=== PATIENT | female | born 2000 | race Caucasian/White ===

== ENCOUNTER → 2022-08-19 | Outpatient (CLI) | payer OTHER, SELFPAY ==
[2022-08-19 10:52] LABS: Erythrocyte Sedimentation Rate < 1 mm/hr (0-30)
[2022-08-19 10:58] LABS: International Normalized Ratio 1.2; Prothrombin Time (Protime)PT. 14.4 SECONDS (11.7-14.9)
[2022-08-19 11:08] LABS: CRP < 2.90 mg/L (0.0-3.0); Ferritin 108 ng/mL (8-252); LDH 150 U/L (84-246)
[2022-08-20 13:08] LABS: Anti-Centromere B Ab <0.2 AI (0.0-0.9); Anti-Chromatin <0.2 AI (0.0-0.9); Anti-Jo <0.2 AI (0.0-0.9); Anti-Scleroderma-70 AB <0.2 AI (0.0-0.9); RNP Ab <0.2 AI (0.0-0.9); SJOGREN'S Anti-SS-A test < 0.2 AI (0.0-0.9); SJOGREN'S Anti-SS-B test < 0.2 AI (0.0-0.9); Smith Ab <0.2 AI (0.0-0.9)
[2022-08-20 15:08] LABS: Endomysial Antibody IgA Negative (Negative)
[2022-08-20 15:36] LABS: Anti-dsDNA Ab 2 IU/mL (0-9)
[2022-08-20 15:39] LABS: Immunoglobulin A 137 mg/dL (87-352); t-Transglutaminase IgA <2 U/mL (0-3)
[2022-08-27 00:07] LABS: Cytoplasmic Ab (C-ANCA) <1:20 titer (Neg:<1:20); HEPATITIS B SURFACE AG Negative (Negative); Hep C Antibodies 0.1 s/co ratio (0.0-0.9); Hepatitis A IgM Antibody Negative (Negative); Hepatitis B Core AB IgM Negative (Negative); Immunoglobulin A 133 mg/dL (87-352); Immunoglobulin E 15 IU/mL (6-495); Immunoglobulin G 1275 mg/dL (586-1602)
[2022-08-27 11:22] LABS: Anti-Smooth Muscle ABS 11 Units (0-19); Immunoglobulin M 242 mg/dL (26-217); Perinuclear Ab (P-ANCA) <1:20 titer (Neg:<1:20)
== END | disposition home or self-care (01) ==
LOC: LAB 09:18
PROVIDERS: PCP Nurse Practitioner Family; Visit Provider Internal Medicine Gastroenterology
DX: K75.4 Autoimmune hepatitis (principal); K59.00 Constipation, unspecified
CPT/HCPCS: 36415; 80074; 82728; 82784; 82785; 83516; 83615; 85610; 85652; 86140; 86225; 86235; 86255; 86256

== ENCOUNTER → 2022-09-21 | Outpatient (CLI) | payer OTHER, SELFPAY ==
--- NOTE | 2022-09-21 09:38 | US_ITS ---
STUDY: ABDOMINAL ULTRASOUND - RIGHT UPPER QUADRANT REASON FOR VISIT: Female, 22 years old IYER TECHNIQUE: Ultrasound evaluation of the right upper quadrant was performed with real-time and static mullins-scale imaging. TECHNICAL QUALITY: Adequate. COMPARISON: None. FINDINGS: Liver: The liver measures 15.6 cm. There is normal echogenicity of the liver. The bile ducts are within normal limits. There is hepatic color flow. The direction of portal flow is hepatopetal. There is no demonstrated mass lesion. Gallbladder: Normal distended gallbladder. The gallbladder wall measures 3 mm. There is a negative sonographic Henley''s sign. There is no pericholecystic fluid. There are no gallstones. Common Bile Duct (C.B.D.): The common bile duct measures 1.0 mm. Pancreas: Normal size of the head, body and tail of the pancreas. There is normal echogenicity of the pancreas. There is no demonstrated pancreatic mass or cyst. Right Kidney: Normal size of the right kidney. The right kidney measures 11.5 cm x 4.6 x 3.9 cm. Normal renal cortex. The right cortex measures 1.1 cm. There is no demonstrated renal mass or cyst. There is no right hydronephrosis. US/Abdomen Limited IMPRESSION: Normal right upper quadrant ultrasound examination. Electronically Signed: Gilbert Pugh MD at 12:45 EST ,
--- NOTE | 2022-09-21 09:38 | US_ITS ---
STUDY: ABDOMINAL ULTRASOUND - ELASTOGRAPHY REASON FOR VISIT: Female, 22 years old. IYER TECHNIQUE: Liver stiffness measurements were obtained on a [employer] RS 85 ultrasound machine using a CA 1-7 probe following the SRU guidelines. 3 measurements were obtained using a 2-D-SWE method. TheIQR/M was 12% suggesting a quality data set. TECHNICAL QUALITY: Adequate. COMPARISON: Comparison is made with prior study done earlier today. FINDINGS: Liver: There is no demonstrated mass lesion. Median liver stiffness measured 5.5 kPa. US/Elastography Parenchyma/Organ IMPRESSION: Liver stiffness measures 5.5 kPa compatible with F0-F1 (Normal to mild liver fibrosis) Metavir score. Electronically Signed: Gilbert Pugh MD at 12:47 EST ,
== END | disposition home or self-care (01) ==
LOC: US 09:37
PROVIDERS: PCP Nurse Practitioner Family; Referring Provider Internal Medicine Gastroenterology; Visit Provider Internal Medicine Gastroenterology
DX: K75.81 Nonalcoholic steatohepatitis (NASH) (principal)
CPT/HCPCS: 76705; 76981

== ENCOUNTER → 2023-05-18 | Outpatient (CLI) | payer OTHER, SELFPAY ==
[2023-05-18 09:51] LABS: Absolute Lymphocyte Count 1.55 X10^3/uL (0.83-4.51); Basophil# 0.04 X10^3/uL; Basophil% 0.7 % (0-1); Eosinophil# 0.06 X10^3/uL; Hematocrit 38.8 % (37-47); Hemoglobin 13.1 g/dL (12.0-15.0); Lymphocyte # 1.55 X10^3/ul (0.83-4.51); Lymphocyte % 25.8 % (19-41); Mean Corp Hgb Conc 33.8 g/dL (32-36); Mean Corpuscular Hgb 31.7 pg (27.0-32.0); Mean Corpuscular Volume 93.9 fL (81-99); Mean Platelet Vol. 11.5 fl (6.2-12.0); Monocyte# 0.36 X10^3/uL; NRBC Flagged by Analyzer 0 % (0-5); Neutrophil # 3.98 X10^3/uL (2.7-7.7); Neutrophil % 66.2 % (47-70); Platelet Count 220 K/mm3 (150-450); RBC Distribution Width CV 13.3 % (11.6-14.6); RBC Distribution Width SD 45.6 fl (35.1-43.9); Red Blood Count 4.13 M/mm3 (4.2-5.4)
[2023-05-18 09:54] LABS: Erythrocyte Sedimentation Rate < 1 mm/hr (0-30)
[2023-05-18 10:33] LABS: ALB/GLOB Ratio 1.1 RATIO (0.9-2.4); AST(SGOT) 15 U/L (15-37); Alanine Aminotransfer ALT/SGPT 41 U/L (13-56); Albumin, Serum 4.1 g/dL (3.2-5.0); Alkaline Phosphatase 62 U/L (45-117); Anion Gap 7 (5-15); BUN 12 mg/dL (7-18); BUN/Creat Ratio 12.4 RATIO (10-20); CRP < 2.90 mg/L (0.0-3.0); Calcium,Total 8.9 mg/dL (8.5-10.1); Chloride 107 mmol/L (98-107); Creatinine, Serum 0.96 mg/dL (0.55-1.02); EST Glomerular Filtration Rate 76 mL/min (>60); Est Glom Filt Rate - Afr Amer 92 mL/min (>60); Ferritin 55 ng/mL (8-252); Globulin 3.6 g/dL (2.2-4.2); Glucose 82 mg/dL (74-106); LDH 168 U/L (84-246); Potassium 4.2 mmol/L (3.5-5.1); Protein, Total 7.7 g/dL (6.4-8.2); Sodium Level 140 mmol/L (136-145)
[2023-05-20 20:07] LABS: Anti-Smooth Muscle ABS 15 Units (0-19); Cytoplasmic Ab (C-ANCA) <1:20 titer (Neg:<1:20); Endomysial Antibody IgA Negative (Negative); HEPATITIS B SURFACE AG Negative (Negative); Hep C Antibodies Non Reactive (Non Reactive); Hepatitis A IgM Antibody Negative (Negative); Hepatitis B Core AB IgM Negative (Negative); Immunoglobulin A 117 mg/dL (87-352); Perinuclear Ab (P-ANCA) <1:20 titer (Neg:<1:20); QNTFERON TB Mitogen Value > 10.00 IU/mL (.); QNTFERON TB Nil Value 0.06 IU/mL (.); QNTFERON TB1+ Ag Value 0.06 IU/mL (.); QNTFERON TB2+ Ag Value 0.07 IU/mL (.); QNTIFERON TB Positive Criteria Negative (Negative); t-Transglutaminase IgA <2 U/mL (0-3)
== END | disposition home or self-care (01) ==
LOC: LAB 09:27
PROVIDERS: PCP Nurse Practitioner Family; Referring Provider Internal Medicine Gastroenterology; Visit Provider Internal Medicine Gastroenterology
DX: K75.81 Nonalcoholic steatohepatitis (NASH) (principal); K75.4 Autoimmune hepatitis; K59.00 Constipation, unspecified
CPT/HCPCS: 36415; 80053; 80074; 82728; 82784; 83516; 83615; 85025; 85652; 86140; 86255; 86256; 86480

== ENCOUNTER → 2023-06-01 | Outpatient (CLI) | payer OTHER, SELFPAY ==
--- NOTE | 2023-06-01 08:00 | US_ITS ---
STUDY: ABDOMINAL ULTRASOUND - RIGHT UPPER QUADRANT REASON FOR VISIT: Female, 23 years old Sofia TECHNIQUE: Ultrasound evaluation of the right upper quadrant was performed with real-time and static mullins-scale imaging. TECHNICAL QUALITY: Adequate. COMPARISON: Comparison is made with prior study dated September 21, 2022. FINDINGS: Liver: The liver measures 15.7 cm. There is normal echogenicity of the liver. The bile ducts are within normal limits. There is hepatic color flow. The direction of portal flow is hepatopetal. There is no demonstrated mass lesion. Gallbladder: Normal distended gallbladder. The gallbladder wall measures 1.0 mm. There is a negative sonographic Henley''s sign. There is no pericholecystic fluid. There are no gallstones. Common Bile Duct (C.B.D.): The common bile duct measures 2.0 mm. Pancreas: Normal size of the head, body and tail of the pancreas. There is normal echogenicity of the pancreas. There is no demonstrated pancreatic mass or cyst. Right Kidney: Normal size of the right kidney. The right kidney measures 11.3 cm x 4.2 cm x 4.1 cm. Normal renal cortex. The right cortex measures 1.6 cm. There is no demonstrated renal mass or cyst. There is no right hydronephrosis. IMPRESSION: Normal right upper quadrant ultrasound examination. Electronically Signed: Gilbert Pugh MD at 15:52 EDT , STUDY: ABDOMINAL ULTRASOUND - ELASTOGRAPHY REASON FOR VISIT: Female, 23 years old. SOFIA TECHNIQUE: Liver stiffness measurements were obtained on a [employer] 85 ultrasound machine using a CA 1-7 probe following the SRU guidelines. 3 measurements were obtained using a 2-D-SWE method. TheIQR/M was 7 % suggesting a quality data set. TECHNICAL QUALITY: Adequate. COMPARISON: Comparison is made with prior study dated September 21, 2022. FINDINGS: Liver: There is no demonstrated mass lesion. Median liver stiffness measured 5.8 kPa. Abdomen: There is no demonstrated mass lesion. US/Abdomen Limited IMPRESSION: Liver stiffness measures 5.8 kPa compatible with F0-F1 (Normal to mild liver fibrosis) Metavir score. Electronically Signed: Gilbert Pugh MD at 15:54 EDT ,
== END | disposition home or self-care (01) ==
LOC: US 07:59
PROVIDERS: PCP Nurse Practitioner Family; Referring Provider Internal Medicine Gastroenterology; Visit Provider Internal Medicine Gastroenterology
DX: K75.81 Nonalcoholic steatohepatitis (NASH) (principal); K75.4 Autoimmune hepatitis; K59.00 Constipation, unspecified
CPT/HCPCS: 76705; 76981

== ENCOUNTER → 2023-07-19 | Outpatient (CLI) | payer OTHER, SELFPAY ==
[2023-07-19 09:45] LABS: Absolute Lymphocyte Count 1.92 X10^3/uL (0.83-4.51); Absolute Neutrophil Count 3.6 X10^3/uL (2.0-7.7); Basophil# 0.05 X10^3/uL; Basophil% 0.8 % (0-1); Eosinophil# 0.05 X10^3/uL; Eosinophils% 0.8 % (0-5); Hematocrit 41.2 % (37-47); Hemoglobin 14.3 g/dL (12.0-15.0); Lymphocyte # 1.92 X10^3/ul (0.83-4.51); Lymphocyte % 31.1 % (19-41); Mean Corp Hgb Conc 34.7 g/dL (32-36); Mean Corpuscular Hgb 31.6 pg (27.0-32.0); Mean Corpuscular Volume 90.9 fL (81-99); Mean Platelet Vol. 10.9 fl (6.2-12.0); Monocyte% 8.1 % (0-10); NRBC Flagged by Analyzer 0 % (0-5); Neutrophil # 3.57 X10^3/uL (2.7-7.7); Neutrophil % 57.7 % (47-70); Platelet Count 280 K/mm3 (150-450); RBC Distribution Width CV 12.8 % (11.6-14.6); RBC Distribution Width SD 42.1 fl (35.1-43.9); Red Blood Count 4.53 M/mm3 (4.2-5.4); White Blood Count 6.2 K/mm3 (4.4-11.0)
[2023-07-19 10:20] LABS: ALB/GLOB Ratio 1.1 RATIO (0.9-2.4); AST(SGOT) 15 U/L (15-37); Alanine Aminotransfer ALT/SGPT 72 U/L (13-56); Albumin, Serum 3.9 g/dL (3.2-5.0); Alkaline Phosphatase 62 U/L (45-117); Anion Gap 4 (5-15); BUN 14 mg/dL (7-18); BUN/Creat Ratio 16.6 RATIO (10-20); Calcium,Total 9.1 mg/dL (8.5-10.1); Chloride 111 mmol/L (98-107); Creatinine, Serum 0.84 mg/dL (0.55-1.02); EST Glomerular Filtration Rate 89 mL/min (>60); Est Glom Filt Rate - Afr Amer 108 mL/min (>60); Globulin 3.6 g/dL (2.2-4.2); Glucose 80 mg/dL (74-106); Potassium 4.3 mmol/L (3.5-5.1); Protein, Total 7.5 g/dL (6.4-8.2); Sodium Level 141 mmol/L (136-145)
== END | disposition home or self-care (01) ==
LOC: LAB 09:31
PROVIDERS: PCP Nurse Practitioner Family; Referring Provider Internal Medicine Gastroenterology; Visit Provider Internal Medicine Gastroenterology
DX: K75.4 Autoimmune hepatitis (principal)
CPT/HCPCS: 36415; 80053; 85025

== ENCOUNTER → 2023-09-05 | Outpatient (CLI) | payer OTHER, SELFPAY ==
[2023-09-05 11:12] LABS: Erythrocyte Sedimentation Rate < 1 mm/hr (0-30)
[2023-09-05 11:13] LABS: Absolute Lymphocyte Count 1.27 X10^3/uL (0.83-4.51); Absolute Neutrophil Count 5.3 X10^3/uL (2.0-7.7); Basophil# 0.04 X10^3/uL; Basophil% 0.6 % (0-1); Eosinophil# 0.06 X10^3/uL; Eosinophils% 0.8 % (0-5); Hematocrit 41.8 % (37-47); Hemoglobin 14.2 g/dL (12.0-15.0); Lymphocyte # 1.27 X10^3/ul (0.83-4.51); Mean Corpuscular Hgb 30.9 pg (27.0-32.0); Mean Corpuscular Volume 90.9 fL (81-99); Mean Platelet Vol. 11.1 fl (6.2-12.0); Monocyte# 0.41 X10^3/uL; Monocyte% 5.8 % (0-10); NRBC Flagged by Analyzer 0 % (0-5); Neutrophil # 5.25 X10^3/uL (2.7-7.7); Neutrophil % 74.4 % (47-70); Platelet Count 235 K/mm3 (150-450); RBC Distribution Width CV 13.2 % (11.6-14.6); RBC Distribution Width SD 43.4 fl (35.1-43.9); White Blood Count 7.1 K/mm3 (4.4-11.0)
[2023-09-05 11:16] LABS: International Normalized Ratio 1.1; Prothrombin Time (Protime)PT. 14.4 SECONDS (11.7-14.9)
[2023-09-05 11:30] LABS: ALB/GLOB Ratio 1.1 RATIO (0.9-2.4); AST(SGOT) 13 U/L (15-37); Alanine Aminotransfer ALT/SGPT 20 U/L (13-56); Albumin, Serum 4.1 g/dL (3.2-5.0); Alkaline Phosphatase 62 U/L (45-117); Anion Gap 3 (5-15); BUN 10 mg/dL (7-18); BUN/Creat Ratio 11.4 RATIO (10-20); CRP < 2.90 mg/L (0.0-3.0); Calcium,Total 9.1 mg/dL (8.5-10.1); Chloride 109 mmol/L (98-107); Creatinine, Serum 0.88 mg/dL (0.55-1.02); EST Glomerular Filtration Rate 84 mL/min (>60); Est Glom Filt Rate - Afr Amer 102 mL/min (>60); Globulin 3.7 g/dL (2.2-4.2); Glucose 89 mg/dL (74-106); Potassium 4.1 mmol/L (3.5-5.1); Protein, Total 7.8 g/dL (6.4-8.2); Sodium Level 139 mmol/L (136-145)
== END | disposition home or self-care (01) ==
LOC: LAB 10:09
PROVIDERS: PCP Nurse Practitioner Family; Referring Provider Internal Medicine; Visit Provider Internal Medicine
DX: K75.4 Autoimmune hepatitis (principal)
CPT/HCPCS: 36415; 80053; 85025; 85610; 85652; 86140

== ENCOUNTER → 2023-12-07 | Outpatient (CLI) | payer OTHER, SELFPAY ==
[2023-12-07 14:52] LABS: Erythrocyte Sedimentation Rate < 1 mm/hr (0-30)
[2023-12-07 14:54] LABS: Absolute Lymphocyte Count 1.98 X10^3/uL (0.83-4.51); Absolute Neutrophil Count 4.7 X10^3/uL (2.0-7.7); Basophil# 0.04 X10^3/uL; Basophil% 0.6 % (0-1); Eosinophil# 0.07 X10^3/uL; Hematocrit 40.4 % (37-47); Hemoglobin 14.4 g/dL (12.0-15.0); Lymphocyte # 1.98 X10^3/ul (0.83-4.51); Lymphocyte % 27.6 % (19-41); Mean Corp Hgb Conc 35.6 g/dL (32-36); Mean Corpuscular Hgb 32.1 pg (27.0-32.0); Mean Platelet Vol. 11.4 fl (6.2-12.0); Monocyte# 0.41 X10^3/uL; Monocyte% 5.7 % (0-10); NRBC Flagged by Analyzer 0 % (0-5); Neutrophil # 4.65 X10^3/uL (2.7-7.7); Neutrophil % 64.8 % (47-70); Platelet Count 282 K/mm3 (150-450); RBC Distribution Width SD 42.2 fl (35.1-43.9); Red Blood Count 4.49 M/mm3 (4.2-5.4); White Blood Count 7.2 K/mm3 (4.4-11.0)
[2023-12-07 15:00] LABS: International Normalized Ratio 1.2
[2023-12-07 15:06] LABS: ALB/GLOB Ratio 1.2 RATIO (0.9-2.4); AST(SGOT) 11 U/L (15-37); Alanine Aminotransfer ALT/SGPT 20 U/L (13-56); Albumin, Serum 4.4 g/dL (3.2-5.0); Alkaline Phosphatase 63 U/L (45-117); Anion Gap 7 (5-15); BUN 12 mg/dL (7-18); CRP < 2.90 mg/L (0.0-3.0); Calcium,Total 9.4 mg/dL (8.5-10.1); Chloride 106 mmol/L (98-107); EST Glomerular Filtration Rate 73 mL/min (>60); Est Glom Filt Rate - Afr Amer 88 mL/min (>60); Globulin 3.7 g/dL (2.2-4.2); Glucose 86 mg/dL (74-106); Potassium 3.8 mmol/L (3.5-5.1); Protein, Total 8.1 g/dL (6.4-8.2); Sodium Level 138 mmol/L (136-145)
[2023-12-07 15:11] LABS: Vitamin D,25 Hydroxy 34.2 ng/mL
[2023-12-09 08:11] LABS: AFP, Tumor Marker < 1.8 ng/mL (0.0-4.7)
== END | disposition home or self-care (01) ==
LOC: LAB 13:25
PROVIDERS: PCP Nurse Practitioner Family; Referring Provider Internal Medicine; Visit Provider Internal Medicine
DX: K75.4 Autoimmune hepatitis (principal); K75.81 Nonalcoholic steatohepatitis (NASH)
CPT/HCPCS: 36415; 80053; 82105; 82306; 85025; 85610; 85652; 86140

== ENCOUNTER 2024-01-02 08:27 | Day surgery (SDC) | payer OTHER, SELFPAY ==
[2024-01-02 08:44] VITALS: BP 111/78; PULSE 85; RESP 16; TEMP 36.6; O2SAT 100; BMI 17.4
[2024-01-02 08:44] LABS: Internal QC Validated? YES +Cl - CLEAR BKGD; Pregnancy, Urine Negative Negative
[2024-01-02 08:45] LABS: Record Kit Lot#,Urine Preg HCG0000718086
[2024-01-02] MEDS: Lactated Ringers 1,000 ML 15 ML IV (08:49)
--- NOTE | 2024-01-02 09:30 | PCM.HP.BLA ---
History and Physical Date of Admission: 01/02/24 ASHIA ZUÑIGA, is a 23 F who presents to the office today for follow up. Ashia established with this clinic 08.19.22. She was previously diagnosed with autoimmune hepatitis by Dr. Granados in 2009 following routine lab work revealing transaminase elevation in the 400?s. Abdominal US followed by Liver biopsy 04.30.2010 mild chronic active hepatitis with portal inflammation 3 of 4, piecemeal necrosis /20, lobular degeneration/necrosis ? and fibrosis 0/4. Subsequently started on prednisone and Imuran with marked improvement of transaminases. US RUQ ..17 normal. Liver biopsy 09.09.2017 portal inflammation 1 of 4 with mild lymphocytes in one portal area; periportal/periseptal inflammation 0 of 5; parenchymal changes 0 of 4, confluent necrosis 0 of 6; fibrosis 0 of 6. she developed dark urine and jaundice with AST 89/ALT 125, TB 3.1, DB 0.8, platelet 132 ? started on prednisone 40mg QD. 12.22.20 labs AST 122/ALT 184, TB 2.4 ? prednisone 30mg BID. Liver US normal, doppler reports portal HTN. 12.30.20 labs AST 26/ALT 101, TB 1.1, DB 0.2. 6TG 250, 6MMP 392. ? Imuran increased to 75mg QD. 01.13.21 labs normalized and prednisone Weaned 6.. labs AST 23/ALT39, TB 1.3, DB0.2 6TG 414, 6MMP <322 US liver 07.20.21 without portal HTN noted PMH CDI infection at age 10 requiring hospitalization. FH negative for IBD/liver disease. Biochemical workup ESR, coagulation, Ferritin, LDH, CRP, celiac, GUME comp, hepatitis, ANCA, ASM ab, IgGAE without pertinent abnormality. IgM H242 US RUQ and elastography 09.21.22 with normal hepatic echogenicity. No abnormalities noted. Hepatic stiffness measures 5.5kPa. Plan LV 08.19.22: Constipation ? Autoimmune Hepatitis ? biochemical workup and imaging BM have slightly improved with less days between BM but continues to have very small/hard BM without abd pain/bloating/discomfort/bleeding associated. Reports some nausea in the form of a ?gaggy? feeling that she believes is related to her heartburn. Heartburn is an issue approximately 1-2 times a week, feels this is partially associated with poor diet choices. OV 8.9.23 In regards to her liver she feels she is doing very well. She has been itching lately; though body lotion has been helpful. Constipation has been an issue for the last few months; she will have no BM/very small BM for several weeks, has had one episode of loose stool with preceding abdominal cramping. She is not typically having abdominal pain. With this she has been having nausea and decreased appetite, though she continues to feel hungry. [facility] recommended Colace and fiber which have been ineffective. US abd/elastography ..- Liver measures 15.7 5.8 kPa OV 11.27.23- Pt is stable since last visit. Currently taking Imuran 50mg as we were trying to wean her off at last visit. Has tolerated it well. Still struggles with constipation. PCP has her on Amitiza 8mcg BID. Is somewhat helpful Has a BM 1-2 days but feels she is not emptying. Lower abd cramping due to constipation. Is concerned about hair loss. Patient had thin hair and subsequent hair loss before 2009 that led to the diagnosis of AIH after liver biopsy but it got better and her hair becomes thicker after starting on Imuran. It was good until last 4 months again same thing here with hair loss. Patient has not seen cardiopulmonary physical therapist. Denies abdominal pain. OV 3.1.24- Pt continues to have constipation. Did not go for 3 weeks and was seen at [facility] a month ago. Is taking Amitiza 16mcg BID from her primary. BM are still every 5 days. Also has had dizziness, SOB and fatigue. Has also started seeing [facility] and they are currently working her up for possible Antelope's disease and pots. ROS Const Constitutional: Positive for fatigue and weakness ENT ENT: No difficulty swallowing Gastro GI: Positive for bloating, constipation, diarrhea, heartburn, excessive flatus and nausea/dyspepsia; No abdominal pain, belching, change in bowel habits, change in stool character, coffee ground emesis, cramping, difficulty swallowing, feeling full early, incontinent of stools, Vomiting blood/hematemesis, Blood in stool, loose stools, Black,tarry stools, pain with swallowing, vomiting or other Musc Musculoskeletal: Positive for muscle weakness; No joint pain Skin Skin: No yellowing of the eye or itchy eyes Neuro Neurology: Positive for weakness Psych Psychiatric: No anxiety and No depression Endo Endocrine: Positive for fatigue Aller/Imm Allergy/Immunologic: No itchy eyes Lawrence/Lymp Hematologic/Lymphatic: No easy bleeding or easy bruising Quality Reporting Tobacco Screening ([facility] 138) Smoking Status: Never smoker Assessment and Plan Assessment and Plan (1) Autoimmune hepatitis: Status: Chronic Plan: This is a 22-year-old female patient who was diagnosed with AIH type I almost a decade ago; which usually in pancreatic is group's type II. Her lab work reviewed. CBC all 3 cell lines are in normal range. Liver chemistry shows ALT 72, AST 15 otherwise all liver normals. Autoimmune work-up was essentially negative. QuantiFERON gold test negative. Hepatitis panel negative.Last abdominal ultrasound in May 2023 reported normal liver size 15.7 cm with normal echogenicity. 3 system within normal limit. No gallstones CBD 2 mm. Size and echogenicity. No pancreatic mass or cyst. Liver elastography reported 5.5 kPa compatible with F3 to F4 1 normal to mild liver fibrosis mattery score. In meantime, she saw cardiopulmonary physical therapist for her hair loss and seems it is better. He referred to belt fixer patient is feeling very weak and fatigued, low muscle mass. As per the patient though we do not have any record, there is abnormality of testosterone and other hormones and she is getting workup for Loco's disease. Labs reviewed. Liver chemistry, all 3 cell lines within normal limit. Liver ultrasound with elastography also shows normal echogenicity of liver in size. No demonstrated mass. Median liver stiffness 5.5 kPa. Follow-up in 3 months. (2) Constipation: Status: Chronic Qualifiers: Constipation type: unspecified constipation type Qualified Code(s): K59.00 - Constipation, unspecified Plan: She visited [facility] on 10/27/2023 for severe constipation when she did not had bowel movement as per patient for about [address] abdomen and pelvis with contrast was done and reported as GI tract dilatation or evidence of inflammatory changes. Appendix unremarkable. No focal bladder wall thickening, no hydronephrosis or nephrolithiasis. Mild periportal edema and distention of IVC also reported otherwise liver, spleen, pancreas and both adrenal glands appear normal. She was given enema and Dulcolax oral as per the patient she moved bowel and discharged from the ED. She is on Amitiza 16 mcg twice daily She still has Dulcolax oral and takes it when she could not move bowel in 3 days. Advised to take MiraLAX 17 g twice daily and senna S2 tablet twice daily as needed. Will schedule colonoscopy. I have examined the patient and the H&P has been reviewed. There are no clinical changes since date of exam.
--- NOTE | 2024-01-02 09:59 | OP.COLON_ITS ---
Patient Name: Ashia Bonilla Procedure Date: 01/02/2024 9:37 AM Date of : 2000 Age: 23 Procedure: Colonoscopy Indications: Generalized abdominal pain, Abdominal distress in the left upper quadrant, Chronic idiopathic constipation Providers: Angel Gutierrez DO Referring MD: Kennedy Serrano Medicines: Monitored Anesthesia Care Patient Profile: This is a 23 year old female. Refer to note in patient chart for documentation of history and physical. Last Colonoscopy: none. The patient's first colonoscopy is today. Complications: No immediate complications. Procedure: Pre-Anesthesia Assessment: - Prior to the procedure, a History and Physical was performed, and patient medications and allergies were reviewed. The patient is competent. The risks and benefits of the procedure and the sedation options and risks were discussed with the patient. All questions were answered and informed consent was obtained. Patient identification and proposed procedure were verified by the physician in the pre-procedure area. Mental Status Examination: alert and oriented. Airway Examination: normal oropharyngeal airway and neck mobility. Respiratory Examination: clear to auscultation. CV Examination: normal. Prophylactic Antibiotics: The patient does not require prophylactic antibiotics. Prior Anticoagulants: The patient has taken no anticoagulant or antiplatelet agents. ASA Grade Assessment: II - A patient with mild systemic disease. After reviewing the risks and benefits, the patient was deemed in satisfactory condition to undergo the procedure. The anesthesia plan was to use monitored anesthesia care (MAC). Immediately prior to administration of medications, the patient was re-assessed for adequacy to receive sedatives. The heart rate, respiratory rate, oxygen saturations, blood pressure, adequacy of pulmonary ventilation, and response to care were monitored throughout the procedure. The physical status of the patient was re-assessed after the procedure. After I obtained informed consent, the scope was passed under direct vision. Throughout the procedure, the patient's blood pressure, pulse, and oxygen saturations were monitored continuously. The pediatric colonoscope was introduced through the anus and advanced to the terminal ileum. The colonoscopy was performed without difficulty. The patient tolerated the procedure well. The quality of the bowel preparation was adequate. The terminal ileum, ileocecal valve, appendiceal orifice, and rectum were photographed. Scope In: 9:40:08 AM Scope Withdrawal Time 0 hours 4 minutes 35 seconds Scope Out: 9:52:56 AM Total Procedure Duration Time 0 hours 12 minutes 48 seconds Findings: The perianal and digital rectal examinations were normal. The splenic flexure was significantly tortuous. The exam was otherwise without abnormality on direct and retroflexion views. Impression: - Tortuous colon. - The examination was otherwise normal on direct and retroflexion views. - No specimens collected. Recommendation: - Discharge patient to home. - Resume previous diet. - Continue present medications. - No recommendation at this time regarding repeat colonoscopy due to age. Procedure Code(s): --- Professional --- 70938, Colonoscopy, flexible; diagnostic, including collection of specimen(s) by brushing or washing, when performed (separate procedure) CPT copyright 2021 [employer]. All rights reserved. The codes documented in this report are preliminary and upon med surg nurse review may be revised to meet current compliance requirements. Angel Gutierrez DO 01/02/2024 9:59:10 AM This report has been signed electronically. Number of Addenda: 0 Note Initiated On: 01/02/2024 9:37 AM
--- NOTE | 2024-01-02 09:59 | OP.CCLET_ITS ---
01/02/2024 Kennedy Serrano Re : Colonoscopy procedure for Ashia Molinar Maggie This procedure was performed on Tuesday, January 02, 2024. My impressions and recommendations are as follows: Impressions : - Tortuous colon. - The examination was otherwise normal on direct and retroflexion views. - No specimens collected. Recommendations : - Discharge patient to home. - Resume previous diet. - Continue present medications. - No recommendation at this time regarding repeat colonoscopy due to age. My findings are described in the full procedure note, which is enclosed. If I can be of further assistance, please feel free to contact me at . Sincerely, Angel Gutierrez, 01/02/2024 9:59:10 AM This report has been signed electronically.
[2024-01-02 10:00] VITALS: BP 111/78; BP 86/49; PULSE 82; RESP 18; TEMP 36.8; O2SAT 96
[2024-01-02 10:05] VITALS: BP 111/78; BP 89/44; PULSE 82; RESP 18; O2SAT 96
[2024-01-02 10:10] VITALS: BP 111/78; BP 93/45; PULSE 80; RESP 18; O2SAT 99
[2024-01-02 10:13] VITALS: BP 111/78; BP 90/51; PULSE 60; RESP 18; TEMP 36.3; O2SAT 96
[2024-01-02 10:25] VITALS: BP 111/78
== END 2024-01-02 11:05 | disposition home or self-care (01) ==
LOC: EN 08:28 → AC 08:50
PROVIDERS: Anesthesiology; PCP Nurse Practitioner Family; Referring Provider Nurse Practitioner Family; Visit Provider Internal Medicine Gastroenterology
PROC: 0DJD8ZZ Inspection of Lower Intestinal Tract, Via Natural or Artificial Opening Endoscopic (ICD-10-PCS; CPT 45378; principal; 2024-01-02 09:25)
DX: K75.4 Autoimmune hepatitis (principal); K59.04 Chronic idiopathic constipation; R10.84 Generalized abdominal pain; F17.200 Nicotine dependence, unspecified, uncomplicated; Q43.8 Other specified congenital malformations of intestine
CPT/HCPCS: 45378; 81025; J7120; J2405

== ENCOUNTER → 2024-03-19 | Outpatient (CLI) | payer SELFPAY ==
[2024-03-19 13:17] LABS: Absolute Lymphocyte Count 1.18 X10^3/uL (0.83-4.51); Absolute Neutrophil Count 6.9 X10^3/uL (2.0-7.7); Basophil# 0.05 X10^3/uL; Basophil% 0.6 % (0-1); Eosinophil# 0.05 X10^3/uL; Eosinophils% 0.6 % (0-5); Hematocrit 39.6 % (37-47); Hemoglobin 13.6 g/dL (12.0-15.0); Lymphocyte # 1.18 X10^3/ul (0.83-4.51); Lymphocyte % 13.6 % (19-41); Mean Corp Hgb Conc 34.3 g/dL (32-36); Mean Corpuscular Hgb 32.2 pg (27.0-32.0); Mean Corpuscular Volume 93.8 fL (81-99); Mean Platelet Vol. 10.9 fl (6.2-12.0); Monocyte# 0.46 X10^3/uL; Monocyte% 5.3 % (0-10); NRBC Flagged by Analyzer 0 % (0-5); Neutrophil # 6.92 X10^3/uL (2.7-7.7); Neutrophil % 79.4 % (47-70); Platelet Count 308 K/mm3 (150-450); RBC Distribution Width CV 14.4 % (11.6-14.6); RBC Distribution Width SD 49.1 fl (35.1-43.9); Red Blood Count 4.22 M/mm3 (4.2-5.4); White Blood Count 8.7 K/mm3 (4.4-11.0)
[2024-03-19 13:54] LABS: ALB/GLOB Ratio 0.9 RATIO (0.9-2.4); AST(SGOT) 81 U/L (15-37); Alanine Aminotransfer ALT/SGPT 227 U/L (13-56); Alkaline Phosphatase 79 U/L (45-117); Anion Gap 5 (5-15); BUN 7 mg/dL (7-18); BUN/Creat Ratio 8.5 RATIO (10-20); Calcium,Total 9.5 mg/dL (8.5-10.1); Chloride 105 mmol/L (98-107); Creatinine, Serum 0.82 mg/dL (0.55-1.02); EST Glomerular Filtration Rate 91 mL/min (>60); Est Glom Filt Rate - Afr Amer 110 mL/min (>60); Globulin 4.4 g/dL (2.2-4.2); Glucose 113 mg/dL (74-106); Potassium 3.6 mmol/L (3.5-5.1); Protein, Total 8.4 g/dL (6.4-8.2); Sodium Level 135 mmol/L (136-145)
[2024-03-21 15:09] LABS: ANTINUCLEAR ANTIBODIES DIRECT Negative (Negative); Anti-Mitochondrial AB <20.0 Units (0.0-20.0)
[2024-03-21 16:11] LABS: Anti-Smooth Muscle ABS 18 Units (0-19); Cytoplasmic Ab (C-ANCA) <1:20 titer (Neg:<1:20); Perinuclear Ab (P-ANCA) <1:20 titer (Neg:<1:20)
== END | disposition home or self-care (01) ==
PROVIDERS: PCP Nurse Practitioner Family; Referring Provider Internal Medicine; Visit Provider Internal Medicine
DX: K59.00 Constipation, unspecified (principal); K75.4 Autoimmune hepatitis
CPT/HCPCS: 36415; 80053; 83516; 85025; 86038; 86225; 86235; 86256

== ENCOUNTER → 2024-04-26 | Outpatient (CLI) | payer OTHER, SELFPAY ==
[2024-04-26 16:45] LABS: International Normalized Ratio 1.2; Prothrombin Time (Protime)PT. 14.8 SECONDS (11.7-14.9)
[2024-04-26 17:08] LABS: AST(SGOT) 15 U/L (15-37); Alanine Aminotransfer ALT/SGPT 29 U/L (13-56); Albumin, Serum 4.2 g/dL (3.2-5.0); Alkaline Phosphatase 76 U/L (45-117); CRP < 2.90 mg/L (0.0-3.0); Globulin 3.5 g/dL (2.2-4.2); Protein, Total 7.7 g/dL (6.4-8.2)
== END | disposition home or self-care (01) ==
PROVIDERS: PCP Nurse Practitioner Family; Referring Provider Internal Medicine; Visit Provider Internal Medicine
DX: K75.4 Autoimmune hepatitis (principal)
CPT/HCPCS: 36415; 80076; 85610; 86140

== ENCOUNTER → 2024-07-13 | Outpatient (CLI) | payer OTHER, MEDICAID, SELFPAY ==
[2024-07-13 12:47] LABS: Absolute Lymphocyte Count 1.54 X10^3/uL (0.83-4.51); Absolute Neutrophil Count 6.2 X10^3/uL (2.0-7.7); Basophil# 0.05 X10^3/uL; Basophil% 0.6 % (0-1); Eosinophil# 0.05 X10^3/uL; Eosinophils% 0.6 % (0-5); Hematocrit 36.7 % (37-47); Hemoglobin 12.9 g/dL (12.0-15.0); Lymphocyte # 1.54 X10^3/ul (0.83-4.51); Lymphocyte % 18.2 % (19-41); Mean Corp Hgb Conc 35.1 g/dL (32-36); Mean Corpuscular Hgb 31.5 pg (27.0-32.0); Mean Corpuscular Volume 89.7 fL (81-99); Monocyte# 0.57 X10^3/uL; Monocyte% 6.7 % (0-10); NRBC Flagged by Analyzer 0 % (0-5); Neutrophil # 6.21 X10^3/uL (2.7-7.7); Neutrophil % 73.3 % (47-70); Platelet Count 276 K/mm3 (150-450); RBC Distribution Width CV 13.4 % (11.6-14.6); RBC Distribution Width SD 43.5 fl (35.1-43.9); Red Blood Count 4.09 M/mm3 (4.2-5.4); White Blood Count 8.5 K/mm3 (4.4-11.0)
[2024-07-13 12:51] LABS: Erythrocyte Sedimentation Rate 2 mm/hr (0-30)
[2024-07-13 13:44] LABS: AST(SGOT) 32 U/L (15-37); Alanine Aminotransfer ALT/SGPT 99 U/L (13-56); Albumin, Serum 3.5 g/dL (3.2-5.0); Alkaline Phosphatase 69 U/L (45-117); Amylase 60 U/L (25-115); Bilirubin, Direct 0.33 mg/dL (0.00-0.30); CRP < 2.90 mg/L (0.0-3.0); Globulin 3.9 g/dL (2.2-4.2); Lipase 53 U/L (13-75); Protein, Total 7.4 g/dL (6.4-8.2)
== END | disposition home or self-care (01) ==
LOC: LAB 12:18
PROVIDERS: PCP Nurse Practitioner Family; Referring Provider Internal Medicine Gastroenterology; Visit Provider Internal Medicine Gastroenterology
DX: K75.4 Autoimmune hepatitis (principal)
CPT/HCPCS: 36415; 80076; 82150; 83690; 85025; 85652; 86140

== ENCOUNTER → 2024-08-03 | Outpatient (CLI) | payer OTHER, MEDICAID, SELFPAY ==
--- OUTSIDE RECORDS SUMMARY | 2024-08-03 16:59 | XMS RPT_ITS | CCD ---
Author Organization [facility] Care Team Providers Care Wheat Inspector Name Role Phone REFERRING, TERRY WO ID Unavailable Unavailable KAROL QUINONES Unavailable Unavailable ASHLEY, OSMAN Unavailable Unavailable ASHLEY BLOCK MASON - FHA UNDERWRITER, OSMAN [facility] Primary Care Phys ician Oly PT, Valerie Unavailable Unavailable BONNIE ADAN, TALISHA Attending Unavailable ASHLEY BLOCK MASON - FHA UNDERWRITER, OSMAN [facility] U dalila NICOLE MD, TALISHA Attending Unavailable ASHLEY BLOCK MASON - FHA UNDERWRITER, OSMAN [facility] Primary [facility] U navailable ASHLEY BLOCK MASON - FHA UNDERWRITER, OSMAN Victoria Attending U navailable ASHLEY BLOCK MASON - FHA UNDERWRITER, OSMAN [facility] U navailable LO BLOCK MASON-FHA UNDERWRITER, BETSY Attending Unavail able ASHLEY BLOCK MASON - FHA UNDERWRITER, OSMAN [facility] Primary [facility] U navailable SJ BLOCK MASON-FHA UNDERWRITER, SHANTE Attending Unavailabl e ASHLEY BLOCK MASON - FHA UNDERWRITER, OSMAN [facility] U navailable CHILDS PACASHLYN Attending Unavailable ASHLEY BLOCK MASON - FHA UNDERWRITER, OSMAN [facility] Primary Care U navailable ASHLEY BLOCK MASON - FHA UNDERWRITER, OSMAN Victoria Attending U navailable ASHLEY BLOCK MASON - FHA UNDERWRITER, OSMAN [facility] Primary Care U navailable LO BLOCK MASON-FHA UNDERWRITER, BETSY Attending Unavail able ASHLEY BLOCK MASON - FHA UNDERWRITER, OSMAN [facility] U dalila NICOLE MD, TALISHA Attending Unavailable ASHLEY BLOCK MASON - FHA UNDERWRITER, OSMAN [facility] Primary Care U navailable SJ BLOCK MASON-FHA UNDERWRITER, SHANTE Attending Unavailabl e ASHLEY BLOCK MASON - FHA UNDERWRITER, OSMAN [facility] U navkristie CELIS MD, DR JUSTYNA Mcgee Attending Unavailabl e ASHLEY BLOCK MASON - FHA UNDERWRITER, OSMAN [facility] U navailable ASHLEY BLOCK MASON - FHA UNDERWRITER, OSMAN Victoria Attending U navailable ASHLEY BLOCK MASON - FHA UNDERWRITER, OSMAN [facility] Primary [facility] U navailable Medications Current Medications Medication Drug Class(es) Dates Sig (Normalized) Sig (Original) azaTHIOprine 50 mg oral tablet (13 sources) Purine Antimetabolite Start: 11-30-2019 azaTHIOprine 50 mg oral tablet Dose : 50 mg = 1 tab(s), take 1 tablet by mouth once daily Start Date: 11/30/19 Status: Ordered bisacodyl 5 mg delayed release oral tablet (7 sources) Stimulant Laxative Start: 11-11-2023 End: 05-09-2024 bisacodyl 5 mg oral delayed release tablet Dose : 5 mg = 1 tab(s), 0 Refill(s) Start Date: 01/13/24 Status: Ordered Start: 10-27-2023 Dulcolax Laxat riky 5 mg oral tablet Dose : 15 mg = 3 tab(s), Oral, qDay, with a full glass of water, # 25 tab(s), 0 Refill(s) Start Date: 10/27/23 Status: Ordered cephalexin 500 mg oral capsule (1 source) Cephalosporin Antibacterial Start: 08-07-2021 End: 08-14-2021 cephalexin 500 mg oral capsule Dose : 500 mg = 1 cap(s), Oral, q8h, X 7 day(s), # 21 cap(s), 0 Refill(s), 08/14/21 8:40:00 EDT, Pharmacy: [facility] [address], UTI (urinary tract infection), 172.7, cm, 08/07/21 8:17:00 EDT, Height, 54.5, kg, 08/07/21 8:17:00 EDT, Dosing Weight Start Date: 08/07/21 Stop Date: 08/14/21 Status: Ordered 24 hr diclofenac sodium 100 mg extended release oral tablet (1 source) Nonsteroidal Anti-inflammatory Drug Start: 2024 End: 06-25-2024 diclofenac sodium 100 mg oral tablet, extended release Dose : 100 mg = 1 tab(s), Oral, qDay, # 21 tab(s), 0 Refill(s), Pharmacy: [facility], Knee meniscus pain, left, 172.5, cm, 06/04/24 7:53:00 EDT, Height, kg, 06/04/24 7:53:00 EDT, Dosing Weight Start Date: 06/04/24 Stop Date: 06/25/24 Status: Ordered docusate sodium 100 mg oral capsule (8 sources) Start: 01-06-2024 Colace 100 mg oral capsule Dose : 100 mg = 1 cap(s), Oral, BID, PRN as needed for constipation, # 100 cap(s), 1 Refill(s), [facility]: [facility][id number], Moderate cervical dysplasia Weight loss, 172.5, cm, 01/06/24 8:59:00 EDT, Height, kg, 01/06/24 8:59:00 EDT, Dosing Weight Start Date: 01/06/24 Status: Ordered Start: 08-05-2023 Doculase 100 m g oral capsule Dose : 100 mg = 1 cap(s), Oral, BID, PRN for constipation, # 100 cap(s), 6 Refill(s), [facility]acy: [facility] #[id number], 171, cm, 07/11/23 8:04:00 EDT, Height, kg, 07/11/23 8:04:00 EDT, Dosing Weight Start Date: 08/05/23 Status: Ordered ethinyl estradiol 0.03 mg / ferrous fumarate 75 mg / norethindrone 1.5 mg oral tablet (1 source) Estrogen Start: 01-20-2024 take 1 tablet by mouth once daily oral tablet Dose = 1 tab(s), Oral, qDay, # 84 tab(s), 1 Refill(s), [facility]acy: [facility][id number], Encounter for contraceptive management Moderate cervical dysplasia, 172.5, cm, 01/20/24 9:59:00 EDT, Height, kg, 01/20/24 9:59:00 EDT, Dosing Weight Start Date: 01/20/24 Status: Ordered fludrocortisone acetate 0.1 mg oral tablet (3 sources) Start: 04-24-2024 End: 06-23-2024 fludrocortisone 0.1 mg oral tablet Dose : 0.1 mg = 1 tab(s), Oral, qDay, # 90 tab(s), 3 Refill(s), Pharmacy: [facility], POTS (postural orthostatic tachycardia syndrome), 157.5, cm, 04/24/24 9:59:00 EDT, Height, kg, 04/24/24 9:59:00 EDT, Dosing Weight Start Date: 04/24/24 Stop Date: 06/23/24 Status: Ordered Start: 01-13-2024 End: 03-13-2024 fludrocortisone 0.1 mg oral tablet Dose : 0.1 mg = 1 tab(s), Oral, Daily, # 30 tab(s), 1 Refill(s), Pharmacy: [facility] #[id number], POTS (postural orthostatic tachycardia syndrome), 172.5, cm, 01/13/24 8:02:00 EDT, Height, kg, 01/13/24 8:02:00 EDT, Dosing Weight Start Date: 01/13/24 Stop Date: 03/13/24 Status: Ordered lactulose 18135 mg powder for oral solution (1 source) Osmotic Laxative Start: 10-27-2023 End: 11-03-2023 take 1 dose by mouth twice daily lactulose 10 g oral powder for reconstitution Dose : 10 gram(s) = 1 EA, Oral, BID, X 7 day(s), # 14 EA, 0 Refill(s), 11/03/23 9:15:00 AM EST Start Date: 10/27/23 Stop Date: 11/03/23 Status: Ordered linaclotide 0.145 mg oral capsule (1 source) Guanylate Cyclase-C Agonist Start: 07-05-2022 Linzess 145 mcg oral capsule Dose : 145 mcg = 1 cap(s), Oral, qDayAC, 30 minutes before breakfast. Do NOT crush/chew Has Failed: MiraLax, Duxolax, Senna-S, # 30 cap(s), 1 Refill(s), Pharmacy: [facility] #[id number], Chronic constipation, 172.7, cm, 07/05/22 11:17:00 EDT, Height Start Date: 07/05/22 Status: Ordered medroxyPROGESTERone 150 mg/mL intramuscular suspension (9 sources) Start: 11-18-2023 inject 1 mL by intramuscular injection every three months medroxyPROGESTERone 150 mg/mL intramuscular suspension See Instructions, inject 1 milliliter intramuscularly every 3 MONTHS, # 1 mL, 3 Refill(s), Pharmacy: [facility] #[id number], 172.5, cm, 11/11/23 10:39:00 EST, Height, kg, 11/11/23 10:39:00 EST, Dosing Weight Start Date: 11/18/23 Status: Ordered Start: 12-13-2022 inject 1 mL by intra muscular injection every three months medroxyPROGESTERone 150 mg/mL intramuscular suspension See Instructions, inject 1 milliliter intramuscularly every 3 MONTHS, # 1 mL, 3 Refill(s), Pharmacy: [facility] #[id number], 172.5, cm, 07/16/22 10:01:00 EDT, Height, kg, 07/16/22 10:01:00 EDT, Dosing Weight Start Date: 12/13/22 Status: Ordered Start: 04-09-2022 inject 1 mL by intra muscular injection every three months medroxyPROGESTERone 150 mg/mL intramuscular suspension See Instructions, inject 1 milliliter intramuscularly every 3 MONTHS, # 1 mL, 3 Refill(s) Start Date: 04/09/22 Status: Ordered Start: 05-14-2021 inject 1 mL by intra muscular injection every three months medroxyPROGESTERone 150 mg/mL intramuscular suspension See Instructions, inject 1 milliliter intramuscularly every 3 MONTHS, # 1 mL, 3 Refill(s), Pharmacy: [facility] [facility], 172.7, cm, 02/24/21 13:28:00 EDT, Height, kg, 02/24/21 13:28:00 EDT, Dosing Weight Start Date: 05/14/21 Status: Ordered metoclopramide 5 mg oral tablet (2 sources) Dopamine-2 Receptor Antagonist Start: 11-11-2023 End: 01-10-2024 Reglan 5 mg oral tablet Dose : 5 mg = 1 tab(s), Oral, TIDAC, X 30 day(s), # 90 tab(s), 1 Refill(s), 01/10/24 11:22:00 AM EDT, Pharmacy: [facility] #[id number], GERD (gastroesophageal reflux disease), 172.5, cm, 11/11/23 10:39:00 EST, Height, kg, 11/11/23 10:39:00 EST, Dosing Weight Start Date: 11/11/23 Stop Date: 01/10/24 Status: Ordered omeprazole 40 mg delayed release oral capsule (12 sources) Proton Pump Inhibitor Start: 2024 End: 06-25-2024 omeprazole 40 mg oral delayed release capsule Dose : 40 mg = 1 cap(s), Oral, qDay, X 21 day(s), # 21 cap(s), 0 Refill(s), 06/25/24 8:14:00 AM EDT, Pharmacy: [facility], Knee meniscus pain, left, 172.5, cm, 06/04/24 7:53:00 EDT, Height, kg, 06/04/24 7:53:00 EDT, Dosing Weight Start Date: 06/04/24 Stop Date: 06/25/24 Status: Ordered Start: 07-08-2023 End: 02-03-2024 omeprazole 40 mg oral delaye d release capsule Dose : 40 mg = 1 cap(s), Oral, qDay, # 30 cap(s), 2 Refill(s), Pharmacy: [facility] #[id number], 172.5, cm, 12/23/23 10:56:00 EDT, Height, kg, 12/23/23 10:56:00 EDT, Dosing Weight Start Date: 12/23/23 Status: Ordered Start: 07-05-2022 omeprazole 40 mg oral delayed release capsule Dose : 40 mg = 1 cap(s), Oral, qDay, # 30 cap(s), 6 Refill(s), Pharmacy: [facility] #[id number], GERD (gastroesophageal reflux disease), 172.7, cm, 07/05/22 11:17:00 EDT, Height Start Date: 07/05/22 Status: Ordered Start: 04-01-2022 End: 10-28-2022 omeprazole 20 mg oral delaye d release capsule Dose : 20 mg = 1 cap(s), Oral, qDay, # 30 cap(s), 6 Refill(s), Pharmacy: [facility] 172.7, cm, 04/01/22 8:30:00 EDT, Height, kg, 04/01/22 8:27:00 EDT, Dosing Weight Start Date: 6/23/22 Stop Date: 10/28/22 Status: Ordered Start: 12-05-2020 End: 07-03-2021 omeprazole 20 mg oral delaye d release capsule Dose : 20 mg = 1 cap(s), Oral, qDay, # 30 cap(s), 6 Refill(s), [facility]: [facility] 172.5, cm, 12/05/20 10:07:00 EST, Height, kg, 12/05/20 10:07:00 EST, Dosing Weight Start Date: 12/05/20 Stop Date: 07/03/21 Status: Ordered ondansetron 4 mg oral tablet (9 sources) Serotonin-3 Receptor Antagonist Start: 12-23-2023 ondansetron 4 mg ora l tablet Dose : 4 mg = 1 tab(s), Oral, q6h, PRN Nausea/Vomiting, # 30 tab(s), 2 Refill(s), [facility]: [facility] #[id number], 172.5, cm, 12/23/23 10:56:00 EDT, Height, kg, 12/23/23 10:56:00 EDT, Dosing Weight Start Date: 12/23/23 Status: Ordered Start: 11-11-2023 ondansetron 4 mg oral tablet Dose : 4 mg = 1 tab(s), Oral, q6h, PRN Nausea/Vomiting, # 30 tab(s), 1 Refill(s), [facility]: [facility] #[id number], 172.5, cm, 11/11/23 10:39:00 EST, Height, kg, 11/11/23 10:39:00 EST, Dosing Weight Start Date: 11/11/23 Status: Ordered Start: 09-20-2023 ondansetron 4 mg oral tablet Dose : 4 mg = 1 tab(s), Oral, q6h, PRN Nausea/Vomiting, # 30 tab(s), 1 Refill(s), [facility]: [facility] #[id number], 171, cm, 07/11/23 8:04:00 EDT, Height, kg, 07/11/23 8:04:00 EDT, Dosing Weight Start Date: 09/20/23 Status: Ordered spironolactone 50 mg oral tablet (6 sources) Aldosterone Antagonist Start: 2024 spironolactone 50 mg oral tablet Dose : 50 mg = 1 tab(s), Oral, qDay, # 30 tab(s), 0 Refill(s) Start Date: 06/04/24 Status: Ordered Start: 12-01-2023 take 1 tablet by sonali th once daily in the evening spironolactone 100 mg oral tablet take 1 tablet by mouth every evening take with A FULL GLASS OF WATER Start Date: 12/01/23 Status: Ordered Completed/Discontinued Medications Medication Drug Class(es) Dates Sig (Normalized) Sig (Original) lubiprostone 0.008 mg oral capsule (5 sources) Chloride Channel Activator Start: 07-08-2023 End: 10-06-2023 Amitiza 8 mcg oral capsule Dose : 8 mcg = 1 cap(s), Oral, BID, Failed Linzess, MiraLax, Senna-S, # 60 cap(s), 2 Refill(s), Pharmacy: [facility] #[id number], Chronic idiopathic constipation, 171, cm, 07/08/23 9:50:00 EDT, Height, kg, 07/08/23 9:50:00 EDT, Dosing Weight Start Date: 07/08/23 Stop Date: 10/06/23 Status: Ordered Problems Active Problems Problem Classification Problem Date Documented Da te Episodic/Chronic Abdominal pain (14 sources) Abdominal pain; Translations: [Unspecified abdominal pain] Onset: 4 12-19-2020 Episodic Conditions associated with dizziness or vertigo (2 sources) Dizziness 12-01-2023 Episodic Contraceptive and procreative management (20 sources) Contraception 05-04-2019 Episodic Esophageal disorders (13 sources) Gastroesophageal reflux disease 12-05-2020 Chronic Heart valve disorders (13 sources) Mitral valve prolapse 05-04-2019 Chronic Hepatitis (15 sources) Autoimmune hepatitis; Translations: [Autoimmune hepatitis] Onset: 7 05-04-2019 Chronic Malaise and fatigue (12 sources) Asthenia; Translations: [Fatigue] 12-01-2023 Episodic Other circulatory disease (3 sources) Postural orthostatic tachycardia syndrome 01-13-2024 Episodic Other connective tissue disease (1 source) Foot pain 06-18-2022 Episodic Other connective tissue disease (1 source) Tendinitis of wrist 04-01-2022 Episodic Other disorders of stomach and duodenum (8 sources) Gastroptosis 11-11-2023 Episodic Other gastrointestinal disorders (9 sources) Chronic idiopathic constipation 07-08-2023 Chronic Other gastrointestinal disorders (1 source) Chronic constipation 07-05-2022 Episodic Other gastrointestinal disorders (1 source) Constipation, unspecified; Translations: [Constipation, unspecified] Onset: Episodic Other gastrointestinal disorders (1 source) Constipation 10-27-2023 Episodic Other lower respiratory disease (6 sources) Dyspnea on exertion 12-01-2023 Episodic Other non-traumatic joint disorders (1 source) Pain in wrist 04-01-2022 Episodic Other nutritional; endocrine; and metabolic disorders (6 sources) Underweight 12-02-2023 Episodic Other skin disorders (1 source) Skin lesion 07-16-2022 Episodic Other upper respiratory disease (9 sources) Seasonal allergy 07-16-2022 Chronic Other upper respiratory infections (1 source) Chronic sinusitis 03-29-2023 Chronic Other upper respiratory infections (1 source) Laryngitis 03-29-2023 Episodic Spondylosis; intervertebral disc disorders; other back problems (16 sources) Chronic low back pain; Translations: [Lumbago with sciatica] 12-05-2020 Episodic Sprains and strains (3 sources) Low back strain 12-05-2020 Episodic Unclassified (1 source) Pain of joint of knee 2024 Past or Other Problems Problem Classification Problem Date Documented Date Episodic/Chronic Cancer of cervix (2 sources) 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); Translations: [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)] Onset: 12-02-2023 Episodic Other screening for suspected conditions (not mental disorders or infectious disease) (10 sources) Decreased testosterone level ; Translations: [Encounter for screening for malignant neoplasm of cervix] Onset: 11-17-2023 11-11-2023 Episodic Results Test Name Value Interpretation Reference Range Facility XR KNEE THREE VIEWS LEFTon 0 2024 XR KNEE THREE VIEWS LEFT ORIGINAL EXAMINATION: THREE XRAY VIEWS OF THE LEFT [id number] 8:57 am KNEE 3 VIEWS LEFT COMPARISON: None HISTORY: ORDERING SYSTEM PROVIDED HISTORY: Reason for Exam: XR of knee to evaluate for arthritis &/or chronic tears, flattening of the femoral condyle, narrowing of the joint space, osteophyte formation, or subchondral sclerosis. FINDINGS: No acute fracture or dislocation is identified. No joint effusion is seen. There is no joint space narrowing or significant joint effusion. No significant subchondral sclerosis or osteophyte formation. No significant flattening of the femoral condyle. There is no radiopaque foreign body. IMPRESSION: Negative knee radiographs.. I have personally reviewed the images of this examination and agree with the resident's findings and interpretation. Interpreted by: Sylvester Hardwick MD Preliminary Report By: Brandon Eaton MD Electronically signed By Sylvester Hardwick MD Dictated Date: 2024 8:59:38 AM Prelim Date: 2024 2:43:07 PM Sign Date: 2024 2:43:07 PM Ordering Provider: OSMAN RAMIREZ [facility]ly [facility] ([place]) ANDRO 01-23-2024 Androstenedione LCMS 47 ng/dL Normal 41-262 [facility]) Comment on above: Result Comment: This test was developed and its performance characteristics determined by [employer]. It has not been cleared or approved by the Food and Drug Administration. Performed At: [address] [id number] Cristian Li MD Ph:[phone] Performed By: #### 0 [id number] #### [place] [address] TFTESTon 01-18-2024 Free Testost Direct 0.7 pg/mL Normal 0.0-4.2 [facility] ([place]) Comment on above: Result Comment: Perf ormed At: [address] [id number] Cristian Li MD Ph:[phone] Performed At: [address] [id number] Chandrika West PhD Ph:[phone] Performed By: #### 0 [id number], FERR, CBC, ANEU, TSH, 170998, GFR, CMP, [id number], FT4, ADIFF #### [place] [address] #### FOL, DHEAS, B12 #### [address] [address] Testosterone Lvl <3 Low 13-71 [facility] ([place]) Comment on above: Performed By: #### 0 09702, FERR, CBC, ANEU, TSH, 938645, GFR, CMP, 425373, FT4, ADIFF #### [address] [address] #### FOL, DHEAS, B12 #### [place] [id number] ANDROon 01-16-2024 Androstenedione LCMS Not performed Normal A [facility] ([place]) Comment on above: Result Comment: Test not performed. Gel barrier tube unsuitable for test ordered. Contacted Brianna Gómez at your facility 01/16/2024 This test was developed and its performance characteristics determined by [facility]. It has not been cleared or approved by the Food and Drug Administration. Performed At: [facility] [id number] Cristian Li MD Ph:[phone] Performed By: #### 0 81053, FERR, CBC, ANEU, TSH, 174238, GFR, CMP, 513335, FT4, ADIFF #### [place] [address] #### FOL, DHEAS, B12 #### [address] [address] CORTon 12-17-2023 Cortisol Level 32.4 mcg/dL Normal [facility] ([place]) Comment on above: Order Comment: 60 mi n post cortrosyn IV injection Result Comment: Fili isol AM Reference Range 6.5-26.0 mcg/dL Cortisol PM Reference Range 3.5-15.0 mcg/dL Performed By: #### 0 17295, FERR, CBC, ANEU, TSH, [id number], GFR, CMP, 729655, FT4, ADIFF #### [address] [address] #### FOL, DHEAS, B12 #### [place] [address] Cortisol Level 15.3 mcg/dL Normal [facility] ([place]) Comment on above: Order Comment: draw baseline cortisol, then inject with 250 MCG of cortrosyn IM/IV and then draw level at 30 mins and 60 mins. Result Comment: Fili isol AM Reference Range 6.5-26.0 mcg/dL Cortisol PM Reference Range 3.5-15.0 mcg/dL Performed By: #### 0 [id number], FERR, CBC, ANEU, TSH, 401783, GFR, CMP, 766213, FT4, ADIFF #### [address] [address] #### FOL, DHEAS, B12 #### [address] [address] Cortisol Level 24.4 mcg/dL Normal [facility] ([place]) Comment on above: Order Comment: 30 mi n post cortrosyn IV inj Result Comment: Fili isol AM Reference Range 6.5-26.0 mcg/dL Cortisol PM Reference Range 3.5-15.0 mcg/dL Performed By: #### 0 03996, FERR, CBC, ANEU, TSH, 130134, GFR, CMP, 021826, FT4, ADIFF #### [address] [address] #### FOL, DHEAS, B12 #### [place] [address] LABORATORYOrdered By: SYSTEM SYSTEM on 12-16-2023 Cortisol [Mass/Vol] 32.4 ug/dL Invalid Interpretation Code [facility] Comment on above: Interpretive Data: C ortisol AM Reference Range 6.5-26.0 mcg/dL Cortisol PM Reference Range 3.5-15.0 mcg/dL Cortisol [Mass/Vol] 24.4 ug/dL Invalid Interpretation Code [facility] Comment on above: Interpretive Data: C ortisol AM Reference Range 6.5-26.0 mcg/dL Cortisol PM Reference Range 3.5-15.0 mcg/dL Cortisol [Mass/Vol] 15.3 ug/dL Invalid Interpretation Code [facility] Comment on above: Interpretive Data: C ortisol AM Reference Range 6.5-26.0 mcg/dL Cortisol PM Reference Range 3.5-15.0 mcg/dL Final Surgical Pathology Rep [facility] 12-06-2023 Final Surgical Pathology Report . Pathology Reports Accession: Collected Date/Time: Received Date/Time: Pathologist: [id number] 12/02/2023 14:10 EST 12/05/2023 08:55 JENNIFFER CHAU MD Final Surgical Pathology Report DIAGNOSIS: A. ENDOCERVICAL CURETTINGS: - FRAGMENTS OF UNREMARKABLE ENDOCERVICAL MUCOSA B. CERVICAL BIOPSY, 1:00: - LOW-GRADE SQUAMOUS INTRAEPITHELIAL LESION (CITLALI-1) C. CERVICAL BIOPSY, 3:00: - LOW-GRADE SQUAMOUS INTRAEPITHELIAL LESION (CITLALI-1) D. CERVICAL BIOPSY, 6:00: - SMALL FOCUS OF HIGH-GRADE SQUAMOUS INTRAEPITHELIAL LESION (CITLALI-2) Comment: Immunostain for p16 is strongly positive in the small focus, consistent with HGSIL. CLINICAL INFORMATION: ABNORMAL PAP HGSIL Procedure: COLPOSCOPY WITH BXS Preoperative diagnosis: ABNORMAL PAP Postoperative diagnosis: ABNORMAL PAP SPECIMEN: A ENDOCERVICAL CURETTAGE B CERVICAL BX @ 1:00 ISLAND C CERVICAL BX @ 3:00 D CERVICAL BX @ 6:00 GROSS DESCRIPTION: All parts labelled with patient name and [id number] A. Received in formalin labeled ECC is 1 brush containing multiple wispy white hemorrhagic and mucinous tissue fragments aggregating 0.1 cm. Given to cytology for processing. TS-1 B. Received in formalin labeled island 1:00 is 1 christensen-pink tissue fragment measuring 0.5 x 0.3 cm. TS-1 C. Received in formalin labeled 3:00 are multiple wispy white and hemorrhagic tissue fragments aggregating 0.5 x 0.4 cm. TS-1 D. Received in formalin labeled 6:00 is 1 christensen-pink tissue fragment measuring 0.6 x 0.2 cm. TS-1 Praveena Marshall, Grossing Head Cashier/ Dr. Monroe Sexton, Pathologist Dictated by Praveena Marshall MICROSCOPIC DESCRIPTION: The microscopic examination is performed, except in the case of Gross Only. Electronically Signed by Pathology Report verified by [facility] JENNIFFER MCKEON Sign out Date: 12/06/2023 14:32 Performing Lab: [facility], [address] [place] [address] Pathology Dept Pathology Reports Accession: Collected Date/Time: Received Date/Time: Pathologist: [id number] 12/02/2023 14:10 EST 12/05/2023 08:55 EST JENNIFFER MCKEON MD Disclaimer If ancillary studies were utilized, the following Laboratory Developed Test (LDT) disclaimer will apply: Under CLIA requirements, [facility] is qualified to perform high complexity testing. For all ancillary stains, positive and negative controls stain appropriately. Performance characteristics of immunohistochemical and chromogenic in-situ hybridization tests have been determined by [facility]. These tests are used for clinical purposes, They should not be regarded as investigational or for research. Normal [facility] ([place]) 17OHPon 11-29-2023 17-OH Progesterone LCMS 18 ng/dL Normal [facility] ([place]) Comment on above: Result Comment: Adul t Female Follicular 15 - 70 Luteal 35 - 290 This test was developed and its performance characteristics determined by [facility]. It has not been cleared or approved by the Food and Drug Administration. Performed At: [facility] [id number] Cristian Li MD Ph:[phone] Performed By: #### 0 [id number], FERR, CBC, ANEU, TSH, 105123, GFR, CMP, 189964, FT4, ADIFF #### [address] [address] #### FOL, DHEAS, B12 #### [address] [address] HPVon 11-25-2023 HPV Interp Abnormal See Interp HPVN [facility]) Comment on above: Order Comment: Order placed by [id number] rule from [id number] Result Comment: High Risk HPV Typing is Positive: High Risk HPV Types detected, other than HPV 16 or HPV 18. Specimen is positive for the DNA of any one of, or combination of, the following high risk HPV types: 31, 33, 35, 39, 45, 51, 52, 56, 58, 59, 66, 68. HPV types 16 and 18 DNA were undetectable or below the pre-set threshold. The margarita High-Risk HPV DNA Test is not intended for use as a screening device for Pap normal women under age 30 and is not intended to substitute for regular Pap screening. The margarita High-Risk HPV DNA Test is designed to augment existing methods for the detection of cervical disease and should be used in conjunction with clinical information derived from other diagnostic and screening tests, physical examinations and full medical history in accordance with appropriate patient management procedures. NOTE: A negative result does not preclude the presence of HPV infection because results depend on adequate specimen collection, absence of inhibitors and sufficient DNA to be detected. 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 Pathology Reports Accession: Collected Date/Time: Received Date/Time: Pathologist: [id number] 11/17/2023 09:16 EST 11/17/2023 18:00 MD OSMAN IBANEZ [employer] Cytology Report SPECIMEN: Specimen Description: Liquid Prep Reflex ASCUS+ Specimen: Cervical/Endocervical Screening or Diagnostic: Screening RELEVANT HISTORY: LMP: None given Control: Yes SPECIMEN ADEQUACY: SATISFACTORY FOR EVALUATION Endocervical/Transform ational zone component present INTERPRETATION/RESULTS : EPITHELIAL CELL ABNORMALITIES, SQUAMOUS High-grade squamous intraepithelial lesion (HSIL) (encompassing: moderate and severe dysplasia, CIS; CITLALI 2 and CITLALI 3) OTHER NON-NEOPLASTIC FINDINGS: Atrophy COMMENT: This Pap Test was successfully processed and evaluated with the assistance of the [employer] ThinPrep Test Imaging System. Electronically Signed by Pathology report verified by [facility] Screened by: SANDY Electronically signed by OSMAN CARRERA MD Sign-Out Date: 11/24/2023 13:53 Performing Lab: [facility], [address] [place] [address] Pathology Dept Disclaimer The Pap test is a screening test for cervical cancer. As evidenced by published data, it is subject to both inherent false negative and false positive results. Your patient's results should be interpreted in context with pertinent clinical history including gynecological examination. Normal [facility] ([place]) E2on 11-23-2023 Estradiol Level 18.57 pg/mL Normal [facility] ([place]) Comment on above: Result Comment: No te - New Reference Range in effect 20 Adult Female E2 Reference Ranges: Follicular phase 19.5 - 144.2 pg/mL Midcycle 63.9 - 356.7 pg/mL Luteal phase 55.8 - 214.2 pg/mL Post menopausal 0 - 33.2 pg/mL Performed By: #### 0 45826, FERR, CBC, ANEU, TSH, 844746, GFR, CMP, 945232, FT4, ADIFF #### [address] [address] #### FOL, DHEAS, B12 #### [place] [address] FSHon 11-23-2023 FSH 10.0 mIU/mL Normal [facility] ([place]) Comment on above: Result Comment: Adul t Female FSH Reference Ranges (09/02/99): Follicular phase 2.5 - 10.2 mIU/mL Midcycle phase 3.4 - 33.4 mIU/mL Luteal phase 1.5 - 9.1 mIU/mL Post menopausal 23.0 -116.3 mIU/mL Adult Male: 1.4 - 18.1 mIU/mL Performed By: #### 0 60647, FERR, CBC, ANEU, TSH, 726368, GFR, CMP, 101180, FT4, ADIFF #### [address] [address] #### FOL, DHEAS, B12 #### [place] [address] LHon 11-23-2023 LH 6.3 mIU/mL Normal [facility] ([place]) Comment on above: Result Comment: No te - New Reference Range in effect 20 Adult Female LH Reference Ranges: Follicular phase 1.9 - 12.5 mIU/mL Midcycle phase 8.7 - 76.3 mIU/mL Luteal phase 0.5 - 16.9 mIU/mL Post menopausal 5.0 - 55.2 mIU/mL Performed By: #### 0 99920, FERR, CBC, ANEU, TSH, 648664, GFR, CMP, 875575, FT4, ADIFF #### [address] [address] #### FOL, DHEAS, B12 #### [address] [address] PROLon 11-23-2023 Prolactin 8.4 ng/mL Normal 2.0-30.0 [facility] ([place]) Comment on above: Performed By: #### 0 08915, FERR, CBC, ANEU, TSH, 175415, GFR, CMP, 476459, FT4, ADIFF #### [address] [address] #### FOL, DHEAS, B12 #### [place] [address] ALDOSon 11-20-2023 Aldosterone. 32.2 ng/dL High 0.0-30.0 [facility] ([place]) Comment on above: Result Comment: This test was developed and its performance characteristics determined by [facility]. It has not been cleared or approved by the Food and Drug Administration. Performed At: [address] [id number] Cristian Li MD Ph:[phone] Performed By: #### 0 29964, FERR, CBC, ANEU, TSH, 791714, GFR, CMP, 133365, FT4, ADIFF #### [address] [address] #### FOL, DHEAS, B12 #### [place] [address] RENINon 02-11-2024 Renin Activity 5.369 ng/mL/hr Normal 0.167-5.380 [facility] ([place]) Comment on above: Result Comment: This test was developed and its performance characteristics determined by [facility]. It has not been cleared or approved by the Food and Drug Administration. Performed At: [address] [id number] Cristian Li MD Ph:[phone] Performed By: #### 0 52160, FERR, CBC, ANEU, TSH, 746302, GFR, CMP, 520537, FT4, ADIFF #### [address] [address] #### FOL, DHEAS, B12 #### [address] [address] PTHRPon 11-19-2023 PTHrP <2.0 Normal [facility] ([place]) Comment on above: Result Comment: This test was developed and its performance characteristics determined by [facility]. It has not been cleared or approved by the Food and Drug Administration. Reference Range: All Ages: <2.0 The PTHrP assay should not be used to exclude cancer or screen tumor patients for humoral hypercalcemia of malignancy (HHM). The results should always be assessed in conjunction with the patient's medical history, clinical examination, and other findings. If test results are clinically discordant, please contact the laboratory. Performed At: [facility] [address] [place] [id number] Leora Boone MD Ph:[phone] Performed By: #### 0 40254, FERR, CBC, ANEU, TSH, 003038, GFR, CMP, 757417, FT4, ADIFF #### [address] [address] #### FOL, DHEAS, B12 #### [address] [address] [id number] 11-15-2023 ACTH 11.7 pg/mL Normal 7.2-63.3 [facility] ([place]) Comment on above: Result Comment: ACTH reference interval for samples collected between 7 and 10 AM. Performed At: [facility] [id number] Chandrika West PhD Ph:[phone] Performed By: #### 0 80177, FERR, CBC, ANEU, TSH, 109928, GFR, CMP, 977137, FT4, ADIFF #### [place] [address] #### FOL, DHEAS, B12 #### [place] [address] CORTon 11-14-2023 Cortisol Level 9.6 mcg/dL Normal [facility] ([place]) Comment on above: Result Comment: Fili isol AM Reference Range 6.5-26.0 mcg/dL Cortisol PM Reference Range 3.5-15.0 mcg/dL Performed By: #### 0 65056, FERR, CBC, ANEU, TSH, 455352, GFR, CMP, 022637, FT4, ADIFF #### [place] [address] #### FOL, DHEAS, B12 #### [place] [address] DHEASon 11-14-2023 DHEA-SO4 79.12 mcg/dL Normal 25.90-460.20 [facility] ([place]) Comment on above: Result Comment: No te - New Reference Range in effect 20 Performed By: #### 0 15123, FERR, CBC, ANEU, TSH, 991490, GFR, CMP, 506820, FT4, ADIFF #### [place] [address] #### FOL, DHEAS, B12 #### [place] [address] LABORATORYOrdered By: SYSTEM SYSTEM on 11-14-2023 Cortisol [Mass/Vol] 9.6 ug/dL Invalid Interpretation Code ADM SS Comment on above: Interpretive Data: C ortisol AM Reference Range 6.5-26.0 mcg/dL Cortisol PM Reference Range 3.5-15.0 mcg/dL DHEA-S [Mass/Vol] 79.12 ug/dL Normal 25.90 - 460.20 mcg/dL ADM SS Comment on above: Interpretive Data: * *Note - New Reference Range in effect 20 .Auto Diffon 10-27-2023 Basophil, Absolute 0.0 10 3/mcL Normal 0.0-0.2 Replaced by [facility] ([place]) Comment on above: Performed By: #### 0 69477, FERR, CBC, ANEU, TSH, 075041, GFR, CMP, 680515, FT4, ADIFF #### [place] [address] #### FOL, DHEAS, B12 #### [address] [address] Basophils/100 WBC (Bld) 0.6 % Normal 0.0-2.5 [facility] ([place]) Comment on above: Performed By: #### 0 54376, FERR, CBC, ANEU, TSH, 919097, GFR, CMP, 675137, FT4, ADIFF #### [place] [address] #### FOL, DHEAS, B12 #### [address] [address] Eosinophil, Absolute 0.1 10 3/mcL Normal 0.0-0.4 [facility] ([place]) Comment on above: Performed By: #### 0 92460, FERR, CBC, ANEU, TSH, 595921, GFR, CMP, 165926, FT4, ADIFF #### [place] [address] #### FOL, DHEAS, B12 #### [address] [address] Eosinophils/100 WBC (Bld) 1.1 % Normal 0.0-7.0 [facility] ([place]) Comment on above: Performed By: #### 0 23579, FERR, CBC, ANEU, TSH, 324082, GFR, CMP, 141442, FT4, ADIFF #### [place] [address] #### FOL, DHEAS, B12 #### [address] [address] Lymphocyte, Absolute 1.0 10 3/mcL Normal 0.8-3.9 [facility] ([place]) Comment on above: Performed By: #### 0 42226, FERR, CBC, ANEU, TSH, 548728, GFR, CMP, 707722, FT4, ADIFF #### [address] [address] #### FOL, DHEAS, B12 #### [address] [address] Lymphocytes/100 WBC (Bld) 18.1 % Normal 10.0-50.0 [facility] ([place]) Comment on above: Performed By: #### 0 96594, FERR, CBC, ANEU, TSH, 617197, GFR, CMP, 624335, FT4, ADIFF #### [address] [address] #### FOL, DHEAS, B12 #### [address] [address] Monocyte, Absolute 0.3 10 3/mcL Normal 0.2-1.0 Replaced by [facility] ([place]) Comment on above: Performed By: #### 0 81565, FERR, CBC, ANEU, TSH, 247665, GFR, CMP, 471238, FT4, ADIFF #### [address] [address] #### FOL, DHEAS, B12 #### [address] [address] Monocytes/100 WBC (Bld) 5.9 % Normal 1.7-13.0 [facility] ([place]) Comment on above: Performed By: #### 0 68147, FERR, CBC, ANEU, TSH, 515570, GFR, CMP, 047414, FT4, ADIFF #### [address] [address] #### FOL, DHEAS, B12 #### [address] [address] Neutrophils/100 WBC (Bld) 74.3 % Normal 37.0-80.0 [facility] ([place]) Comment on above: Performed By: #### 0 44848, FERR, CBC, ANEU, TSH, 757287, GFR, CMP, 276067, FT4, ADIFF #### [address] [address] #### FOL, DHEAS, B12 #### [address] [address] .GFRon 10-27-2023 GFR 85 ml/min/1.73sqm Normal [facility] ([place]) Comment on above: Result Comment: GFR Population mean for , Non- Americans Ages 20-29 = 116 mL/min/1.73 sq.m. Ages 30-39 = 107 mL/min/1.73 sq.m. Ages 40-49 = 99 mL/min/1.73 sq.m. Ages 50-59 = 93 mL/min/1.73 sq.m. Ages 60-69 = 85 mL/min/1.73 sq.m. Ages 70+ = 75 mL/min/1.73 sq.m. Chronic Kidney Disease: Less than 60 mL/min/1.73 square meters End Stage Renal Disease: Less than 15 mL/min/1.73 square meters Performed By: #### 0 93453, FERR, CBC, ANEU, TSH, 549033, GFR, CMP, 335936, FT4, ADIFF #### [address] [address] #### FOL, DHEAS, B12 #### [address] [address] GFR Non- 70 ml/min/1.73sqm Normal [facility] ([place]) Comment on above: Result Comment: GFR Population mean for , Non- Americans Ages 20-29 = 116 mL/min/1.73 sq.m. Ages 30-39 = 107 mL/min/1.73 sq.m. Ages 40-49 = 99 mL/min/1.73 sq.m. Ages 50-59 = 93 mL/min/1.73 sq.m. Ages 60-69 = 85 mL/min/1.73 sq.m. Ages 70+ = 75 mL/min/1.73 sq.m. Chronic Kidney Disease: Less than 60 mL/min/1.73 square meters End Stage Renal Disease: Less than 15 mL/min/1.73 square meters Performed By: #### 0 85045, FERR, CBC, ANEU, TSH, 694755, GFR, CMP, 393892, FT4, ADIFF #### [place] [address] #### FOL, DHEAS, B12 #### [place] [address] .MDWon 10-27-2023 Monocyte Distribution Width 18.21 Normal 0.00-20.00 [facility] ([place]) Comment on above: Result Comment: For ED adult patients suspected of sepsis, MDW<=20.0 does not rule out sepsis or risk of sepsis Performed By: #### 0 50432, FERR, CBC, ANEU, TSH, 729250, GFR, CMP, 589618, FT4, ADIFF #### [place] [address] #### FOL, DHEAS, B12 #### [place] [address] .NEUABSon 10-27-2023 Neutrophil, Absolute 4.2 10 3/mcL Normal 2.9-6.2 [facility] ([place]) Comment on above: Performed By: #### 0 61765, FERR, CBC, ANEU, TSH, 593488, GFR, CMP, 014938, FT4, ADIFF #### [place] [address] #### FOL, DHEAS, B12 #### [place] [address] CBCon 10-27-2023 Erythrocyte distribution width (RBC) [Ratio] 13.9 % Normal 11.5-14.5 [facility] ([place]) Comment on above: Performed By: #### 0 05491, FERR, CBC, ANEU, TSH, 736584, GFR, CMP, 059462, FT4, ADIFF #### [place] [address] #### FOL, DHEAS, B12 #### [place] [address] Hematocrit (Bld) [Volume fraction] 40.4 % Normal 37.0-47.0 [facility] ([place]) Comment on above: Performed By: #### 0 51733, FERR, CBC, ANEU, TSH, 883986, GFR, CMP, 713156, FT4, ADIFF #### [place] [address] #### FOL, DHEAS, B12 #### [place] [address] Hgb 14.8 G/dL Normal 12.0-16.0 [facility] ([place]) Comment on above: Performed By: #### 0 49769, FERR, CBC, ANEU, TSH, 226900, GFR, CMP, 097499, FT4, ADIFF #### [place] [address] #### FOL, DHEAS, B12 #### [place] [address] MCH (RBC) [Entitic mass] 32.4 pg High 27.0-31.2 [facility] ([place]) Comment on above: Performed By: #### 0 22919, FERR, CBC, ANEU, TSH, 584332, GFR, CMP, 269780, FT4, ADIFF #### [place] [address] #### FOL, DHEAS, B12 #### [place] [address] MCHC 36.5 G/dL Normal 33.0-37.0 [facility] ([place]) Comment on above: Performed By: #### 0 95841, FERR, CBC, ANEU, TSH, 347214, GFR, CMP, 900045, FT4, ADIFF #### [place] [address] #### FOL, DHEAS, B12 #### [place] [address] MCV (RBC) [Entitic vol] 88.6 fL Normal 80.0-94.0 [facility] ([place]) Comment on above: Performed By: #### 0 51387, FERR, CBC, ANEU, TSH, 244176, GFR, CMP, 221959, FT4, ADIFF #### [place] [address] #### FOL, DHEAS, B12 #### [place] [address] Platelet 229 10 3/mcL Normal 130-400 [facility] ([place]) Comment on above: Performed By: #### 0 84193, FERR, CBC, ANEU, TSH, 351105, GFR, CMP, 634305, FT4, ADIFF #### [place] [address] #### FOL, DHEAS, B12 #### [place] [address] Platelet mean volume (Bld) [Entitic vol] 8.9 fL Normal 7.4-10.4 [facility] ([place]) Comment on above: Performed By: #### 0 20234, FERR, CBC, ANEU, TSH, 117779, GFR, CMP, 558652, FT4, ADIFF #### [place] [address] #### FOL, DHEAS, B12 #### [place] [address] RBC 4.56 10 6/mcL Normal 4.20-5.40 [facility] ([place]) Comment on above: Performed By: #### 0 09679, FERR, CBC, ANEU, TSH, 147612, GFR, CMP, 297574, FT4, ADIFF #### [place] [address] #### FOL, DHEAS, B12 #### [place] [address] WBC 5.7 10 3/mcL Normal 4.6-10.8 [facility] ([place]) Comment on above: Performed By: #### 0 17805, FERR, CBC, ANEU, TSH, 427141, GFR, CMP, 858316, FT4, ADIFF #### [place] [address] #### FOL, DHEAS, B12 #### [place] [address] CMPon 10-27-2023 Albumin Level 4.0 G/dL Normal 3.5-5.0 [facility] ([place]) Comment on above: Performed By: #### 0 50418, FERR, CBC, ANEU, TSH, 404900, GFR, CMP, 256853, FT4, ADIFF #### [address] [address] #### FOL, DHEAS, B12 #### [place] [address] Albumin/Globulin [Mass ratio] 1.1 {ratio} Normal 1.1-2.5 [facility] ([place]) Comment on above: Performed By: #### 0 78950, FERR, CBC, ANEU, TSH, 196969, GFR, CMP, 101172, FT4, ADIFF #### [address] [address] #### FOL, DHEAS, B12 #### [place] [address] ALP [Catalytic activity/Vol] 70 U/L Normal 40-135 [facility] ([place]) Comment on above: Performed By: #### 0 61859, FERR, CBC, ANEU, TSH, 246630, GFR, CMP, 064398, FT4, ADIFF #### [address] [address] #### FOL, DHEAS, B12 #### [place] [address] ALT [Catalytic activity/Vol] 24 U/L Normal 14-59 [facility] ([place]) Comment on above: Performed By: #### 0 68574, FERR, CBC, ANEU, TSH, 674948, GFR, CMP, 883858, FT4, ADIFF #### [place] [address] #### FOL, DHEAS, B12 #### [place] [address] AST [Catalytic activity/Vol] 12 U/L Normal 10-40 [facility] ([place]) Comment on above: Performed By: #### 0 75136, FERR, CBC, ANEU, TSH, 809012, GFR, CMP, 331925, FT4, ADIFF #### [place] [address] #### FOL, DHEAS, B12 #### [address] [address] Bili Total 1.2 mg/dL High 0.2-1.0 [facility] ([place]) Comment on above: Result Comment: Use of this assay is not recommended for patients undergoing treatment with eltrombopag due to the potential for falsely elevated results. Performed By: #### 0 84191, FERR, CBC, ANEU, TSH, 299309, GFR, CMP, 823044, FT4, ADIFF #### [place] [address] #### FOL, DHEAS, B12 #### [place] [address] BUN/Creatinine Ratio 9 ratio Normal 7-27 Replaced by [facility] ([place]) Comment on above: Performed By: #### 0 50839, FERR, CBC, ANEU, TSH, 743597, GFR, CMP, 457714, FT4, ADIFF #### [place] [address] #### FOL, DHEAS, B12 #### [place] [id number] Calcium [Mass/Vol] 8.7 mg/dL Normal 8.4-10.2 [facility] ([place]) Comment on above: Performed By: #### 0 96193, FERR, CBC, ANEU, TSH, 132254, GFR, CMP, 708715, FT4, ADIFF #### [place] [address] #### FOL, DHEAS, B12 #### [place] [id number] Chloride [Moles/Vol] 107 mmol/L Normal 98-107 Replaced by [facility] ([place] Comment on above: Performed By: #### 0 57292, FERR, CBC, ANEU, TSH, 188134, GFR, CMP, 767787, FT4, ADIFF #### [address] [address] #### FOL, DHEAS, B12 #### [address] [address] CO2 [Moles/Vol] 26 mmol/L Normal 22-29 [facility] ([place]) Comment on above: Performed By: #### 0 32577, FERR, CBC, ANEU, TSH, 474547, GFR, CMP, 662519, FT4, ADIFF #### [place] [address] #### FOL, DHEAS, B12 #### [address] [address] Creatinine [Mass/Vol] 0.98 mg/dL Normal 0.55-1.02 [facility] ([place]) Comment on above: Performed By: #### 0 70188, FERR, CBC, ANEU, TSH, 076155, GFR, CMP, 433695, FT4, ADIFF #### [place] [address] #### FOL, DHEAS, B12 #### [address] [address] Electrolyte Balance 9.0 mEq/L Normal 4.0-15.0 [facility] ([place]) Comment on above: Performed By: #### 0 35594, FERR, CBC, ANEU, TSH, 698634, GFR, CMP, 029191, FT4, ADIFF #### [address] [address] #### FOL, DHEAS, B12 #### [address] [address] Globulin 3.5 G/dL Normal [facility] ([place]) Comment on above: Performed By: #### 0 43387, FERR, CBC, ANEU, TSH, 841359, GFR, CMP, 792709, FT4, ADIFF #### [address] [address] #### FOL, DHEAS, B12 #### [place] [address] Glucose [Mass/Vol] 97 mg/dL Normal 70-105 [facility] ([place]) Comment on above: Performed By: #### 0 37606, FERR, CBC, ANEU, TSH, 926596, GFR, CMP, 569485, FT4, ADIFF #### [address] [address] #### FOL, DHEAS, B12 #### [address] [address] Potassium [Moles/Vol] 4.2 mmol/L Normal 3.5-5.1 [facility] ([place]) Comment on above: Performed By: #### 0 50646, FERR, CBC, ANEU, TSH, 596099, GFR, CMP, 694904, FT4, ADIFF #### [address] [address] #### FOL, DHEAS, B12 #### [address] [address] Sodium [Moles/Vol] 142 mmol/L Normal 136-145 [facility] ([place]) Comment on above: Performed By: #### 0 93180, FERR, CBC, ANEU, TSH, 058239, GFR, CMP, 463710, FT4, ADIFF #### [address] [address] #### FOL, DHEAS, B12 #### [address] [address] Total Protein 7.5 G/dL Normal 6.4-8.2 [facility] ([place]) Comment on above: Performed By: #### 0 93986, FERR, CBC, ANEU, TSH, 632931, GFR, CMP, 532907, FT4, ADIFF #### [address] [address] #### FOL, DHEAS, B12 #### [address] [address] Urea nitrogen [Mass/Vol] 9 mg/dL Normal 7-18 [facility] ([place]) Comment on above: Performed By: #### 0 98883, FERR, CBC, ANEU, TSH, 061561, GFR, CMP, 192540, FT4, ADIFF #### [facility] [address] [place], [place] [address] #### FOL, DHEAS, B12 #### [address] [address] [address] ABD/PELVIS W/ IV CONTRAST ONLYon 10-27-2023 CT ABD/PELVIS W/ IV CONTRAST ONLY ORIGINAL EXAMINATION: CT OF THE ABDOMEN AND PELVIS WITH CONTRAST 10/27/2023 8:48 am TECHNIQUE: CT of the abdomen and pelvis was performed with the administration of intravenous contrast. Multiplanar reformatted images are provided for review. Automated exposure control, iterative reconstruction, and/or weight based adjustment of the mA/kV was utilized to reduce the radiation dose to as low as reasonably achievable. COMPARISON: Abdominal ultrasound 12/25/2020 HISTORY: ORDERING SYSTEM PROVIDED HISTORY: Reason for Exam: pain FINDINGS: No acute osseous abnormality. No acute osseous abnormality. The included lung bases are clear. Mild periportal edema and distension of the IVC. The liver is otherwise unremarkable. The spleen, pancreas and both adrenal glands appear normal. Symmetric nephrograms. No hydronephrosis or nephrolithiasis. No focal bladder wall thickening. The uterus is unremarkable. GI tract dilatation or evidence of inflammatory change. The appendix is unremarkable. No free air or free fluid. The aorta is normal caliber. No pathologically enlarged lymph nodes. IMPRESSION: No acute abnormality in the abdomen or pelvis. I have personally reviewed the images of this examination and agree with the resident's finding and interpretation. Interpreted by: Armani Nicole MD Preliminary Report By: Rosaura Melendez Electronically signed By Armani Nicole MD Dictated Date: 10/27/2023 8:50:31 AM Prelim Date: 10/27/2023 8:56:42 AM Sign Date: 10/27/2023 9:04:05 AM Ordering Provider: JUSTYNA Fernandez [facility] ([place]) LABORATORYOrdered By: SYSTEM SYSTEM on 10-27-2023 Albumin BCP dye [Mass/Vol] 4.0 G/dL Normal 3.5 - 5.0 G/dL AO ADM SS Albumin/Globulin [Mass ratio] 1.1 {ratio} Normal 1.1 - 2.5 ratio AO ADM SS ALP [Catalytic activity/Vol] 70 U/L Normal 40 - 135 U/L AO ADM SS ALT With P-5'-P [Catalytic activity/Vol] 24 U/L Normal 14 - 59 U/L AO ADM SS AST With P-5'-P [Catalytic activity/Vol] 12 U/L Normal 10 - 40 U/L AO ADM SS Basophil, Absolute 0.0 103/mcL Normal 0.0 - 0.2 10^3/mcL AO Workflow SS Basophils/100 WBC (Bld) 0.6 % Normal 0.0 - 2.5 % AO Workflow SS Bilirubin [Mass/Vol] 1.2 mg/dL High 0.2 - 1 .0 mg/dL AO ADM SS Comment on above: Interpretive Data: U se of this assay is not recommended for patients undergoing treatment with eltrombopag due to the potential for falsely elevated results. Calcium [Mass/Vol] 8.7 mg/dL Normal 8.4 - 10. 2 mg/dL AO ADM SS Chloride [Moles/Vol] 107 mmol/L Normal 98 - 10 7 mmol/L AO ADM SS CO2 [Moles/Vol] 26 mmol/L Normal 22 - 29 mmol/L AO ADM SS Creatinine [Mass/Vol] 0.98 mg/dL Normal 0.55 - 1.02 mg/dL AO ADM SS Electrolyte Balance 9.0 mEq/L Normal 4.0 - 15 .0 mEq/L AO ADM SS Eosinophil, Absolute 0.1 103/mcL Normal 0.0 - 0 .4 10^3/mcL AO Workflow SS Eosinophils/100 WBC (Bld) 1.1 % Normal 0.0 - 7.0 % AO Workflow SS Erythrocyte distribution width (RBC) [Ratio] 13.9 % Normal 11.5 - 14.5 % AO Workflow SS GFR/1.73 sq M.predicted among blacks MDRD (S/P/Bld) [Vol rate/Area] 85 ml/min/1.73sqm Invalid Interpretation Code AO Chemistry S Comment on above: Interpretive Data: GFR Population mean for , Non- Americans Ages 20-29 = 116 mL/min/1.73 sq.m. Ages 30-39 = 107 mL/min/1.73 sq.m. Ages 40-49 = 99 mL/min/1.73 sq.m. Ages 50-59 = 93 mL/min/1.73 sq.m. Ages 60-69 = 85 mL/min/1.73 sq.m. Ages 70+ = 75 mL/min/1.73 sq.m. Chronic Kidney Disease: Less than 60 mL/min/1.73 square meters End Stage Renal Disease: Less than 15 mL/min/1.73 square meters GFR/1.73 sq M.predicted among non-blacks MDRD (S/P/Bld) [Vol rate/Area] 70 ml/min/1.73sqm Invalid Interpretation Code AO Chemistry S Comment on above: Interpretive Data: GFR Population mean for , Non- Americans Ages 20-29 = 116 mL/min/1.73 sq.m. Ages 30-39 = 107 mL/min/1.73 sq.m. Ages 40-49 = 99 mL/min/1.73 sq.m. Ages 50-59 = 93 mL/min/1.73 sq.m. Ages 60-69 = 85 mL/min/1.73 sq.m. Ages 70+ = 75 mL/min/1.73 sq.m. Chronic Kidney Disease: Less than 60 mL/min/1.73 square meters End Stage Renal Disease: Less than 15 mL/min/1.73 square meters Globulin 3.5 G/dL Invalid Interpretation Code AO ADM SS Glucose [Mass/Vol] 97 mg/dL Normal 70 - 105 mg/dL AO ADM SS Hematocrit (Bld) [Volume fraction] 40.4 % Normal 37.0 - 47.0 % AO Workflow SS Hemoglobin (Bld) [Mass/Vol] 14.8 G/dL Normal 12.0 - 16.0 G/dL AO Workflow SS Lipase [Catalytic activity/Vol] 44 U/L Normal 16 - 77 U/L AO ADM SS Lymphocyte, Absolute 1.0 103/mcL Normal 0.8 - 3 .9 10^3/mcL AO Workflow SS Lymphocytes/100 WBC (Bld) 18.1 % Normal 10.0 - 50.0 % AO Workflow SS MCH (RBC) [Entitic mass] 32.4 pg High 27.0 - 31.2 pg AO Workflow SS MCHC 36.5 G/dL Normal 33.0 - 37.0 G/dL AO Workflow SS MCV (RBC) [Entitic vol] 88.6 fL Normal 80.0 - 94.0 fL AO Workflow SS Monocyte distribution width Auto (Bld) [Entitic vol] 18.21 1 Normal 0.00 - 20.00 AO Workflow SS Comment on above: Result Comment: For ED adult patients suspected of sepsis, MDW<=20.0 does not rule out sepsis or risk of sepsis Monocyte, Absolute 0.3 103/mcL Normal 0.2 - 1.0 10^3/mcL AO Workflow SS Monocytes/100 WBC (Bld) 5.9 % Normal 1.7 - 13.0 % AO Workflow SS Neutrophil, Absolute 4.2 103/mcL Normal 2.9 - 6 .2 10^3/mcL AO Workflow SS Neutrophils/100 WBC (Bld) 74.3 % Normal 37.0 - 80.0 % AO Workflow SS Platelet mean volume (Bld) [Entitic vol] 8.9 fL Normal 7.4 - 10.4 fL AO Workflow SS Platelets (Bld) [#/Vol] 229 103/mcL Normal 130 - 400 10^3/mcL AO Workflow SS Potassium [Moles/Vol] 4.2 mmol/L Normal 3.5 - 5.1 mmol/L AO ADM SS Protein [Mass/Vol] 7.5 G/dL Normal 6.4 - 8.2 G/dL AO ADM SS RBC (Bld) [#/Vol] 4.56 106/mcL Normal 4.20 - 5.4 0 10^6/mcL AO Workflow SS Sodium [Moles/Vol] 142 mmol/L Normal 136 - 145 mmol/L AO ADM SS Urea nitrogen [Mass/Vol] 9 mg/dL Normal 7 - 18 mg/dL AO ADM SS Urea nitrogen/Creatinine [Mass ratio] 9 ratio Normal 7 - 27 ratio AO ADM SS WBC (Bld) [#/Vol] 5.7 103/mcL Normal 4.6 - 10.8 10^3/mcL AO Workflow SS LABORATORYOrdered By: Henna Venegas on 10-27-2023 Appearance (U) Clear (10/27/23 7:39 AM) Normal Clear AO Auto Urine SS Bilirubin Ql (U) Negative (10/27/23 7:39 AM) Normal Negative AO Auto Urine SS Color (U) Yellow (10/27/23 7:39 AM) Normal AO Auto Urine SS Glucose Test strip (U) [Mass/Vol] Negative Normal Negative AO Auto Urine SS HCG ( test) Ql Negative (10/27/23 7:39 AM) Normal AO Manual Urine SS Hemoglobin Auto test strip (U) [Mass/Vol] Negative (10/27/23 7:39 AM) Normal Negative AO Auto Urine SS Ketones Ql (U) Negative Normal Negative AO Auto Ur ine SS test (u) int Not detected Invalid Interpretation Code AO Manual Urine SS UA Leuk Est Negative (10/27/23 7:39 AM) Normal Negative AO Auto Urine SS UA Nitrite Negative (10/27/23 7:39 AM) Normal Negative AO Auto Urine SS UA pH 6.5 (10/27/23 7:39 AM) Normal 5.0 - 8.0 AO Auto Urine SS UA Protein Negative Normal Negative AO Auto Urine SS UA Spec Grav 1.025 (10/27/23 7:39 AM) Normal 1.015-1.025 AO Auto Urine SS UA Specimen Type Clean Catch (10/27/23 7:39 AM) Normal AO Auto Urine SS UA Urobilinogen 1.0 E.U./dL Normal 0.2-1.0 AO Auto Urine SS LIPon 10-27-2023 Lipase Level 44 U/L Normal 16-77 [facility] ([place] Comment on above: Performed By: #### 0 49776, FERR, CBC, ANEU, TSH, 836870, GFR, CMP, 505524, FT4, ADIFF #### [place] [address] #### FOL, DHEAS, B12 #### [place] [address] PREGUon 10-27-2023 HCG ( test) Ql (U) Negative Normal [facility] ([place] Comment on above: Performed By: #### 0 45088, FERR, CBC, ANEU, TSH, 718470, GFR, CMP, 213458, FT4, ADIFF #### [address] [address] #### FOL, DHEAS, B12 #### [address] [address] test (u) int Not detected Invalid Interpretation Code [facility] ([place] Comment on above: Performed By: #### 0 98661, FERR, CBC, ANEU, TSH, 882385, GFR, CMP, 358530, FT4, ADIFF #### [place] [address] #### FOL, DHEAS, B12 #### [place] [address] TFTESTon 10-27-2023 Free Testost Direct <0.2 Normal 0.0-4.2 [facility] ([place]) Comment on above: Result Comment: Perf ormed At: [facility] [place] [id number] [place], [place] [id number] Cristian Li MD Ph:[phone] Performed At: [facility] [place] [address] [place], [place] [id number] Chandrika West PhD Ph:[phone] Performed By: #### 0 74735, FERR, CBC, ANEU, TSH, 158506, GFR, CMP, 268392, FT4, ADIFF #### [place] [address] #### FOL, DHEAS, B12 #### [place] [address] Testosterone Lvl <3 Low 13-71 [facility] ([place] Comment on above: Performed By: #### 0 38183, FERR, CBC, ANEU, TSH, 770965, GFR, CMP, 174973, FT4, ADIFF #### [place] [address] #### FOL, DHEAS, B12 #### [place] [address] UAon 10-27-2023 Color (U) Yellow Normal [facility] ([place] Comment on above: Performed By: #### 0 03315, FERR, CBC, ANEU, TSH, 132473, GFR, CMP, 460071, FT4, ADIFF #### [place] [address] #### FOL, DHEAS, B12 #### [place] [address] Glucose (U) [Mass/Vol] Negative Normal Negative [facility] ([place] Comment on above: Performed By: #### 0 59461, FERR, CBC, ANEU, TSH, 923742, GFR, CMP, 306836, FT4, ADIFF #### [place] [address] #### FOL, DHEAS, B12 #### [place] [address] Ketones Ql (U) Negative Normal Negative [facility] ([place] Comment on above: Performed By: #### 0 78618, FERR, CBC, ANEU, TSH, 979897, GFR, CMP, 257658, FT4, ADIFF #### [place] [address] #### FOL, DHEAS, B12 #### [place] [address] UA Appear Clear Normal Clear [facility] ([place] Comment on above: Performed By: #### 0 09488, FERR, CBC, ANEU, TSH, 224020, GFR, CMP, 050084, FT4, ADIFF #### [place] [address] #### FOL, DHEAS, B12 #### [place] [address] UA Blood Negative Normal Negative [facility] ([place] Comment on above: Performed By: #### 0 46672, FERR, CBC, ANEU, TSH, 597431, GFR, CMP, 344446, FT4, ADIFF #### [place] [address] #### FOL, DHEAS, B12 #### [place] [address] UA Leuk Est Negative Normal Negative [facility] ([place] Comment on above: Performed By: #### 0 81309, FERR, CBC, ANEU, TSH, 478991, GFR, CMP, 724579, FT4, ADIFF #### [place] [address] #### FOL, DHEAS, B12 #### [place] [address] UA Nitrite Negative Normal Negative [facility] ([place] Comment on above: Performed By: #### 0 08003, FERR, CBC, ANEU, TSH, 565145, GFR, CMP, 001805, FT4, ADIFF #### [place] [address] #### FOL, DHEAS, B12 #### [address] [address] UA pH 6.5 Normal 5.0 - 8.0 [facility] ([place] Comment on above: Performed By: #### 0 48006, FERR, CBC, ANEU, TSH, 836108, GFR, CMP, 120650, FT4, ADIFF #### [place] [address] #### FOL, DHEAS, B12 #### [place] [address] UA Protein Negative Normal Negative [facility] ([place] Comment on above: Performed By: #### 0 92880, FERR, CBC, ANEU, TSH, 070426, GFR, CMP, 795928, FT4, ADIFF #### [place] [address] #### FOL, DHEAS, B12 #### [place] [address] UA Spec Grav 1.025 Normal 1.015-1.025 [facility] ([place] Comment on above: Performed By: #### 0 33953, FERR, CBC, ANEU, TSH, 356957, GFR, CMP, 170955, FT4, ADIFF #### [place] [address] #### FOL, DHEAS, B12 #### [place] [address] UA Specimen Type Clean Catch Normal [facility] ([place] Comment on above: Performed By: #### 0 18384, FERR, CBC, ANEU, TSH, 597019, GFR, CMP, 201120, FT4, ADIFF #### [place] [address] #### FOL, DHEAS, B12 #### [place] [address] UA Urobilinogen 1.0 E.U./dL Normal 0.2-1.0 [facility] ([place] Comment on above: Performed By: #### 0 62863, FERR, CBC, ANEU, TSH, 003382, GFR, CMP, 258246, FT4, ADIFF #### [address] [address] #### FOL, DHEAS, B12 #### [place] [address] Urobilinogen (U) [Mass/Vol] Negative Normal Negative [facility] ([place] Comment on above: Performed By: #### 0 75237, FERR, CBC, ANEU, TSH, 734469, GFR, CMP, 796812, FT4, ADIFF #### [address] [address] #### FOL, DHEAS, B12 #### [place] [address] ANDROon 10-23-2023 Androstenedione LCMS 40 ng/dL Low 41-262 Replaced by [facility] ([place] Comment on above: Result Comment: This test was developed and its performance characteristics determined by [employer]. It has not been cleared or approved by the Food and Drug Administration. Performed At: [address] [id number] Cristian Li MD Ph:[phone] Performed By: #### 0 32806, FERR, CBC, ANEU, TSH, 716210, GFR, CMP, 275162, FT4, ADIFF #### [address] [address] #### FOL, DHEAS, B12 #### [place] [address] ZINCon 10-20-2023 Zinc Lvl 114 UG/DL Normal 44-115 [facility] ([place] Comment on above: Result Comment: This test was developed and its performance characteristics determined by [employer]. It has not been cleared or approved by the Food and Drug Administration. Detection Limit = 5 Performed At: [address] [id number] Cristian Li MD Ph:[phone] Performed By: #### 0 48886, FERR, CBC, ANEU, TSH, 769659, GFR, CMP, 167115, FT4, ADIFF #### [place] [address] #### FOL, DHEAS, B12 #### [address] [address] AMYon 10-19-2023 Amylase [Catalytic activity/Vol] 57 U/L Normal 25-115 [facility] ([place] Comment on above: Performed By: #### 0 64643, FERR, CBC, ANEU, TSH, 678413, GFR, CMP, 946187, FT4, ADIFF #### [place] [address] #### FOL, DHEAS, B12 #### [place] [address] LIPon 10-19-2023 Lipase Level 58 U/L Normal 16-77 [facility] ([place] Comment on above: Performed By: #### 0 89895, FERR, CBC, ANEU, TSH, 336763, GFR, CMP, 338681, FT4, ADIFF #### [place] [address] #### FOL, DHEAS, B12 #### [address] [address] .Auto Diffon 10-17-2023 Basophil, Absolute 0.0 10 3/mcL Normal 0.0-0.2 Replaced by [facility] ([place] Comment on above: Performed By: #### 0 80856, FERR, CBC, ANEU, TSH, 371591, GFR, CMP, 050697, FT4, ADIFF #### [place] [address] #### FOL, DHEAS, B12 #### [place] [address] Basophils/100 WBC (Bld) 0.6 % Normal 0.0-2.5 [facility] ([place] Comment on above: Performed By: #### 0 95339, FERR, CBC, ANEU, TSH, 253115, GFR, CMP, 573583, FT4, ADIFF #### [address] [address] #### FOL, DHEAS, B12 #### [address] [address] Eosinophil, Absolute 0.1 10 3/mcL Normal 0.0-0.4 [facility] ([place]) Comment on above: Performed By: #### 0 63284, FERR, CBC, ANEU, TSH, 121063, GFR, CMP, 205799, FT4, ADIFF #### [address] [address] #### FOL, DHEAS, B12 #### [address] [address] Eosinophils/100 WBC (Bld) 1.0 % Normal 0.0-7.0 [facility] ([place] Comment on above: Performed By: #### 0 50949, FERR, CBC, ANEU, TSH, 019111, GFR, CMP, 130574, FT4, ADIFF #### [address] [address] #### FOL, DHEAS, B12 #### [address] [address] Lymphocyte, Absolute 1.8 10 3/mcL Normal 0.8-3.9 [facility] ([place]) Comment on above: Performed By: #### 0 44751, FERR, CBC, ANEU, TSH, 948027, GFR, CMP, 482420, FT4, ADIFF #### [address] [address] #### FOL, DHEAS, B12 #### [address] [address] Lymphocytes/100 WBC (Bld) 23.5 % Normal 10.0-50.0 [facility] ([place] Comment on above: Performed By: #### 0 08431, FERR, CBC, ANEU, TSH, 101039, GFR, CMP, 743930, FT4, ADIFF #### [place] [address] #### FOL, DHEAS, B12 #### [address] [address] Monocyte, Absolute 0.5 10 3/mcL Normal 0.2-1.0 Replaced by [facility] ([place] Comment on above: Performed By: #### 0 85578, FERR, CBC, ANEU, TSH, 730646, GFR, CMP, 145693, FT4, ADIFF #### [address] [address] #### FOL, DHEAS, B12 #### [address] [address] Monocytes/100 WBC (Bld) 6.2 % Normal 1.7-13.0 [facility] ([place] Comment on above: Performed By: #### 0 60152, FERR, CBC, ANEU, TSH, 978818, GFR, CMP, 358773, FT4, ADIFF #### [address] [address] #### FOL, DHEAS, B12 #### [address] [address] Neutrophils/100 WBC (Bld) 68.7 % Normal 37.0-80.0 [facility] ([place] Comment on above: Performed By: #### 0 59800, FERR, CBC, ANEU, TSH, 908675, GFR, CMP, 943693, FT4, ADIFF #### [address] [address] #### FOL, DHEAS, B12 #### [address] [address] .GFRon 10-17-2023 GFR Non- 72 ml/min/1.73sqm Normal [facility] ([place] Comment on above: Result Comment: GFR Population mean for , Non- Americans Ages 20-29 = 116 mL/min/1.73 sq.m. Ages 30-39 = 107 mL/min/1.73 sq.m. Ages 40-49 = 99 mL/min/1.73 sq.m. Ages 50-59 = 93 mL/min/1.73 sq.m. Ages 60-69 = 85 mL/min/1.73 sq.m. Ages 70+ = 75 mL/min/1.73 sq.m. Chronic Kidney Disease: Less than 60 mL/min/1.73 square meters End Stage Renal Disease: Less than 15 mL/min/1.73 square meters Performed By: #### 0 03083, FERR, CBC, ANEU, TSH, 562567, GFR, CMP, 108457, FT4, ADIFF #### [address] [address] #### FOL, DHEAS, B12 #### [address] [address] GFR 87 ml/min/1.73sqm Normal [facility] ([place] Comment on above: Result Comment: GFR Population mean for , Non- Americans Ages 20-29 = 116 mL/min/1.73 sq.m. Ages 30-39 = 107 mL/min/1.73 sq.m. Ages 40-49 = 99 mL/min/1.73 sq.m. Ages 50-59 = 93 mL/min/1.73 sq.m. Ages 60-69 = 85 mL/min/1.73 sq.m. Ages 70+ = 75 mL/min/1.73 sq.m. Chronic Kidney Disease: Less than 60 mL/min/1.73 square meters End Stage Renal Disease: Less than 15 mL/min/1.73 square meters Performed By: #### 0 04386, FERR, CBC, ANEU, TSH, 456195, GFR, CMP, 040184, FT4, ADIFF #### [address] [address] #### FOL, DHEAS, B12 #### [address] [address] .NEUABSon 10-17-2023 Neutrophil, Absolute 5.2 10 3/mcL Normal 2.9-6.2 [facility] ([place]) Comment on above: Performed By: #### 0 32706, FERR, CBC, ANEU, TSH, 667818, GFR, CMP, 419745, FT4, ADIFF #### [address] [address] #### FOL, DHEAS, B12 #### [address] [address] B12on 10-17-2023 Cobalamin (Vitamin B12) [Mass/Vol] 515 pg/mL Normal 211-911 [facility] ([place] Comment on above: Performed By: #### 0 07045, FERR, CBC, ANEU, TSH, 343473, GFR, CMP, 213624, FT4, ADIFF #### [address] [address] #### FOL, DHEAS, B12 #### [address] [address] CBCon 10-17-2023 Erythrocyte distribution width (RBC) [Ratio] 13.8 % Normal 11.5-14.5 [facility] ([place] Comment on above: Performed By: #### 0 52565, FERR, CBC, ANEU, TSH, 153218, GFR, CMP, 654333, FT4, ADIFF #### [place] [address] #### FOL, DHEAS, B12 #### [place] [address] Hematocrit (Bld) [Volume fraction] 39.4 % Normal 37.0-47.0 [facility] ([place] Comment on above: Performed By: #### 0 30036, FERR, CBC, ANEU, TSH, 047139, GFR, CMP, 353290, FT4, ADIFF #### [address] [address] #### FOL, DHEAS, B12 #### [place] [address] Hgb 14.2 G/dL Normal 12.0-16.0 [facility] ([place] Comment on above: Performed By: #### 0 23816, FERR, CBC, ANEU, TSH, 051871, GFR, CMP, 626248, FT4, ADIFF #### [address] [address] #### FOL, DHEAS, B12 #### [address] [address] MCH (RBC) [Entitic mass] 31.8 pg High 27.0-31.2 [facility] ([place] Comment on above: Performed By: #### 0 75322, FERR, CBC, ANEU, TSH, 093216, GFR, CMP, 533088, FT4, ADIFF #### [place] [address] #### FOL, DHEAS, B12 #### [place] [address] MCHC 35.9 G/dL Normal 33.0-37.0 [facility] ([place] Comment on above: Performed By: #### 0 27509, FERR, CBC, ANEU, TSH, 131729, GFR, CMP, 996174, FT4, ADIFF #### [place] [address] #### FOL, DHEAS, B12 #### [place] [address] MCV (RBC) [Entitic vol] 88.5 fL Normal 80.0-94.0 [facility] ([place] Comment on above: Performed By: #### 0 95344, FERR, CBC, ANEU, TSH, 678564, GFR, CMP, 440094, FT4, ADIFF #### [place] [address] #### FOL, DHEAS, B12 #### [place] [address] Platelet 271 10 3/mcL Normal 130-400 [facility] ([place] Comment on above: Performed By: #### 0 20526, FERR, CBC, ANEU, TSH, 200312, GFR, CMP, 445104, FT4, ADIFF #### [place] [address] #### FOL, DHEAS, B12 #### [place] [address] Platelet mean volume (Bld) [Entitic vol] 9.1 fL Normal 7.4-10.4 [facility] ([place] Comment on above: Performed By: #### 0 93101, FERR, CBC, ANEU, TSH, 398078, GFR, CMP, 927059, FT4, ADIFF #### [address] [address] #### FOL, DHEAS, B12 #### [address] [address] RBC 4.46 10 6/mcL Normal 4.20-5.40 [facility] ([place] Comment on above: Performed By: #### 0 34517, FERR, CBC, ANEU, TSH, 701835, GFR, CMP, 289171, FT4, ADIFF #### [place] [address] #### FOL, DHEAS, B12 #### [place] [address] WBC 7.6 10 3/mcL Normal 4.6-10.8 [facility] ([place] Comment on above: Performed By: #### 0 87003, FERR, CBC, ANEU, TSH, 440936, GFR, CMP, 163290, FT4, ADIFF #### [place] [address] #### FOL, DHEAS, B12 #### [place] [address] CMPon 10-17-2023 Albumin Level 4.7 G/dL Normal 3.5-5.0 [facility] ([place]) Comment on above: Performed By: #### 0 21491, FERR, CBC, ANEU, TSH, 932515, GFR, CMP, 663503, FT4, ADIFF #### [place] [address] #### FOL, DHEAS, B12 #### [place] [address] Albumin/Globulin [Mass ratio] 1.3 {ratio} Normal 1.1-2.5 [facility] ([place] Comment on above: Performed By: #### 0 70566, FERR, CBC, ANEU, TSH, 023726, GFR, CMP, 919086, FT4, ADIFF #### [place] [address] #### FOL, DHEAS, B12 #### [address] [address] ALP [Catalytic activity/Vol] 69 U/L Normal 40-135 [facility] ([place]) Comment on above: Performed By: #### 0 08838, FERR, CBC, ANEU, TSH, 292351, GFR, CMP, 333172, FT4, ADIFF #### [place] [address] #### FOL, DHEAS, B12 #### [address] [address] ALT [Catalytic activity/Vol] 26 U/L Normal 14-59 [facility] ([place]) Comment on above: Performed By: #### 0 53206, FERR, CBC, ANEU, TSH, 065869, GFR, CMP, 715989, FT4, ADIFF #### [place] [address] #### FOL, DHEAS, B12 #### [place] [address] AST [Catalytic activity/Vol] 12 U/L Normal 10-40 [facility] ([place]) Comment on above: Performed By: #### 0 59481, FERR, CBC, ANEU, TSH, 766343, GFR, CMP, 343143, FT4, ADIFF #### [place] [address] #### FOL, DHEAS, B12 #### [place] [address] Bili Total 0.9 mg/dL Normal 0.2-1.0 [facility] ([place]) Comment on above: Result Comment: Use of this assay is not recommended for patients undergoing treatment with eltrombopag due to the potential for falsely elevated results. Performed By: #### 0 85313, FERR, CBC, ANEU, TSH, 194761, GFR, CMP, 386410, FT4, ADIFF #### [place] [address] #### FOL, DHEAS, B12 #### [address] [address] BUN/Creatinine Ratio 11 ratio Normal 7-27 Replaced by [facility] ([place] Comment on above: Performed By: #### 0 72132, FERR, CBC, ANEU, TSH, 256400, GFR, CMP, 558082, FT4, ADIFF #### [address] [address] #### FOL, DHEAS, B12 #### [address] [address] Calcium [Mass/Vol] 9.8 mg/dL Normal 8.4-10.2 [facility] ([place]) Comment on above: Performed By: #### 0 47403, FERR, CBC, ANEU, TSH, 557136, GFR, CMP, 387249, FT4, ADIFF #### [address] [address] #### FOL, DHEAS, B12 #### [address] [address] Chloride [Moles/Vol] 105 mmol/L Normal 98-107 Replaced by [facility] ([place] Comment on above: Performed By: #### 0 63108, FERR, CBC, ANEU, TSH, 000811, GFR, CMP, 290345, FT4, ADIFF #### [address] [address] #### FOL, DHEAS, B12 #### [address] [address] CO2 [Moles/Vol] 26 mmol/L Normal 22-29 [facility] ([place] Comment on above: Performed By: #### 0 39750, FERR, CBC, ANEU, TSH, 450685, GFR, CMP, 931733, FT4, ADIFF #### [address] [address] #### FOL, DHEAS, B12 #### [address] [address] Creatinine [Mass/Vol] 0.96 mg/dL Normal 0.55-1.02 [facility] ([place]) Comment on above: Performed By: #### 0 85602, FERR, CBC, ANEU, TSH, 085009, GFR, CMP, 318116, FT4, ADIFF #### [address] [address] #### FOL, DHEAS, B12 #### [address] [address] Electrolyte Balance 11.0 mEq/L Normal 4.0-15.0 [facility] ([place]) Comment on above: Performed By: #### 0 88493, FERR, CBC, ANEU, TSH, 473657, GFR, CMP, 795574, FT4, ADIFF #### [place] [address] #### FOL, DHEAS, B12 #### [place] [address] Globulin 3.6 G/dL Normal [facility] ([place]) Comment on above: Performed By: #### 0 20212, FERR, CBC, ANEU, TSH, 150043, GFR, CMP, 376965, FT4, ADIFF #### [place] [address] #### FOL, DHEAS, B12 #### [place] [address] Glucose [Mass/Vol] 96 mg/dL Normal 70-105 [facility] ([place]) Comment on above: Performed By: #### 0 47815, FERR, CBC, ANEU, TSH, 778521, GFR, CMP, 793975, FT4, ADIFF #### [place] [address] #### FOL, DHEAS, B12 #### [address] [address] Potassium [Moles/Vol] 4.3 mmol/L Normal 3.5-5.1 [facility] ([place]) Comment on above: Performed By: #### 0 99596, FERR, CBC, ANEU, TSH, 917892, GFR, CMP, 525834, FT4, ADIFF #### [place] [address] #### FOL, DHEAS, B12 #### [address] [address] Sodium [Moles/Vol] 142 mmol/L Normal 136-145 [facility] ([place] Comment on above: Performed By: #### 0 08393, FERR, CBC, ANEU, TSH, 272109, GFR, CMP, 272955, FT4, ADIFF #### [address] [address] #### FOL, DHEAS, B12 #### [place] [address] Total Protein 8.3 G/dL High 6.4-8.2 [facility] ([place] Comment on above: Performed By: #### 0 89349, FERR, CBC, ANEU, TSH, 958653, GFR, CMP, 205814, FT4, ADIFF #### [place] [address] #### FOL, DHEAS, B12 #### [place] [address] Urea nitrogen [Mass/Vol] 11 mg/dL Normal 7-18 [facility] ([place] Comment on above: Performed By: #### 0 71865, FERR, CBC, ANEU, TSH, 820891, GFR, CMP, 116738, FT4, ADIFF #### [address] [address] #### FOL, DHEAS, B12 #### [place] [address] DHEASon 10-17-2023 DHEA-SO4 57.81 mcg/dL Normal 25.90-460.20 [facility] ([place] Comment on above: Result Comment: No te - New Reference Range in effect 20 Performed By: #### 0 45667, FERR, CBC, ANEU, TSH, 515277, GFR, CMP, 821532, FT4, ADIFF #### [place] [address] #### FOL, DHEAS, B12 #### [place] [id number] Syd 10-17-2023 Ferritin [Mass/Vol] 100.0 ng/mL Normal 8.0-252.0 Replaced by [facility] ([place] Comment on above: Performed By: #### 0 81453, FERR, CBC, ANEU, TSH, 814988, GFR, CMP, 246546, FT4, ADIFF #### [address] [address] #### FOL, DHEAS, B12 #### [place] [address] FOLon 10-17-2023 Folate 11.08 ng/mL Normal 5.38-24.00 [facility] ([place] Comment on above: Performed By: #### 0 93796, FERR, CBC, ANEU, TSH, 263485, GFR, CMP, 417489, FT4, ADIFF #### [place] [address] #### FOL, DHEAS, B12 #### [place] [address] FT4on 10-17-2023 Free T4 [Mass/Vol] 1.04 ng/dL Normal 0.76-1.46 [facility] ([place]) Comment on above: Performed By: #### 0 04468, FERR, CBC, ANEU, TSH, 061445, GFR, CMP, 614172, FT4, ADIFF #### [place] [address] #### FOL, DHEAS, B12 #### [place] [address] TSHon 10-17-2023 TSH Qn 1.36 m[IU]/L Normal 0.36-3.74 [facility] ([place] Comment on above: Performed By: #### 0 33206, FERR, CBC, ANEU, TSH, 659408, GFR, CMP, 409818, FT4, ADIFF #### [place] [id number] #### FOL, DHEAS, B12 #### [place] [address] LABORATORYOrdered By: Marylou Montgomery on 06-30-2022 Albumin BCP dye [Mass/Vol] 4.4 G/dL Invalid Interpretation Code 3.5 - 5.0 G/dL AO ADM SS Albumin/Globulin [Mass ratio] 1.3 {ratio} Invalid Interpretation Code 1.1 - 2.5 ratio AO ADM SS ALP [Catalytic activity/Vol] 69 U/L Invalid Interpretation Code 40 - 135 U/L AO ADM SS ALT With P-5'-P [Catalytic activity/Vol] 24 U/L Invalid Interpretation Code 14 - 59 U/L AO ADM SS aPTT Coag (Bld) [Time] 29.5 s Invalid Interpretation Code 24.1 - 34.9 seconds AO Coag SS AST With P-5'-P [Catalytic activity/Vol] 14 U/L Invalid Interpretation Code 10 - 40 U/L AO ADM SS Bili Indirect 0.6 mg/dL Invalid Interpretation Code AO Chemistry S Bilirubin [Mass/Vol] 0.8 mg/dL Invalid Interpretation Code 0.2 - 1.0 mg/dL AO ADM SS Bilirubin.direct [Mass/Vol] 0.2 mg/dL Invalid Interpretation Code 0.0 - 0.2 mg/dL AO ADM SS Globulin 3.4 G/dL Invalid Interpretation Code AO ADM SS Heparin dose (APTT) Unknown (06/30/22 9:22 AM) Invalid Interpretation Code AO Coag SS INR Coag (PPP) [Relative time] 1.2 {INR} Invalid Interpretation Code 0.9 - 1.2 ratio AO Coag SS Protein [Mass/Vol] 7.8 G/dL Invalid Interpretation Code 6.4 - 8.2 G/dL AO ADM SS PT Coag (PPP) [Time] 13.2 s Invalid Interpretation Code 9.7 - 13.9 seconds AO Coag SS LABORATORYOrdered By: Bruna Hernandez on 06-30-2022 Basophil, Absolute 0.1 103/mcL Invalid Interpretation Code 0.0 - 0.2 10^3/mcL AO Workflow SS Basophils/100 WBC (Bld) 0.8 % Invalid Interpretation Code 0.0 - 2.5 % AO Workflow SS Eosinophil, Absolute 0.1 103/mcL Invalid Interpretation Code 0.0 - 0.4 10^3/mcL AO Workflow SS Eosinophils/100 WBC (Bld) 1.0 % Invalid Interpretation Code 0.0 - 7.0 % AO Workflow SS Erythrocyte distribution width (RBC) [Ratio] 13.9 % Invalid Interpretation Code 11.5 - 14.5 % AO Workflow SS Hematocrit (Bld) [Volume fraction] 40.3 % Invalid Interpretation Code 37.0 - 47.0 % AO Workflow SS Hemoglobin (Bld) [Mass/Vol] 14.1 G/dL Invalid Interpretation Code 12.0 - 16.0 G/dL AO Workflow SS Lymphocyte, Absolute 1.1 103/mcL Invalid Interpretation Code 0.8 - 3.9 10^3/mcL AO Workflow SS Lymphocytes/100 WBC (Bld) 16.3 % Invalid Interpretation Code 10.0 - 50.0 % AO Workflow SS MCH (RBC) [Entitic mass] 31.7 pg Invalid Interpretation Code 27.0 - 31.2 pg AO Workflow SS MCHC 34.9 G/dL Invalid Interpretation Code 33.0 - 37.0 G/dL AO Workflow SS MCV (RBC) [Entitic vol] 91.0 fL Invalid Interpretation Code 80.0 - 94.0 fL AO Workflow SS Monocyte, Absolute 0.6 103/mcL Invalid Interpretation Code 0.2 - 1.0 10^3/mcL AO Workflow SS Monocytes/100 WBC (Bld) 8.9 % Invalid Interpretation Code 1.7 - 13.0 % AO Workflow SS Neutrophil, Absolute 5.1 103/mcL Invalid Interpretation Code 2.9 - 6.2 10^3/mcL AO Workflow SS Neutrophils/100 WBC (Bld) 73.0 % Invalid Interpretation Code 37.0 - 80.0 % AO Workflow SS Platelet mean volume (Bld) [Entitic vol] 9.4 fL Invalid Interpretation Code 7.4 - 10.4 fL AO Workflow SS Platelets (Bld) [#/Vol] 255 103/mcL Invalid Interpretation Code 130 - 400 10^3/mcL AO Workflow SS RBC (Bld) [#/Vol] 4.43 106/mcL Invalid Interpretation Code 4.20 - 5.40 10^6/mcL AO Workflow SS WBC (Bld) [#/Vol] 7.0 103/mcL Invalid Interpretation Code 4.6 - 10.8 10^3/mcL AO Workflow SS LABORATORYOrdered By: SYSTEM SYSTEM on 06-30-2022 Gamma glutamyl transferase [Catalytic activity/Vol] 25 U/L Invalid Interpretation Code 5 - 55 U/L AH ADM SS Progress Noteon 09-01-2022 Size Worker Authentication Interface Message Text Ashia Zuñiga is here for follow-up for: Hepatic Disease History of Present Illness HPI History provided by patient She was last seen 07/29/21 Ashia is a 22 year old female with autoimmune hepatitis diagnosed in 2009. She had been maintained on imuran 50mg daily. Repeat liver biopsy performed in 09/2017 in hopes of trial off of Imuran showed continued portal inflammation. In light of this will continue Imuran. 04/02/2020: 6TG level 322, 6MMP < 500 Liver biopsy (09/09/2017): FINAL DIAGNOSIS: Liver needle biopsy, GALINA score - Grade of inflammation: Portal inflammation1 of 4 (mild lymphocytes in only one portal area), Periportal/Periseptal Inflammation 0 of 5, Parenchymal changes 0 of 4, Confluent necrosis 0 of 6; Stage of Fibrosis: Grade 0 of 6, no fibrosis Liver biopsy (04/30/2010): FINAL DIAGNOSIS: Liver biopsy with mild chronic active hepatitis (GALINA scores - Portal inflammation 3 of 4, Piecemeal necrosis 1/10, Lobular degeneration/necrosis 1/4 and Fibrosis 0/4) She developed symptoms of jaundice and dark urine 12/2020. Labs notable for AST 89, ALT 125, TB 3.1, DB 0.8, Plt 132 -She was started on prednisone 40mg daily Labs 12/22: AST 122, ALT 184, TB 2.4 -prednisone increased to 30mg BID Liver US normal. Doppler reports findings of portal hypertension. Platelets 235 Labs 12/30: AST 26, ALT 101, TB 1.1, DB 0.2 6TG level 250, 6MMP 392 Imuran dose increased to 75mg daily Labs 01/13/21 had normalized and she was weaned off prednisone. Labs 03/18/21: AST 23, ALT 39, TB 1.3, DB 0.2 6TG level 03/20/21: 414, 6MMP < 322 Abdominal US + doppler 07/20/21 - normal. No evidence of portal hypertension Last labs 07/29/21: AST 17, ALT 20, TB 1.0, DB 0.2. albumin 4.7. platelets and GGT normal She has been compliant with taking imuran 75mg daily. Denies RUQ abdominal pain, jaundice, scleral icterus. No easy bruising or bleeding. No change in mental status or behavior. She is scheduled to see Adult GI in [place] (Dr. Sanchez) on August 19. She reports overall having issues with constipation. She had been using colace 300mg daily however no improvement. Currently with bowel movements 2-3 times per week and always small amounts. She overall has abdominal discomfort and bloating with nausea with worsening constipation. No diarrhea or hematochezia She is in [employer] Past Medical History Past Medical History: Diagnosis Date Autoimmune hepatitis C. difficile diarrhea Past Surgical History Past Surgical History: Procedure Laterality Date LIVER BIOPSY Allergies No Known Allergies Medications Outpatient Encounter Medications as of 06/10/2022 Medication Sig Dispense Refill azaTHIOprine (IMURAN) 50 MG tablet Take 1.5 Tablets (75 mg) by mouth daily 45 Tablet 2 predniSONE (DELTASONE) 10 MG tablet Take 4 Tablets (40 mg) by mouth daily (Patient not taking: Reported on 04/23/2021) 120 Tablet 2 docusate sodium (COLACE) 100 MG CAPS capsule Take 2 Capsules (200 mg) by mouth daily (Patient not taking: Reported on 04/23/2021) 60 Capsule 2 bisacodyl (DULCOLAX) 5 MG EC tablet Take 2 Tablets (10 mg) by mouth daily as needed for Other (constipation) (Patient not taking: Reported on 07/29/2021) 10 Tablet 0 polyethylene glycol (MIRALAX;GLYCOLAX) 17 GM/SCOOP powder Take 17 g by mouth 2 times daily (Patient not taking: Reported on 04/23/2021) 850 g 2 ondansetron (ZOFRAN) 4 MG tablet Take 1 Tablet (4 mg) by mouth every 8 hours as needed for Nausea (Patient not taking: Reported on 01/07/2021) 10 Tablet 0 omeprazole (PRILOSEC) 20 MG capsule Take 1 Capsule (20 mg) by mouth daily 30 Capsule 2 MedroxyPROGESTERone Acetate (DEPO-PROVERA IM) Inject into the muscle No facility-administered encounter medications on file as of 06/10/2022. Family Medical History Family History Problem Relation Age of Onset Autoimmune Thyroid Maternal Grandmother High Blood Pressure Maternal Grandmother Rhematoid Arthritis Maternal Grandfather Autoimmune Thyroid Paternal Grandmother Psoriasis Paternal Grandfather No known problems Mother No known problems Father Liver Disease Neg Hx Crohn's Disease Neg Hx Ulcerative Colitis Neg Hx Social History Social History Socioeconomic History Marital status: Single Tobacco Use Smoking status: Passive Smoke Exposure - Never Smoker Smokeless tobacco: Never Diet Current Diet? regular diet Patient drinks milk, eats cheese, ice cream? Yes Do dairy products cause problems? No Does patient have dietary restrictions? No Patient on nutritional supplements? No Patient on tube feeds? No Social History Who lives in the household? mom, dad Are there pets in the home? Yes Has patient traveled out of the country? No Water source for child? [facility] Has the patient ever been hospitalized? Yes Alternative meds, herbals, OTC meds and vitamins documented in medication section? No Review of Systems Review of Systems Constitution (more content not included)... Normal [facility] No Panel Informationon 08-07 Culture Urine 10,000 - 50,000 cfu/ ml Mixed growth consistent with normal urogenital alison. [facility] Ferritinon 07-30-2021 Ferritin [Mass/Vol] 41 ng/mL Normal 10-291 [facility] Comment on above: Order Comment: Relea se to patient->Automatic 03861&Blood Performed By: #### F ERTN #### [address] [address] TSH with reflex T4FRon 07-30 TSH with reflex T4FR 1.216 uIU/mL Normal 0.350-5.500 [facility] Comment on above: Order Comment: Relea se to patient->Automatic 01165&Blood Performed By: #### T SHR #### [address] [address] Complete Blood Counton 07-29 Differential Complete Automated Normal [facility] Comment on above: Order Comment: Relea se to patient->Automatic 39020&Blood Performed By: #### C BC #### [address] [address] Basophils/100 WBC (Bld) 0.90 % Normal 0.00-1.00 [facility] Comment on above: Order Comment: Relea se to patient->Automatic 54647&Blood Performed By: #### C BC #### [address] [address] Eosinophils/100 WBC (Bld) 0.90 % Normal 0.00-3.00 [facility] Comment on above: Order Comment: Relea se to patient->Automatic 40023&Blood Performed By: #### C BC #### [address] [address] Erythrocyte distribution width (RBC) [Ratio] 13.2 % Normal 0.0-14.4 [facility] Comment on above: Order Comment: Relea se to patient->Automatic 24550&Blood Performed By: #### C BC #### [address] [address] Hematocrit (Bld) [Volume fraction] 40.9 % Normal 36.0-44.0 [facility] Comment on above: Order Comment: Relea se to patient->Automatic 73271&Blood Performed By: #### C BC #### [address] [address] Hemoglobin (Bld) [Mass/Vol] 14.2 g/dL Normal 12.0-15.0 [facility] Comment on above: Order Comment: Relea se to patient->Automatic 00354&Blood Performed By: #### C BC #### [address] [address] Immature granulocytes/100 WBC (Bld) 0.20 % Normal [facility] Comment on above: Order Comment: Relea se to patient->Automatic 31459&Blood Result Comment: Manju ture Granulocyte Percent includes promyelocytes, myelocytes, and metamyelocytes. IG% > 1.0 indicates a left shift is present. With automated differentials, bands are included in the neutrophil count and not in the Immature Granulocyte Percent. Performed By: #### C BC #### [address] [address] Lymphocytes/100 WBC (Bld) 29.8 % Normal 24.0-44.0 [facility] Comment on above: Order Comment: Relea se to patient->Automatic 39330&Blood Performed By: #### C BC #### [address] [address] MCH (RBC) [Entitic mass] 31.6 pg Normal 26.0-34.0 [facility] Comment on above: Order Comment: Relea se to patient->Automatic 18336&Blood Performed By: #### C BC #### [address] [address] MCHC 34.7 % Normal 31.0-37.0 [facility] Comment on above: Order Comment: Relea se to patient->Automatic 03041&Blood Performed By: #### C BC #### [address] [address] MCV (RBC) [Entitic vol] 90.9 fL Normal 80.0-100.0 [facility] Comment on above: Order Comment: Relea se to patient->Automatic 31542&Blood Performed By: #### C BC #### [address] [address] Monocytes/100 WBC (Bld) 8.70 % High 3.00-6.00 [facility] Comment on above: Order Comment: Relea se to patient->Automatic 28911&Blood Performed By: #### C BC #### [address] [address] Neutrophils (Bld) [#/Vol] 2.6 10*3/uL Normal 2.0-7.2 [facility] Comment on above: Order Comment: Relea se to patient->Automatic 08539&Blood Performed By: #### C BC #### [address] [address] Neutrophils/100 WBC (Bld) 59.5 % Normal 35.0-66.0 [facility] Comment on above: Order Comment: Relea se to patient->Automatic 43488&Blood Performed By: #### C BC #### [address] [address] Nucleated RBC/100 WBC (Bld) [Ratio] 0.0 % Normal -1.0-0.0 [facility] Comment on above: Order Comment: Relea se to patient->Automatic 53663&Blood Performed By: #### C BC #### [address] [address] Platelet mean volume (Bld) [Entitic vol] 11.6 fL Normal [facility] Comment on above: Order Comment: Relea se to patient->Automatic 40330&Blood Result Comment: MPV is platelet range and age dependent Performed By: #### C BC #### [address] [address] Platelets (Bld) [#/Vol] 246 10*3/uL Normal 150-450 [facility] Comment on above: Order Comment: Relea se to patient->Automatic 66891&Blood Performed By: #### C BC #### [address] [address] RBC 4.50 10E12/L Normal 4.00-4.90 [facility] Comment on above: Order Comment: Relea se to patient->Automatic 88321&Blood Performed By: #### C BC #### [address] [address] WBC (Bld) [#/Vol] 4.4 10*3/uL Low 4.5-11.0 [facility] Comment on above: Order Comment: Relea se to patient->Automatic 07274&Blood Performed By: #### C BC #### [address] [address] GGTon 07-29-2021 Gamma glutamyl transferase [Catalytic activity/Vol] 12 U/L Normal 7-51 [facility] Comment on above: Order Comment: Relea se to patient->Automatic 07336&Blood Performed By: #### G GT #### [address] [address] Hepatic Panelon 07-29-2021 Albumin [Mass/Vol] 4.7 g/dL Normal 3.5-5.0 [facility] Comment on above: Order Comment: Relea se to patient->Automatic 74146&Blood Performed By: #### L IVER #### [address] [address] ALP [Catalytic activity/Vol] 48 U/L Normal 35-104 [facility] Comment on above: Order Comment: Relea se to patient->Automatic 84960&Blood Performed By: #### L IVER #### [address] [address] ALT [Catalytic activity/Vol] 20 U/L Normal 0-31 [facility] Comment on above: Order Comment: Relea se to patient->Automatic 82432&Blood Performed By: #### L IVER #### [address] [address] AST [Catalytic activity/Vol] 17 U/L Normal 0-31 [facility] Comment on above: Order Comment: Relea se to patient->Automatic 40056&Blood Performed By: #### L IVER #### [address] [address] Bili,Conjugated 0.2 mg/dL Normal 0.0-0.7 [facility] Comment on above: Order Comment: Relea se to patient->Automatic 67717&Blood Performed By: #### L IVER #### [address] [address] Bili,Total 1.0 mg/dl Normal 0.0-1.0 [facility] Comment on above: Order Comment: Relea se to patient->Automatic 91714&Blood Performed By: #### L IVER #### [address] [address] Protein [Mass/Vol] 7.7 g/dL Normal 5.9-8.4 [facility] Comment on above: Order Comment: Relea se to patient->Automatic 84912&Blood Performed By: #### L IVER #### [address] [address] Ironon 07-29-2021 %Saturation 21 % Normal 13-59 [facility] Comment on above: Order Comment: Relea se to patient->Automatic 51866&Blood Performed By: #### I CHUY #### [address] [address] Iron [Mass/Vol] 57 ug/dL Normal 30-160 [facility] Comment on above: Order Comment: Relea se to patient->Automatic 52727&Blood Performed By: #### I CHUY #### [address] [address] TIBC 274 ug/dl Normal 228-428 [facility] Comment on above: Order Comment: Relea se to patient->Automatic 96921&Blood Performed By: #### I CHUY #### [address] [address] Progress Noteon 07-29-2021 Size Worker Authentication Interface Message Text Ashia Zuñiga is here for follow-up for: Hepatitis (Patient is present with mom, is in office for follow up. No problems or concerns.) History of Present Illness HPI History provided by patient and mother She was last seen 04/23/21 Asiha is a 21 year old female female with autoimmune hepatitis diagnosed in 2009. She had been maintained on imuran 50mg daily. Repeat liver biopsy performed in 09/2017 in hopes of trial off of Imuran showed continued portal inflammation. In light of this will continue Imuran. 04/02/2020: 6TG level 322, 6MMP < 500 Liver biopsy (09/09/2017): FINAL DIAGNOSIS: Liver needle biopsy, GALINA score - Grade of inflammation: Portal inflammation1 of 4 (mild lymphocytes in only one portal area), Periportal/Periseptal Inflammation 0 of 5, Parenchymal changes 0 of 4, Confluent necrosis 0 of 6; Stage of Fibrosis: Grade 0 of 6, no fibrosis Liver biopsy (04/30/2010): FINAL DIAGNOSIS: Liver biopsy with mild chronic active hepatitis (GALINA scores - Portal inflammation 3 of 4, Piecemeal necrosis 1/10, Lobular degeneration/necrosis 1/4 and Fibrosis 0/4) She develops symptoms of jaundice and dark urine 12/2020. Labs notable for AST 89, ALT 125, TB 3.1, DB 0.8, Plt 132 -She was started on prednisone 40mg daily Labs 12/22: AST 122, ALT 184, TB 2.4 -prednisone increased to 30mg BID Liver US normal. Doppler reports findings of portal hypertension. Platelets 235 Labs 12/30: AST 26, ALT 101, TB 1.1, DB 0.2 6TG level 250, 6MMP 392 Imuran dose increased to 75mg daily Labs 01/13/21 had normalized and she was weaned off prednisone. 6TG level 03/20/21: 414, 6MMP < 322 Repeat liver US 07/20/21 - normal. No evidence of portal hypertension She reports that she is overall doing well. She denies abdominal pain, nausea, emesis. No easy bruising or bleeding. No fatigue. No jaundice or scleral icterus. She reports that she forgets to take imuran typically once per week Appetite at baseline. No weight loss. Bowel movements every other day. No longer needing miralax or colace. Denies diarrhea. She does report recent concerns of hair loss and poor hair growth Past Medical History Past Medical History: Diagnosis Date Autoimmune hepatitis C. difficile diarrhea Past Surgical History Past Surgical History: Procedure Laterality Date LIVER BIOPSY Allergies No Known Allergies Medications Outpatient Encounter Medications as of 07/29/2021 Medication Sig Dispense Refill azaTHIOprine (IMURAN) 50 MG tablet Take 1.5 Tablets (75 mg) by mouth daily 45 Tablet 5 omeprazole (PRILOSEC) 20 MG capsule Take 1 Capsule (20 mg) by mouth daily 30 Capsule 2 MedroxyPROGESTERone Acetate (DEPO-PROVERA IM) Inject into the muscle predniSONE (DELTASONE) 10 MG tablet Take 4 Tablets (40 mg) by mouth daily (Patient not taking: Reported on 04/23/2021) 120 Tablet 2 docusate sodium (COLACE) 100 MG CAPS capsule Take 2 Capsules (200 mg) by mouth daily (Patient not taking: Reported on 04/23/2021) 60 Capsule 2 bisacodyl (DULCOLAX) 5 MG EC tablet Take 2 Tablets (10 mg) by mouth daily as needed for Other (constipation) (Patient not taking: Reported on 07/29/2021) 10 Tablet 0 polyethylene glycol (MIRALAX;GLYCOLAX) 17 GM/SCOOP powder Take 17 g by mouth 2 times daily (Patient not taking: Reported on 04/23/2021) 850 g 2 ondansetron (ZOFRAN) 4 MG tablet Take 1 Tablet (4 mg) by mouth every 8 hours as needed for Nausea (Patient not taking: Reported on 01/07/2021) 10 Tablet 0 No facility-administered encounter medications on file as of 07/29/2021. Patient's medications, allergies, past medical, surgical, , social, and family histories were reviewed and updated as appropriate. Review of Systems Review of Systems Constitutional: Negative for recurrent fevers, weight loss and malaise/fatigue. HENT: Negative for mouth sores, trouble swallowing and sour taste. Eyes: Negative. Respiratory: Negative for coughing and wheezing. Cardiovascular: Negative for heart murmur and chest pain. Endocrine: Negative for poor growth. Gastrointestinal: Negative for constipation, diarrhea, vomiting, blood in stool, trouble swallowing, abdominal pain and nausea. Genitourinary: Negative. Neurological: Negative for headaches, seizures, dizziness and fainting. Musculoskeletal: Negative for joint pain. Skin: Negative for rash and easy bruising. Allergy/Immune: Negative for frequent infections. Hematology: Negative for no easy bleeding and no easy bruising. Physical Examination Vitals: 07/29/21 0930 Temp: 36.4 C (97.5 F) BP Readings from Last 2 Encounters: 05/21/20 119/67 10/24/19 107/61 Weight - Scale: 55.8 kg Height: 171.5 cm Body mass index is 18.97 kg/m . Physical Exam Vitals reviewed. Constitutional: Appearance: She is well-nourished. HENT: Mouth/Throat: Mouth: No mouth sores. Eyes: Conjunctiva/sclera: Conjunctivae normal. Pulmonary: Effort: Pulmonary effort is normal. Ab (more content not included)... Normal [facility] US ABDOMEN COMPLETEon 2020 US ABDOMEN COMPLETE Addendum: Correction: Comparison exam is 12/30/2020. No evidence for portal hypertension on this examination. This report has been created using voice recognition software Signed by: Dr. Ran Akins at 07/20/2021 10:19 Normal [facility] US DUPLEX ABDOMEN PELVIS COM PLETEon 07-20-2021 US DUPLEX ABDOMEN PELVIS COMPLETE Addendum: Correction: No evidence for portal hypertension in this examination. This report has been created using voice recognition software Signed by: Dr. Ran Akins at 07/20/2021 10:19 Normal [facility] Gamma GTon 04-19-2017 Gamma GT 28 U/L Normal 5-55 [facility] Comment on above: Performed By: #### G GT ####[facility], [address] [place] [address] CBC (AO)on 04-18-2017 Basophils Auto #/vol (Bld) 0.10 10 3/mcL Normal 0.00-0.19 [facility] Comment on above: Performed By: #### C BCO ####[address] [address] Basophils/100 WBC Auto (Bld) 1.0 % Normal 0.0-2.5 [facility] Comment on above: Performed By: #### C BCO ####[address] [address] Eosinophils 0.10 10 3/mcL Normal 0.00-0.40 [facility] Comment on above: Performed By: #### C BCO ####[address] [address] Eosinophils/100 leukocytes 1.4 % Normal 0.0-7.0 [facility] Comment on above: Performed By: #### C BCO ####[address] [address] Erythrocyte distribution width Auto Ratio (RBC) 12.9 % Normal 11.5-14.5 [facility] Comment on above: Performed By: #### C BCO ####[address] [address] Erythrocytes (RBC) 4.52 10 6/mcL Normal 4.20-5.40 [facility] Comment on above: Performed By: #### C BCO ####[address] [address] Hematocrit (HCT) 41.1 % Normal 37.0-47.0 [facility] Comment on above: Performed By: #### C BCO ####[address] [address] Hemoglobin mass conc (Bld) 14.0 G/dL Normal 12.0-16.0 [facility] Comment on above: Performed By: #### C BCO ####[address] [address] Lymphocytes 1.50 10 3/mcL Normal 0.77-3.85 [facility] Comment on above: Performed By: #### C BCO ####[address] [address] Lymphocytes/100 leukocytes 25.9 % Normal 10.0-50.0 [facility] Comment on above: Performed By: #### C BCO ####[address] [address] MCH 31.0 pg Normal 27.0-31.2 [facility] Comment on above: Performed By: #### C BCO ####[address] [address] MCHC mass conc (RBC) 34.1 G/dL Normal 33.0-37.0 Replaced by [facility] Comment on above: Performed By: #### C BCO ####[address] [address] MCV 90.9 fL Normal 80.0-94.0 [facility] Comment on above: Performed By: #### C BCO ####[address] [address] Monocytes 0.50 10 3/mcL Normal 0.15-1.00 [facility] Comment on above: Performed By: #### C BCO ####[address] [address] Monocytes/100 leukocytes 8.2 % Normal 1.7-13.0 [facility] Comment on above: Performed By: #### C BCO ####[address] [address] Neutrophils 3.70 10 3/mcL Normal 2.85-6.16 [facility] Comment on above: Performed By: #### C BCO ####[address] [address] Neutrophils/100 WBC Auto (Bld) 63.5 % Normal 37.0-80.0 [facility] Comment on above: Performed By: #### C BCO ####[address] [address] Platelet mean volume (PMV) 10.2 fL Normal 7.4-10.4 [facility] Comment on above: Performed By: #### C BCO ####[address] [address] Platelets 235 10 3/mcL Normal 130-400 [facility] Comment on above: Performed By: #### C BCO ####[address] [address] WBC (Leukocytes) 5.80 10 3/mcL Normal 4.60-10.80 [facility] Comment on above: Performed By: #### C BCO ####[address] [address] Hepatic Function Panel (AO)o n 04-18-2017 Alanine aminotransferase (ALT) 28 U/L Normal 10-35 [facility] Comment on above: Performed By: #### H FPO ####[address] [address] Alk. Phosphatase 84 IU/L Low 135-450 [facility] Comment on above: Performed By: #### H FPO ####[address] [address] Aspartate aminotransferase (AST) 22 U/L Normal 10-40 [facility] Comment on above: Performed By: #### H FPO ####[address] [address] T. Protein 7.3 G/dL Normal 6.0-8.3 [facility] Comment on above: Performed By: #### H FPO ####[address] [address] Bilirubin (direct) 0.7 mg/dL Normal 0.2-1.0 [facility] Comment on above: Performed By: #### H FPO ####[address] [address] Bilirubin (direct) 0.2 mg/dL Normal 0.1-0.5 [facility] Comment on above: Performed By: #### H FPO ####[address] [address] Bilirubin (indirect) 0.5 mg/dL Normal Replaced by [facility] Comment on above: Performed By: #### H FPO ####[address] [address] Albumin 4.6 G/dL Normal 3.5-5.0 [facility] Comment on above: Performed By: #### H FPO ####[address] [address] Vital Signs Date Time Vital Sign Value Performing Clinician Natalie villela 12-16-2023 12:39-0500 Body temperature 98.06 [degF] SHANTE GUSTAFSON APRN-FHA UNDERWRITER [facility] 12-16-2023 12:39-0500 Diastolic Blood Pressure Non-Invasive 63 mm[Hg] SHANTE GUSTAFSON BLOCK MASON-FHA UNDERWRITER [facility] 12-16-2023 12:39-0500 Heart rate 67 /min SHANTE GSUTAFSON BLOCK MASON-FHA UNDERWRITER [facility] 12-16-2023 12:39-0500 Systolic Blood Pressure Non-Invasive 109 mm[Hg] SHANTE GUSTAFSON BLOCK MASON-FHA UNDERWRITER [facility] 12-16-2023 11:23-0500 Body temperature 98.06 [degF] SHANTE GUSTAFSON BLOCK MASON-FHA UNDERWRITER [facility] 12-16-2023 11:23-0500 Diastolic Blood Pressure Non-Invasive 69 mm[Hg] SHANTE GUSTAFSON BLOCK MASON-FHA UNDERWRITER [facility] 12-16-2023 11:23-0500 Heart rate 76 /min SHANTE GUSTAFSON BLOCK MASON-FHA UNDERWRITER [facility] 12-16-2023 11:23-0500 Systolic Blood Pressure Non-Invasive 103 mm[Hg] SHANTE GUSTAFSON BLOCK MASON-FHA UNDERWRITER [facility] 10-27-2023 07:23-0500 Body height 172.[address] JUSTYNA CELIS MD [facility] 10-27-2023 07:23-0500 Body temperature 99.14 [degF] DR JUSTYNA CELIS MD [facility] 10-27-2023 07:23-0500 Body weight 54.[address] JUSTYNA CELIS MD [facility] 10-27-2023 07:23-0500 Diastolic Blood Pressure Non-Invasive 71 mm[Hg] DR JUSTYNA CELIS MD [facility] 10-27-2023 07:23-0500 Heart rate 124 /min DR JUSTYNA CELIS MD [facility] 10-27-2023 07:23-0500 Respiratory rate 20 /min DR JUSTYNA CELIS MD [facility] 10-27-2023 07:23-0500 Systolic Blood Pressure Non-Invasive 96 mm[Hg] DR JUSTYNA CELIS MD [facility] Encounters Encounter Date Encounter Type Care Provider Facility Start: 2024 End: 2024 ambulatory OSMAN RAMIREZ BLOCK MASON - FHA UNDERWRITER Facility:B Start: 2024 End: 2024 Patient encounter procedure OSMAN RAMIREZ BLOCK MASON - FHA UNDERWRITER [facility] Start: 02-23-2024 End: 02-23-2024 ambulatory OSMAN RAMIREZ BLOCK MASON - FHA UNDERWRITER Facility:B Start: 02-23-2024 End: 02-23-2024 Patient encounter procedure OSMAN AGUIRREKINS BLOCK MASON - FHA UNDERWRITER [facility] Start: 01-19-2024 End: 01-19-2024 ambulatory TALISHA NICOLE MD Facility:B Start: 01-19-2024 End: 01-19-2024 Patient encounter procedure TALISHA NICOLE MD [facility] Start: 01-13-2024 End: 01-13-2024 ambulatory TALISHA NICOLE MD Facility:B Start: 01-09-2024 End: 01-09-2024 ambulatory SHANTE GUSTAFSON BLOCK MASON-FHA UNDERWRITER Facility:A Start: 01-09-2024 End: 01-09-2024 Patient encounter procedure SHANTE GUSTAFSON BLOCK MASON-FHA UNDERWRITER [facility] Start: 12-16-2023 End: 12-16-2023 ambulatory SHANTE SJ BLOCK MASON-FHA UNDERWRITER Facility:B Start: 12-16-2023 End: 12-16-2023 SAME DAY STAY SHANTE GUSTAFSON BLOCK MASON-FHA UNDERWRITER [facility] Start: 12-02-2023 End: 12-06-2023 ambulatory TALISHA NICOLE MD Facility:B Start: 12-02-2023 End: 12-06-2023 Outreach Lab TALISHA NICOLE MD [facility] Start: 11-23-2023 End: 11-23-2023 ambulatory BETSY LO BLOCK MASON-FHA UNDERWRITER Facility:B Start: 11-17-2023 End: 11-21-2023 ambulatory BETSY LO BLOCK MASON-FHA UNDERWRITER Facility:B Start: 11-17-2023 End: 11-21-2023 Encounter for gynecological examination (general) (routine) without abnormal findings BETSY LO BLOCK MASON-FHA UNDERWRITER Facility:B Start: 11-17-2023 End: 11-21-2023 Outreach Lab BETSY LO BLOCK MASON-FHA UNDERWRITER [facility] Start: 11-14-2023 End: 11-14-2023 ambulatory OSMAN RAMIREZ BLOCK MASON - FHA UNDERWRITER Facility:B Start: 11-14-2023 End: 11-14-2023 Patient encounter procedure OSMAN RAMIREZ BLOCK MASON - FHA UNDERWRITER [facility] Start: 10-27-2023 End: 10-27-2023 Emergency department patient visit DR JUSTYNA CELIS MD [facility] Start: 10-17-2023 End: 10-17-2023 ambulatory ASHLYN CHEEMA Facility:B Start: 07-07-2022 End: 07-07-[address] RADHA SANTIAGO MD [facility] Start: 06-30-2022 End: 06-30-[address] RADHA SANTIAGO MD [facility] Start: 10-06-2021 End: 10-10-2021 Outreach Lab OSMAN RAMIREZ BLOCK MASON [employer] [facility] Start: 08-07-2021 End: 08-11-2021 Outreach Lab [facility] BLOCK MASONDailyDigitalFHA UNDERWRITER [facility] Start: 04-18-2017 End: 04-19-2017 Ambulatory PHY WO ID REFERRING Facility:[facility] Immunizations Immunization Date Immunization Notes Care Provider Danny joiner 07-25-2019 influenza, injectabl e, quadrivalent, preservative free; Translations: [Fluarix PF Quadrivalent ] [facility] [place] BLOCK MASONDailyDigitalFHA UNDERWRITER [facility] 07-13-2018 meningococcal polysaccharide (groups A, C, Y and W-135) diphtheria toxoid conjugate vaccine (MCV4P) [facility] BLOCK MASONDailyDigitalFHA UNDERWRITER [facility] 05-12-2016 hepatitis A vaccine, adult dosage [facility] [place] BLOCK MASONDailyDigitalFHA UNDERWRITER [facility] 05-11-2013 meningococcal polysaccharide (groups A, C, Y and W-135) diphtheria toxoid conjugate vaccine (MCV4P) [facility] AssetNDailyDigitalFHA UNDERWRITER [facility] 05-11-2013 tetanus toxoid, redu opal diphtheria toxoid, and acellular pertussis vaccine, adsorbed [facility] BLOCK [facility] 12-07-2012 Human Papillomavirus Quadval [facility] BLOCK [facility] 07-21-2012 Human Papillomavirus Quadval [facility] BLOCK MASON-FHA UNDERWRITER [facility] 05-08-2012 Human Papillomavirus Quadval [facility] BLOCK MASON-FHA UNDERWRITER [facility] 02-22-2006 diphtheria, tetanus toxoids and acellular pertussis vaccine, unspecified formulation [facility] BLOCK [facility] 05-17-2005 measles/mumps/rubell a virus vaccine [facility] BLOCK [facility] 09-05-2001 diphtheria, tetanus toxoids and acellular pertussis vaccine, unspecified formulation [facility] BLOCK [facility] 09-05-2001 poliovirus vaccine, inactivated [facility] BLOCK [facility] 06-06-2001 measles/mumps/rubell a virus vaccine [facility] BLOCK MASON-FHA UNDERWRITER [facility] 06-06-2001 varicella virus vaccine [facility] BLOCK MASON-FHA UNDERWRITER [facility] 2000 diphtheria, tetanus toxoids and acellular pertussis vaccine, unspecified formulation [place] BLOCK MASON-FHA UNDERWRITER [facility] 2000 hepatitis B pediatri c vaccine [place] BLOCK MASON-FHA UNDERWRITER [facility] 2000 poliovirus vaccine, inactivated [place] BLOCK MASON-FHA UNDERWRITER [facility] 2000 diphtheria, tetanus toxoids and acellular pertussis vaccine, unspecified formulation [place] BLOCK MASON-FHA UNDERWRITER [facility] 2000 hepatitis B pediatri c vaccine [place] BLOCK MASON-FHA UNDERWRITER [facility] 2000 poliovirus vaccine, inactivated [place] BLOCK MASON-FHA UNDERWRITER [facility] 2000 diphtheria, tetanus toxoids and acellular pertussis vaccine, unspecified formulation [place] BLOCK MASON-FHA UNDERWRITER [facility] 2000 hepatitis B pediatri c vaccine [place] BLOCK MASON-FHA UNDERWRITER [facility] 2000 poliovirus vaccine, inactivated [place] BLOCK MASON-FHA UNDERWRITER [facility] Payers Date Payer Category Payer Unknown [id number] 2024 Unknown [id number] 2023 Unknown [id number] 2023 Unknown [id number] 2023 Unknown [id number] 2014 Unknown [id number] 2000 Unknown [id number] 2.16.8 [id number] 2000 Unknown [id number] 2.16.8 [id number] 2000 Unknown [id number] 2.16.8 [id number] 2000 Unknown [id number] 2.16.8 [id number] 2000 Unknown [id number] 2.16.8 [id number] 2000 Unknown [id number] 2.16.8 [id number] 2000 Unknown [id number] 2.16.8 [id number] 2000 Unknown [id number] 2.16.8 [id number] 2000 Unknown [id number] 2.16.8 [id number] 2000 Unknown [id number] 2.16.8 [id number] 2000 Unknown [id number] 2.16.8 [id number] 2000 Unknown [id number] 2.16.8 [id number] Social History Date Type Detail Facility Start: 08-07-2021 End: 2024 Never smoked tobacco (finding) [facility] Comment on above: Minimal smoke exposu re no current vaping Pt Vapes daily Sex Assigned At Female [facility] Functional Status Date Assessment Result Facility 10-27-2023 Functional Status Independent Yamila benoit [facility] 10-27-2023 Functional Status Resting Yamila Chavez [facility] Mental Status Date Assessment Result Facility 10-27-2023 Mental Status Orientation Oriented x 4 [facility] Clinical Notes 12-19-2020 to 2024 Note Date & Type Note Facility 2024 Note ORIGINAL EXAMINATION: THREE XRAY VIEWS OF THE LEFT [id number] 8:57 am KNEE 3 VIEWS LEFT COMPARISON: None HISTORY: ORDERING SYSTEM PROVIDED HISTORY: Reason for Exam: XR of knee to evaluate for arthritis &/or chronic tears, flattening of the femoral condyle, narrowing of the joint space, osteophyte formation, or subchondral sclerosis. FINDINGS: No acute fracture or dislocation is identified. No joint effusion is seen. There is no joint space narrowing or significant joint effusion. No significant subchondral sclerosis or osteophyte formation. No significant flattening of the femoral condyle. There is no radiopaque foreign body. IMPRESSION: Negative knee radiographs.. I have personally reviewed the images of this examination and agree with the resident's findings and interpretation. Interpreted by: Sylvester Hardwick MD Preliminary Report By: Brandon Eaton MD Electronically signed By Sylvester Hardwick MD Dictated Date: 2024 8:59:38 AM Prelim Date: 2024 2:43:07 PM Sign Date: 2024 2:43:07 PM Ordering Provider: OSMAN RAMIREZ [facility] 02-23-2024 Note Exam Date Time Procedure Performing Provider Status 02/23/24 2:16 PM Echocardiogram, Adult - CV Auth (Verified) [facility] 04-01-2024 Note Date of Service January 09, 2024 Procedure Name Upright tilt table test Referring Provider RADHA Guo Consent Patient has been educated about the risks, benefits, and alternatives of this procedure prior to obtaining consent. Indication Episodic dizziness, evaluate for POTS Location Noninvasive heart lab Technique This is a 23-year-old female who presents today for head up tilt table testing secondary to episodic dizziness. Patient presented for an upright tilt table test in a fasting state. Presenting vital signs showed a heart rate of 83 bpm in normal sinus rhythm and a blood pressure of 102/68. Patient was then brought upright to a 70 degree position where the patient was monitored for the next 20 minutes with continuous EKG reading and intermittent blood pressure checks. --- Upon rising, the patient's heart rate was 144 bpm in sinus tachycardia with a blood pressure of 96/66. At the 4-minute cara, the patient's heart rate was 90 bpm in normal sinus rhythm with a blood pressure of 94/62. At the 8-minute cara, the patient's heart rate was 118 bpm in sinus tachycardia with a blood pressure of 88/56. At the 12-minute cara, the patient's heart rate was 118 bpm in sinus tachycardia with a blood pressure of 94/62. At the 16-minute cara, the patient's heart rate was 113 bpm in sinus tachycardia with a blood pressure of 90/62. At the 20-minute cara, the patient's heart was 111 bpm in sinus tachycardia with a blood pressure of 88/60. Upon return to supine position, the patient's heart rate was 68 bpm in normal sinus rhythm with a blood pressure of 90/68. --- Bilateral carotid sinus massage was negative for change in EKG findings/symptoms. --- Assessment and Plan: 1. Abnormal study-the findings of the study are consistent with a diagnosis of POTS. ----- Initial recommendations include the followin. Optimizing hydration with at least 1 gallon of water intake per day along with electrolyte supplementation (goal sodium intake 5-10 grams/day) 2. Compression garment use during waking hours (thigh-high stockings, abdominal shape wear) 3. Small frequent meals with high-protein consumption, especially in the morning 4. Maximize activity as tolerated ( Salazar protocol - at home regimen designed for patients with dysautonomia) 5. Change positions frequently + avoid high risk maneuvers such as sudden movements/prolonged standing 6. Avoid trigger foods (i.e. lactose, gluten), excessively hot climates/prolonged direct sun exposure Additional resources including educational handouts, support group information, and current evidence-based treatment guidelines can be found on the [employer] website. Digitally Signed by LEO DA SILVA on 01/09/2024 04:13 PM [id number] Note If ancillary studies were utilized, the following Laboratory Developed Test (LDT) disclaimer will apply: Under CLIA requirements, [facility] is qualified to perform high complexity testing. For all ancillary stains, positive and negative controls stain appropriately. Performance characteristics of immunohistochemical and chromogenic in-situ hybridization tests have been determined by [facility]. These tests are used for clinical purposes, They should not be regarded as investigational or for research. [facility] 02-26-2024 Note If ancillary studies were utilized, the following Laboratory Developed Test (LDT) disclaimer will apply: Under CLIA requirements, [facility] is qualified to perform high complexity testing. For all ancillary stains, positive and negative controls stain appropriately. Performance characteristics of immunohistochemical and chromogenic in-situ hybridization tests have been determined by [facility]. These tests are used for clinical purposes, They should not be regarded as investigational or for research. [facility] 02-26-2024 Note If ancillary studies were utilized, the following Laboratory Developed Test (LDT) disclaimer will apply: Under CLIA requirements, [facility] is qualified to perform high complexity testing. For all ancillary stains, positive and negative controls stain appropriately. Performance characteristics of immunohistochemical and chromogenic in-situ hybridization tests have been determined by [facility]. These tests are used for clinical purposes, They should not be regarded as investigational or for research. [facility] 02-26-2024 Note If ancillary studies were utilized, the following Laboratory Developed Test (LDT) disclaimer will apply: Under CLIA requirements, [facility] is qualified to perform high complexity testing. For all ancillary stains, positive and negative controls stain appropriately. Performance characteristics of immunohistochemical and chromogenic in-situ hybridization tests have been determined by [facility]. These tests are used for clinical purposes, They should not be regarded as investigational or for research. [facility] 02-26-2024 Note If ancillary studies were utilized, the following Laboratory Developed Test (LDT) disclaimer will apply: Under CLIA requirements, [facility] is qualified to perform high complexity testing. For all ancillary stains, positive and negative controls stain appropriately. Performance characteristics of immunohistochemical and chromogenic in-situ hybridization tests have been determined by [facility]. These tests are used for clinical purposes, They should not be regarded as investigational or for research. [facility] 02-26-2024 Note If ancillary studies were utilized, the following Laboratory Developed Test (LDT) disclaimer will apply: Under CLIA requirements, [facility] is qualified to perform high complexity testing. For all ancillary stains, positive and negative controls stain appropriately. Performance characteristics of immunohistochemical and chromogenic in-situ hybridization tests have been determined by [facility]. These tests are used for clinical purposes, They should not be regarded as investigational or for research. [facility] 02-26-2024 Note If ancillary studies were utilized, the following Laboratory Developed Test (LDT) disclaimer will apply: Under CLIA requirements, [facility] is qualified to perform high complexity testing. For all ancillary stains, positive and negative controls stain appropriately. Performance characteristics of immunohistochemical and chromogenic in-situ hybridization tests have been determined by [facility]. These tests are used for clinical purposes, They should not be regarded as investigational or for research. [facility] 01-18-2024 Hospital Discharge instructions Patient Education 10/27/2023 09:14:02 Constipation (Adult) Constipation (Adult) Constipation means that you have bowel movements that are less frequent than usual. Stools often become very hard and difficult to pass. Constipation is very common. At some point in life, it affects almost everyone. Since everyone's bowel habits are different, what is constipation to one person may not be to another. Your healthcare provider may do tests to diagnose constipation. It depends on what he or she finds when evaluating you. Symptoms of constipation include: Abdominal pain Bloating Vomiting Painful bowel movements Itching, swelling, bleeding, or pain around the anus Causes Constipation can have many causes. These include: Diet low in fiber Too much dairy Not drinking enough liquids Lack of exercise or physical activity (especially true for older adults) Changes in lifestyle or daily routine, including , aging, work, and travel Frequent use or misuse of laxatives Ignoring the urge to have a bowel movement or delaying it until later Medicines, such as certain prescription pain medicines, iron supplements, antacids, certain antidepressants, and calcium supplements Diseases like irritable bowel syndrome, bowel obstructions, stroke, diabetes, thyroid disease, Parkinson disease, hemorrhoids, and colon cancer Complications Potential complications of constipation can include: Hemorrhoids Rectal bleeding from hemorrhoids or anal fissures (skin tears) Hernias Dependency on laxatives Chronic constipation Fecal impaction, a severe form of constipation in which a large amount of hard stool is in your rectum that you can't pass Bowel obstruction or perforation Home care All treatment should be done after talking with your healthcare provider. This is especially true if you have another medical problems, are taking prescription medicines, or are an older adult. Treatment most often involves lifestyle changes. You may also need medicines. Your healthcare provider will tell you which will work best for you. Follow the advice below to help avoid this problem in the future. Lifestyle changes These lifestyle changes can help prevent constipation: Diet. Eat a high-fiber diet, with fresh fruit and vegetables, and reduce dairy intake, meats, and processed foods Fluids. It's important to get enough fluids each day. Drink plenty of water when you eat more fiber. If you are on diet that limits the amount of fluid you can have, talk about this with your healthcare provider. Regular exercise. Check with your healthcare provider first. Medicines Take any medicines as directed. Some laxatives are safe to use only every now and then. Others can be taken on a regular basis. While laxatives don't cause bowel dependence, they are treating the symptoms. So your constipation may return if you don't make other changes. Talk with your healthcare provider or pharmacist if you have questions. Prescription pain medicines can cause constipation. If you are taking this kind of medicine, ask your healthcare provider if you should also take a stool softener. Medicines you may take to treat constipation include: Fiber supplements Stool softeners Laxatives Enemas Rectal suppositories Follow-up care Follow up with your healthcare provider if symptoms don't get better in the next few days. You may need to have more tests or see a specialist. Call 911 Call 911 if any of these occur: Trouble breathing Stiff, rigid abdomen that is severely painful to touch Confusion Fainting or loss of consciousness Rapid heart rate Chest pain When to seek medical advice Call your healthcare provider right away if any of these occur: Fever of 100.4 F (38 C) or higher, or as directed by your healthcare provider Failure to resume normal bowel movements Pain in your abdomen or back gets worse Nausea or vomiting Swelling in your abdomen Blood in the stool Black, tarry stool Involuntary weight loss Weakness [id number] [employer] [address] [place] [address]. All rights reserved. This information is not intended as a substitute for professional medical care. Always follow yourhealthcare professional's instructions. 10/27/2023 09:13:55 Abdominal Pain Abdominal Pain Abdominal pain is pain in the stomach or belly area. Everyone has this pain from time to time. In many cases it goes away on its own. But abdominal pain can sometimes be due to a serious problem, such as appendicitis. So it s important to know when to get help. Causes of abdominal pain There are many possible causes of abdominal pain. Common causes in adults include: Constipation, diarrhea, or gas Stomach acid flowing back up into the esophagus (acid reflux or heartburn) Severe acid reflux, called GERD (gastroesophageal reflux disease) A sore in the lining of the stomach or small intestine (peptic ulcer) Inflammation of the gallbladder, liver, or pancreas Gallstones or kidney stones Appendicitis Intestinal blockage An internal organ pushing through a muscle or other tissue (hernia) Urinary tract infections In women, menstrual cramps, fibroids, ovarian cysts, pelvic inflammatory disease, or endometriosis Inflammation or infection of the intestines, including Crohn's disease and ulcerative colitis Irritable bowel syndrome Diagnosing the cause of abdominal pain Your healthcare provider will give you a physical exam help find the cause of your pain. If needed,you will have tests. Belly pain has many possible causes. So it can be hard to find the reason for your pain. Giving details about your pain can help. Tell your provider where and when you feel the pain, and what makes it better or worse. Also let your provider know if you have other symptoms such as: Fever Tiredness Upset stomach (nausea) Vomiting Changes in bathroom habits Blood in the stool or black, tarry stool Weight loss that you can't explain (involuntary weight loss?) Also report any family history of stomach or intestinal problems, or cancers. Tell your provider about all your alcohol use and drug use. Tell your provider about all medicines you use, including herbs, vitamins, and supplements. Treating abdominal pain Some causes of pain need emergency medical treatment right away. These include appendicitis or a bowel blockage. Other problems can be treated with rest, fluids, or medicines. Your healthcare provider can give you specific instructions for treatment or self-care based on what is causing your pain. If you have vomiting or diarrhea, sip water or other clear fluids. When you are ready to eat solid foods again, start with small amounts of lgkf-lb-pcyazo, low- fat foods. These include apple sauce, toast, or crackers. When to get medical care Call 911 or go to the hospital right away if you: Can t pass stool and are vomiting Are vomiting blood or have bloody diarrhea or black, tarry diarrhea Have chest, neck, or shoulder pain Feel like you might pass out Have pain in your shoulder blades with nausea Have sudden, severe belly pain Have new, severe pain unlike any you have felt before Have a belly that is rigid, hard, and hurts to touch Call your healthcare provider if you have: Pain for more than 5 days Bloating for more than 2 days Diarrhea for more than 5 days A fever of 100.4 F (38 C) or higher, or as directed by your healthcare provider Pain that gets worse Weight loss for no reason Continued lack of appetite Blood in your stool How to prevent abdominal pain Here are some tips to help prevent abdominal pain: Eat smaller amounts of food at each meal. Don't eat greasy, fried, or other high-fat foods. Don't eat foods that give you gas. Exercise regularly. Drink plenty of fluids. To help prevent GERD symptoms: Quit smoking. Reduce alcohol and foods that increase stomach acid. Don't use aspirin or jpxs-czt-cnohtxn pain and fever medicines, if possible. This includes nonsteroidal anti-inflammatory drugs (NSAIDs). Lose excess weight. Finish eating at least 2 hours before you go to bed or lie down. Raise the head of your bed. 7488-2309 [employer]. [address] [place] [address], [place] [address]. All rights reserved. This information is not intended as a substitute for professional medical care. Always follow yourhealthcare professional's instructions. Follow Up Care 10/27/2023 07:15:25 With:OSMAN RAMIREZ APRN, CNP Address: [address] [place] [address]- When:2-4 days [facility] 01-18-2024 Note Discharge Instructions Thank you for allowing [facility] to assist you with your healthcare needs. The following is importantdischarge information regarding your hospital visit. Diagnosis from Today's Visit Abdominal pain Abdominal pain Constipation What to Do Next Instructions from Your Care Team No qualifying data available. Post Acute Orders No qualifying data available. You Need to Schedule the Following Appointments Follow Up with OSMAN RAMIREZ APRN, CNP When Within 2-4 days Where: [address] [place] [address]- Allergies NKA Medications Please ask your primary doctor or pharmacist before taking any other medication not listed, including over the counter drugs, herbal medications, vitamins and or supplements as they may interact withyour home medications. What How Much When Why Instructions Last Dose New bisacodyl (Dulcolax Laxative 5 mg oral tablet) 3 tab(s) by mouth Once a day with a full glass of water Printed Prescription New lactulose (lactulose 10 g oral powder for reconstitution) 1 Each by mouth Two (2) times a day Duration: 7 Days Printed Prescription Unchanged azaTHIOprine (azaTHIOprine 50 mg oral tablet) 1 tab(s) take 1 tablet by mouth once daily Unchanged docusate (Doculase 100 mg oral capsule) 1 cap by mouth Two (2) times a day as needed for for constipation Unchanged lubiprostone (Amitiza 8 mcg oral capsule) 1 cap by mouth Two (2) times a day Chronic idiopathic constipation Duration: 30 Days Failed Linzess, MiraLax, Senna-S Unchanged medroxyPROGESTERone (medroxyPROGESTERone 150 mg/ mL intramuscular suspension) See instructions inject 1 milliliter intramuscularly every 3 MONTHS Unchanged omeprazole (omeprazole 40 mg oral delayed release capsule) 1 cap by mouth Once a day GERD (gastroesophageal reflux disease) Duration: 30 Days Unchanged ondansetron (ondansetron 4 mg oral tablet) 1 tab(s) by mouth Every 6 hours as needed for Nausea/Vomiting Please take this list to your next doctor s visit. Bring all medications you take, including over the counter medications, herbals and other supplements with you to your doctor s visit. Patients and families are reminded to discard old lists and to update any records with all medication providers or retail pharmacies. Medication Leaflets docusate (oral/rectal) (EDGAR bach) Colace, Colace Clear, Docu Soft, Doculase, Docusate Mini, DocuSol Kids, DOK, DSS, Dulcolax Stool Softener, Enemeez Mini, Pedia-Lax Stool Softener, Currie Stool Softener, Silace, Jona-Q-Lax What is the most important information I should know about docusate? You should not use docusate if you also use mineral oil, unless your doctor tells you to. What is docusate? Docusate is a stool softener that makes bowel movements softer and easier to pass. Docusate is used to relieve occasional constipation (irregularity). There are many brands and forms of docusate available. Not all brands are listed on this leaflet. Docusate may also be used for purposes not listed in this medication guide. What should I discuss with my healthcare provider before using docusate? You should not use docusate if you are allergic to it. Ask a doctor or pharmacist if this medicine is safe to use if you have: stomach pain; nausea; vomiting; or a sudden change in bowel habits that lasts over 2 weeks. Ask a doctor before using this medicine if you are or . Do not give this medicine to a child without medical advice. How should I use docusate? Use exactly as directed on the label, or as prescribed by your doctor. Drink plenty of liquids while you are using docusate. Measure liquid medicine carefully. Use the dosing syringe provided, or use a medicine dose-measuring device (not a kitchen spoon). Do not take the rectal enema by mouth. Rectal medicine is for use only in the rectum. Wash your hands before and after using the enema. To use the enema, lie on your left side with your left leg extended and your right leg slightly bent. Remove the cap from the applicator tip and gently insert the tip into your rectum. Slowly squeezethe bottle to empty the contents into the rectum. After using the enema, lie down on your left side for at least 30 minutes to allow the liquid to distribute throughout your intestines. Avoid using the bathroom, and hold in the enema at least 1 hour, or all night if possible. Read and carefully follow any Instructions for Use provided with your medicine. Ask your doctor or pharmacist if you do not understand these instructions. Docusate generally produces bowel movement in 12 to 72 hours. Call your doctor if your symptoms do not improve after 72 hours. You should not use docusate for longer than 1 week, unless your doctor tells you to. Store at room temperature away from moisture, light, and heat. Do not freeze liquid medicine. What happens if I miss a dose? Since docusate is used when needed, you may not be on a dosing schedule. Skip any missed dose if it's almost time for your next dose. Do not use two doses at one time. What happens if I overdose? Seek emergency medical attention or call the Poison Help line at . What should I avoid while using docusate? Avoid using mineral oil, unless told to do so by a doctor. What are the possible side effects of docusate? Get emergency medical help if you have signs of an allergic reaction: hives; difficult breathing; swelling of your face, lips, tongue, or throat. Stop using docusate and call your doctor at once if: you have rectal bleeding; no bowel movement occurs after using a laxative; you need to use a stool softener for more than 1 week; or rash occurs. Less serious side effects may be more likely, and you may have none at all. This is not a complete list of side effects and others may occur. Call your doctor for medical advice about side effects. You may report side effects to FDA at 3-091-FDZ-0245. What other drugs will affect docusate? Other drugs may affect docusate, including prescription and ohzu-xqv-lhwpfkr medicines, vitamins, and herbal products. Tell your doctor about all other medicines you use. Where can I get more information? Your pharmacist can provide more information about docusate. Remember, keep this and all other medicines out of the reach of children, never share your medicines with others, and use this medication only for the indication prescribed. Every effort has been made to ensure that the information provided by [employer]. [employer]') is accurate, up-to-date, and complete, but no guarantee is made to that effect. Drug information contained herein may be time sensitive. [employer] information has been compiled for use by healthcare practitioners and consumers in the [place] and therefore [employer] does not warrant that uses outside of the [place] are appropriate, unless specifically indicated otherwise. [facility] drug information does not endorse drugs, diagnose patients or recommend therapy. [employer] drug information isan informational resource designed to assist licensed healthcare practitioners in caring for their p atients and/or to serve consumers viewing this service as a supplement to, and not a substitute for, the expertise, skill, knowledge and judgment of healthcare practitioners. The absence of a warningfor a given drug or drug combination in no way should be construed to indicate that the drug or drug combination is safe, effective or appropriate for any given patient. [employer] does not assume any responsibility for any aspect of healthcare administered with the aid of information [employer] provides. The information contained herein is not intended to cover all possible uses, directions, precautions, warnings, drug interactions, allergic reactions, or adverse effects. If you have questions about the drugs you are taking, check with your doctor, nurse or pharmacist. Copyright 8662-3309 [employer]. Version: 7.01. Revision Date: 05/06/2023. lactulose (oral) (LAK too lose) Constulose, Generlac, Kristalose What is the most important information I should know about lactulose? Use only as directed. Tell your doctor if you use other medicines or have other medical conditions or allergies. What is lactulose? Lactulose is used to treat chronic constipation. Lactulose is sometimes used to treat or prevent certain conditions of the brain that are caused by liver failure. These conditions can lead to confusion, problems with memory or thinking, behavior changes, tremors, feeling irritable, sleep problems, loss of coordination, and loss of consciousness. Lactulose may also be used for purposes not listed in this medication guide. What should I discuss with my healthcare provider before taking lactulose? You should not use lactulose if you are on a special diet low in galactose (milk sugar). Tell your doctor if you have ever had: diabetes; or if you need to have any type of intestinal test using a scope (such as a colonoscopy). Tell your doctor if you are or . How should I take lactulose? Follow all directions on your prescription label and read all medication guides or instruction sheets. Use the medicine exactly as directed. Mix lactulose powder with at least 4 ounces of water, milk, or fruit juice. Measure liquid medicine with the supplied measuring device (not a kitchen spoon). Lactulose should produce a bowel movement within 24 to 48 hours. If you use this medicine long-term, you may need frequent medical tests. Tell your doctor if you have a planned colonoscopy or proctoscopy procedure. Store tightly closed at room temperature, away from moisture and heat. Avoid freezing. The liquid may turn darker in color, but this will not affect the medicine. Do not use the medicineif it becomes very dark or gets thicker or thinner in texture. What happens if I miss a dose? Take the medicine as soon as you can, but skip the missed dose if it is almost time for your next dose. Do not take two doses at one time. What happens if I overdose? Seek emergency medical attention or call the Poison Help line at . Overdose may cause nausea, vomiting, diarrhea, and stomach cramps, or symptoms of low blood potassium or low blood sodium (confusion, weakness, constipation, irregular heartbeats, fluttering in your chest, increased thirst or urination, numbness or tingling, muscle weakness or limp feeling). What should I avoid while taking lactulose? Ask your doctor before taking any other laxative or an antacid, and take only the type your doctor recommends. What are the possible side effects of lactulose? Get emergency medical help if you have signs of an allergic reaction: hives; difficult breathing; swelling of your face, lips, tongue, or throat. Stop using lactulose and call your doctor at once if you have severe or ongoing diarrhea. Common side effects may include: bloating, gas; stomach pain; diarrhea; or nausea, vomiting. This is not a complete list of side effects and others may occur. Call your doctor for medical advice about side effects. You may report side effects to FDA at 9-187-LFJ-8214. What other drugs will affect lactulose? Other drugs may affect lactulose, including prescription and vsxd-bjs-eihovhv medicines, vitamins, and herbal products. Tell your doctor about all other medicines you use. Where can I get more information? Your pharmacist can provide more information about lactulose. Remember, keep this and all other medicines out of the reach of children, never share your medicines with others, and use this medication only for the indication prescribed. Every effort has been made to ensure that the information provided by [employer]') is accurate, up-to-date, and complete, but no guarantee is made to that effect. Drug information contained herein may be time sensitive. [employer] information has been compiled for use by healthcare practitioners and consumers in the [place] and therefore [employer] does not warrant that uses outside of the [place] are appropriate, unless specifically indicated otherwise. [facility] drug information does not endorse drugs, diagnose patients or recommend therapy. [facility] drug information isan informational resource designed to assist licensed healthcare practitioners in caring for their p atients and/or to serve consumers viewing this service as a supplement to, and not a substitute for, the expertise, skill, knowledge and judgment of healthcare practitioners. The absence of a warningfor a given drug or drug combination in no way should be construed to indicate that the drug or drug combination is safe, effective or appropriate for any given patient. [employer] does not assume any responsibility for any aspect of healthcare administered with the aid of information [employer] provides. The information contained herein is not intended to cover all possible uses, directions, precautions, warnings, drug interactions, allergic reactions, or adverse effects. If you have questions about the drugs you are taking, check with your doctor, nurse or pharmacist. Copyright 0048-2415 [employer]. Version: 3.01. Revision Date: 07/14/2021. Education Materials Constipation (Adult) Constipation means that you have bowel movements that are less frequent than usual. Stools often become very hard and difficult to pass. Constipation is very common. At some point in life, it affects almost everyone. Since everyone's bowel habits are different, what is constipation to one person may not be to another. Your healthcare provider may do tests to diagnose constipation. It depends on what he or she finds when evaluating you. Symptoms of constipation include: Abdominal pain Bloating Vomiting Painful bowel movements Itching, swelling, bleeding, or pain around the anus Causes Constipation can have many causes. These include: Diet low in fiber Too much dairy Not drinking enough liquids Lack of exercise or physical activity (especially true for older adults) Changes in lifestyle or daily routine, including , aging, work, and travel Frequent use or misuse of laxatives Ignoring the urge to have a bowel movement or delaying it until later Medicines, such as certain prescription pain medicines, iron supplements, antacids, certain antidepressants, and calcium supplements Diseases like irritable bowel syndrome, bowel obstructions, stroke, diabetes, thyroid disease, Parkinson disease, hemorrhoids, and colon cancer Complications Potential complications of constipation can include: Hemorrhoids Rectal bleeding from hemorrhoids or anal fissures (skin tears) Hernias Dependency on laxatives Chronic constipation Fecal impaction, a severe form of constipation in which a large amount of hard stool is in your rectum that you can't pass Bowel obstruction or perforation Home care All treatment should be done after talking with your healthcare provider. This is especially true if you have another medical problems, are taking prescription medicines, or are an older adult. Treatment most often involves lifestyle changes. You may also need medicines. Your healthcare provider will tell you which will work best for you. Follow the advice below to help avoid this problem in the future. Lifestyle changes These lifestyle changes can help prevent constipation: Diet. Eat a high-fiber diet, with fresh fruit and vegetables, and reduce dairy intake, meats, and processed foods Fluids. It's important to get enough fluids each day. Drink plenty of water when you eat more fiber. If you are on diet that limits the amount of fluid you can have, talk about this with your healthcare provider. Regular exercise. Check with your healthcare provider first. Medicines Take any medicines as directed. Some laxatives are safe to use only every now and then. Others can be taken on a regular basis. While laxatives don't cause bowel dependence, they are treating the symptoms. So your constipation may return if you don't make other changes. Talk with your healthcare provider or pharmacist if you have questions. Prescription pain medicines can cause constipation. If you are taking this kind of medicine, ask your healthcare provider if you should also take a stool softener. Medicines you may take to treat constipation include: Fiber supplements Stool softeners Laxatives Enemas Rectal suppositories Follow-up care Follow up with your healthcare provider if symptoms don't get better in the next few days. You may need to have more tests or see a specialist. Call 911 Call 911 if any of these occur: Trouble breathing Stiff, rigid abdomen that is severely painful to touch Confusion Fainting or loss of consciousness Rapid heart rate Chest pain When to seek medical advice Call your healthcare provider right away if any of these occur: Fever of 100.4 F (38 C) or higher, or as directed by your healthcare provider Failure to resume normal bowel movements Pain in your abdomen or back gets worse Nausea or vomiting Swelling in your abdomen Blood in the stool Black, tarry stool Involuntary weight loss Weakness 2505-6599 [facility]. [address] [place] [address]. All rights reserved. This information is not intended as a substitute for professional medical care. Always follow yourhealthcare professional's instructions. Abdominal Pain Abdominal pain is pain in the stomach or belly area. Everyone has this pain from time to time. In many cases it goes away on its own. But abdominal pain can sometimes be due to a serious problem, such as appendicitis. So it s important to know when to get help. Causes of abdominal pain There are many possible causes of abdominal pain. Common causes in adults include: Constipation, diarrhea, or gas Stomach acid flowing back up into the esophagus (acid reflux or heartburn) Severe acid reflux, called GERD (gastroesophageal reflux disease) A sore in the lining of the stomach or small intestine (peptic ulcer) Inflammation of the gallbladder, liver, or pancreas Gallstones or kidney stones Appendicitis Intestinal blockage An internal organ pushing through a muscle or other tissue (hernia) Urinary tract infections In women, menstrual cramps, fibroids, ovarian cysts, pelvic inflammatory disease, or endometriosis Inflammation or infection of the intestines, including Crohn's disease and ulcerative colitis Irritable bowel syndrome Diagnosing the cause of abdominal pain Your healthcare provider will give you a physical exam help find the cause of your pain. If needed,you will have tests. Belly pain has many possible causes. So it can be hard to find the reason for your pain. Giving details about your pain can help. Tell your provider where and when you feel the pain, and what makes it better or worse. Also let your provider know if you have other symptoms such as: Fever Tiredness Upset stomach (nausea) Vomiting Changes in bathroom habits Blood in the stool or black, tarry stool Weight loss that you can't explain (involuntary weight loss?) Also report any family history of stomach or intestinal problems, or cancers. Tell your provider about all your alcohol use and drug use. Tell your provider about all medicines you use, including herbs, vitamins, and supplements. Treating abdominal pain Some causes of pain need emergency medical treatment right away. These include appendicitis or a bowel blockage. Other problems can be treated with rest, fluids, or medicines. Your healthcare provider can give you specific instructions for treatment or self-care based on what is causing your pain. If you have vomiting or diarrhea, sip water or other clear fluids. When you are ready to eat solid foods again, start with small amounts of dagf-ve-nwnjmm, low- fat foods. These include apple sauce, toast, or crackers. When to get medical care Call 911 or go to the hospital right away if you: Can t pass stool and are vomiting Are vomiting blood or have bloody diarrhea or black, tarry diarrhea Have chest, neck, or shoulder pain Feel like you might pass out Have pain in your shoulder blades with nausea Have sudden, severe belly pain Have new, severe pain unlike any you have felt before Have a belly that is rigid, hard, and hurts to touch Call your healthcare provider if you have: Pain for more than 5 days Bloating for more than 2 days Diarrhea for more than 5 days A fever of 100.4 F (38 C) or higher, or as directed by your healthcare provider Pain that gets worse Weight loss for no reason Continued lack of appetite Blood in your stool How to prevent abdominal pain Here are some tips to help prevent abdominal pain: Eat smaller amounts of food at each meal. Don't eat greasy, fried, or other high-fat foods. Don't eat foods that give you gas. Exercise regularly. Drink plenty of fluids. To help prevent GERD symptoms: Quit smoking. Reduce alcohol and foods that increase stomach acid. Don't use aspirin or xyik-bqy-onszjul pain and fever medicines, if possible. This includes nonsteroidal anti-inflammatory drugs (NSAIDs). Lose excess weight. Finish eating at least 2 hours before you go to bed or lie down. Raise the head of your bed. 3070-16[address] [employer]. [address] [place] [address], [place] [address]. All rights reserved. This information is not intended as a substitute for professional medical care. Always follow yourhealthcare professional's instructions. Additional Information VACCINATE! IT SAVES LIVES! Members of the community who have not yet received the COVID-19 vaccine and would like to receive it can visit one of [facility] vaccine clinics. There are many vaccine clinic locations within the [facility]. For locations and available times, please visit [email or web address] It is important to note that some COVID mobile vaccine clinics are held outdoors and may be canceled in rainy or stormy conditions. To learn more about pediatric vaccinations (ages 5-11), we invite you to visit the [facility] webpage. [email or web address] learn more about the COVID-19 vaccine, we invite you to visit the CDC website for a list of frequently asked questions. https://www.cdc.gov/coronavirus/2019-ncov/vaccines/faq.html [facility] Access Instructions: Stay connected with your healthcare team and access your personal medical information anytime with the [facility]. If you would like a full copy of your medical records please contact the [facility] Medical Records Department Tuesday through Tuesday between 8a.m. and 4:30p.m. Please follow the directions below to access the portal: 1.Access the email account you provided upon registration to the hospital.2.Look for an invitation email from [facility].3.Open the email and access the invitation link: Accept Invitation to [facility]4.Fill in the required krause to create your account. Sign into [email or web address] with your username and password that you created in the above steps to stay up to date. You can then view a summary of results, a summary of your visits, and the ability to download your summaries to your computer or send the information securely to a physician. Remember that your healthcare information is confidential, so carefully consider who you will allow to register on the [facility] Patient Portal for access to your information. You can also access the [facility] Patient Portal on the [employer] shiva. Simply click on Health Records under [employer]wiz and then click on the [facility] logo. HOW TO SAFELY DISPOSE OF PRESCRIPTION MEDICATIONS Please use one of the following methods to safely dispose of your unused medications. 1.Use a drug disposal kit: the drug disposal pouch allows you to safely discard your old and unuseddrugs. Ask your nurse to give you one when you are discharged.2.Visit a local take-back location: Many local pharmacies and police departments have programs that collect old and unwanted prescriptiondrugs. Call your local pharmacy or go to http://[employer]/9E1Gk9e to find one close to you.3.Make use of household items: Use cat litter or old coffee grounds to dispose medications if other options arenot available. Mix your drugs with these household products, seal them in an airtight container andthrow it into the garbage. Call [facility]: 875.946.2930 to be sure your drugs can be disposed of in this way. Some medicines may require a different approach.4.Never flush your medications down the toilet. IF YOU HAVE BEEN PRESCRIBED AN OPIOIDS FOR PAIN If you have been prescribed an opioid (such as hydrocodone, oxycodone or morphine), it is critical to understand the possible side effects and risks of opioid pain medications. Even when taken as directed, opioids can have several side effects including: Tolerance, meaning you might need to take more of a medication for the same pain relief. Nausea, vomiting and/or constipation. Sleepiness, dizziness, dry mouth, confusion, depression or itching. Physical dependence, meaning you have withdrawal symptoms when a medication is stopped ? this can develop within a few days. KNOW YOUR RESPONSIBILITIES It is important to know exactly how much and how often to take the opioid pain medications you are prescribed. Never take opioids in higher amounts or more often than prescribed. Do not combine opioids with alcohol or other drugs that cause drowsiness, such as benzodiazepines, also known as benzos,including diazepam and alprazolam, muscle relaxants or sleep aids. Never sell or share prescriptionopioids. This is illegal. Store opioids in a secure place and out of reach of others (including children, family, friends and visitors). The last page(s) of this document has been signed and retained as a CHART COPY Signatures Patient Education Materials Constipation (Adult) Abdominal Pain Medication Leaflets docusate (oral/rectal), lactulose (oral) My discharge plan and instructions have been reviewed and explained to me and I,ASHIA ZUÑIGA understand my current condition and have read and understand these discharge instructions. I have received a written copy of the plan/instructions. If I have questions, I am aware that I should contact my d octor. Patient/Logistics Tech Signature: Date/Time: Relationship to Patient: Witness Name/Signature: Date/Time: [facility]01-18-2024 Note ORIGINAL EXAMINATION: CT OF THE ABDOMEN AND PELVIS WITH CONTRAST 10/27/2023 8:48 am TECHNIQUE: CT of the abdomen and pelvis was performed with the administration of intravenous contrast. Multiplanar reformatted images are provided for review. Automated exposure control, iterative reconstruction, and/or weight based adjustment of the mA/kV was utilized to reduce the radiation dose to as low as reasonably achievable. COMPARISON: Abdominal ultrasound 12/25/2020 HISTORY: ORDERING SYSTEM PROVIDED HISTORY: Reason for Exam: pain FINDINGS: No acute osseous abnormality. No acute osseous abnormality. The included lung bases are clear. Mild periportal edema and distension of the IVC. The liver is otherwise unremarkable. The spleen, pancreas and both adrenal glands appear normal. Symmetric nephrograms. No hydronephrosis or nephrolithiasis. No focal bladder wall thickening. The uterus is unremarkable. GI tract dilatation or evidence of inflammatory change. The appendix is unremarkable. No free air or free fluid. The aorta is normal caliber. No pathologically enlarged lymph nodes. IMPRESSION: No acute abnormality in the abdomen or pelvis. I have personally reviewed the images of this examination and agree with the resident's finding and interpretation. Interpreted by: Armani Nicole MD Preliminary Report By: Rosaura Melendez Electronically signed By Armani Nicole MD Dictated Date: 10/27/2023 8:50:31 AM Prelim Date: 10/27/2023 8:56:42 AM Sign Date: 10/27/2023 9:04:05 AM [facility]ing [facility] + Plan note Future Scheduled Tests Radiology* US Abdomen Limited 10/19/23 [facility] 09-21-2022 Evaluation + Plan note Diagnostic Tests Pending * [facility] Lab Send out (Blood Specimens) 06/30/22 Future Scheduled Tests Laboratory* Pathology Tissue Request 10/06/21 * Pathology Tissue Request 10/06/21 * Pathology Tissue Request 10/06/21 * Pathology Tissue Request 10/06/21 * Pathology Tissue Request 10/06/21 * Pathology Tissue Request 10/06/21 * Pathology Tissue Request 10/06/21 * Pathology Tissue Request 10/06/21 Radiology* XR Foot Minimum 3 Views Right 06/18/22 [facility] 03-12-2021 Evaluation + Plan note Future Scheduled Tests Laboratory* Amylase Level 12/19/20 * Antinuclear Antibody Screen, Serum 12/19/20 * Complete Blood Count 12/19/20 * Gamma Glutamyl Transferase 12/19/20 * Complete Metabolic Panel 12/19/20 Radiology* XR Foot Minimum 3 Views Right 02/24/21 * CT Abdomen w/ Contrast 12/21/20 [facility] Evaluation + Plan note Future Appointments Appointment Date:10/22/2021 10:00:00 AM Scheduled Provider: Location:[facility] Appointment Type:PC Nurse Injection Future Scheduled Tests Laboratory* Pathology Tissue Request 10/06/21 * Pathology Tissue Request 10/06/21 * Pathology Tissue Request 10/06/21 * Pathology Tissue Request 10/06/21 * Pathology Tissue Request 10/06/21 * Pathology Tissue Request 10/06/21 * Pathology Tissue Request 10/06/21 * Pathology Tissue Request 10/06/21 * Amylase Level 12/19/20 * Antinuclear Antibody Screen, Serum 12/19/20 * Complete Blood Count 12/19/20 * Gamma Glutamyl Transferase 12/19/20 * Complete Metabolic Panel 12/19/20 Radiology* XR Foot Minimum 3 Views Right 02/24/21 * CT Abdomen w/ Contrast 12/21/20 [facility] Evaluation + Plan note Future Appointments Appointment Date:01/03/2023 09:20:00 AM Scheduled Provider:OSMAN RAMIREZ APRN, CNP Location:[facility] Appointment Type:PC OV Follow Up Diagnostic Tests Pending * [facility] Lab Send out (Blood Specimens) 07/07/22 Future Scheduled Tests Laboratory* Pathology Tissue Request 10/06/21 * Pathology Tissue Request 10/06/21 * Pathology Tissue Request 10/06/21 * Pathology Tissue Request 10/06/21 * Pathology Tissue Request 10/06/21 * Pathology Tissue Request 10/06/21 * Pathology Tissue Request 10/06/21 * Pathology Tissue Request 10/06/21 * Thyroid Stimulating Hormone 07/06/22 * Free T4 07/06/22 Radiology* XR Foot Minimum 3 Views Right 06/18/22 [facility] Evaluation + Plan note Future Appointments Appointment Date:11/18/2023 10:30:00 AM Scheduled Provider: Location:[facility] Appointment Type:PC Nurse Appointment Date:01/06/2024 10:00:00 AM Scheduled Provider:OSMAN RAMIREZ APRN, CNP Location:[facility] Appointment Type:PC OV Future Scheduled Tests Radiology* US Abdomen Limited 10/19/23 [facility] Evaluation + Plan note Future Appointments Appointment Date:11/18/2023 10:30:00 AM Scheduled Provider: Location:[facility] Appointment Type:PC Nurse Appointment Date:12/23/2023 10:40:00 AM Scheduled Provider:OSMAN RAMIREZ APRN, CNP Location:[facility] Appointment Type:PC OV Appointment Date:01/06/2024 10:00:00 AM Scheduled Provider:OSMAN RAMIREZ APRN, CNP Location:[facility] Appointment Type:PC OV Diagnostic Tests Pending * Aldosterone LCMS, Serum 11/14/23 * Renin Activity, Plasma 11/14/23 * ACTH, Plasma 11/14/23 * PTHrP (PTH-Related Peptide) 11/14/23 Future Scheduled Tests Radiology* US Abdomen Limited 10/19/23 [facility] Evaluation + Plan note Future Appointments Appointment Date:12/01/2023 01:00:00 PM Scheduled Provider:SHANTE GUSTAFSON Location:[facility] Appointment Type:ENDO SENIOR FRONT END ENGINEER Appointment Date:12/23/2023 10:40:00 AM Scheduled Provider:OSMAN RAMIREZ APRN, CNP Location:[facility] Appointment Type:PC OV Appointment Date:01/06/2024 10:00:00 AM Scheduled Provider:OSMAN RAMIREZ APRN, CNP Location:[facility] Appointment Type:PC OV Appointment Date:02/10/2024 09:45:00 AM Scheduled Provider: Location:[facility] Appointment Type:PC Nurse Injection Future Scheduled Tests Laboratory* 17-OH Progesterone LCMS 11/17/23 * Estradiol Level 11/17/23 * Luteinizing Hormone 11/17/23 * Prolactin Level 11/17/23 * Follicle Stimulating Hormone Level 11/17/23 Radiology* US Abdomen Limited 10/19/23 [facility] Evaluation + Plan note Future Appointments Appointment Date:12/12/2023 09:30:00 AM Scheduled Provider:TALISHA NICOLE MD Location:[facility] Appointment Type:WH OV Appointment Date:12/16/2023 11:30:00 AM Scheduled Provider: Location:[facility] Appointment Type:INF Injection - Cosyntropin Appointment Date:12/23/2023 10:40:00 AM Scheduled Provider:OSMAN RAMIREZ APRN, CNP Location:[facility] Appointment Type:PC OV Appointment Date:01/06/2024 10:00:00 AM Scheduled Provider:OSMAN RAMIREZ APRN, CNP Location:[facility] Appointment Type:PC OV Appointment Date:02/10/2024 09:45:00 AM Scheduled Provider: Location:[facility] Appointment Type:PC Nurse Injection Future Scheduled Tests Laboratory* Cortisol Level 12/01/23 Radiology* US Abdomen Limited 10/19/23 [facility] Evaluation + Plan note Future Appointments Appointment Date:12/23/2023 10:40:00 AM Scheduled Provider:ASHLEY, OSMAN D BLOCK MASON - FHA UNDERWRITER Location:[facility] Appointment Type:PC OV Appointment Date:01/06/2024 09:00:00 AM Scheduled Provider:TALISHA NICOLE MD Location: [facility] Appointment Type: Office Procedure Appointment Date:01/06/2024 10:00:00 AM Scheduled Provider:OSMAN RAMIREZ APRN, CNP Location:[facility] Appointment Type:PC OV Appointment Date:02/10/2024 09:45:00 AM Scheduled Provider: Location:[facility] Appointment Type:PC Nurse Injection Future Scheduled Tests Radiology* US Abdomen Limited 10/19/23 [facility] Evaluation + Plan note Future Appointments Appointment Date:01/20/2024 09:45:00 AM Scheduled Provider:TALISHA NICOLE MD Location: [facility] Appointment Type: OV Appointment Date:02/10/2024 09:45:00 AM Scheduled Provider: Location:[facility] Appointment Type:PC Nurse Injection Future Scheduled Tests Laboratory* Testosterone,Free and Total 01/06/24 * Androstenedione LCMS 01/06/24 Radiology* US Abdomen Limited 10/19/23 [facility] Evaluation + Plan note Future Appointments Appointment Date:01/20/2024 09:45:00 AM Scheduled Provider:TALISHA NICOLE MD Location: [facility] Appointment Type: OV Appointment Date:02/07/2024 03:00:00 PM Scheduled Provider: Location:[facility] Appointment Type:Echo - Echocardiogram Adult Diagnostic Tests Pending * Androstenedione LCMS 01/19/24 Future Scheduled Tests Radiology* US Abdomen Limited 10/19/23 [facility] Evaluation + Plan note Future Appointments Appointment Date:04/24/2024 02:30:00 PM Scheduled Provider:GRACE COVARRUBIAS Location:[facility] Appointment Type:CV SENIOR FRONT END ENGINEER Future Scheduled Tests Radiology* US Abdomen Limited 10/19/23 [facility] Hospital course Narrative No data available for this section [facility] Hospital Discharge instructions No data available for this section [facility] Progress note No data available for this section [facility] Summary Purpose Family History No Family History Records FoundNo Family History Records Found No data available for this section No data available for this section No data available for this section No data available for this section No data available for this section No data available for this section No data available for this section No data available for this section No data available for this section No Family History Records Found Advance Directives No Advanced Directives Records FoundNo Advanced Directives Records FoundNo Advanced Directives Records Found Additional Source Comments INFORMATION SOURCE (unrecogn ized section and content) DATE CREATED AUTHOR 04/05/2018 [facility] DATE CREATED AUTHOR AUTHOR'S ORGANIZ ATION 06/11/2022 [facility] DATE CREATED AUTHOR AUTHOR'S ORGANIZ ATION 06/07/2024 [facility] ([place]) Care Team (unrecognized sect ion and content) Care Team Personnel Name: Charles Aldridge PT Position: P3 Scheduling - Vendor Management Specialist Advanced Member Role: Other Name: OSMAN RAMIREZ BLOCK MASON - FHA UNDERWRITER Position: P4 Advanced Practice Nurse Med Service: Employed Provider Member Role: Primary Care Physician Address: Address: [address] [place] [address]- Care Team Related Persons Name: XIOMY ZUÑIGA Address: Home [address] [place] [id number] [place] Address: [address] [phone] Name: XIOMY ZUÑIGA Address: Home [address] [place], [place] [phone] [place] Name: SCAR ZUÑIGA Address: Home [address] [place] [phone] [place] Care Team Personnel Name: Charles Aldridge PT Position: P3 Scheduling - Vendor Management Specialist Advanced Member Role: Other Name: OSMAN RAMIREZ BLOCK [employer]ON - FHA UNDERWRITER Position: P4 Advanced Practice Nurse Med Service: Employed Provider Member Role: Primary Care Physician Address: Address: [address] [place] [address] Care Team Related Persons Name: XIOMY ZUÑIGA Address: Home [address] [place], [place] [id number] [place] Name: XIOMY ZUÑIGA Address: Home [address] [place], [place] [id number] [place] Address: Temporary [address] [place], [place] [id number] Name: SCAR ZUÑIGA Address: Home [address] [place], [place] [phone] [place] Patient Care team informatio n (unrecognized section and content) Care Team Personnel Name: Charles Aldridge PT Position: P3 Scheduling - Vendor Management Specialist Advanced Member Role: Other Name: OSMAN RAMIREZ BLOCK [employer]ON - FHA UNDERWRITER Position: P4 Advanced Trial Examiner Member Role: Primary Care Physician Address: Address: [address] [place] [id number] Care Team Related Persons Name: XIOMY ZUÑIGA Address: Home [address] [place], [place] [id number] [place] Name: XIOMY ZUÑIGA Address: Home [address] [place], [place] [phone] [place] Address: Temporary [address] [place], [place] [id number] Name: SCAR ZUÑIGA Address: Home [address] [place], [place] [id number] [place] Care Team Personnel Name: Charles Aldridge PT Position: P3 Scheduling - Vendor Management Specialist Advanced Member Role: Other Name: OSMAN RAMIREZ BLOCK [employer]ON - FHA UNDERWRITER Position: P4 Advanced Trial Examiner Member Role: Primary Care Physician Address: Address: [address] [place] [id number] Care Team Related Persons Name: XIOMY ZUÑIGA Address: Home [address] [place], [place] [id number] [place] Name: XIOMY ZUÑIGA Address: Home [address] [place], [place] [id number] [place] Address: Temporary [address] [place], [place] [id number] Name: SCAR ZUÑIGA Address: Home [address] [place], [place] [phone] [place] Care Team Personnel Name: Charles Aldridge PT Position: P3 Scheduling - Vendor Management Specialist Advanced Member Role: Other Name: OSMAN RAMIREZ BLOCK [employer]ON - FHA UNDERWRITER Position: P4 Advanced Trial Examiner Member Role: Primary Care Physician Address: Address: [address] [place] [phone]- Care Team Related Persons Name: XIOMY ZUÑIGA Address: Home [address] [place], [place] [id number] [place] Address: Temporary [address] [place], [place] [phone] Name: XIOMY ZUÑIGA Address: Home [address] [place], [place] [phone] [place] Name: SCAR ZUÑIGA Address: Home [address] [place], [place] [id number] [place] Care Team Personnel Name: Charles Aldrigde Clerk Valerie PT Position: P3 Scheduling - Vendor Management Specialist Advanced Member Role: Other Name: OSMAN RAMIREZ BLOCK [employer]ON - FHA UNDERWRITER Position: P4 Advanced Trial Examiner Member Role: Primary Care Physician Address: Address: [address] [place] [address]- Care Team Related Persons Name: XIOMY ZUÑIGA Address: Home [address] [place], [place] [phone] [place] Address: Temporary [address] [place], [place] [id number] Name: XIOMY ZUÑIGA Address: Home [address] [place], [place] [id number] [place] Name: SCAR ZUÑIGA Address: Home [address] [place], [place] [id number] [place] Care Team Personnel Name: Charles Aldridge Clerk Valerie PT Position: P3 Scheduling - Vendor Management Specialist Advanced Member Role: Other Name: OSMAN RAMIREZ BLOCK [employer]ON - FHA UNDERWRITER Position: P4 Advanced Trial Examiner Member Role: Primary Care Physician Address: Address: [address] [place] [address]- Care Team Related Persons Name: XIOMY ZUÑIGA Address: Home [address] [place], [place] [phone] [place] Address: Temporary [address] [place], [place] [phone] Name: XIOMY ZUÑIGA Address: Home [address] [place], [place] [phone] [place] Name: SCAR ZUÑIGA Address: Home [address] [place], [place] [phone] [place] Care Team Personnel Name: Charles Aldridge Clerk Valerie PT Position: P3 Scheduling - Vendor Management Specialist Advanced Member Role: Other Name: OSMAN RAMIREZ BLOCK [employer]ON - FHA UNDERWRITER Position: P4 Advanced Trial Examiner Member Role: Primary Care Physician Address: Address: [address] [place] [phone]- Care Team Related Persons Name: XIOMY ZUÑIGA Address: Home [address] [place], [place] [phone] [place] Address: Temporary [address] [place], [place] [phone] Name: XIOMY ZUÑIGA Address: Home [address] [place], [place] [phone] [place] Name: SCAR ZUÑIGA Address: Home [address] [place], [place] [phone] [place] Care Team Personnel Name: Charles Aldridgerbrett Padilla PT Position: P3 Scheduling - Vendor Management Specialist Advanced Member Role: Other Name: OSMAN RAMIREZ BLOCK [employer]ON - FHA UNDERWRITER Position: P4 Advanced Trial Examiner Member Role: Primary Care Physician Address: Address: [address] [place] [phone]- Care Team Related Persons Name: XIOMY ZUÑIGA Address: Home [address] [place], [place] [phone] [place] Name: XIOMY ZUÑIGA Address: Home [address] [place], [place] [phone] [place] Address: Temporary [address] [place], [place] [id number] Name: SCAR ZUÑIGA Address: Home [address] [place], [place] [id number] [place] Care Team Personnel Name: Charles Aldridge Valerie PT Position: P3 Scheduling - Vendor Management Specialist Advanced Member Role: Other Name: OSMAN RAMIREZ BLOCK MASON - FHA UNDERWRITER Position: P4 Advanced Trial Examiner Member Role: Primary Care Physician Address: Address: [address] [place] [address]- Care Team Related Persons Name: XIOMY ZUÑIGA Address: Home [address] [place], [place] [id number] [place] Name: XIOMY ZUÑIGA Address: Home [address] [place], [place] [phone] [place] Address: Temporary [address] [place], [place] [id number] Name: SCAR ZUÑIGA Address: [address] [phone] Care Team Personnel Name: Charles Aldridge Clerbrett Padilla PT Position: P3 Scheduling - Vendor Management Specialist Advanced Member Role: Other Name: OSMAN RAMIREZ BLOCK [employer]ON - FHA UNDERWRITER Position: P4 Advanced Trial Examiner Member Role: Primary Care Physician Address: Address: [address] [place] [id number] [place] [address] Care Team Related Persons Name: ZARA XIOMY M Address: Home [address] [place] [phone] Name: ZARA XIOMY M Address: [address] [phone] Address: [address] [phone] Name: SCAR ZUÑIGA Address: [address] [phone] FOR RECORDS PERTAINING TO PATIENTS WHO ARE OR HAVE BEEN ENROLLED IN A CHEMICAL DEPENDENCY/SUBSTANCEABUSE PROGRAM, SOME INFORMATION MAY BE OMITTED. This clinical summary was aggregated from multiple sources. Caution should be exercised in using it in the provision of clinical care. This summary normalizes information from multiple sources, and as a consequence, information in this document may materially change the coding, format and clinical context of patient data. In addition, data may be omitted in some cases. CLINICAL DECISIONS SHOULD BE BASED ON THE PRIMARY CLINICAL RECORDS. [employer] provides no warranty or guarantee of the accuracy or completeness of information in this document.
[2024-08-03 17:48] LABS: T3 Total - Triiodothyronine 1.39 ng/mL (0.6-1.81); Vitamin B12 383 pg/mL (211-911); Vitamin D,25 Hydroxy 42.2 ng/mL
[2024-08-03 17:54] LABS: Magnesium 2.4 mg/dL (1.6-2.6); T4 Free Direct 1.03 ng/dL (0.76-1.46)
== END | disposition home or self-care (01) ==
LOC: MTLAB 15:16
PROVIDERS: PCP Nurse Practitioner Family
DX: G90.A Postural orthostatic tachycardia syndrome [POTS] (principal); K59.04 Chronic idiopathic constipation
CPT/HCPCS: 36415; 82306; 82607; 83735; 84439; 84443; 84480

== ENCOUNTER 2024-08-28 12:18 | Day surgery (SDC) | payer OTHER, SELFPAY ==
[2024-08-28] VITALS (8 sets, daily range): BP systolic 84–97; BP diastolic 47–67; PULSE 63–89; RESP 16; TEMP 36.3–36.6; O2SAT 98–100; BMI 18.6
[2024-08-28 12:40] LABS: Internal QC Validated? YES +Cl - CLEAR BKGD; Pregnancy, Urine Negative Negative
--- NOTE | 2024-08-28 12:53 | HP.PCM_ITS ---
History and Physical Date of Admission: 08/28/24 SLOAN ZUÑIGA, is a 23 F who presents to the office today for follow up. US and elastography 06.01.23 hepatic measurement 15.7cm with fatty infiltration, stiffness measures 5.8kPa. Colonoscopy 01.02.24 Tortuous colon. The examination was otherwise normal on direct and retroflexion views. No specimens collected. OV 8 pt reports daily nausea after she eats that gets worse the longer she has gone without a bm. Pt reports constipation has improved since colonoscopy in December when she started a fiber supplement and is now having 1-2 formed bm per week; denies blood in the stool. Pt reports increased HB that is worse when she has not been able to have a BM. Pt reports that she began having difficulty swallowing in mid April where she feels like she will either throw up or choke; states that she just takes a break from eating and the problem resolves. Pt reports she only has difficulty with food. ROS Const Constitutional: Positive for fatigue and weight change (weight loss); No fever(s) ENT ENT: Positive for difficulty swallowing Gastro GI: Positive for bloating, constipation, heartburn, difficulty swallowing, excessive flatus and nausea/dyspepsia; No abdominal pain, belching, change in bowel habits, change in stool character, coffee ground emesis, cramping, diarrhea, feeling full early, incontinent of stools, Vomiting blood/hematemesis, Blood in stool, loose stools, Black,tarry stools, pain with swallowing, vomiting or other Musc Musculoskeletal: Positive for muscle weakness, numbness and tingling; No joint pain Skin Skin: Positive for dry skin and itchy eyes; No yellowing of the eye Neuro Neurology: Positive for numbness and tingling Psych Psychiatric: No anxiety and No depression Endo Endocrine: Positive for fatigue and weight change (weight loss) Aller/Imm Allergy/Immunologic: Positive for itchy eyes Lawrence/Lymp Hematologic/Lymphatic: No easy bleeding or easy bruising Exam Const General: cooperative, no acute distress and well developed Nutritional Appearance: average body habitus Orientation: alert, awake and oriented x3 Other: BMI 18.1 %. thin body build. HENIA Head: normocephalic and atraumatic Nose: external nose normal Face and sinus: normal facial exam Mouth: moist mucous membranes Eyes Pupils: PERRL EOM: EOM intact bilaterally Neck Neck: normal visual inspection, no meningeal signs and trachea midline Carotids: no bruits Chest Chest palpation & inspection: normal inspection of the chest Resp Effort & Inspection: normal respiratory effort and symmetric chest movement Auscultation: Bilateral: Clear to Auscultation Cardio Palpation: normal PMI Rate: regular rate Rhythm: regular rhythm Heart Sounds: S1 normal and S2 normal GI Auscultation: normal bowel sounds Percussion: normal to percussion Palpation: soft, no hepatosplenomegaly and no guarding Other: No tenderness, no abdominal distention. Liver not enlarged. Spleen not palpable. No clinically palpable ascites. General: bimanual renal exam normal bilaterally, bladder normal to inspection and bladder normal to palpation Bimanual Exam- Vagina & Uterus: bladder normal to palpation Musc Musculoskeletal: No joint tenderness, joint redness, joint warmth or decreased range of motion Thoracic/Lumbar Spine: thor and lumb spine abnorm to inspection Skin General: rashes and/or lesions noted, turgor normal and no erythema Wounds: wound noted Other: Alopecia. chronic Hair loss. Neuro General: patient alert, patient awake, patient oriented x3 and no focal motor deficits Speech: speech normal Motor: muscle tone normal throughout Extrem General: normal exam except as noted Psych Appearance: grossly normal Mood: congruent mood Affect: normal affect Attitude: cooperative Assessment and Plan Assessment and Plan (1) Autoimmune hepatitis: Status: Chronic Plan: This is a 22-year-old female patient who was diagnosed with AIH type I almost a decade ago; which usually in pancreatic is group's type II. Her lab work reviewed. CBC all 3 cell lines are in normal range. Liver chemistry shows ALT 72, AST 15 otherwise all liver normals. Autoimmune work-up was essentially negative. Gilbert ntiFERON gold test negative. Hepatitis panel negative.Last abdominal ultrasound in May 2023 reported normal liver size 15.7 cm with normal echogenicity. Biliary system within normal limit. No gallstones CBD 2 mm. Size and echogenicity. No pancreatic mass or cyst. Liver elastography reported 5.5 kPa compatible with F3 to F4 1 normal to mild liver fibrosis mattery score. She is also under the care of pressurised container filler for her hair loss and seems it is better. She follows underwriting technician for low body weight, fatigued, low muscle mass. As per the patient though we do not have any record, there is abnormality of testosterone and other hormones and she is getting workup for Princeton's disease. She is on spironolactone 100 mg daily. Labs reviewed. Liver ultrasound with elastography also shows normal echogenicity of liver in size. No demonstrated mass. Median liver stiffness 5.5 kPa. ALT AST are elevated. Total bilirubin 1.7. Alkaline phosphatase 79. Patient is taking vitamin biotin and recently changed contraceptive Depo medroxyprogesterone to combination oral contraceptive pill . She is also on fludrocortisone for POTS. I advised to discontinue vitamin Biotene and oral contraceptive pill for now. Advised follow-up with CABLE MACHINE OPERATOR to change oral combination contraceptive pill to progesterone only pill/Depo. Repeat liver chemistry and INR in 3 weeks. Liver ultrasound with elastography ordered Follow-up in 3 months. (2) Constipation: Status: Chronic Qualifiers: Constipation type: unspecified constipation type Qualified Code(s): K59.00 - Constipation, unspecified Plan: She visited [place] ED on 10/27/2023 for severe constipation when she did not had bowel movement as per patient for about [address] abdomen and pelvis with contrast was done and reported as GI tract dilatation or evidence of inflammatory changes. Appendix unremarkable. No focal bladder wall thickening, no hydronephrosis or nephrolithiasis. Mild periportal edema and distention of IVC also reported otherwise liver, spleen, pancreas and both adrenal glands appear normal. She was on Amitiza 16 mcg twice daily She had colonoscopy which was reported normal. Currently she is taking Metamucil and having good bowel movement. She stopped taking nikethamide which was for IBS-C. Since she was able to go to the bathroom with taking the [employer] prep. I will have her take it teaspoon of MiraLAX and salt per day with 10 ounces of liquid d ue to her recent diagnosis of POTS syndrome. (3) dysphagia-she is having dysphagia with solids. Differential diagnosis does include eosinophilic esophagitis, Schatzki's ring, esophageal dysmotility disorder. She should undergo an upper endoscopy to evaluate upper GI tract. She was explained alternatives, risk and benefits include normal send bleeding, infection, sepsis, perforation, need for emergent urgent . She we will have an ASA of 3. I have examined the patient and the H&P has been reviewed. There are no clinical changes since date of exam.
--- NOTE | 2024-08-28 13:15 | EGD_PTH ---
PATIENT: SLOAN ZUÑIGA LOC: EN U#:[id number] AGE/SX: 24/F ROOM: RE08/28/[address]: Dr. Angel Gutierrez DO : 2000 BED: DIS: 08/28/2024 SPEC #: [id number] RECD: 08/28/24 17:34 STATUS: JAVIER TORI #: [id number] JOSE EDUARDO: 08/28/24 13:[address]: Angel Gutierrez DEPT: SURGICAL PATHOLOGY RECD BY: Sneha Neal ENTERED: 08/29/24 09:30 SP TYPE: EGD BIOPSY NADEGE DR: Kennedy Serrano, POLYMERIZATION OVEN TENDER-C Tissues: Esophagus, NOS Procedures: Special Stain Group I Surgery Specimen Level IV Alcian Blue/PAS (control) HEADER OPERATION: EGD with biopsy and dilation PRE-OP DIAGNOSIS: Autoimmune hepatitis, constipation, dysphagia TISSUE SUBMITTED: Distal esophagus biopsy MICROSCOPIC DIAGNOSIS Distal esophagus, biopsy: Fragments of gastroesophageal mucosa with chronic inflammation. Intestinal metaplasia (goblet cell metaplasia) not identified. See comment. 08/30/2024 COMMENT Alcian blue/PAS stain with matched control is used in the evaluation of the specimen. The specimen predominantly consists of gastric mucosa. MICROSCOPIC DESCRIPTION Slides are reviewed. GROSS DESCRIPTION Received in fixative is one container labeled with the patient's name and designated Distal esophagus biopsy. The specimen consists of two irregular fragments of light christensen soft tissue that in aggregate measure 0.6 x 0.6 x 0.1 cm. The specimen is totally submitted in one cassette. 08/29/2024 TC:3 CPT:57741,39019
--- NOTE | 2024-08-28 13:29 | PCM.PRE.AN2 ---
ASA Classification* ASA Classification ASA Classification: 2 Assessment & Plan Anesthesia* Anesthesia Assessment Anesthesia Assessment: Discussed sedation and/or anesthesia options, risks, benefits, and alternatives with patient/parents/legal guardian/POA. Questions invited. The patient/parents/legal guardian/POA seems to understand and agrees to proceed with anesthesia plan. Reviewed the physical assessment, medical history, allergy history and patient home medications list prior to surgery/procedure/anesthetic and documented any changes. Performed airway and anesthesia risk assessments. Anesthesia Type Anesthesia Type: MAC History Source History Obtained from:: Patient and Chart Anesthesia Focused Assessment* Temperature: 97.9 F Pulse Rate: 63 Blood Pressure: 97/67 Respiratory Rate: 16 Pulse Ox: 99 Oxygen Delivery Method: Room Air Airway Assessment Mouth opens: >3 cm Mallampati Score: I Teeth Condition: Intact Neck Range of motion (ROM): Full ROM Focused Labs Anesthesia Preop lab: CBC WBC 8.5 K/mm3 (4.4-11.0) 07/13/24 12:28 RBC 4.09 M/mm3 (4.2-5.4) L 07/13/24 12:28 Hgb 12.9 g/dL (12.0-15.0) 07/13/24 12:28 Hct 36.7 % (37-47) L 07/13/24 12:28 Plt Count 276 K/mm3 (150-450) 07/13/24 12:28 CHEMISTRY Potassium 3.6 mmol/L (3.5-5.1) 03/19/24 13:04 Sodium 135 mmol/L (136-145) L 03/19/24 13:04 Magnesium 2.4 mg/dL (1.6-2.6) 08/03/24 15:21 BUN 7 mg/dL (7-18) 03/19/24 13:04 Creatinine 0.82 mg/dL (0.55-1.02) 03/19/24 13:04 Glucose 113 mg/dL (74-106) H 03/19/24 13:04 TSH 1.760 uIU/mL (0.358-3.740) 08/03/24 15:21 COAG PT 14.8 SECONDS (11.7-14.9) 04/26/24 15:32 Urine Test Negative Negative 08/28/24 12:25 Pre-Assessment Diagnosis/Proposed Procedure Planned Operative Procedure(s): EGD Anesthesia History Anesthesia History - management instructor: Anesthesia History - management instructor Hx Hospitalization No 08/24/24 15:21 Any Problems With Anesthesia No 08/24/24 15:21 Cholinesterase deficiency No 08/24/24 15:21 You/Your Family Experience No 08/24/24 15:21 fever (hyperthermia) with Relationship Recent Exposure to Contagious No 08/28/24 12:46 Disease Does patient have nerve No 08/24/24 15:21 stimulator Patient instructed to have device shut off --Does patient have Pacemaker No 08/28/24 12:46 or ICD? When Was Last Pacemaker Check QUESTION #4 FULL TEXT: You/Your Family Experience fever (hyperthermia) with Anesthesia Last Oral Intake Last Oral intake: Last Oral Intake NPO since 18:00 08/28/24 12:46 Meds taken in AM with sips of No 08/28/24 12:46 water? Meds patient instructed to take am of surgery PONV PONV - management instructor: PONV - management instructor Female Yes 08/24/24 15:21 HX of Motion Sickness No 08/24/24 15:21 HX of N/V After Surgery No 08/24/24 15:21 Non-Smoker No 08/24/24 15:21 Duration of Surgery greater No 08/24/24 15:21 than 60 minutes Number of Risk Factors 1 08/24/24 15:21 PONV Score Low Risk 08/24/24 15:21 Height & Weight Height & Weight: Anesthesia: Height & Weight Height 5 ft 7 in 08/28/24 12:46 Weight: 54 kg 08/28/24 12:46 Body Mass Index (BMI) 18.6 08/28/24 12:46 Respiratory Assessment Respiratory Assessment - management instructor: Respiratory Tract Infection Hx - management instructor Hx Respiratory Tract Infection No 08/24/24 15:21 STOP Sleep Apnea STOP Sleep Apnea - management instructor: STOP Sleep Apnea - management instructor Hx Hypertension No 08/24/24 15:21 Hx Sleep Apnea No 08/24/24 15:21 CPAP BIPAP Do you snore loudly (louder No 08/24/24 15:21 than talking or can be heard Do you often feel tired/ No 08/24/24 15:21 fatigued/ sleepy during daytime? Has anyone observed you stop No 08/24/24 15:21 breathing during sleep? STOP Results Negative 08/24/24 15:21 QUESTION #5 FULL TEXT : Do you snore loudly (louder than talking or can be heard through closed doors)? Tobacco Use History Tobacco Use History - management instructor: Tobacco Use History - management instructor Tobacco Use Smoking Status Light Smoker (<10/day) 08/24/24 15:21 Hx Tobacco Use Yes 08/24/24 15:21 Years Smoking Packs Smoked per Day Smoking Cessation Date was within the last 15 years Hx Smoking Cessation Date Hx Smoking Cessation Counseling Any additional information?: Yes Tobacco Use: Vapor Hematologic Medial History Hematologic Hx - management instructor: Hematologic Medical Hx - documentation spec Hx of Blood Transfusion No 08/24/24 15:21 Hx of Transfusion in last 3 No 08/24/24 15:21 Months Date of Last Transfusion (if within last 3 months) Ever experience any problems No 08/24/24 15:21 with transfusion(s)? Specify any problems Hx of Preganancy in last 3 No 08/24/24 15:21 Months Nurse Filling Out Transfusion VCHRISTIN 08/24/24 15:21 & Questions: Date: 08/24/24 08/24/24 15:21 Time: 08/24/24 15:21 Patient unable to answer at this time (ie. confused, unrespo /Reproduction History /Reproductive History - management instructor: /Reproductive Hx- management instructor Hx Now No 08/24/24 15:21 Gestational Age (in weeks): EDC: Hx Hx Para Hx Section SAB No 08/24/24 15:21 PFSH Medical History Cancer Wears glasses History of Clostridium difficile infection Bruising Hepatitis History of IBS Gastric reflux Smoker IYER (nonalcoholic steatohepatitis) Bloating Home Medications ?Medication ?Instructions ?Recorded ?Last Taken ?Type omeprazole 20 mg capsule,delayed 20 mg PO DAILY PRN heartburn 06/10/22 08/25/24 History release azathioprine 50 mg tablet (Imuran) 50 mg PO DAILY #45 tabs 12/09/23 08/27/24 Rx ondansetron HCl 4 mg tablet 4 mg PO Q6H PRN PRN nausea/vomiting 12/28/23 Unknown History fludrocortisone 0.1 mg tablet 0.1 mg PO DAILY 05/21/24 08/27/24 History spironolactone 100 mg tablet 50 mg PO QPM 05/21/24 08/27/24 History doxycycline hyclate 100 mg capsule 100 mg PO BID 08/24/24 08/27/24 History minoxidil 2.5 mg tablet 1.25 mg PO DAILY 08/24/24 08/27/24 History norethindrone 1.5 mg-ethinyl 1 tab PO DAILY 08/24/24 08/27/24 History estradiol 30 mcg(21)/iron 75 mg(7) tablet (June FE .03/08 (28)) Allergy/AdvReac Type Severity Reaction Status Date / Time No Known Allergies Allergy Verified 08/28/24 12:44 Family History Grandmother Thyroid disorder Hypertension Surgical History Hx of colonoscopy History of liver biopsy Social History Smoking Status: Light Smoker (<10/day) alcohol intake: never Review of Systems (Anesthesia) ROS Narrative System reviewed and no additional complaints, except as documented.
--- NOTE | 2024-08-28 14:01 | OP.EGD_ITS ---
Patient Name: Ashia Bonilla Procedure Date: 08/28/2024 1:36 PM Date of : 2000 Age: 24 Procedure: Upper GI endoscopy Indications: Dysphagia Providers: Angel Gutierrez DO Medicines: Monitored Anesthesia Care Patient Profile: This is a 24 year old female. Refer to note in patient chart for documentation of history and physical. Patient has symptoms of dysphagia with solids. Complications: No immediate complications. Procedure: Pre-Anesthesia Assessment: - Prior to the procedure, a History and Physical was performed, and patient medications and allergies were reviewed. The patient is competent. The risks and benefits of the procedure and the sedation options and risks were discussed with the patient. All questions were answered and informed consent was obtained. Patient identification and proposed procedure were verified by the physician in the pre-procedure area. Mental Status Examination: alert and oriented. Airway Examination: normal oropharyngeal airway and neck mobility. Respiratory Examination: clear to auscultation. CV Examination: normal. Prophylactic Antibiotics: The patient does not require prophylactic antibiotics. Prior Anticoagulants: The patient has taken no anticoagulant or antiplatelet agents except for NSAID medication. ASA Grade Assessment: II - A patient with mild systemic disease. After reviewing the risks and benefits, the patient was deemed in satisfactory condition to undergo the procedure. The anesthesia plan was to use monitored anesthesia care (MAC). Immediately prior to administration of medications, the patient was re-assessed for adequacy to receive sedatives. The heart rate, respiratory rate, oxygen saturations, blood pressure, adequacy of pulmonary ventilation, and response to care were monitored throughout the procedure. The physical status of the patient was re-assessed after the procedure. After obtaining informed consent, the endoscope was passed under direct vision. Throughout the procedure, the patient's blood pressure, pulse, and oxygen saturations were monitored continuously. The Endoscope was introduced through the mouth, and advanced to the second part of duodenum. The upper GI endoscopy was accomplished without difficulty. The patient tolerated the procedure well. Scope In: 1:47:12 PM Scope Out: 1:53:27 PM Total Procedure Duration Time 0 hours 6 minutes 15 seconds Findings: One benign-appearing, intrinsic moderate stenosis was found 38 to 40 cm from the incisors. This stenosis measured 3 cm (in length). The stenosis was traversed. A guidewire was placed and the scope was withdrawn. Dilation was performed with a Savary dilator with no resistance at 60 Fr. The dilation site was examined and showed moderate mucosal disruption. Estimated blood loss: none. The Z-line was irregular and was found 40 cm from the incisors. Biopsies were taken with a cold forceps for histology. Biopsies were taken with a cold forceps for histology. Verification of patient identification for the specimen was done. Estimated blood loss was minimal. Excessive fluid was found in the entire examined stomach. Fluid aspiration was performed. The first portion of the duodenum was normal. Impression: - Benign-appearing esophageal stenosis. Dilated. - Z-line irregular, 40 cm from the incisors. Biopsied. - Excessive gastric fluid. Fluid aspiration performed. - Normal first portion of the duodenum. Recommendation: - Discharge patient to home. - Full liquid diet today. - Continue present medications. - Await pathology results. Procedure Code(s): --- Professional --- 53639, Esophagogastroduodenoscopy, flexible, transoral; with insertion of guide wire followed by passage of dilator(s) through esophagus over guide wire 92961, 59,51, Esophagogastroduodenoscopy, flexible, transoral; with biopsy, single or multiple CPT copyright 2021 [employer]. All rights reserved. The codes documented in this report are preliminary and upon service inspector review may be revised to meet current compliance requirements. Angel Gutierrez DO 08/28/2024 2:00:38 PM This report has been signed electronically. Number of Addenda: 0 Note Initiated On: 08/28/2024 1:36 PM
--- NOTE | 2024-08-28 14:01 | OP.CCLET_ITS ---
08/28/2024 Kennedy Serrano Re : Upper GI endoscopy procedure for Ashia Bonilla Dear Maggie This procedure was performed on Wednesday, August 28, 2024. My impressions and recommendations are as follows: Impressions : - Benign-appearing esophageal stenosis. Dilated. - Z-line irregular, 40 cm from the incisors. Biopsied. - Excessive gastric fluid. Fluid aspiration performed. - Normal first portion of the duodenum. Recommendations : - Discharge patient to home. - Full liquid diet today. - Continue present medications. - Await pathology results. My findings are described in the full procedure note, which is enclosed. If I can be of further assistance, please feel free to contact me at . Sincerely, Angel Gutierrez, 08/28/2024 2:00:38 PM This report has been signed electronically.
--- NOTE | 2024-08-28 14:03 | PCM.POST.ANE ---
Anesthesia: Postop Eval I Current Vital Signs Temperature: 97.9 F Pulse Rate: 85 Blood Pressure: 87/53 Respiratory Rate: 16 Pulse Ox: 98 Oxygen Delivery Method: Room Air Assessment Airway patent: Yes Spontaneous unlabored respirations: Yes Mental status: Asleep nausea: No Vomiting: No Anesthesia Complication: No Fluid Hydration Crystalloid volume administer (ml): 40 Total IV fluid infused: 40 Progress Note Anesthesia document: Postop Eval 1 completed: Yes
[2024-08-28] MEDS: Pantoprazole Sodium 40 MG in 0.9% Normal Saline (100mL MB+) 100 ML 330 MG IV (14:16)
--- NOTE | 2024-08-28 16:11 | PCM.POSTANE2 ---
Anesthesia Postop Eval I Sum Postop Eval Completion status Anesthesia document: Postop Eval 1 completed: Yes Anesthesia Postop Eval I Summary Anesthesia Postop Eval I Summary: Anesthesia Postop Eval I: Assessment Summary Airway patent Yes 08/28/24 14:03 [email or web address] Spontaneous unlabored Yes 08/28/24 14:03 [email or web address] respirations Mental status Asleep 08/28/24 14:03 [email or web address] nausea No 08/28/24 14:03 [email or web address] Vomiting No 08/28/24 14:03 [email or web address] Anesthesia Postop Eval I: Fluid Summary Crystalloid volume administer 40 08/28/24 14:03 [email or web address] (ml) Colloids volume administered ( ml) Blood Product volume administered (ml) Total IV fluid infused 40 08/28/24 14:03 [email or web address] Anesthesia Postop Eval I: Summary Notes Anesthesia Complication No 08/28/24 14:03 [email or web address] Anesthesia Complication Comment: Post-operative progress note Anesthesia: Postop Eval II Evaluation Mental status: Awake and Calm Pain Level: 0 nausea: No Vomiting: No Complications Anesthesia Complication: No
== END 2024-08-28 15:05 | disposition home or self-care (01) ==
LOC: EN 12:19 → AC 12:21
PROVIDERS: Anesthesiology; PCP Nurse Practitioner Family; Referring Provider Nurse Practitioner Family; Visit Provider Internal Medicine Gastroenterology
PROC: 0DJ08ZZ Inspection of Upper Intestinal Tract, Via Natural or Artificial Opening Endoscopic (ICD-10-PCS; CPT 43235; principal; 2024-08-28 13:10)
DX: K22.2 Esophageal obstruction (principal); R13.10 Dysphagia, unspecified; B15.9 Hepatitis A without hepatic coma; K59.00 Constipation, unspecified; F17.200 Nicotine dependence, unspecified, uncomplicated; Z79.899 Other long term (current) drug therapy
CPT/HCPCS: 43239; 43248; 81025; 88305; 88312; A4216; C1769; J2405

== ENCOUNTER → 2024-09-03 | Outpatient (CLI) | payer OTHER, SELFPAY ==
[2024-09-03 12:37] LABS: Absolute Neutrophil Count 7.8 X10^3/uL (2.0-7.7); Basophil# 0.05 X10^3/uL; Basophil% 0.5 % (0-1); Eosinophil# 0.03 X10^3/uL; Eosinophils% 0.3 % (0-5); Hematocrit 38.2 % (37-47); Hemoglobin 13.4 g/dL (12.0-15.0); Lymphocyte % 13.5 % (19-41); Mean Corp Hgb Conc 35.1 g/dL (32-36); Mean Corpuscular Hgb 32.3 pg (27.0-32.0); Mean Platelet Vol. 10.9 fl (6.2-12.0); Monocyte# 0.46 X10^3/uL; Monocyte% 4.8 % (0-10); NRBC Flagged by Analyzer 0 % (0-5); Neutrophil # 7.78 X10^3/uL (2.7-7.7); Neutrophil % 80.6 % (47-70); Platelet Count 297 K/mm3 (150-450); RBC Distribution Width CV 13.3 % (11.6-14.6); RBC Distribution Width SD 43.8 fl (35.1-43.9); Red Blood Count 4.15 M/mm3 (4.2-5.4); White Blood Count 9.7 K/mm3 (4.4-11.0)
[2024-09-03 12:59] LABS: Vitamin D,25 Hydroxy 46.9 ng/mL
[2024-09-03 13:41] LABS: Ferritin 32 ng/mL (8-252)
[2024-09-07 12:08] LABS: Thyroid Peroxidase AB 11 IU/mL (0-34); Zinc, Plasma or Serum 69 ug/dL (44-115)
== END | disposition home or self-care (01) ==
LOC: LAB 12:07
PROVIDERS: PCP Nurse Practitioner Family; Referring Provider Dermatology; Visit Provider Dermatology
DX: L64.8 Other androgenic alopecia (principal); L21.8 Other seborrheic dermatitis; B07.8 Other viral warts; R20.8 Other disturbances of skin sensation; L08.89 Other specified local infections of the skin and subcutaneous tissue
CPT/HCPCS: 36415; 82306; 82728; 84630; 85025; 86376

== ENCOUNTER → 2024-10-08 | Outpatient (CLI) | payer OTHER, SELFPAY ==
--- NOTE | 2024-10-08 09:56 | NM_ITS ---
CLINICAL: 44-year-old female with history of chronic nausea. SEMI-SOLID PHASE 99m Tc SULFUR COLLOID GASTRIC EMPTYING STUDY COMPARISON: None available FINDINGS: The patient was administered 1.1 mCi of 99m Tc sulfur colloid mixed with oatmeal and consumed per os. Image acquisitions in the anterior-posterior projections were obtained for 60 minutes. There is prompt visualization of the stomach. There is no gastroesophageal reflux identified. First order kinetics are maintained throughout the duration of the acquisitions. The T ? linear fit was calculated to be 58.99 minutes, (Normal: 12-56 minutes). NM/Gastric Emptying Study IMPRESSION: 1. ABNORMAL 99m Tc sulfur colloid semi-solid phase (oatmeal) gastric emptying imaging examination. A. There is delayed semi-solid phase gastric emptying compared to normal controls with demonstrated first order kinetics throughout all components of the examination. (Jovana et al, J Nucl Med Tech 38: 186, 2010). Electronically Signed: Kennedy Kaufman DO at 8:35 EST ,
== END | disposition home or self-care (01) ==
LOC: NM 09:52
PROVIDERS: PCP Nurse Practitioner Family; Referring Provider Internal Medicine Gastroenterology; Visit Provider Internal Medicine Gastroenterology
DX: R11.0 Nausea (principal)
CPT/HCPCS: 78264; A9541

== ENCOUNTER → 2024-10-24 | Outpatient (CLI) | payer OTHER, SELFPAY ==
--- NOTE | 2024-10-24 09:51 | NM_ITS ---
CLINICAL: 24-year-old female with history of chronic nausea. SOLID PHASE 99m Tc SULFUR COLLOID GASTRIC EMPTYING STUDY COMPARISON: Semisolid phase gastric emptying study report dated 10/08/2024 FINDINGS: The patient was administered 1.0 mCi of 99m Tc sulfur colloid mixed with egg and consumed per os. Image acquisitions in the anterior-posterior projections were obtained for 223 minutes following meal consumption. There is prompt visualization of the stomach. There is no gastroesophageal reflux identified. First order kinetics are maintained throughout the duration of the acquisitions. The T ? raw data emptying was calculated to be 173.43 minutes, (Normal 65-110 minutes). 68 % emptying and 32 % retention are defined at 4 hours post meal ingestion. NM/Gastric Emptying Study - 4 HR IMPRESSION: 1. ABNORMAL 99m Tc sulfur colloid solid phase gastric emptying imaging examination. A. There is abnormal solid phase gastric emptying compared to normal controls with maintained first order kinetics throughout all components of the examination. (Lexa et al, Gastroenterology 77: 75, 1979 Segun et al,
== END | disposition home or self-care (01) ==
PROVIDERS: PCP Nurse Practitioner Family; Referring Provider Internal Medicine Gastroenterology; Visit Provider Internal Medicine Gastroenterology
DX: K59.00 Constipation, unspecified (principal); R11.0 Nausea
CPT/HCPCS: 78264; A9541

== ENCOUNTER 2025-05-26 18:45 | Emergency (ER) | payer OTHER, SELFPAY ==
[2025-05-26] VITALS (7 sets, daily range): BP systolic 113–129; BP diastolic 68–94; PULSE 60–120; RESP 14–18; TEMP 36.8–36.9; O2SAT 97–100; BMI 18.0
--- NOTE | 2025-05-26 19:28 | RAD_ITS ---
PROCEDURE: RIGHT HAND MIN 3 VIEWS 05/26/2025 REASON FOR EXAM: TRAUMA TECHNIQUE: RIGHT HAND MIN 3 VIEWS COMPARISON: None. FINDINGS: Acute obliquely oriented fracture of the 5th metacarpal shaft, mildly displaced with volar angulation. No additional acute fracture or dislocation is seen. Preserved joint spaces. Carpal alignment is maintained. Mild soft tissue swelling at the ulnar aspect of the hand. No radiopaque foreign body. RAD/Hand Min 3 Views IMPRESSION: Acute mildly displaced oblique fracture of the 5th metacarpal shaft with volar angulation. Reading Location: [id number]
--- OUTSIDE RECORDS SUMMARY | 2025-05-26 19:48 | XMS RPT_ITS | CCD ---
Author Organization [facility] Care Team Providers Care Simulation Developer Name Role Phone REFERRING, PHY WO ID Unavailable Unavailable KAROL QUINONES Unavailable Unavailable OSMAN SERRANO Unavailable Unavailable MAGGIE FASHION DIRECTOR - TILE ROOFER, OSMAN Victoria Primary Care Phys ician Oly PT, Valerie Unavailable Unavailable Friend, Dr. Ortiz Attending Provider [phone] Maggie ARABIC TEACHER, ARABIC TEACHER-C Osman Garcia Primary Care Pr ovider Maggie ARABIC TEACHER, ARABIC TEACHER-C Osman Garcia Referring Provi raul Friend, Dr. Ortiz Attending Provider [phone] Maggie ARABIC TEACHER, ARABIC TEACHER-C Osman Garcia Primary Care Pr ovider Maggie ARABIC TEACHER, ARABIC TEACHER-C Osman Garcia Referring Provi raul FriendDr. Ortiz Attending Provider Dr. Artie Martinez Attending Provider [phone] Maggie ARABIC TEACHER, ARABIC TEACHER-C Osman Garcia Primary Care Pr ovider Bullock ARABIC TEACHER, ARABIC TEACHER-C Osman Garcia Referring Provi raul Maggie ARABIC TEACHER, ARABIC TEACHER-C Osman Garcia Primary Care Pr ovider Maggie ARABIC TEACHER, ARABIC TEACHER-C Osman Garcia Referring Provi raul Dr. Artie Martinez Attending Provider FriendDr. Ortiz Attending Provider FriendDr. Ortiz Other Provider TALISHA NICOLE MD Attending Unavailable MAGGIE FASHION DIRECTOR - TILE ROOFER, OSMAN Victoria Primary Care U navailable BONNIE ADAN, TALISHA Attending Unavailable MAGGIE FASHION DIRECTOR - TILE ROOFER, OSMAN Victoria Primary Care U navailable MAGGIE FASHION DIRECTOR - TILE ROOFER, OSMAN Victoria Attending U navailable MAGGIE FASHION DIRECTOR - TILE ROOFER, OSMAN Victoria Primary Care U navailable LO FASHION DIRECTOR-TILE ROOFER, BETSY Attending Unavail able MAGIGE FASHION DIRECTOR - TILE ROOFER, OSMAN Victoria Primary Care U navailable GUSTAFSON FASHION DIRECTOR-TILE ROOFER, SHANTE Attending Unavailabl e MAGGIE FASHION DIRECTOR - TILE ROOFER, OSMAN Victoria Primary Care U navailable CHILDS PAC, ASHLYN Attending Unavailable MAGGIE FASHION DIRECTOR - TILE ROOFER, OSMAN Victoria Primary Care U navailable MAGGIE FASHION DIRECTOR - TILE ROOFER, OSMAN Victoria Attending U navailable MAGGIE FASHION DIRECTOR - TILE ROOFER, OSMAN Victoria Primary Care U navailable LO FASHION DIRECTOR-TILE ROOFER, BETSY Attending Unavail able MAGGIE FASHION DIRECTOR - TILE ROOFER, OSMAN Victoria Primary Care U navailable BONNIE ADAN, TALISHA Attending Unavailable MAGGIE FASHION DIRECTOR - TILE ROOFER, OSMAN Victoria Primary Care U navailable GUSTAFSON FASHION DIRECTOR-TILE ROOFER, SHANTE Attending Unavailabl e MAGGIE FASHION DIRECTOR - TILE ROOFER, OSMAN Victoria Primary Care U navailable LALITA ADAN, DR JUSTYNA Mcgee Attending Unavailabl e MAGGIE FASHION DIRECTOR - TILE ROOFER, OSMAN Victoria Primary Care U navailable MAGGIE FASHION DIRECTOR - TILE ROOFER, OSMAN Victoria Attending U navailable MAGGIE FASHION DIRECTOR - TILE ROOFER, OSMAN Victoria Primary Care U navailable Friend Angel BOUDREAUX Unavailable Maggie ARABIC TEACHER-C, Osman Garcia Primary Care Provi raul Maggie ARABIC TEACHER-C, Osman Garcia Referring Provider Friend Dr. Angel BOUDREAUX Attending Provider Maggie ARABIC TEACHER, Osman Garcia Referring Unav ailable Friend, Angel Attending Unavailable Maggie ARABIC TEACHER, Osman Garcia Primary Care Unav ailable Friend, Angel Referring Unavailable Friend, Angel Attending Unavailable Maggie ARABIC TEACHER, Osman Garcia Primary Care Unav ailable Artie Martinez Attending Unavailable Maggie ARABIC TEACHER, Osman Garcia Primary Care Unav ailable Artie Martinez Referring Unavailable YUVALHE Referring Unavailable YUVAL, HE Attending Unavailable Maggie ARABIC TEACHER, Osman Garcia Primary Care Unav ailable Maggie ARABIC TEACHER, Osman Garcia Primary Care Unav ailable Bullock ARABIC TEACHER, Osman Garcia Referring Unav ailable Friend, Angel Attending Unavailable Maggie ARABIC TEACHER, Osman Garcia Primary Care Unav ailable Bullock ARABIC TEACHER, Osman Garcia Referring Unav ailable Friend, Angel Attending Unavailable Maggie ARABIC TEACHER, Osman Garcia Referring Unav ailable Friend, Angel Attending Unavailable Maggie ARABIC TEACHER, Osman Garcia Primary Care Unav ailable Maggie ARABIC TEACHER, Osman Garcia Referring Unav ailable Friend, Angel Consulting Unavailable Friend, Angel Attending Unavailable Bullock ARABIC TEACHER, Osman Jose Primary Care Unav ailable Maggie ARABIC TEACHER, Osman Garcia Referring Unav ailable Maggie ARABIC TEACHER, Osman Garcia Primary Care Unav ailable JuanArtie Attending Unavailable Maggie ARABIC TEACHER, Osman Garcia Primary Care Unav ailable JuanArtie Referring Unavailable Juan, Artie Attending Unavailable Friend, Angel Attending Unavailable Friend, Angel Referring Unavailable Bullock ARABIC TEACHER, Osman Garcia Primary Care Unav ailable RenettaKrishna oh Referring Unavailable [place], Krishna Attending Unavailable Bullock ARABIC TEACHER, Osman Garcia Primary Care Unav ailable Maggie ARABIC TEACHER, Osman Garcia Primary Care Unav ailable Friend, Angel Attending Unavailable Friend, Angel Referring Unavailable Juan, Artie Attending Unavailable Bullock ARABIC TEACHER, Osman Jose Primary Care Unav ailable Artie Martinez Referring Unavailable CULP, GARCIA Thompson Attending Unavailable SELF Referring Unavailable CULP, GARCIA S Referring Unavailable CULP, GARCIA Thompson Attending Unavailable CULP, GARCIA S Referring Unavailable CULP, GARCIA S Referring Unavailable CULP, GARCIA Thompson Referring Unavailable DEBBIE HARRIS Attending Unavailable CULP, GARCIA Thomposn Referring Unavailable MAGGIEOSMAN CASTRO APRN, CNP Primary Care U dalila NICOLE MD, TALISHA Attending Unavailable BONNIE ADAN, TALISHA Attending Unavailable OSMAN LEE APRN, CNP Primary Care U dalila Medications Current Medications Medication Drug Class(es) Dates Sig (Normalized) Sig (Original) azaTHIOprine 50 mg oral tablet (20 sources) Purine Antimetabolite Start: 11-30-2019 End: 09-25-2024 azaTHIOprine 50 mg oral tablet Dose : 50 mg = 1 tab(s), take 1 tablet by mouth once daily Start Date: 11/30/19 Status: Ordered Medication Dispense Status: Completed Total Allowed Fills: 1 Fills Dispensed: 0 bisacodyl 5 mg delayed release oral tablet [...] 0 Refill(s), 08/14/21 8:40:00 EDT, [facility], UTI (urinary tract infection), 172.7, cm, [...] qDay, # 21 tab(s), 0 Refill(s), Pharmacy: [facility], Knee meniscus pain, left, 172.5, cm, 06/04/24 7:53:00 EDT, Height, kg, 06/04/24 7:53:00 EDT, Dosing Weight Start Date: 06/04/24 Stop Date: 06/25/24 Status: Ordered docusate sodium 100 mg oral capsule (8 sources) Start: 01-06-2024 Colace 100 mg oral capsule Dose : 100 mg = 1 cap(s), Oral, BID, PRN as needed for constipation, # 100 cap(s), 1 Refill(s), [facility] #[id number], Moderate cervical dysplasia Weight loss, 172.5, cm, 01/06/24 8:59:00 EDT, Height, kg, 01/06/24 8:59:00 EDT, Dosing Weight Start Date: 01/06/24 Status: Ordered Start: 08-05-2023 Doculase 100 m g oral capsule Dose : 100 mg = 1 cap(s), Oral, BID, PRN for constipation, # 100 cap(s), 6 Refill(s), [facility]: [facility] #[id number], 171, cm, 07/11/23 8:04:00 EDT, Height, kg, 07/11/23 8:04:00 EDT, Dosing Weight Start Date: 08/05/23 Status: Ordered ethinyl estradiol 0.03 mg / ferrous fumarate 75 mg / norethindrone 1.5 mg oral tablet (11 sources) Estrogen Start: 05-02-2025 take 1 tablet by mouth once daily (28 Day) oral tablet See Instructions, TAKE ONE TABLET BY MOUTH EVERY DAY, # 84 tab(s), 0 Refill(s), Pharmacy: [facility], 172, cm, 04/17/25 9:12:00 EDT, Height, kg, 04/17/25 9:12:00 EDT, Dosing Weight Start Date: 05/02/25 Status: Ordered Medication Dispense Status: Completed Quantity: 84.0 Unit: tab(s) Total Allowed Fills: 1 Fills Dispensed: 0 Start: 08-24-2024 take 1.5 tablets by mouth once daily Norethindrone-E.Estradiol-Iron [Norethin drone 1.5 Mg-Ethinyl Estradiol 30 Mcg(21)/Iron 75 Mg(7) Tablet] (Norethindrone 1.5 Mg-Ethinyl Estradiol 30 ) 1.5 mg-30 mcg (21)/75 mg (7) tablet Active 1 {tbl} PO DAILY August 24, 2024 1:00am Start: 07-02-2024 0 oral tablet Dose = 1 tab(s), 0 Refill(s) Start Date: 07/02/24 Status: Ordered Repeat number: 1 Start: 01-20-2024 take 1 tablet by sonali th once daily oral tablet Dose = 1 tab (s), Oral, qDay, # 84 tab(s), 1 Refill(s), Pharmacy: [facility] #[id number], Encounter for contraceptive management Moderate cervical dysplasia, 172.5, cm, 01/20/24 9:59:00 EDT, Height, kg, 01/20/24 9:59:00 EDT, Dosing Weight Start Date: 01/20/24 Status: Ordered take 1 tablet by sonali th once daily , 28, 1.5 mg-30 mcg (21)/ 75 mg (7) tablet Take 1 tablet by mouth once daily. Active lactulose 12278 mg powder for oral solution (1 source) [...] Senna-S, # 30 cap(s), 1 Refill(s), Pharmacy: [facility] #[id number], Chronic constipation, 172.7, cm, 07/05/22 11:17:00 EDT, Height Start Date: 07/05/22 Status: Ordered lubiprostone 0.024 mg oral capsule (16 sources) Chloride Channel Activator Start: 01-10-2025 lubiprostone 24 mcg oral capsule Dose : 24 mcg = 1 cap(s), 0 Refill(s) Start Date: 01/10/25 Status: Ordered Medication Dispense Status: Completed Total Allowed Fills: 1 Fills Dispensed: 0 Start: 12-26-2024 take 1 capsule by [facility] twice daily at mealtime lubiprostone (AMITIZA) 24 mcg capsule Indications: Chronic idiopathic constipation Take 1 capsule by mouth two times a day with meals. 60 capsule 6 12/26/2024 Active Start: 12-09-2023 End: 01-09-2024 take 1 capsule by mouth twice daily Lubiprostone (Amitiza) 8 mcg capsule Discontinued 16 ug PO TWICE A DAY December 09, 2023 1:00am January 09, 2024 9:05am Start: 07-08-2023 End: 10-06-2023 Amitiza 8 mcg oral capsule D ose : 8 mcg = 1 cap(s), Oral, BID, Failed Linzess, MiraLax, Senna-S, # 60 cap(s), 2 Refill(s), Pharmacy: [facility] #[id number], Chronic idiopathic constipation, 171, cm, 07/08/23 9:50:00 EDT, Height, kg, 07/08/23 9:50:00 EDT, Dosing Weight Start Date: 07/08/23 Stop Date: 10/06/23 Status: Ordered medroxyPROGESTERone 150 mg/mL intramuscular suspension (9 sources) Start: 11-18-2023 inject 1 mL by intramuscular injection every three months medroxyPROGESTERone 150 mg/mL intramuscular suspension See Instructions, inject 1 milliliter intramuscularly every 3 MONTHS, # 1 mL, 3 Refill(s), Pharmacy: [facility] #[id number], 172.5, cm, 11/11/23 10:39:00 EST, Height, kg, 11/11/23 10:39:00 EST, Dosing Weight Start Date: 11/18/23 Status: Ordered Start: 12-13-2022 inject 1 mL by intra muscular injection every three months medroxyPROGESTERone 150 mg/mL intramuscular suspension See Instructions, inject 1 milliliter intramuscularly every 3 MONTHS, # 1 mL, 3 Refill(s), Pharmacy: [facility] #[id number], 172.5, cm, 07/16/22 10:01:00 EDT, Height, kg, [...] MONTHS, # 1 mL, 3 Refill(s), [facility] [facility], 172.7, cm, 02/24/21 13:28:00 EDT, Height, kg, 02/24/21 13:28:00 EDT, Dosing Weight Start Date: 05/14/21 Status: Ordered metoclopramide 5 mg oral tablet (2 sources) Dopamine-2 Receptor Antagonist Start: 11-11-2023 End: 01-10-2024 Reglan 5 mg oral tablet Dose : 5 mg = 1 tab(s), Oral, TIDAC, X 30 day(s), # 90 tab(s), 1 Refill(s), 01/10/24 11:22:00 AM EDT, [facility]: [facility] #[id number], GERD (gastroesophageal reflux disease), 172.5, cm, 11/11/23 10:39:00 EST, Height, kg, 11/11/23 10:39:00 EST, Dosing Weight Start Date: 11/11/23 Stop Date: 01/10/24 Status: Ordered minoxidil 2.5 mg oral tablet (10 sources) Arteriolar Vasodilator Start: 08-24-2024 take 1 tablet by mouth once daily Minoxidil 2.5 mg tablet Active 1.25 mg PO DAILY August 24, 2024 1:00am Start: 08-21-2024 take 0.5 tablet by m outh once daily minoxidil 2.5 mg oral tablet TAKE ONE-HALF TABLET BY MOUTH DAILY WITH full GLASS OF WATER Start Date: 08/21/24 Status: Ordered Medication Dispense Status: Completed Total Allowed Fills: 1 Fills Dispensed: 0 omeprazole 40 mg delayed release oral capsule (20 sources) Proton Pump Inhibitor Start: 01-22-2025 omeprazo le 40 mg oral delayed release capsule Dose : 40 mg = 1 cap(s), Oral, qDay, # 30 cap(s), 2 Refill(s), Pharmacy: [facility], 172, cm, 01/10/25 14:25:00 EDT, Height, kg, 01/10/25 14:25:00 EDT, Dosing Weight Start Date: 01/22/25 Status: Ordered Medication Dispense Status: Completed Quantity: 30.0 Unit: cap(s) Total Allowed Fills: 3 Fills Dispensed: 0 Start: 07-08-2023 End: 06-25-2024 take 1 capsule by mouth once daily as needed omeprazole (PRILOSEC) 40 mg capsule Take 40 mg by mouth once daily. prn 12/23/2023 Active Start: 07-05-2022 omeprazole 40 mg oral delayed release capsule Dose : 40 mg = 1 cap(s), Oral, qDay, # 30 cap(s), 6 Refill(s), Pharmacy: [facility] #[id number], GERD (gastroesophageal reflux disease), 172.7, cm, 07/05/22 11:17:00 EDT, Height Start Date: 07/05/22 Status: Ordered Start: 04-01-2022 End: 10-28-2022 take 1 capsule by mouth once daily as needed for gastroesophageal reflux disease Omeprazole 20 mg capsule,delayed release(DR/EC) Active 20 mg PO DAILY as needed for heartburn June 10, 2022 12:00am Start: 12-05-2020 End: 07-03-2021 omeprazole 20 mg oral delaye d release capsule Dose : 20 mg = 1 cap(s), Oral, qDay, # 30 cap(s), 6 Refill(s), Pharmacy: [facility] 172.5, cm, 12/05/20 10:07:00 EST, Height, kg, 12/05/20 10:07:00 EST, Dosing Weight Start Date: 12/05/20 Stop Date: 07/03/21 Status: Ordered ondansetron 4 mg oral tablet (20 sources) Serotonin-3 Receptor Antagonist Start: 12-23-2023 ondansetron 4 mg ora l tablet Dose : 4 mg = 1 tab(s), Oral, q6h, PRN Nausea/Vomiting, # 30 tab(s), 2 Refill(s), Pharmacy: [facility], 172, cm, 01/10/25 14:25:00 EDT, Height, kg, 01/10/25 14:25:00 EDT, Dosing Weight Start Date: 01/28/25 Status: Ordered Medication Dispense Status: Completed Quantity: 30.0 Unit: tab(s) Total Allowed Fills: 3 Fills Dispensed: 0 Start: 11-11-2023 ondansetron 4 mg oral tablet Dose : 4 mg = 1 tab(s), Oral, q6h, PRN Nausea/Vomiting, # 30 tab(s), 1 Refill(s), [facility]: [facility] #[id number], 172.5, cm, 11/11/23 10:39:00 EST, Height, kg, 11/11/23 10:39:00 EST, Dosing Weight Start Date: 11/11/23 Status: Ordered Start: 09-20-2023 ondansetron 4 mg oral tablet Dose : 4 mg = 1 tab(s), Oral, q6h, PRN Nausea/Vomiting, # 30 tab(s), 1 Refill(s), [facility]: [facility] #[id number], 171, cm, 07/11/23 8:04:00 EDT, Height, kg, 07/11/23 8:04:00 EDT, Dosing Weight Start Date: 09/20/23 Status: Ordered pyridostigmine bromide 60 mg oral tablet (9 sources) Start: 04-17-2025 take 1 tablet by mouth three times daily pyRIDostigmine 60 mg oral tablet Take 1 tablet by mouth three times a day. Start Date: 04/17/25 Status: Ordered Medication Dispense Status: Completed Total Allowed Fills: 1 Fills Dispensed: 0 Start: 03-12-2025 take 1 tablet by sonali twice daily Pyridostigmine [place] 60 mg tablet Active 60 mg PO TWICE A DAY March 12, 2025 12:00am Start: 12-26-2024 [facility] pyridostigmine (MESTINON) 60 mg tablet Indications: Gastroparesis Take 1 tablet by mouth three times a day. 90 tablet 5 12/26/2024 Active spironolactone 50 mg oral tablet (18 sources) Aldosterone Antagonist Start: 2024 spironolactone 50 mg oral tablet Dose : 50 mg = 1 tab(s), Oral, qDay, # 30 tab(s), 0 Refill(s) Start Date: 06/04/24 Status: Ordered Medication Dispense Status: Completed Quantity: 30.0 Unit: tab(s) Total Allowed Fills: 1 Fills Dispensed: 0 Start: 05-21-2024 Spironolactone 100 mg tablet Active 50 mg PO EVERY EVENING May 21, 2024 1:32pm Start: 12-01-2023 End: 05-21-2024 take 1 tablet by mouth once daily in the evening Spironolactone 100 mg tablet Discontinued 100 mg PO EVERY EVENING December 28, 2023 12:00am May 21, 2024 1:33pm ursodiol 250 mg oral tablet (2 sources) Bile Acid Start: 09-05-2023 take 250 mg by mouth twice daily Ursodiol Active 250 MG PO TWICE A DAY 60 September 05, 2023 12:00am Completed/Discontinued Medications Medication Drug Class(es) Dates Sig (Normalized) Sig (Original) doxycycline hyclate 100 mg oral capsule (1 source) Tetracycline-cl ass Drug Start: 08-24-2024 End: 11-21-2024 take 1 capsule by mouth twice daily Doxycycline Hyclate 100 mg capsule Discontinued 100 mg PO TWICE A DAY August 24, 2024 1:00am November 21, 2024 9:13am fludrocortisone acetate 0.1 mg oral tablet (13 sources) Start: 04-24-2024 End: 03-12-2025 fludrocortisone 0.1 mg oral tablet Dose : 0.1 mg = 1 tab(s), Oral, qDay, # 90 tab(s), 3 Refill(s), Pharmacy: [facility], POTS (postural orthostatic tachycardia syndrome), 157.5, cm, 04/24/24 9:59:00 EDT, Height, kg, 04/24/24 9:59:00 EDT, Dosing Weight Start Date: 04/24/24 Stop Date: 06/23/24 Status: Ordered Medication Dispense Status: Completed Quantity: 90.0 Unit: tab(s) Total Allowed Fills: 4 Fills Dispensed: 0 Indications: Postural orthostatic tachycardia syndrome [POTS]; Start: 01-13-2024 End: 03-13-2024 fludrocortisone 0.1 mg oral tablet Dose : 0.1 mg = 1 tab(s), Oral, Daily, # 30 tab(s), 1 Refill(s), Pharmacy: [facility] #[id number], POTS (postural orthostatic tachycardia syndrome), 172.5, cm, 01/13/24 8:02:00 EDT, Height, kg, 01/13/24 8:02:00 EDT, Dosing Weight Start Date: 01/13/24 Stop Date: 03/13/24 Status: Ordered plecanatide 3 mg oral tablet (2 sources) Start: 01-03-2024 End: 03-20-2024 take 1 tablet by mouth once daily Plecanatide (Trulance) 3 mg tablet Discontinued 3 mg PO DAILY January 09, 2024 9:04am March 20, 2024 11:43am polyethylene glycol 3350 [id number] mg / potassium chloride 2970 mg / sodium bicarbonate 6740 mg / sodium chloride 5860 mg / sodium sulfate 90247 mg powder for oral solution (2 sources) Osmotic Laxative Start: 12-12-2023 End: 05-21-2024 Peg 3350-Electrolytes (Golytely) 236-22.74-6.74 -5.86 gram recon soln Discontinued 240 mL PO Q10M 3999December 12, 2023 1:00am May 21, 2024 1:32pm until fecal effluent is clear Start: 12-12-2023 Peg 3350-Elect rolytes (Golytely) 236-22.74-6.74 -5.86 gram recon soln Active 240 ML PO Q10M 3999December 12, 2023 1:00am until fecal effluent is clear Problems Active Problems Problem Classification Problem Date Documented Da te Episodic/Chronic Abdominal pain (15 sources) Abdominal pain; Translations: [Unspecified abdominal pain] Onset: 4 12-19-2020 Episodic Cardiac dysrhythmias (4 sources) Postural orthostatic tachycardia syndrome ; Translations: [POTS (postural orthostatic tachycardia syndrome)] Onset: 5 03-20-2025 Chronic Conditions associated with dizziness or vertigo (2 sources) Dizziness 12-01-2023 Episodic Contraceptive and procreative management (20 sources) Contraception 05-04-2019 Episodic Esophageal disorders (20 sources) Gastroesophageal reflux disease; Translations: [Gastro-esophageal reflux disease without esophagitis] Onset: 5 12-05-2020 Chronic Heart valve disorders (20 sources) Mitral valve prolapse; Translations: [Nonrheumatic mitral (valve) prolapse] Onset: 5 05-04-2019 Chronic Hepatitis (20 sources) Autoimmune hepatitis; Translations: [Autoimmune hepatitis] Onset: 5 05-04-2019 Chronic Inflammatory diseases of female pelvic organs (2 sources) Acute vaginitis; Translations: [Acute vaginitis] Onset: 5 Episodic Malaise and fatigue (16 sources) Asthenia; Translations: [Fatigue] 12-01-2023 Episodic Other circulatory disease (6 sources) Postural orthostatic tachycardia syndrome ; Translations: [Postural orthostatic tachycardia syndrome [POTS]] Onset: 4 01-13-2024 Episodic Other connective tissue disease (1 source) Foot pain 06-18-2022 Episodic Other connective tissue disease (1 source) Tendinitis of wrist 04-01-2022 Episodic Other disorders of stomach and duodenum (10 sources) Gastroptosis 11-11-2023 Episodic Other disorders of stomach and duodenum (9 sources) Gastroparesis syndrome; Translations: [Gastroparesis] 12-26-2024 Episodic Other female genital disorders (3 sources) Cervical intraepithelial neoplasia grade 2; Translations: [Moderate cervical dysplasia] Onset: 5 11-05-2024 Episodic Other female genital disorders (1 source) Moderate cervical dysplasia; Translations: [Moderate cervical dysplasia] Onset: 5 Episodic Other gastrointestinal disorders (16 sources) Chronic idiopathic constipation; Translations: [Chronic idiopathic constipation] Onset: 5 07-08-2023 Chronic Other gastrointestinal disorders (1 source) Chronic constipation 07-05-2022 Episodic Other gastrointestinal disorders (11 sources) Constipation; Translations: [Constipation, unspecified] 08-19-2022 Episodic Other lower respiratory disease (8 sources) Dyspnea on exertion 12-01-2023 Episodic Other nervous system disorders (2 sources) Disorder of autonomic nervous system; 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]] 12-26-2024 Chronic Other non-traumatic joint disorders (1 source) Pain in wrist 04-01-2022 Episodic Other nutritional; endocrine; and metabolic disorders (12 sources) Underweight; Translations: [Underweight] Onset: 5 12-02-2023 Episodic Other screening for suspected conditions (not mental disorders or infectious disease) (12 sources) Decreased testosterone level ; Translations: [Encounter for screening for malignant neoplasm of cervix] Onset: 4 11-11-2023 Episodic Other skin disorders (3 sources) Skin lesion 07-16-2022 Episodic Other skin disorders (4 sources) Loss of hair; Translations: [Nonscarring hair loss, unspecified] Onset: 5 03-20-2025 Episodic Other skin disorders (1 source) Nonscarring hair loss, unspecified; Translations: [Hair loss] Onset: 5 Episodic Other skin disorders (1 source) Epidermoid cyst of skin 01-10-2025 Episodic Other skin disorders (1 source) Eruption 01-10-2025 Episodic Other upper respiratory disease (11 sources) Seasonal allergy 07-16-2022 Chronic Other upper respiratory infections (1 source) Chronic sinusitis 03-29-2023 Chronic Other upper respiratory infections (1 source) Laryngitis 03-29-2023 Episodic Residual codes; unclassified (4 sources) Other problems related to lifestyle; Translations: [Other problems related to lifestyle] Onset: 5 03-20-2025 Episodic Spondylosis; intervertebral disc disorders; other back problems (18 sources) Chronic low back pain; Translations: [Lumbago with sciatica] 12-05-2020 Episodic Sprains and strains (3 sources) Low back strain 12-05-2020 Episodic Unclassified (3 sources) Pain of joint of knee 2024 Unclassified (1 source) POTS (postural orthostatic tachycardia syndrome); Translations: [POTS (postural orthostatic tachycardia syndrome)] Onset: 5 Past or Other Problems Problem Classification Problem Date Documented Da te Episodic/Chronic Cancer of cervix (2 sources) 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); Translations: [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)] Onset: 12-02-2023 Episodic Hepatitis (1 source) Hepatitis A without hepatic coma; Translations: [Hepatitis A without hepatic coma] Onset: 09-25-2024 Episodic Nausea and vomiting (2 sources) Nausea; Translations: [Nausea] Onset: 10-30-2024 08-28-2024 Episodic Other disorders of stomach and duodenum (2 sources) Gastroparesis; Translations: [Gastroparesis] Onset: 12-26-2024 Episodic Other gastrointestinal disorders (13 sources) Constipation, unspecified; Translations: [Constipation, unspecified] Onset: 10-27-2023 Episodic Other skin disorders (1 source) Other androgenic alopecia; Translations: [Other androgenic alopecia] Onset: 10-01-2024 Episodic Results Test Name Value Interpretation Reference Range Facility [facility] Reporton 2024 [facility] Cytology Report . Pathology Reports Accession: Collected Date/Time: Received Date/Time: Pathologist: [id number] 05/15/2025 09:39 EDT 05/15/2025 18:00 EDT [facility] Cytology Report SPECIMEN: Specimen Description: Liquid Prep w/ HPV Specimen: Cervical/Endocervical Screening or Diagnostic: Screening RELEVANT HISTORY: LMP: amenorrhea on OCP SPECIMEN ADEQUACY: SATISFACTORY FOR EVALUATION Endocervical/Transformat ional zone component absent/insufficient INTERPRETATION/RESULTS: NEGATIVE FOR INTRAEPITHELIAL LESION OR MALIGNANCY HIGH RISK HPV TESTING: HPV Screen Only, [place]OR[place] Probe Negative HPV Screen Only, [place] Probe Interp Data: Molecular methodology performed on the Bioniz System. The APTIMA HPV Screening Assay is a nucleic acid amplification test which detects fourteen high-risk HPV types (16,18,31,33,35,39,45,51 ,52,56,58,59,66 and 68). Detection of high-risk HPV (types 16,18 and 45) mRNA is dependent on the number of copies present in the specimen which may be affected by collection methods, patient factors, stage of infection and the presence of interfering substances. This assay is designed to enhance existing methods for the detection of cervical disease and should be used in conjunction with clinical information from other diagnostic and screening tests. This assay is not intended for use as a screening device for women under age 30 with normal cervical history or as a substitute for regular cervical cytology screening. If the APTIMA screening assay is positive, the HPV 16 18/45 genotype assay is performed as a follow-up test and should be interpreted in conjunction with cervical cytology test results, according to current practice guidelines. As of: 05/20/25 15:52 EDT COMMENT: This Pap Test was successfully processed and evaluated with the assistance of the Access Point ThinPrep Test Imaging System. Verified by Pathology report verified by [facility] Screened by: [place] Electronically signed by Roxie KEANE (ASCP) Sign-Out Date: 05/20/2025 15:53 Performing Lab: [facility], [address] [place] [address] Pathology Dept Pathology Reports Accession: Collected Date/Time: Received Date/Time: Pathologist: [id number] 05/15/2025 09:39 EDT 05/15/2025 18:00 EDT Disclaimer The Pap test is a screening test for cervical cancer. As evidenced by published data, it is subject to both inherent false negative and false positive results. Your patient's results should be interpreted in context with pertinent clinical history including gynecological examination. Normal [facility] BVPCRon 05-17-2025 Bacterial Vaginosis Negative Normal Negative [facility] Comment on above: Result Comment: Mole cular methodology performed on the Ultimate Softwareher System. Performed By: #### C VTV, BVPCR #### [place] [address] CVTVon 05-17-2025 Leni glabrata Negative Normal Negative [facility] Comment on above: Performed By: #### C VTV, BVPCR #### [place] [address] Leni Species Negative Normal Negative [facility] Comment on above: Result Comment: Mole cular methodology performed on the Bioniz System. Performed By: #### C VTV, BVPCR #### [place] [address] Trichomonas vaginalis Negative Normal Negative [facility] Comment on above: Performed By: #### C VTV, BVPCR #### [address] [address] HPVSCon 05-16-2025 HPV Source Cervix Normal [facility] Comment on above: Order Comment: Order placed by AP_HPV_ORDER rule from [id number] Performed By: #### H PVSC #### [place] [address] HPV Screen Only, FLORENTIN Probe Negative Normal Negative [facility] Comment on above: Order Comment: Order placed by AP_HPV_ORDER rule from [id number] Result Comment: Michael vega methodology performed on the Bioniz System. The APTIMA HPV Screening Assay is a nucleic acid amplification test which detects fourteen high-risk HPV types (16,18,31,33,35,39,45,51,52,56,58,59,66 and 68). Detection of high-risk HPV (types 16,18 and 45) mRNA is dependent on the number of copies present in the specimen which may be affected by collection methods, patient factors, stage of infection and the presence of interfering substances. This assay is designed to enhance existing methods for the detection of cervical disease and should be used in conjunction with clinical information from other diagnostic and screening tests. This assay is not intended for use as a screening device for women under age 30 with normal cervical history or as a substitute for regular cervical cytology screening. If the APTIMA screening assay is positive, the HPV 16 18/45 genotype assay is performed as a follow-up test and should be interpreted in conjunction with cervical cytology test results, according to current practice guidelines. Performed By: #### H PVSC #### [place] [id number] LABORATORYOrdered By: Carson Thompson on 05-15-2025 Bacterial Vaginosis Negative 2 (05/15/25 1:54 PM) Normal Negative [facility] Comment on above: Interpretive Data: Umu salas methodology performed on the Bioniz System. Leni glabrata PCR Negative (05/15/25 1:54 PM) Normal Negative [facility] Viro/Sero [facility] Leni Species Negative 1 (05/15/25 1:54 PM) Normal Negative [facility] Comment on above: Interpretive Data: M olecular methodology performed on the [employer] System. Trichomonas vaginalis Negative (05/15/25 1:54 PM) Normal Negative [facility] LABORATORYOrdered By: Jasiel Herrera on 05-15-2025 HPV E6+E7 mRNA FLORENTIN+probe Ql (Cvx) Negative 3 (05/15/25 9:39 AM) Normal Negative [facility]Sero [facility] Comment on above: Interpretive Data: M mayracular methodology performed on the Access Point [employer]arm System. The APTIMA HPV Screening Assay is a nucleic acid amplification test which detects fourteen high-risk HPV types (16,18,31,33,35,39,45,51,52,56,58,59,66 and 68). Detection of high-risk HPV (types 16,18 and 45) mRNA is dependent on the number of copies present in the specimen which may be affected by collection methods, patient factors, stage of infection and the presence of interfering substances. This assay is designed to enhance existing methods for the detection of cervical disease and should be used in conjunction with clinical information from other diagnostic and screening tests. This assay is not intended for use as a screening device for women under age 30 with normal cervical history or as a substitute for regular cervical cytology screening. If the APTIMA screening assay is positive, the HPV 16 18/45 genotype assay is performed as a follow-up test and should be interpreted in conjunction with cervical cytology test results, according to current practice guidelines. LABORATORYOrdered By: Therio on 05-15-2025 HPV Source Cervix *NA* (05/15/25 9:39 AM) Invalid Interpretation Code AH Auto Viro/Sero SS ANES POSTPROC EVALon 025 ANES POSTPROC EVAL HNO ID: [id number] Author: DEBBIE HARRIS MD Service: Anesthesiology Author Type: Anesthesiologist Type: Anesthesia Postprocedure Evaluation Filed: 04/05/2025 14:53 Note Text: POST ANESTHESIA EVALUATION NOTE : 2000 Procedure Summary Date: 04/05/25 Room / Location: [facility] Anesthesia Start: 1229 Anesthesia Stop: 1246 Procedure: EGD - THERAPEUTIC, EUS, OR TUBE INTERVENTIONS Diagnosis: Gastroparesis (Established gastroparesis) Scheduled Providers: Garcia Culp DO; Debbie Harris MD Responsible Provider: Debbie Harris MD Anesthesia Type: MAC ASA Status: 2 Anesthesia Type: MAC Last Vitals Vitals Value Taken Time BP 101/65 04/05/25 1257 Temp 36.5 ?C (97.7 ?F) 04/05/25 1246 Pulse 82 04/05/25 1257 Resp 16 04/05/25 1257 SpO2 100 % 04/05/25 1257 Post Anesthesia Patient Status Patient Evaluation: PACU. PACU/ICU Patient Condition: stable. Anticipated Disposition: phase 2 then home. Neurological Status: aware and responsive. Pulmonary Status: breathing comfortably on room air Airway Control: returned to baseline unsupported. Cardiovascular Status: stable. Pain Management: clinically adequate Postoperative Hydration: acceptable. Intraoperative Events: no significant anesthesia events Post Operative Nausea/Vomiting Status: no significant post operative nausea or vomiting Recommendation: continue current plan of care. Anesthesia Observations No Documentation SIGNATURE: Debbie Harris MD PATIENT NAME: Sloan Bonilla DATE: April 05, 2025 TIME: 2:53 PM CSN: [id number] [facility] ANES PRE-OPon 04-05-2025 ANES PRE-OP HNO ID: [id number] Author: DEBBIE HARRIS MD Service: Anesthesiology Author Type: Resident Type: Anesthesia Preprocedure Evaluation Filed: 04/05/2025 12:28 Note Text: -------- Attestation signed by Debbie Harris MD at 04/05/2025 12:28 PM I evaluated the patient and personally participated in the sim components. I agree with the resident's findings and plan as documented and have discussed the case and management of the patient's care with the resident. Signature: Debbie Harris MD Service Date: 04/05/2025 Service Time: 12:28 PM -------- ANESTHESIOLOGY DAY OF SURGERY NOTE : 2000 Procedure Information Date/Time: 04/05/25 1230 Scheduled providers: Garcia Culp DO; Debbie Harris MD Procedure: EGD - THERAPEUTIC, EUS, OR TUBE INTERVENTIONS Location: [facility] Estimated body mass index is 18.25 kg/m? as calculated from the following: Height as of 03/20/25: 172.7 cm (5' 8). Weight as of 03/20/25: 54.4 kg (120 lb). Most recent hematocrit and potassium results: No results found for this basename: HCT,HEMATOCRIT,K,POTASSI UM Relevant Problems CARDIO (+) MVP (mitral valve prolapse) GI (+) GERD (gastroesophageal reflux disease) -RENAL (+) Autoimmune hepatitis (HCC) Cardiovascular (+) POTS (postural orthostatic tachycardia syndrome) Psychiatry (+) Engages in vaping I - PHYSICAL EVALUATION AIRWAY Patient intubated: No. Tracheostomy tube not present Mallampati: I. TM distance: <3 FB. Neck ROM: full ROM without neurological symptoms. Mouth opening: adequate. Short neck: no. Thick neck: no Lip Bite Test: II DENTAL Dental findings: teeth intact. II - ANESTHESIA PLAN ASA Score: 2 Anesthetic Plan: MAC The patient is a current smoker. NPO Status: adequate Beta Henny Monitoring Plan Monitoring plan: standard ASA. Post Procedure Analgesic Plan Postoperative analgesic plan: multimodal analgesia and parenteral or oral opioids. Informed Consent Anesthetic risks, benefits, alternatives, personnel and consent discussed: yes. Patient / Responsible Alliance Party agrees to proceed: yes Patient / Surrogate agrees to blood products: blood products not planned Vitals Value Taken Time BP 118/62 04/05/25 1209 Pulse 68 04/05/25 1209 Resp 11 04/05/25 1209 Temp 36.5 ?C (97.7 ?F) 04/05/25 1209 SpO2 100 % 04/05/25 1209 Outpatient Medications as of 04/05/2025 Medication Sig omeprazole (PRILOSEC) 40 mg capsule Take 40 mg by mouth once daily. prn lubiprostone (AMITIZA) 24 mcg capsule Take 1 capsule by mouth two times a day with meals. pyridostigmine (MESTINON) 60 mg tablet Take 1 tablet by mouth three times a day. azaTHIOprine (IMURAN) 50 mg tablet Take 50 mg by mouth once daily. fludrocortisone (FLORINEF) 0.1 mg tablet Take 1 tablet by mouth once daily. minoxidil (LONITEN) 2.5 mg tablet Take 2.5 mg by mouth once daily. , 1.5 mg-30 mcg (21)/75 mg (7) tablet Take 1 tablet by mouth once daily. ondansetron (ZOFRAN) 4 mg tablet Take 4 mg by mouth every 6 hours as needed for nausea/vomiting (PRN). spironolactone (ALDACTONE) 50 mg tablet Take 50 mg by mouth once daily. No current facility-administered medications on file as of 04/05/2025. I have interviewed and examined the patient. I have reviewed the medical record and/or the pre-anesthesia evaluation, pertinent labs, and test results. This contains updated information obtained within 48 hours of Surgery/Procedure. SIGNATURE: Wellington Bautista DO PATIENT NAME: Sloan Bonilla DATE: April 05, 2025 TIME: 12:17 PM CSN: [id number] [facility] EGD Study observation Iveth mercado 04-05-2025 [facility] l Gastrointestinal Endoscopy Patient Name: Sloan Bonilla Procedure Date: 04/05/2025 12:18 PM Date of : 2000 Admit Type: Outpatient Age: 24 Room: [place] [address] Gender: Female Note Status: Finalized Attending MD: Garcia Culp DO, [id number] Procedure: Upper GI endoscopy Indications: Gastroparesis Providers: Garcia Culp DO Patient Profile: This is a 24 year old female. Refer to note in patient chart for documentation of history and physical. Referring Physician: Garcia Culp DO (Referring MD) Medicines: Monitored Anesthesia Care Complications: No immediate complications. Requesting Provider: Procedure: Pre-Anesthesia Assessment: - Prior to the procedure, a History and Physical was performed, and patient medications and allergies were reviewed. The patient is competent. The risks and benefits of the procedure and the sedation options and risks were discussed with the patient. All questions were answered and informed consent was obtained. Patient identification and proposed procedure were verified by the physician in the pre-procedure area. Mental Status Examination: alert and oriented. Airway Examination: normal oropharyngeal airway and neck mobility. Respiratory Examination: clear to auscultation. CV Examination: normal. Prophylactic Antibiotics: The patient does not require prophylactic antibiotics. Prior Anticoagulants: The patient has taken no anticoagulant or antiplatelet agents. ASA Grade Assessment: II - A patient with mild systemic disease. After reviewing the risks and benefits, the patient was deemed in satisfactory condition to undergo the procedure. The anesthesia plan was to use monitored anesthesia care (MAC). Immediately prior to administration of medications, the patient was re-assessed for adequacy to receive sedatives. The heart rate, respiratory rate, oxygen saturations, blood pressure, adequacy of pulmonary ventilation, and response to care were monitored throughout the procedure. The physical status of the patient was re-assessed after the procedure. After obtaining informed consent, the endoscope was passed under direct vision. Throughout the procedure, the patient's blood pressure, pulse, and oxygen saturations were monitored continuously. The Endoscope was introduced through the mouth, and advanced to the second part of duodenum. The upper GI endoscopy was accomplished without difficulty. The patient tolerated the procedure well. Moderate Sedation: MAC anesthesia was administered by the anesthesia team. Total Procedure Duration: 0 hours 6 minutes 5 seconds Findings: The examined esophagus was normal. The entire examined stomach was normal. A TTS dilator was passed through the scope. Dilation with a 61-64-96-20-21 mm x 5.5 cm Merit Elation balloon (to a maximum balloon size of 20 mm) dilator was performed at the pylorus. The dilation site was examined and showed mild mucosal disruption and moderate improvement in luminal narrowing. Estimated blood loss: none. The examined duodenum was normal. Impression: - Normal esophagus. - Normal stomach. - Normal examined duodenum. - Dilation performed at the pylorus with a 19-33-25-20-21 mm x 5.5 cm Merit Elation balloon (to a maximum balloon size of 20 mm) dilator. - No specimens collected. Recommendation: - Patient has a contact number available for emergencies. The signs and symptoms of potential delayed complications were discussed with the patient. Return to normal activities tomorrow. Written discharge instructions were provided to the patient. - Resume previous diet inde (more content not included)... [employer]ATION [facility] Radiology Study observation (narrative) Ryan victoria [facility] HISTORY PHYSICALon HISTORY PHYSICAL HNO ID: [id number] Author: GARCIA CULP DO Service: Gastroenterology Author Type: Physician Type: H&P Filed: 04/05/2025 12:32 Note Text: PROCEDURAL SEDATION HISTORY AND PHYSICAL EXAM SERVICE DATE: 04/05/2025 SERVICE TIME: 1232 Subjective HPI: This is a 24 year old female who presents with GP PAST ANESTHESIA HISTORY:No history of adverse event PAST MEDICAL HISTORY Diagnosis Date Hepatitis chronic autoimmune POTS (postural orthostatic tachycardia syndrome) 2023 PAST SURGICAL HISTORY Procedure Laterality Date COLONOSCOPY SCREENING x 2 EGD W/O [facility] SPEC VARICIES INJ PAST SURGICAL HISTORY OF liver biopsy PAST SURGICAL HISTORY OF wisdom teeth removal Prior to Admission medications as of 04/05/25 1201 Medication Sig Last Dose Taking omeprazole (PRILOSEC) 40 mg capsule Take 40 mg by mouth once daily. prn 04/04/2025 Morning Yes lubiprostone (AMITIZA) 24 mcg capsule Take 1 capsule by mouth two times a day with meals. Unknown Yes pyridostigmine (MESTINON) 60 mg tablet Take 1 tablet by mouth three times a day. 04/04/2025 Morning Yes azaTHIOprine (IMURAN) 50 mg tablet Take 50 mg by mouth once daily. 04/03/2025 Evening fludrocortisone (FLORINEF) 0.1 mg tablet Take 1 tablet by mouth once daily. 04/03/2025 Evening minoxidil (LONITEN) 2.5 mg tablet Take 2.5 mg by mouth once daily. 04/03/2025 Evening 1.5/30, 28, 1.5 mg-30 mcg (21)/75 mg (7) tablet Take 1 tablet by mouth once daily. 04/03/2025 Evening ondansetron (ZOFRAN) 4 mg tablet Take 4 mg by mouth every 6 hours as needed for nausea/vomiting (PRN). 04/03/2025 Evening spironolactone (ALDACTONE) 50 mg tablet Take 50 mg by mouth once daily. 04/03/2025 Evening ALLERGIES No Known Allergies CARDIOVASCULAR:No chest pain, leg swelling and palpitations PULMONARY:No cough,wheezing and shortness of breath Objective PHYSICAL EXAM:The remainder of the physical exam is noncontributory AIRWAY: Mouth opening greater than 3 fingerbreadths: Yes Neck Full Range of Motion: Yes LUNGS: Lungs clear to auscultation CARDIAC: Regular rhythm,Regular rate Assessment/Plan ASA Class: 2 Patient OK for Sedation: Yes Sedation Goal: Deep Provisional Diagnosis/Treatment Plan: GP/ egd Sedation Goal: Deep SIGNATURE: Garcia Culp DO PATIENT NAME: Sloan Bonilla DATE: April 05, 2025 TIME: 12:[address] [facility] Upper GI endoscopyon 04-05- 025 Upper GI endoscopy [facility] Gastrointestinal Endoscopy Patient Name: Sloan Bonilla Procedure Date: 04/05/2025 12:18 PM Date of : 2000 Admit Type: Outpatient Age: 24 Room: [place] [address] Gender: Female Note Status: Finalized Attending MD: Garcia Culp DO, [id number] Procedure: Upper GI endoscopy Indications: Gastroparesis Providers: Garcia Culp DO Patient Profile: This is a 24 year old female. Refer to note in patient chart for documentation of history and physical. Referring Physician: Garcia Culp DO (Referring MD) Medicines: Monitored Anesthesia Care Complications: No immediate complications. Requesting Provider: Procedure: Pre-Anesthesia Assessment: - Prior to the procedure, a History and Physical was performed, and patient medications and allergies were reviewed. The patient is competent. The risks and benefits of the procedure and the sedation options and risks were discussed with the patient. All questions were answered and informed consent was obtained. Patient identification and proposed procedure were verified by the physician in the pre-procedure area. Mental Status Examination: alert and oriented. Airway Examination: normal oropharyngeal airway and neck mobility. Respiratory Examination: clear to auscultation. CV Examination: normal. Prophylactic Antibiotics: The patient does not require prophylactic antibiotics. Prior Anticoagulants: The patient has taken no anticoagulant or antiplatelet agents. ASA Grade Assessment: II - A patient with mild systemic disease. After reviewing the risks and benefits, the patient was deemed in satisfactory condition to undergo the procedure. The anesthesia plan was to use monitored anesthesia care (MAC). Immediately prior to administration of medications, the patient was re-assessed for adequacy to receive sedatives. The heart rate, respiratory rate, oxygen saturations, blood pressure, adequacy of pulmonary ventilation, and response to care were monitored throughout the procedure. The physical status of the patient was re-assessed after the procedure. After obtaining informed consent, the endoscope was passed under direct vision. Throughout the procedure, the patient's blood pressure, pulse, and oxygen saturations were monitored continuously. The Endoscope was introduced through the mouth, and advanced to the second part of duodenum. The upper GI endoscopy was accomplished without difficulty. The patient tolerated the procedure well. Moderate Sedation: MAC anesthesia was administered by the anesthesia team. Total Procedure Duration: 0 hours 6 minutes 5 seconds Findings: The examined esophagus was normal. The entire examined stomach was normal. A TTS dilator was passed through the scope. Dilation with a 21-63-07-20-21 mm x 5.5 cm Merit Elation balloon (to a maximum balloon size of 20 mm) dilator was performed at the pylorus. The dilation site was examined and showed mild mucosal disruption and moderate improvement in luminal narrowing. Estimated blood loss: none. The examined duodenum was normal. Impression: - Normal esophagus. - Normal stomach. - Normal examined duodenum. - Dilation performed at the pylorus with a 18-01-53-20-21 mm x 5.5 cm Merit Elation balloon (to a maximum balloon size of 20 mm) dilator. - No specimens collected. Recommendation: - Patient has a contact number available for emergencies. The signs and symptoms of potential delayed complications were discussed with the patient. Return to normal activities tomorrow. Written discharge instructions were provided to the patient. - Resume previous diet indefinitely. - Continue present medications. Procedure Code(s): --- Professional --- 89506, Esophagogastroduodenosco py, flexible, transoral; with dilation of gastric/duodenal stricture(s) (eg, balloon, bougie) Diagnosis Code(s): --- Professional --- K31.84, Gastroparesis CPT copyright 2020 [employer]. All rights reserved. The codes documented in this report are preliminary and upon calcine furnace loader review may be revised to meet current compliance requirements. Attending Participation: I personally performed the entire procedure. Scope In: 12:34:52 PM Scope Out: 12:40:57 PM DO Garcia Nesbitt DO 04/05/2025 12:43:26 PM This report has been signed electronically by Garcia Culp DO Number of Addenda: 0 Note Initiated On: 04/05/2025 12:18 PM Estimated Blood Loss: Estimated blood loss: none. Normal [facility] HISTORY PHYSICALon HISTORY PHYSICAL HNO ID: [id number] Author: VINICIUS BRANNON PA-C Service: ? Author Type: Physician Head Silverman Type: H&P Filed: 03/21/2025 16:13 Note Text: HISTORY AND PHYSICAL EXAMINATION SERVICE DATE: 03/20/2025 SERVICE TIME: 10:40 AM PRIMARY CARE PHYSICIAN: No primary care provider on file. Assessment Patient has the following medical conditions which may affect alexander-operative course: POTS (postural orthostatic tachycardia syndrome) Assessment: Following with Dr. Covarrubias at [facility] in [place], [place] with cardiology Patient states surgeon recommended she follow up with neurology, as well. Pending an appointment. Was on Florinef in the past but Dr. Culp asked her to hold and take pyridostigmine and states she is tolerating well Denies any syncopal episodes Well controlled with staying well hydrated MVP (mitral valve prolapse) Assessment: Following with cardiology Noted on outside chart; patient denies any known history of Hair loss Assessment: Managing with Spironolactone and minoxidil Following with dermatology GERD (gastroesophageal reflux disease) Assessment: States is well controlled with omeprazole and denies any recent exacerbations Follows with PCP Autoimmune hepatitis (HCC) Assessment: Since fifth grade Following with hepatology, Dr. Gutierrez in [place] Managing with Imuran History of esophageal varices: none that patient is aware of Denies any recent ascites or jaundice. Most recent LFTs:07/29/2021 Bilirubin, Conjugated 0.0 - 0.7 mg/dL 0.2 Total Bilirubin 0.0 - 1.0 mg/dl 1 ALT 0 - 31 U/L 20 AST 0 - 31 U/L 17 Alkaline Phosphatase 35 - 104 IU/L 48 Protein, Total 5.9 - 8.4 g/dL 7.7 Albumin 3.5 - 5.0 g/dL 4.7 Engages in vaping Assessment: Daily, disposable device; contains nicotine and blueberry flavoring Underweight Assessment: Body mass index is 18.25 kg/m?. ANESTHESIA FINDINGS: Intubation History: No history of difficult intubation. No abnormal airway history Significant Anesthesia Considerations: none Airway History: No prior anesthesia report available for review at this time. No history of difficult airway No abnormal airway history [place] Activity Status Index: METS: Walk indoors, such as around the house (1.75 METs) Do light work around the house, such as dusting or washing dishes (2.70 METs) Take care of self; that is eating, dressing, bathing, using the toilet (2.75 METs) Walk a block or two on level ground (2.75 METs) Do moderate work around the house, such as vacuuming, sweeping floors, or carrying in groceries (3.50 METs) Do yardwork, such as raking leaves, weeding, or pushing a power mower (4.50 METs) Have sexual relations (5.25 METs) Climb a flight of stairs or walk up a hill (5.50 METs) Participate in moderate recreational activites, such as golf, bowling, dancing, doubles tennis, or throwing a baseball or football (6.00 METs) Participate in strenuous sport, such as swimming, singles tennis, football, basketball, or skiing (7.50 METs) Do heavy work around the house, such as scrubbing floors, lifting or moving heavy furniture (8.00 METs) DASI Score: 50.2 Patient denies any chest pain or undue shortness of breath with the above physical activity. Clinical Frailty Scale: 2. Well STOP-Bang Score: Denies snoring loudly Denies feeling tired, fatigued, or sleepy during the daytime Has not been observed to stop breathing or choking/gasping during sleep Denies having high blood pressure BMI less than or equal to 35 kg/m2 Patient 50 years old or younger Does not have a large neck Non-male patient STOP-Bang Score: 0 [id number] Score: Age: <65 Sex: female CHF history: No Hypertension history: No Stroke/TIA/thromboemboli sm history: No Vascular disease history: No Diabetes history: No [id number] Score: 1 I - PHYSICAL EVALUATION AIRWAY Patient intubated: No. Tracheostomy tube not present Mallampati: I. TM distance: >3 FB. Neck ROM: full ROM without neurological symptoms. Mouth opening: adequate. Short neck: no. Thick neck: no Cervantes present: no Lip Bite Test: I Microretrognathia/Micron agthia/Recessed Chin: No DENTAL Dental findings: teeth intact. Additional comments: Denies any chipped or broken teeth. Denies any dental pain or infections. . II - ANESTHESIA PLAN Anesthetic Plan: other Anesthetic plan additional comments: *PACC/TCI - anesthesia choice. Beta Henny Monitoring Plan Post Procedure Analgesic Plan Prepared for Surgery: optimally prepared for surgery. Patient will send in most recent blood work from outside hospital via [employer] message. ADDENDUM: March 21, 2025 : 4:13 PM Patient sent in screenshots of recent labs from 08/2024- CBC reviewed. CONSULTS: Patient does not require consults for optimization at this time Planned Anesthetic: other anesthesia choice The Following Tests/Procedures Have Been Initiated: No orders of the defined ty (more content not included)... Normal [facility] Gastroenterology Visit Repor ton 03-12-2025 Gastroenterology Visit Report [facility] Gastroenterology [address] [place] [address] OFFICE VISIT Date of Service: 03/12/25 MR#: [id number] Acct: [id number] Name: SLOAN BONILLA Rep #: [id number] 4 : 2000 Provider: Angel Gutierrez DO Age/Sex: 24/F Location: [facility] Status: Signed Intake Vital Signs 08/28/24 12:46 Height 5 ft 7 in Intake Visit Reasons: 4 M FU Allergies No Known Allergies Allergy (Verified 08/28/24 12:44) Medications ???Medication ???Instructions ???Recorded ???Confirmed ???Type omeprazole 20 mg capsule,delayed 20 mg PO DAILY PRN heartburn 06/1003/12/25 History release ondansetron HCl 4 mg tablet 4 mg PO Q6H PRN PRN nausea/vomitin g 12/28/23 03/12/25 History spironolactone 100 mg tablet 50 mg PO QPM 05/21/24 03/12/25 His tory minoxidil 2.5 mg tablet 1.25 mg PO DAILY 08/24/24 03/12/25 History norethindrone 1.5 mg-ethinyl 1 tab PO DAILY 08/24/24 03/12/25 H istory estradiol 30 mcg(21)/iron 75 mg(7) tablet (June FE (28)) azathioprine 50 mg tablet (Imuran) 50 mg PO DAILY #45 tabs 09/25/24 03/12/25 Rx pyridostigmine bromide 60 mg tablet 60 mg PO BID 03/12/25 03/12/25 History PFSH Medical History (Updated 10/26/24 @ 10:56 by Leatha Scott) Gastroparesis Cancer Wears glasses History of Clostridium difficile infection Bruising Hepatitis History of IBS Gastric reflux Smoker IYER (nonalcoholic steatohepatitis) Bloating Surgical History Hx of colonoscopy History of liver biopsy Family History Grandmother Thyroid disorder Hypertension Social History Smoking Status: Light Smoker (<10/day) alcohol intake: never HPI HPI Details: SLOAN BONILLA, is a 24 F who presents to the office today for follow up. US and elastography 06.01.23 hepatic measurement 15.7cm with fatty infiltration, stiffness measures 5.8kPa. Colonoscopy 01.01.24 Tortuous colon. The examination was otherwise normal on direct and retroflexion views. No specimens collected. OV 8 pt reports daily nausea after she eats that gets worse the longer she has gone without a bm. Pt reports constipation has improved since colonoscopy in December when she started a fiber supplement and is now having 1-2 formed bm per week; denies blood in the stool. Pt reports increased HB that is worse when she has not been able to have a BM. Pt reports that she began having difficulty swallowing in mid April where she feels like she will either throw up or choke; states that she just takes a break from eating and the problem resolves. Pt reports she only has difficulty with food. EGD 08.28.24 Benign-appearing esophageal stenosis. Dilated. Z-line irregular, 40 cm from the incisors. Biopsied. Excessive gastric fluid. Fluid aspiration performed. Normal first portion of the duodenum. GET 12.30.24 abnormal 58.99 minutes GET 4hr 1.15.25 abnormal 68% emptying and 32% retention OV 2..25 pt reports that her symptoms have improved since last visit. Pt is now having 2-3 formed bm per week. Reports that she has an appointment with the gastroparesis clinic on 12.26.24. OV 6..25 pt reports she saw Dr Culp with [facility], was prescribed pyridostigmine bromide and has been feeling better. Pt reports she still has some symptoms, but states they have improved. ROS Const Constitutional: No fatigue, fever(s) or weight change ENT ENT: No difficulty swallowing Gastro GI: Positive for abdominal pain, bloating, constipation, heartburn, excessive flatus and nausea/dyspepsia; No belching, change in bowel habits, change in stool character, coffee ground emesis, cramping, diarrhea, difficulty swallowing, feeling full early, incontinent of stools, Vomiting blood/hematemesis, Blood in stool, loose stools, Black,tarry stools, pain with swallowing, vomiting or other Musc Musculoskeletal: Positive for numbness, stiffness and tingling; No joint pain Skin Skin: Positive for dry skin and itchy eyes; No yellowing of the eye Neuro Neurology: Positive for numbness and tingling Psych Psychiatric: No anxiety and No depression Endo Endocrine: No fatigue or weight change Aller/Imm Allergy/Immunologic: Positive for itchy eyes Lawrence/Lymp Hematologic/Lymphatic: No easy bleeding or easy bruising Exam Const General: cooperative, no acute distress and well developed Nutritional Appearance: average body habitus Orientation: alert, awake and oriented x3 Other: BMI 18.1 %. thin body build. [facility] Head: normocephalic and atraumatic Nose: external nose normal Face and sinus: normal facial exam Mouth: moist mucous membranes Eyes Pupils: PERRL EOM: EOM (more content not included)... Normal [facility] CNCOon 01-01-2025 CNCO Letter Text Normal [facility] ACETYLCHOLINE REC BINDING AB on 12-26-2024 ACETYLCHOLINE BINDING, QUAL Negative Normal Negative [facility] Comment on above: Order Comment: Speci men Type: BLOOD SPECIMEN Ordering Facility: [facility] Address: [address] [place] [address] Result Comment: Anti -acetylcholine receptor binding antibody test is used as an aid in diagnosis of myasthenia gravis. A negative result cannot exclude myasthenia gravis. Clinical correlation is required. Performed By: #### A CHRAB #### [facility] CLIA [id number] [address] [place] [address] [place] Acetylcholine receptor binding Ab (S) [Moles/Vol] 0.02 nmol/L Normal <0.21 [facility] Comment on above: Order Comment: Speci men Type: BLOOD SPECIMEN Ordering Facility: [facility] Address: [address] [place] [address] Performed By: #### A CHRAB #### [facility] CLIA [id number] [address] [place] [address] [place] AMINO ACIDS, PLASMA W/ CONSU LTATIONon 12-26-2024 Alanine [Moles/Vol] 200 umol/L Normal 177-583 [facility] Comment on above: Order Comment: Speci men Type: BLOOD SPECIMEN Ordering Facility: [facility] Address: [address] [place] [address] Performed By: #### 2 532-0, 7 #### [facility] CLIA [id number] [address] [place] [address] [place] Alloisoleucine [Moles/Vol] <2 Normal 0-2 [facility] Comment on above: Order Comment: Speci men Type: BLOOD SPECIMEN Ordering Facility: [facility] Address: [address] [place] [address] Performed By: #### 2 532-0, 3023-7 #### [facility] CLIA [id number] [address] [place] [address] [place] Alpha aminoadipate [Moles/Vol] <2 Normal 0-6 [facility] Comment on above: Order Comment: Speci men Type: BLOOD SPECIMEN Ordering Facility: [facility] Address: [address] [place] [address] Performed By: #### 2 532-0, 7 #### [facility] CLIA [id number] [address] [place] [address] [place] AMINO ACID CONSULTATION, PLASMA Normal [facility] Comment on above: Order Comment: Speci men Type: BLOOD SPECIMEN Ordering Facility: [facility] Address: [address] [place] [address] Result Comment: This plasma amino acid analysis shows no significant abnormalities. Reference intervals from Tenisha Stone, Heber MG, Sanchez CARLEEN, and Claudio DK: Biochemical Genetics: A Laboratory Manual, Copyright 1989 by [employer] Reference intervals not established for some amino acids. This test was developed and its performance characteristics determined by the [facility] Department of Pathology and Laboratory Medicine. It has not been cleared or approved by the FDA. The [facility] Department of Pathology and Laboratory Medicine is regulated under CLIA as qualified to perform high-complexity testing. This test is used for clinical purposes. It should not be regarded as investigational or for research. Performed By: #### 2 532-0, 7 #### [facility] CLIA [id number] [address] [place] [address] [place] AMINO ACIDS REVIEW, PLASMA Reviewed by Adam Carmona MD, Ph.D ([id number]) [facility] Comment on above: Order Comment: Speci men Type: BLOOD SPECIMEN Ordering Facility: [facility] Address: [address] [place] [address] Performed By: #### 2 532-0, 7 #### [facility] CLIA [id number] [address] [place] [address] [place] Arginine [Moles/Vol] 34 umol/L Normal 15-128 [facility] Comment on above: Order Comment: Speci men Type: BLOOD SPECIMEN Ordering Facility: [facility] Address: [address] [place] [address] Performed By: #### 2 532-0, 7 #### [facility] CLIA [id number] [address] [place], [place] [address] [place] Asparagine [Moles/Vol] 48 umol/L Normal 35-74 [facility] Comment on above: Order Comment: Speci men Type: BLOOD SPECIMEN Ordering Facility: [facility] Address: [address] [place] [address] Performed By: #### 2 532-0, 3023-7 #### [facility] CLIA [id number] [address] [place], [place] [address] [place] Aspartate [Moles/Vol] 2 umol/L Normal 1-25 [facility] Comment on above: Order Comment: Speci men Type: BLOOD SPECIMEN Ordering Facility: [facility] Address: [address] [place] [address] Performed By: #### 2 532-0, 7 #### [facility] CLIA [id number] [address] [place] [address] [place] Citrulline [Moles/Vol] 20 umol/L Normal 12-55 [facility] Comment on above: Order Comment: Speci men Type: BLOOD SPECIMEN Ordering Facility: [facility] Address: [address] [place] [address] Performed By: #### 2 532-0, 7 #### [facility] CLIA [id number] [address] [place], [place] [address] [place] Cystine [Moles/Vol] 27 umol/L Normal 5-82 [facility] Comment on above: Order Comment: Speci men Type: BLOOD SPECIMEN Ordering Facility: [facility] Address: [address] [place] [address] Performed By: #### 2 532-0, 3023-7 #### [facility] CLIA [id number] [address] [place], [place] [address] [place] Glutamate [Moles/Vol] 16 umol/L Normal 10-131 [facility] Comment on above: Order Comment: Speci men Type: BLOOD SPECIMEN Ordering Facility: [facility] Address: [address] [place] [address] Performed By: #### 2 532-0, 3024-04 #### [facility] CLIA [id number] [address] [place] [address] [place] Glutamine [Moles/Vol] 591 umol/L Normal 205-756 [facility] Comment on above: Order Comment: Speci men Type: BLOOD SPECIMEN Ordering Facility: [facility] Address: [address] [place] [address] Performed By: #### 2 532-0, 3024-04 #### [facility] CLIA [id number] [address] [place] [address] [place] Glycine [Moles/Vol] 277 umol/L Normal 151-490 [facility] Comment on above: Order Comment: Speci men Type: BLOOD SPECIMEN Ordering Facility: [facility] Address: [address] [place] [address] Performed By: #### 2 532-0, 3024-04 #### [facility] CLIA [id number] [address] [place] [address] [place] Histidine [Moles/Vol] 71 umol/L Low 72-124 [facility] Comment on above: Order Comment: Speci men Type: BLOOD SPECIMEN Ordering Facility: [facility] Address: [address] [place] [address] Performed By: #### 2 532-0, 3024-04 #### [facility] CLIA [id number] [address] [place] [address] [place] Hydroxylysine [Moles/Vol] <2 High <=0 [facility] Comment on above: Order Comment: Speci men Type: BLOOD SPECIMEN Ordering Facility: [facility] Address: [address] [place] [address] Performed By: #### 2 532-0, 3024-04 #### [facility] CLIA [id number] [address] [place], [place] [address] [place] Hydroxyproline [Moles/Vol] 11 umol/L Normal 0-53 [facility] Comment on above: Order Comment: Speci men Type: BLOOD SPECIMEN Ordering Facility: [facility] Address: [address] [place] [address] Performed By: #### 2 532-0, 3024-04 #### [facility] CLIA [id number] [address] [place], [place] [address] [place] Isoleucine [Moles/Vol] 62 umol/L Normal 30-108 [facility] Comment on above: Order Comment: Speci men Type: BLOOD SPECIMEN Ordering Facility: [facility] Address: [address] [place] [address] Performed By: #### 2 532-0, 3024-04 #### [facility] CLIA [id number] [address] [place] [address] [place] Leucine [Moles/Vol] 113 umol/L Normal 72-201 [facility] Comment on above: Order Comment: Speci men Type: BLOOD SPECIMEN Ordering Facility: [facility] Address: [address] [place] [address] Performed By: #### 2 532-0, 3024-04 #### [facility] CLIA [id number] [address] [place], [place] [address] [place] Lysine [Moles/Vol] 106 umol/L Low 116-296 [facility] Comment on above: Order Comment: Speci men Type: BLOOD SPECIMEN Ordering Facility: [facility] Address: [address] [place] [address] Performed By: #### 2 532-0, 3024-04 #### [facility] CLIA [id number] [address] [place], [place] [address] [place] Methionine [Moles/Vol] 22 umol/L Normal 10-42 [facility] Comment on above: Order Comment: Speci men Type: BLOOD SPECIMEN Ordering Facility: [facility] Address: [address] [address] Performed By: #### 2 532-0, 3024-04 #### [facility] CLIA [id number] [address] [place], [place] [address] [place] Ornithine [Moles/Vol] 53 umol/L Normal 48-195 [facility] Comment on above: Order Comment: Speci men Type: BLOOD SPECIMEN Ordering Facility: [facility] Address: [address] [place] [address] Performed By: #### 2 532-0, 3024-04 #### [facility] CLIA [id number] [address] [place] [address] [place] Phenylalanine [Moles/Vol] 44 umol/L Normal 35-85 [facility] Comment on above: Order Comment: Speci men Type: BLOOD SPECIMEN Ordering Facility: [facility] Address: [address] [place] [address] Performed By: #### 2 532-0, 3024-04 #### [facility] CLIA [id number] [address] [place] [address] [place] Proline [Moles/Vol] 115 umol/L Normal 97-329 [facility] Comment on above: Order Comment: Speci men Type: BLOOD SPECIMEN Ordering Facility: [facility] Address: [address] [address] Performed By: #### 2 532-0, 7 #### [facility] CLIA [id number] [address] [place] [address] [place] Sarcosine [Moles/Vol] <2 High <=0 [facility] Comment on above: Order Comment: Speci men Type: BLOOD SPECIMEN Ordering Facility: [facility] Address: [address] [place], [place] [address] Performed By: #### 2 532-0, 3024-04 #### [facility] CLIA [id number] [address] [place] [address] [place] Serine [Moles/Vol] 97 umol/L Normal 58-181 [facility] Comment on above: Order Comment: Speci men Type: BLOOD SPECIMEN Ordering Facility: [facility] Address: [address] [place] [address] Performed By: #### 2 532-0, 3024-04 #### [facility] CLIA [id number] [address] [place] [address] [place] Taurine [Moles/Vol] 69 umol/L Normal 54-210 [facility] Comment on above: Order Comment: Speci men Type: BLOOD SPECIMEN Ordering Facility: [facility] Address: [address] [place] [address] Performed By: #### 2 532-0, 3024-04 #### [facility] CLIA [id number] [address] [place] [address] [place] Threonine [Moles/Vol] 137 umol/L Normal 60-225 [facility] Comment on above: Order Comment: Speci men Type: BLOOD SPECIMEN Ordering Facility: [facility] Address: [address] [place] [address] Performed By: #### 2 532-0, 3024-04 #### [facility] CLIA [id number] [address] [place] [address] [place] Tyrosine [Moles/Vol] 36 umol/L Normal 34-112 [facility] Comment on above: Order Comment: Speci men Type: BLOOD SPECIMEN Ordering Facility: [facility] Address: [address] [place] [address] Performed By: #### 2 532-0, 3024-04 #### [facility] CLIA [id number] [address] [place] [address] [place] Valine [Moles/Vol] 165 umol/L Normal 119-336 [facility] Comment on above: Order Comment: Speci men Type: BLOOD SPECIMEN Ordering Facility: [facility] Address: [address] [place] [address] Performed By: #### 2 532-0, 7 #### [facility] CLIA [id number] [address] [place] [address] [place] C-REACTIVE PROTEINon 025 CRP [Mass/Vol] mg/dL NINF - 0.9 mg/dL [facility] CARNITINE FREE AND TOTAL, PL ASMAon 12-26-2024 C0 [Moles/Vol] 12.4 umol/L Low 20.0-53.0 [facility] Comment on above: Order Comment: Speci men Type: BLOOD SPECIMEN Ordering Facility: [facility] Address: [address] [place] [address] Performed By: #### 2 532-0, 7 #### [facility] CLIA [id number] [address] [place] [address] [place] Carnitine [Moles/Vol] 24.9 umol/L Low 26.4-66.0 [facility] Comment on above: Order Comment: Speci men Type: BLOOD SPECIMEN Ordering Facility: [facility] Address: [address] [place] [address] Performed By: #### 2 532-0, 7 #### [facility] CLIA [id number] [address] [place] [address] [place] Carnitine esters [Moles/Vol] 12.5 umol/L Normal 3.0-15.6 [facility] Comment on above: Order Comment: Speci men Type: BLOOD SPECIMEN Ordering Facility: [facility] Address: [address] [place] [address] Performed By: #### 2 532-0, 3023-7 #### [facility] CLIA [id number] [address] [place] [address] [place] Carnitine esters/Carnitine.free (C0) [Molar ratio] 1.0 High 0.1-0.7 [facility] Comment on above: Order Comment: Susana flores Type: BLOOD SPECIMEN Ordering Facility: [facility] Address: [address] [place] [address] Result Comment: NOTE : The determination of the plasma free carnitine level and of the total free and acylcarnitine levels is dependent on multiple factors, including the nutritional status of the subject, his/her underlying disorder, concurrent illnesses and, sometimes, medications that he/she is receiving. Consequently, a normal or minimally abnormal result with this test does not always rule-out the possibility of a disorder of carnitine or fatty acid metabolism. This test does not by itself provide information on the levels of various plasma acylcarnitine species and measurement of the latter is often needed for the diagnostic evaluation and follow-up of disorders of mitochondrial fatty acid beta-oxidation and some other disorders associated with pathologic levels of selected acylcarnitine species. This test was developed and its performance characteristics determined by the Pathology and Laboratory Medicine [place] at the [facility]. The U.S. Food and Drug Administration has not approved or cleared this test, however, FDA clearance or approval is not currently required for clinical use. Performed By: #### 2 532-0, 3024-7 #### [facility] CLIA [id number] [address] [place] [address] [place] CK SerPl-cCncon 12-26-2024 CK [Catalytic activity/Vol] 55 U/L Normal 42-196 [facility] Comment on above: Order Comment: Susana mark Type: BLOOD SPECIMEN Ordering Facility: [facility] Address: [address] [place] [address] [place] [address] Performed By: #### 2 532-0, 3024-7 #### [facility] CLIA [id number] [address] [place] [address] [place] CNOVon 12-26-2024 CNOV Office Visit ([facility] ) -------- LAX,SLOAN MO ([id number]) 1 F Date Time Provider Department 12/26/24 3:30 PM GARCIA CULP [facility] During your visit today, we recorded the following information about you: Pulse Blood pressure Weight Height 74/minute 108/50 54.7 kg 1.727 m Garcia Culp, DO 12/26/2024 4:02 PM Signed GASTROPARESIS CONSULT Patient is referred by Dr. Angel Ziegler Friend for an opinion regarding GP and my final recommendations will be communicated back to the requesting physician by way of shared Medical Record. PRESENTING COMPLAINT AND HISTORY Sloan is a 24 yr old female w/hx of C diff, AIH type 1, POTS with positive tilt, and liver biopsies that had an abnormal gastric emptying study 10/2024 showing 32% retention at 4 hours. Gastroparesis symptoms started 2 years ago with sudden onset. Constipation with average bm 1-2 x per week takes prn Amitiza and stool softeners. Linzess and Trulance caused severe diarrhea and incontinence. Weight is pretty stable with a 4-5 lb loss recently. Has not been on prokinetics. Failed Buspar for GI. C/o severe stomach fullness, early satiety, lack of appetite with moderate bloating and abd distention. Diet: snacks as tolerated. Is not able to eat meals. Symptoms started [id number]. The bowels and stomach symptoms started together. The patient is hypermobile. She has incomplete evacuation and dyssynergic defecation. Patient is interested in learning more about EMPTIES Trial: No Patient is a candidate for EMPTIES Trial: No Gastrointestinal Symptoms Reflux/heartburn: Yes takes omeprazole Abdominal pain/discomfort: Yes intermittent abdominal pain that is related to eating at times. Weight loss: Yes 4-5 lb recent weight loss Do you have less than 3 bowel movements per week? Yes Diarrhea: no Constipation: Yes average bm is 1-2 x per week. Takes Amitiza and stool softeners but not on a regular basis Malnutrition: no Gastroparesis Cardinal Symptom Index (CGSI) 1. Nausea: 4 2. Retchin 3. Vomitin 4. Stomach fullness: 5 5. Not able to finish a normal-sized meal: 5 6. Feeling excessively full after meals: 5 7. Loss of appetite: 4 8. Bloating (feeling like you need to loosen your clothes): 3 9. Stomach or belly visibly larger: 3 CGSI Score: 3.14 Scale (0-none; 1-very mild; 2-mild; 3-moderate; 4-severe; 5-very severe) MEDICATION HISTORY Promotility Drugs - Reglan (Metoclopramide): No - Gimoti (Metoclopramide nasal): No - Motilium (Domperidone): No - Erythromycin (E-mycin): No - Propulsid (Cisapride)_: No Other - Tricyclic Antidepressants (nortriptyline - Pamelor; amitriptyline - Elavil): No - Buspirone (Buspar): Yes tried in the past for GI; failed - Mirtazapin (Remeron): No Anti-Nausea Medications - Compazine (Prochlorperazine): No - Phenergan (Promethazine): No - Benadryl (Diphenhydramine): No - Zofran (Ondansetron): Yes prn - Scopace (Scopolamine Patch): No - Granisetron (Kytril or Sancuso): No - Tigan (Trimethobenzamide)_: No GLP-1 Receptor Agonists (for Diabetes or Weight loss): No Constipation Medications - Bulking Agents (Metamucil,Citrucel, Fibercon): No - Osmotic Laxatives (MOM, Polyethylene glycol (PEG), lactulose, sorbitol,MiraLax, Chronulal, Cephulac,Xylitol): Yes Miralax - failed - Stimulant Laxatives (Ex-Lax, Senokot,Correctol, Dulcolax): in the past - Stool Softeners (Colace): prn - Chloride Channel Activator (Amitiza): Yes prn - Linzess: severe diarrhea and incontinence - Trulance: caused severe diarrhea and incontinence. - Motegrity: No - Ibsrella: No Pain Medications - Does the patient see a painting department supervisor for chronic pain?No - Is the patient taking narcotic pain medication for chronic abdominal pain? No - Narcotic Medications: (Tramadol, Fentanyl, codeine, hydrocodone, Hydromorphone, methadone, morphine, Oxycodone) No Drug use - History or current drug use (Marijuana, Cocaine, Heroine, etc...) No Eating Disorders - Does the patient have a history of eating disorders No Psychiatric Disorders - Does the patient have a history of psychiatric disorders including PTSD: No Nutrition - Has the patient met with a cashier manager for diet recommendations with Gastroparesis? No - Jejunostomy (J-tube): _No - Gastrostomy (G-tube): No - Gastro-Jejunostomy (GJ-tube): _No - Nasojejunal (NJ-tube): _No - Nasogastric (NG-tube): _No - TPN (IV): _No - IV home hydration (IV): _No Medical Records - Has the patient had a smart capsule study completed? No - Does the patient have a history of any foregut surgery (vagotomy, hiatal hernia repair/SHU Fundoplication, Heller Myotomy, gastrectomy, gastric bypass)?No If surgery, recent UGI? No - EGD: Yes - Botox Injections: No Patient Name Sloan Bonilla Age [age] year old Gastroparesis Consult Test Date (more content not included)... Normal [facility] CNOV Office Visit (GAST[facility] ) -------- SLOAN BONILLA ([id number]) 1 F Date Time Provider Department 12/26/24 2:00 PM ELECTROGASTROGRAM [facility] During your visit today, we recorded the following information about you: Zee Avila RN 12/26/2024 3:06 PM Signed ELECTROGASTROGRAPY W/ TEST Operation / Procedure performed 325 ml of water ingested. Referring Provider: GARCIA CULP [[id number]] Allergies As of Date: 12/26/2024 (No Known Allergies) Date Reviewed: 12/26/2024 Reviewed by: Zee Avila RN - Fully Assessed Reason for Visit: Gastroparesis [421] Primary Visit Diagnosis:Gastroparesis [K31.84] Prescriptions as of 12/26/2024 - azaTHIOprine (IMURAN) 50 mg tablet Take 50 mg by mouth once daily. - fludrocortisone (FLORINEF) 0.1 mg tablet Take 1 tablet by mouth once daily. - minoxidil (LONITEN) 2.5 mg tablet Take 2.5 mg by mouth once daily. - , 28, 1.5 mg-30 mcg (21)/75 mg (7) tablet Take 1 tablet by mouth once daily. - omeprazole (PRILOSEC) 40 mg capsule Take 40 mg by mouth once daily. prn - ondansetron (ZOFRAN) 4 mg tablet Take 4 mg by mouth every 6 hours as needed for nausea/vomiting (PRN). - spironolactone (ALDACTONE) 50 mg tablet Take 50 mg by mouth once daily. Problem List As Of Date: 12/26/2024 (None) Encounter Status:[facility] SLOAN BONILLA ([id number]) 1 F Date Time Provider Department 12/26/24 GARCIA CULP [facility] During your visit today, we recorded the following information about you: Clarita Hi RN 12/26/2024 5:23 PM Signed Please call and schedule patient for follow up virtual or in person appointment with Garcia Culp D.O. in 4-6 weeks or close to that date in the Gastroparesis [facility] for ongoing discussion of plan of care and results review if available. Markos Martínez 01/01/2025 3:29 PM Signed Ref placed and waiting for authorization Markos Martínez 01/02/2025 9:18 AM Signed Pt scheduled 02/[address] Culp Allergies As of Date: 12/26/2024 (No Known Allergies) Date Reviewed: 12/26/2024 Reviewed by: Garcia Culp DO - Fully Assessed Reason for Visit: Appointment [186] Cmt: Gastroparesis clinic: f/u Prescriptions as of 01/02/2025 - azaTHIOprine (IMURAN) 50 mg tablet Take 50 mg by mouth once daily. - fludrocortisone (FLORINEF) 0.1 mg tablet Take 1 tablet by mouth once daily. - minoxidil (LONITEN) 2.5 mg tablet Take 2.5 mg by mouth once daily. - , 28, 1.5 mg-30 mcg (21)/75 mg (7) tablet Take 1 tablet by mouth once daily. - omeprazole (PRILOSEC) 40 mg capsule Take 40 mg by mouth once daily. prn - ondansetron (ZOFRAN) 4 mg tablet Take 4 mg by mouth every 6 hours as needed for nausea/vomiting (PRN). - spironolactone (ALDACTONE) 50 mg tablet Take 50 mg by mouth once daily. - lubiprostone (AMITIZA) 24 mcg capsule Take 1 capsule by mouth two times a day with meals. - pyridostigmine (MESTINON) 60 mg tablet Take 1 tablet by mouth three times a day. Problem List As Of Date: 12/26/2024 (None) Encounter Status:Closed by NIKKYMARKOS AUSTIN on 01/01/25 Normal [facility] CREATINE KINASE/CKon 025 CK [Catalytic activity/Vol] 55 U/L 42 - 196 U/L [facility] CRP SerPl-mCncon 12-26-2024 CRP [Mass/Vol] mg/L Normal <0.9 [facility] Comment on above: Order Comment: Speci men Type: BLOOD SPECIMEN Ordering Facility: [facility] Address: [address] [place] [address] [place] [address] Performed By: #### 2 532-0, 3024-04 #### [facility] CLIA [id number] [address] [place] CYTOKINE PANEL 13, SERUMon 0 12-26-2024 INTERFERON GAMMA <4.2 Normal <=4.2 [facility] Comment on above: Order Comment: Speci men Type: BLOOD SPECIMEN Ordering Facility: [facility] Address: [address] [place] [address] Performed By: #### 2 532-0, 3024-04 #### [facility] CLIA [id number] [address] [place] [address] [place] INTERLEUKIN 1 BETA <6.5 Normal <=6.7 [facility] Comment on above: Order Comment: Speci men Type: BLOOD SPECIMEN Ordering Facility: [facility] Address: [address] [place] [address] Performed By: #### 2 532-0, 3024-04 #### [facility] CLIA [id number] [address] [place] [address] [place] INTERLEUKIN 10 <2.8 Normal <=2.8 [facility] Comment on above: Order Comment: Speci men Type: BLOOD SPECIMEN Ordering Facility: [facility] Address: [address] [place] [address] Performed By: #### 2 532-0, 3024-04 #### [facility] CLIA [id number] [address] [place], [place] [address] [place] INTERLEUKIN 12 <1.9 Normal <=1.9 [facility] Comment on above: Order Comment: Speci men Type: BLOOD SPECIMEN Ordering Facility: [facility] Address: [address] [place] [address] Performed By: #### 2 532-0, 3024-04 #### [facility] CLIA [id number] [address] [place], [place] [address] [place] INTERLEUKIN 13 2.7 pg/mL High <=2.3 [facility] Comment on above: Order Comment: Speci men Type: BLOOD SPECIMEN Ordering Facility: [facility] Address: [address] [place] [address] Performed By: #### 2 532-0, 3024-04 #### [facility] CLIA [id number] [address] [place] [address] [place] INTERLEUKIN 17 <1.4 Normal <=1.4 [facility] Comment on above: Order Comment: Speci men Type: BLOOD SPECIMEN Ordering Facility: [facility] Address: [address] [place] [address] Performed By: #### 2 532-0, 3024-04 #### [facility] CLIA [id number] [address] [place] [address] [place] INTERLEUKIN 2 <2.1 Normal <=2.1 [facility] Comment on above: Order Comment: Speci men Type: BLOOD SPECIMEN Ordering Facility: [facility] Address: [address] [place] [address] Performed By: #### 2 532-0, 3024-04 #### [facility] CLIA [id number] [address] [place] [address] [place] INTERLEUKIN 4 (INT4) <2.2 Normal <=2.2 [facility] Comment on above: Order Comment: Speci men Type: BLOOD SPECIMEN Ordering Facility: [facility] Address: [address] [place] [address] Performed By: #### 2 532-0, 3024-04 #### [facility] CLIA [id number] [address] [place] [address] [place] INTERLEUKIN 5 <2.1 Normal <=2.1 [facility] Comment on above: Order Comment: Speci men Type: BLOOD SPECIMEN Ordering Facility: [facility] Address: [address] [place] [address] Performed By: #### 2 532-0, 3024-04 #### [facility] CLIA [id number] [address] [place] [address] [place] INTERLEUKIN 6 2.9 pg/mL High <=2.0 [facility] Comment on above: Order Comment: Speci men Type: BLOOD SPECIMEN Ordering Facility: [facility] Address: [address] [place] [address] Performed By: #### 2 532-0, 3024-7 #### [facility] CLIA [id number] [address] [place] [address] [place] INTERLEUKIN 8 <3.0 Normal <=3.0 [facility] Comment on above: Order Comment: Speci men Type: BLOOD SPECIMEN Ordering Facility: [facility] Address: [address] [place] [address] Performed By: #### 2 532-0, 3024-7 #### [facility] CLIA [id number] [address] [place] [address] [place] INTERLEUKIN-2 RECEPTOR 529.9 pg/mL Normal 175.3 -858. 2 [facility] Comment on above: Order Comment: Speci men Type: BLOOD SPECIMEN Ordering Facility: [facility] Address: [address] [place] [address] Performed By: #### 2 532-0, 3024-7 #### [facility] CLIA [id number] [address] [place] [address] [place] TUMOR NECROSIS FACTOR - ALPHA 7.8 pg/mL High <=7.2 [facility] Comment on above: Order Comment: Speci men Type: BLOOD SPECIMEN Ordering Facility: [facility] Address: [address] [place] [address] Result Comment: INTE RPRETIVE INFORMATION: Cytokines Results are used to understand the pathophysiology of immune, infectious, or inflammatory disorders, or may be used for research purposes. This test was developed and its performance characteristics determined by [facility]. It has not been cleared or approved by the [place] Food and Drug Administration. This test was performed in a CLIA certified laboratory and is intended for clinical purposes. Performed By: [facility] [address] [place] [address] Grain Merchandiser: Michael Marx MD, PhD CLIA Number: [id number] Performed By: #### 2 532-0, 3024-7 #### [facility] CLIA [id number] [address] [place] [address] [place] ESR Westergren method (Bld) [Velocity]on 12-26-2024 ESR (Bld) [Velocity] 5 mm/h [facility] Interpretation and review of laboratory results Normal [facility] ESR (Bld) [Velocity] 5 mm/h Normal 0-20 [facility] Comment on above: Order Comment: Speci men Type: BLOOD SPECIMEN Ordering Facility: [facility] Address: [address] [place] [address] Performed By: #### 4 537-7 #### [facility] CLIA [id number] [address] [place] [address] [place] ESTROGEN FRACTION BLon 12-26 ESTRADIOL 3.6 pg/mL Normal [facility] Comment on above: Order Comment: Speci men Type: BLOOD SPECIMEN Ordering Facility: [facility] Address: [address] [place] [address] Result Comment: REFE RENCE INTERVAL: Estradiol by Concrete Wall Grinder Operator For a complete set of all established reference intervals, refer to [employer]/Tests/Pub/[id number]. This test was developed and its performance characteristics determined by [facility]. It has not been cleared or approved by the [place] Food and Drug Administration. This test was performed in a CLIA certified laboratory and is intended for clinical purposes. Performed By: #### V DANNA HADDAD #### [email or web address] CLIA [id number] [address] [place] [address] ESTROGENS TOTAL 14.4 pg/mL Normal [facility] Comment on above: Order Comment: Speci men Type: BLOOD SPECIMEN Ordering Facility: [facility] Address: [address] [place] [address] Result Comment: Refe rence interval of estrogens (pg/mL) Estrone Estradiol Total Estrogens Early follicular <150.0 30.0-100.0 30.0-250.0 Late follicular 100.0-250.0 100.0-400.0 200.0-650.0 Luteal <200.0 50.0-150.0 50.0-350.0 Post-menopausal 3.0-32.0 2.0-21.0 5.0-52.0 REFERENCE INTERVAL: Estrogens Total Calculation For a complete set of all established reference intervals, refer to [employer]/Tests/Pub/[id number]. Performed By: [facility] [address] [place] [address] Grain Merchandiser: Michael Marx MD, PhD CLIA Number: [id number] Performed By: #### DANNA ELIZABETH #### [email or web address] CLIA [id number] [address] [place] [address] ESTRONE 10.8 pg/mL Normal [facility] Comment on above: Order Comment: Speci men Type: BLOOD SPECIMEN Ordering Facility: [facility] Address: [address] [place] [address] Result Comment: INTE RPRETIVE INFORMATION: Estrone by Concrete Wall Grinder Operator For a complete set of all established reference intervals, refer to [employer]/Tests/Pub/[id number]. This test was developed and its performance characteristics determined by [facility]. It has not been cleared or approved by the [place] Food and Drug Administration. This test was performed in a CLIA certified laboratory and is intended for clinical purposes. Performed By: #### DANNA ELIZABETH #### [email or web address] CLIA [id number] [address] [place] [id number] GAD65 Ab Ser-aCncon 12-27-19 25 Glutamate decarboxylase 65 Ab Qn (S) <5.0 Normal <=5.0 [facility] Comment on above: Order Comment: Speci men Type: BLOOD SPECIMEN Ordering Facility: [facility] Address: [address] [place] [address] Result Comment: Anti -glutamic acid decarboxylase antibody (GAD65) test usually in conjunction with another test such as IA-2 antibody is used as an aid in establishing the autoimmune nature of previously-diagnosed type I diabetes mellitus or in predicting of progression to type I diabetes mellitus in patients with certain autoimmune diseases including autoimmune gastritis among others. It is also used as an aid in diagnosis of stiff person syndrome and certain autoimmune nervous system diseases. Clinical correlation is required. Performed By: #### 2 532-0, 3024-04 #### [facility] CLIA [id number] [address] [place] [address] [place] Glutamate decarboxylase 65 A b Qn (S)on 12-26-2024 GLUTAMIC ACID DECARBOXYLAS AB QUALITATIVE Negative Normal Negative [facility] Comment on above: Order Comment: Susana flores Type: BLOOD SPECIMEN Ordering Facility: [facility] Address: [address] [place] [address] Performed By: #### 2 532-0, 3024-04 #### [facility] CLIA [id number] [address] [place] [address] [place] HbA1c (Bld)on 12-26-2024 Average glucose Estimated from glycated hemoglobin (Bld) [Mass/Vol] 77 mg/dL Normal [facility] Comment on above: Order Comment: Susana flores Type: BLOOD SPECIMEN Ordering Facility: [facility] Address: [address] [place] [address] Result Comment: eAG: (Estimated average glucose) is a calculated value from HgbA1c and is traveling representative of the average blood glucose level in the last 2-3 month period. Performed By: #### 2 532-0, 3024-04 #### [facility] CLIA [id number] [address] [address] [place] HbA1c (Bld) [Mass fraction] 4.3 % Normal 4.3-5.6 [facility] Comment on above: Order Comment: Susana flores Type: BLOOD SPECIMEN Ordering Facility: [facility] Address: [address] [place] [address] Result Comment: Migueler ican Diabetes Association guidelines indicate that patients with HgbA1c in the range 5.7-6.4% are at increased risk for development of diabetes, and intervention by lifestyle modification may be beneficial. HgbA1c greater or equal to 6.5% is considered diagnostic of diabetes. Performed By: #### 2 532-0, 3024-7 #### [facility] CLIA [id number] [address] [place] [address] [place] IgA SerPl-mCncon 12-26-2024 IgA [Mass/Vol] 123 mg/dL Normal 70-400 [facility] Comment on above: Order Comment: Speci men Type: BLOOD SPECIMEN Ordering Facility: [facility] Address: [address] [place] [address] Performed By: #### 2 458-8, 2465-3, 247-9 #### [facility] CLIA [id number] [address] [place] [address] [place] IgG SerPl-mCncon 12-26-2024 IgG [Mass/Vol] 1384 mg/dL Normal 700-1600 [facility] Comment on above: Order Comment: Speci men Type: BLOOD SPECIMEN Ordering Facility: [facility] Address: [address] [place] [address] Performed By: #### 2 458-8, 2465-3, 247-9 #### [facility] CLIA [id number] [address] [place] [address] [place] IgM SerPl-mCncon 12-26-2024 IgM [Mass/Vol] 266 mg/dL High 40-230 [facility] Comment on above: Order Comment: Speci men Type: BLOOD SPECIMEN Ordering Facility: [facility] Address: [address] [place] [address] Performed By: #### 2 458-8, 2465-3, 247-9 #### [facility] CLIA [id number] [address] [place] [address] [place] LDH SerPl-cCncon 12-26-2024 LDH [Catalytic activity/Vol] 162 U/L Normal 135-214 [facility] Comment on above: Order Comment: Speci men Type: BLOOD SPECIMEN Ordering Facility: [facility] Address: [address] [place] [address] Performed By: #### 2 532-0, 3024-7 #### [facility] CLIA [id number] [address] [place], [place] [address] [place] [address] [place] No Panel Informationon 12-26 Interpretation and review of laboratory results Normal [facility] ORGANIC ACIDS UR, QUANT W/CO NSULTon 12-26-2024 2-Hydroxyglutarate/Creat inine (U) [Molar ratio] Normal [facility] Comment on above: Order Comment: Speci men Type: BLOOD SPECIMEN Ordering Facility: [facility] Address: [address] [place] [address] Result Comment: Refe r to attached supplemental report for Organic Acid, Urine interpretation and quantitated results with performing laboratory's reference ranges. Performed at [place], [place]. View results in Scanned or Imported Documents link when available. Performed By: #### V GKCAB #### [facility] CLIA [id number] [address] [place] [address] 2-Hydroxyisovalerate/Cre atinine (U) [Molar ratio] [facility] Comment on above: Order Comment: Speci men Type: BLOOD SPECIMEN Ordering Facility: [facility] Address: [address] [place] [address] Result Comment: Refe r to attached supplemental report for Organic Acid, Urine interpretation and quantitated results with performing laboratory's reference ranges. Performed at [place], [place]. View results in Scanned or Imported Documents link when available. Performed By: #### V GKCAB #### [facility] CLIA [id number] [address] [place] [address] 2-Zodssa-9-hydroxybutyra te (C5-OH)/Creatinine (U) [Molar ratio] [facility] Comment on above: Order Comment: Speci men Type: BLOOD SPECIMEN Ordering Facility: [facility] Address: [address] [place] [address] Result Comment: Refe r to attached supplemental report for Organic Acid, Urine interpretation and quantitated results with performing laboratory's reference ranges. Performed at [place], [place]. View results in Scanned or Imported Documents link when available. Performed By: #### V GKCAB #### [facility] CLIA [id number] [address] [place] [address] 2-Methylbutyrylglycine/C reatinine (U) [Molar ratio] [facility] Comment on above: Order Comment: Speci men Type: BLOOD SPECIMEN Ordering Facility: [facility] Address: [address] [place] [address] Result Comment: Refe r to attached supplemental report for Organic Acid, Urine interpretation and quantitated results with performing laboratory's reference ranges. Performed at [place], [place]. View results in Scanned or Imported Documents link when available. Performed By: #### V GKCAB #### [id number] [address] [place] [address] 2-Methylcitrate/Creatini ne (U) [Molar ratio] [facility] Comment on above: Order Comment: Speci men Type: BLOOD SPECIMEN Ordering Facility: [facility] Address: [address] [place] [address] Result Comment: Refe r to attached supplemental report for Organic Acid, Urine interpretation and quantitated results with performing laboratory's reference ranges. Performed at [place], [place]. View results in Scanned or Imported Documents link when available. Performed By: #### V GKCAB #### [facility] [id number] [address] [place] [address] 2-Oxoadipate/Creatinine (U) [Molar ratio] [facility] Comment on above: Order Comment: Speci men Type: BLOOD SPECIMEN Ordering Facility: [facility] Address: [address] [place] [address] Result Comment: Refe r to attached supplemental report for Organic Acid, Urine interpretation and quantitated results with performing laboratory's reference ranges. Performed at [place], [place]. View results in Scanned or Imported Documents link when available. Performed By: #### V GKCAB #### [facility] CLIA [id number] [address] [place] [address] 3-Hydroxyglutarate/Creat inine (U) [Molar ratio] Normal [facility] Comment on above: Order Comment: Speci men Type: BLOOD SPECIMEN Ordering Facility: [facility] Address: [address] [place] [address] Result Comment: Refe r to attached supplemental report for Organic Acid, Urine interpretation and quantitated results with performing laboratory's reference ranges. Performed at [place], [place]. View results in Scanned or Imported Documents link when available. Performed By: #### V GKCAB #### [facility] CLIA [id number] [address] [place] [address] 3-Hydroxyisovalerate/Cre atinine (U) [Molar ratio] [facility] Comment on above: Order Comment: Speci men Type: BLOOD SPECIMEN Ordering Facility: [facility] Address: [address] [place] [address] Result Comment: Refe r to attached supplemental report for Organic Acid, Urine interpretation and quantitated results with performing laboratory's reference ranges. Performed at [place], [place]. View results in Scanned or Imported Documents link when available. Performed By: #### V GKCAB #### [facility] CLIA [id number] [address] [place] [address] 3-Methylcrotonylglycine/ Creatinine (U) [Molar ratio] [facility] Comment on above: Order Comment: Speci men Type: BLOOD SPECIMEN Ordering Facility: [facility] Address: [address] [place] [address] Result Comment: Refe r to attached supplemental report for Organic Acid, Urine interpretation and quantitated results with performing laboratory's reference ranges. Performed at [place], [place]. View results in Scanned or Imported Documents link when available. Performed By: #### V GKCAB #### [facility] CLIA [id number] [address] [place] [address] 3-Methylglutaconate/Crea tinine (U) [Molar ratio] [facility] Comment on above: Order Comment: Speci men Type: BLOOD SPECIMEN Ordering Facility: [facility] Address: [address] [place] [address] Result Comment: Refe r to attached supplemental report for Organic Acid, Urine interpretation and quantitated results with performing laboratory's reference ranges. Performed at [place], [place]. View results in Scanned or Imported Documents link when available. Performed By: #### V GKCAB #### [facility] CLIA [id number] [address] [place] [address] 3-Methylglutarate/Creati nine (U) [Molar ratio] Normal [facility] Comment on above: Order Comment: Speci men Type: BLOOD SPECIMEN Ordering Facility: [facility] Address: [address] [place] [address] Result Comment: Refe r to attached supplemental report for Organic Acid, Urine interpretation and quantitated results with performing laboratory's reference ranges. Performed at [place], [place]. View results in Scanned or Imported Documents link when available. Performed By: #### V GKCAB #### [facility] CLIA [id number] [address] [place] [address] 4-Hydroxyphenylacetate/C reatinine (U) [Molar ratio] [facility] Comment on above: Order Comment: Speci men Type: BLOOD SPECIMEN Ordering Facility: [facility] Address: [address] [place] [address] Result Comment: Refe r to attached supplemental report for Organic Acid, Urine interpretation and quantitated results with performing laboratory's reference ranges. Performed at [place], [place]. View results in Scanned or Imported Documents link when available. Performed By: #### V GKCAB #### [facility] CLIA [id number] [address] [place] [address] 4-Hydroxyphenyllactate/C reatinine (U) [Molar ratio] [facility] Comment on above: Order Comment: Speci men Type: BLOOD SPECIMEN Ordering Facility: [facility] Address: [address] [place] [address] Result Comment: Refe r to attached supplemental report for Organic Acid, Urine interpretation and quantitated results with performing laboratory's reference ranges. Performed at [place], [place]. View results in Scanned or Imported Documents link when available. Performed By: #### V GKCAB #### [facility] CLIA [id number] [address] [place] [address] 4-Hydroxyphenylpyruvate/ Creatinine (U) [Molar ratio] Normal [facility] Comment on above: Order Comment: Speci men Type: BLOOD SPECIMEN Ordering Facility: [facility] Address: [address] [place] [address] Result Comment: Refe r to attached supplemental report for Organic Acid, Urine interpretation and quantitated results with performing laboratory's reference ranges. Performed at [place], [place]. View results in Scanned or Imported Documents link when available. Performed By: #### V GKCAB #### [facility] CLIA [id number] [address] [place] [address] 5-Oxoproline/Creatinine (U) [Molar ratio] [facility] Comment on above: Order Comment: Speci men Type: BLOOD SPECIMEN Ordering Facility: [facility] Address: [address] [place] [address] Result Comment: Refe r to attached supplemental report for Organic Acid, Urine interpretation and quantitated results with performing laboratory's reference ranges. Performed at [place], [place]. View results in Scanned or Imported Documents link when available. Performed By: #### V GKCAB #### [facility] CLIA [id number] [address] [place] [address] Acetoacetate/Creatinine (U) [Molar ratio] [facility] Comment on above: Order Comment: Speci men Type: BLOOD SPECIMEN Ordering Facility: [facility] Address: [address] [place] [address] Result Comment: Refe r to attached supplemental report for Organic Acid, Urine interpretation and quantitated results with performing laboratory's reference ranges. Performed at [place], [place]. View results in Scanned or Imported Documents link when available. Performed By: #### V GKCAB #### [facility] CLIA [id number] [address] [place] [address] Aconitate/Creatinine (U) [Molar ratio] [facility] Comment on above: Order Comment: Speci men Type: BLOOD SPECIMEN Ordering Facility: [facility] Address: [address] [place] [address] Result Comment: Refe r to attached supplemental report for Organic Acid, Urine interpretation and quantitated results with performing laboratory's reference ranges. Performed at [place], [place]. View results in Scanned or Imported Documents link when available. Performed By: #### V GKCAB #### [facility] CLIA [id number] [address] [place] [address] Adipate/Creatinine (U) [Molar ratio] [facility] Comment on above: Order Comment: Speci men Type: BLOOD SPECIMEN Ordering Facility: [facility] Address: [address] [place] [address] Result Comment: Refe r to attached supplemental report for Organic Acid, Urine interpretation and quantitated results with performing laboratory's reference ranges. Performed at [place], [place]. View results in Scanned or Imported Documents link when available. Performed By: #### V GKCAB #### [facility] CLIA [id number] [address] [place] [address] Alpha hydroxybutyrate/Creatini ne (U) [Molar ratio] [facility] Comment on above: Order Comment: Speci men Type: BLOOD SPECIMEN Ordering Facility: [facility] Address: [address] [place] [address] Result Comment: Refe r to attached supplemental report for Organic Acid, Urine interpretation and quantitated results with performing laboratory's reference ranges. Performed at [place], [place]. View results in Scanned or Imported Documents link when available. Performed By: #### V GKCAB #### [facility] CLIA [id number] [address] [place] [address] Alpha ketoglutarate/Creatinine (U) [Molar ratio] [facility] Comment on above: Order Comment: Speci men Type: BLOOD SPECIMEN Ordering Facility: [facility] Address: [address] [place] [address] Result Comment: Refe r to attached supplemental report for Organic Acid, Urine interpretation and quantitated results with performing laboratory's reference ranges. Performed at [place], [place]. View results in Scanned or Imported Documents link when available. Performed By: #### V GKCAB #### [facility] CLIA [id number] [address] [place] [address] Benzoate/Creatinine (U) [Molar ratio] [facility] Comment on above: Order Comment: Speci men Type: BLOOD SPECIMEN Ordering Facility: [facility] Address: [address] [place] [address] Result Comment: Refe r to attached supplemental report for Organic Acid, Urine interpretation and quantitated results with performing laboratory's reference ranges. Performed at [place], [place]. View results in Scanned or Imported Documents link when available. Performed By: #### V GKCAB #### [facility] CLIA [id number] [address] [place] [address] Beta hydroxybutyrate/Creatini ne (U) [Molar ratio] Normal [facility] Comment on above: Order Comment: Speci men Type: BLOOD SPECIMEN Ordering Facility: [facility] Address: [address] [place] [address] Result Comment: Refe r to attached supplemental report for Organic Acid, Urine interpretation and quantitated results with performing laboratory's reference ranges. Performed at [place], [place]. View results in Scanned or Imported Documents link when available. Performed By: #### V GKCAB #### [facility] CLIA [id number] [address] [place] [address] Butyrylglycine/Creatinin e (U) [Molar ratio] Normal [facility] Comment on above: Order Comment: Speci men Type: BLOOD SPECIMEN Ordering Facility: [facility] Address: [address] [place] [address] Result Comment: Refe r to attached supplemental report for Organic Acid, Urine interpretation and quantitated results with performing laboratory's reference ranges. Performed at [place], [place]. View results in Scanned or Imported Documents link when available. Performed By: #### V GKCAB #### [facility] CLIA [id number] [address] [place] [address] Creatinine (U) [Mass/Vol] 133.5 mg/dL Normal 42.2-237.9 [facility] Comment on above: Order Comment: Speci men Type: BLOOD SPECIMEN Ordering Facility: [facility] Address: [address] [place] [address] Result Comment: Refe r to attached supplemental report for Organic Acid, Urine interpretation and quantitated results with performing laboratory's reference ranges. Performed at [place], [place]. View results in Scanned or Imported Documents link when available. Performed By: #### V GKCAB #### [facility] CLIA [id number] [address] [place] [address] Ethylmalonate/Creatinine (U) [Molar ratio] [facility] Comment on above: Order Comment: Speci men Type: BLOOD SPECIMEN Ordering Facility: [facility] Address: [address] [place] [address] Result Comment: Refe r to attached supplemental report for Organic Acid, Urine interpretation and quantitated results with performing laboratory's reference ranges. Performed at [place], [place]. View results in Scanned or Imported Documents link when available. Performed By: #### V GKCAB #### [facility] CLIA [id number] [address] [place] [address] Fumarate/Creatinine (U) [Molar ratio] [facility] Comment on above: Order Comment: Speci men Type: BLOOD SPECIMEN Ordering Facility: [facility] Address: [address] [place] [address] Result Comment: Refe r to attached supplemental report for Organic Acid, Urine interpretation and quantitated results with performing laboratory's reference ranges. Performed at [place], [place]. View results in Scanned or Imported Documents link when available. Performed By: #### V GKCAB #### [facility] CLIA [id number] [address] [place] [address] Glutarate/Creatinine (U) [Molar ratio] [facility] Comment on above: Order Comment: Speci men Type: BLOOD SPECIMEN Ordering Facility: [facility] Address: [address] [place] [address] Result Comment: Refe r to attached supplemental report for Organic Acid, Urine interpretation and quantitated results with performing laboratory's reference ranges. Performed at [place], [place]. View results in Scanned or Imported Documents link when available. Performed By: #### V GKCAB #### [facility] CLIA [id number] [address] [place] [address] Hexanoylglycine/Creatini ne (U) [Molar ratio] [facility] Comment on above: Order Comment: Speci men Type: BLOOD SPECIMEN Ordering Facility: [facility] Address: [address] [place] [address] Result Comment: Refe r to attached supplemental report for Organic Acid, Urine interpretation and quantitated results with performing laboratory's reference ranges. Performed at [place], [place]. View results in Scanned or Imported Documents link when available. Performed By: #### V GKCAB #### [facility] CLIA [id number] [address] [place] [address] Isobutyrylglycine/Creati nine (U) [Molar ratio] Normal [facility] Comment on above: Order Comment: Speci men Type: BLOOD SPECIMEN Ordering Facility: [facility] Address: [address] [place] [address] Result Comment: Refe r to attached supplemental report for Organic Acid, Urine interpretation and quantitated results with performing laboratory's reference ranges. Performed at [place], [place]. View results in Scanned or Imported Documents link when available. Performed By: #### V GKCAB #### [facility] CLIA [id number] [address] [place] [address] Isocitrate/Creatinine (U) [Molar ratio] [facility] Comment on above: Order Comment: Speci men Type: BLOOD SPECIMEN Ordering Facility: [facility] Address: [address] [place] [address] Result Comment: Refe r to attached supplemental report for Organic Acid, Urine interpretation and quantitated results with performing laboratory's reference ranges. Performed at [place], [place]. View results in Scanned or Imported Documents link when available. Performed By: #### V GKCAB #### [facility] CLIA [id number] [address] [place] [address] Lactate/Creatinine (U) [Molar ratio] [facility] Comment on above: Order Comment: Speci men Type: BLOOD SPECIMEN Ordering Facility: [facility] Address: [address] [place] [address] Result Comment: Refe r to attached supplemental report for Organic Acid, Urine interpretation and quantitated results with performing laboratory's reference ranges. Performed at [place], [place]. View results in Scanned or Imported Documents link when available. Performed By: #### V GKCAB #### [facility] CLIA [id number] [address] [place] [address] Malate/Creatinine (U) [Molar ratio] [facility] Comment on above: Order Comment: Speci men Type: BLOOD SPECIMEN Ordering Facility: [facility] Address: [address] [place] [address] Result Comment: Refe r to attached supplemental report for Organic Acid, Urine interpretation and quantitated results with performing laboratory's reference ranges. Performed at [place], [place]. View results in Scanned or Imported Documents link when available. Performed By: #### V GKCAB #### [facility] CLIA [id number] [address] [place] [address] Malonate/Creatinine (U) [Molar ratio] [facility] Comment on above: Order Comment: Speci men Type: BLOOD SPECIMEN Ordering Facility: [facility] Address: [address] [place] [address] Result Comment: Refe r to attached supplemental report for Organic Acid, Urine interpretation and quantitated results with performing laboratory's reference ranges. Performed at [place], [place]. View results in Scanned or Imported Documents link when available. Performed By: #### V GKCAB #### [facility] CLIA [id number] [address] [place] [address] Methylmalonate/Creatinin e (U) [Molar ratio] [facility] Comment on above: Order Comment: Speci men Type: BLOOD SPECIMEN Ordering Facility: [facility] Address: [address] [place] [address] Result Comment: Refe r to attached supplemental report for Organic Acid, Urine interpretation and quantitated results with performing laboratory's reference ranges. Performed at [place], [place]. View results in Scanned or Imported Documents link when available. Performed By: #### V GKCAB #### [facility] CLIA [id number] [address] [place] [address] Methylsuccinate/Creatini ne (U) [Molar ratio] [facility] Comment on above: Order Comment: Speci men Type: BLOOD SPECIMEN Ordering Facility: [facility] Address: [address] [place] [address] Result Comment: Refe r to attached supplemental report for Organic Acid, Urine interpretation and quantitated results with performing laboratory's reference ranges. Performed at [place], [place]. View results in Scanned or Imported Documents link when available. Performed By: #### V AUTUMNCAB #### [facility] CLIA [id number] [address] [place] [address] N-acetylaspartate/Creati nine (U) [Molar ratio] Normal [facility] Comment on above: Order Comment: Speci men Type: BLOOD SPECIMEN Ordering Facility: [facility] Address: [address] [place] [address] Result Comment: Refe r to attached supplemental report for Organic Acid, Urine interpretation and quantitated results with performing laboratory's reference ranges. Performed at [place], [place]. View results in Scanned or Imported Documents link when available. Performed By: #### V GKCAB #### [facility] CLIA [id number] [address] [place] [address] N-acetyltyrosine/Creatin ine (U) [Molar ratio] [facility] Comment on above: Order Comment: Speci men Type: BLOOD SPECIMEN Ordering Facility: [facility] Address: [address] [place] [address] Result Comment: Refe r to attached supplemental report for Organic Acid, Urine interpretation and quantitated results with performing laboratory's reference ranges. Performed at [place], [place]. View results in Scanned or Imported Documents link when available. Performed By: #### V GKCAB #### [facility] CLIA [id number] [address] [place] [address] Oxalate/Creatinine (U) [Molar ratio] [facility] Comment on above: Order Comment: Speci men Type: BLOOD SPECIMEN Ordering Facility: [facility] Address: [address] [place] [address] Result Comment: Refe r to attached supplemental report for Organic Acid, Urine interpretation and quantitated results with performing laboratory's reference ranges. Performed at [place], [place]. View results in Scanned or Imported Documents link when available. Performed By: #### V GKCAB #### [facility] CLIA [id number] [address] [place] [address] Pyruvate/Creatinine (U) [Molar ratio] [facility] Comment on above: Order Comment: Speci men Type: BLOOD SPECIMEN Ordering Facility: [facility] Address: [address] [place] [address] Result Comment: Refe r to attached supplemental report for Organic Acid, Urine interpretation and quantitated results with performing laboratory's reference ranges. Performed at [place], [place]. View results in Scanned or Imported Documents link when available. Performed By: #### V GKCAB #### [facility] CLIA [id number] [address] [place] [address] Sebacate (C8)/Creatinine (U) [Molar ratio] [facility] Comment on above: Order Comment: Speci men Type: BLOOD SPECIMEN Ordering Facility: [facility] Address: [address] [place] [address] Result Comment: Refe r to attached supplemental report for Organic Acid, Urine interpretation and quantitated results with performing laboratory's reference ranges. Performed at [place], [place]. View results in Scanned or Imported Documents link when available. Performed By: #### V GKCAB #### [facility] CLIA [id number] [address] [place] [address] Suberate/Creatinine (U) [Molar ratio] [facility] Comment on above: Order Comment: Speci men Type: BLOOD SPECIMEN Ordering Facility: [facility] Address: [address] [place] [address] Result Comment: Refe r to attached supplemental report for Organic Acid, Urine interpretation and quantitated results with performing laboratory's reference ranges. Performed at [place], [place]. View results in Scanned or Imported Documents link when available. Performed By: #### V GKCAB #### [facility] CLIA [id number] [address] [place] [address] Suberylglycine/Creatinin e (U) [Molar ratio] [facility] Comment on above: Order Comment: Speci men Type: BLOOD SPECIMEN Ordering Facility: [facility] Address: [address] [place] [address] Result Comment: Refe r to attached supplemental report for Organic Acid, Urine interpretation and quantitated results with performing laboratory's reference ranges. Performed at [place], [place]. View results in Scanned or Imported Documents link when available. Performed By: #### V GKCAB #### [facility] CLIA [id number] [address] [place] [address] Succinate/Creatinine (U) [Molar ratio] [facility] Comment on above: Order Comment: Speci men Type: BLOOD SPECIMEN Ordering Facility: [facility] Address: [address] [place] [address] Result Comment: Refe r to attached supplemental report for Organic Acid, Urine interpretation and quantitated results with performing laboratory's reference ranges. Performed at [place], [place]. View results in Scanned or Imported Documents link when available. Performed By: #### V GKCAB #### [facility] CLIA [id number] [address] [place] [address] Succinylacetone/Creatini ne (U) [Molar ratio] [facility] Comment on above: Order Comment: Speci men Type: BLOOD SPECIMEN Ordering Facility: [facility] Address: [address] [place] [address] Result Comment: Refe r to attached supplemental report for Organic Acid, Urine interpretation and quantitated results with performing laboratory's reference ranges. Performed at [place], [place]. View results in Scanned or Imported Documents link when available. Performed By: #### V GKCAB #### [facility] CLIA [id number] [address] [place] [address] [facility] Comment on above: Order Comment: Speci men Type: BLOOD SPECIMEN Ordering Facility: [facility] Address: [address] [place] [address] Result Comment: Refe r to attached supplemental report for Organic Acid, Urine interpretation and quantitated results with performing laboratory's reference ranges. Performed at [place], [place]. View results in Scanned or Imported Documents link when available. Performed By: #### V GKCAB #### [facility] CLIA [id number] [address] [place] [address] [facility] Comment on above: Order Comment: Speci men Type: BLOOD SPECIMEN Ordering Facility: [facility] Address: [address] [place] [address] Result Comment: Refe r to attached supplemental report for Organic Acid, Urine interpretation and quantitated results with performing laboratory's reference ranges. Performed at [place], [place]. View results in Scanned or Imported Documents link when available. Performed By: #### V GKCAB #### [facility] CLIA [id number] [address] [place] [address] Uracil/Creatinine (U) [Molar ratio] Normal [facility] Comment on above: Order Comment: Susana flores Type: BLOOD SPECIMEN Ordering Facility: [facility] Address: [address] [place] [address] Result Comment: Refe r to attached supplemental report for Organic Acid, Urine interpretation and quantitated results with performing laboratory's reference ranges. Performed at [place], [place]. View results in Scanned or Imported Documents link when available. Performed By: #### V GKCAB #### [facility] [employer] CLIA [id number] [address] [place] [address] T4 Free SerPl-mCncon 025 Free T4 [Mass/Vol] 1.3 ng/dL Normal 0.9-1.7 [facility] Comment on above: Order Comment: Susana lfores Type: BLOOD SPECIMEN Ordering Facility: [facility] Address: [address] [place] [address] Performed By: #### 2 532-0, 3024-7 #### [facility] CLIA [id number] [address] [place] [address] [place] THYROID STIMULATING HORMONEo n 12-26-2024 TSH Qn 1.1 m[IU]/L [facility] Comment on above: If the patient is pr egnant, TSH reference range varies by gestational period: First Trimester (weeks 9-12): 0.180-2.990 mIU/L Second Trimester: 0.110-3.980 mIU/L Third Trimester: 0.480-4.710 mIU/L Werner Renee et al. A Practical Approach for the Verifications and Determination of Site- and Trimester-Specific Reference Intervals for Thyroid Function tests in . Thyroid, 2019:29:3:412-420. Jordan Stone et al. 2017 Guidelines of the [place] Thyroid Association for the Diagnosis and Management of Thyroid Disease during and the . Thyroid, 2017:27:3:315-389. TSH Qnon 12-26-2024 Interpretation and review of laboratory results Normal [facility] TSH SerPl-aCncon 12-26-2024 TSH Qn 1.100 m[IU]/L Normal 0.270-4.20 0 [facility] Comment on above: Order Comment: Speci men Type: BLOOD SPECIMEN Ordering Facility: [facility] Address: [address] [place] [address] Result Comment: If t he patient is , TSH reference range varies by gestational period: First Trimester (weeks 9-12): 0.180-2.990 mIU/L Second Trimester: 0.110-3.980 mIU/L Third Trimester: 0.480-4.710 mIU/L Werner Renee et al. A Practical Approach for the Verifications and Determination of Site- and Trimester-Specific Reference Intervals for Thyroid Function tests in . Thyroid, 2019:29:3:412-420. Jordan Stone et al. 2017 Guidelines of the [place] Thyroid Association for the Diagnosis and Management of Thyroid Disease during and the . Thyroid, 2017:27:3:315-389. Performed By: #### 2 532-0, 3024-7 #### [facility] CLIA [id number] [address] [place] [address] [place] VOLTAGE GATED CA IGGon 12-26 P/Q-TYPE CALCIUM CHANNEL ANTIBODY 0.0 pmol/L Normal 0.0-24.5 [facility] Comment on above: Order Comment: Shivai mark Type: BLOOD SPECIMEN Ordering Facility: [facility] Address: [address] [place] [address] Result Comment: INTE RPRETIVE INFORMATION: P/Q-Type Calcium Channel Antibody 0.0 to 24.5 pmol/L ............. Negative 24.6 to 45.6 pmol/L ............ Indeterminate 45.7 pmol/L or greater.......... Positive This test was developed and its performance characteristics determined by [facility]. It has not been cleared or approved by the US Food and Drug Administration. This test was performed in a CLIA certified laboratory and is intended for clinical purposes. Performed By: [facility] [address] [place] [address] Grain Merchandiser: Michael Marx MD, PhD CLIA Number: [id number] Performed By: #### V DANNA HADDAD #### [facility] CLIA [id number] [address] [place] [address] VOLTAGE-GATED POTASSIUM HERRERA ABon 12-26-2024 VOLTAGE-GATED POTASSIUM CHANNEL AB, SER 16 pmol/L Normal 0-31 [facility] Comment on above: Order Comment: Speci men Type: BLOOD SPECIMEN Ordering Facility: [facility] Address: [address] [place] [address] Result Comment: INTE RPRETIVE INFORMATION: Voltage-Gated Potassium Channel (VGKC) Antibody, Serum Negative ....... 31 pmol/L or less Indeterminate... 32 - 87 pmol/L Positive ....... 88 pmol/L or greater Voltage-Gated Potassium Channel (VGKC) antibodies are associated with neuromuscular weakness as found in neuromyotonia (also known as Issacs syndrome) and Morvan syndrome. VGKC antibodies are also associated with paraneoplastic neurological syndromes and limbic encephalitis; however, VGKC antibody-associated limbic encephalitis may be associated with antibodies to leucine-rich, glioma-inactivated 1 protein (LGI1) or contactin-associated protein-2 (CASPR2) instead of potassium channel antigens. A substantial number of VGKC-antibody positive cases are negative for LGI1 and CASPR2 IgG autoantibodies, not all VGKC complex antigens are known. The clinical significance of this test can only be determined in conjunction with the patient's clinical history and related laboratory testing. This test was developed and its performance characteristics determined by [facility]. It has not been cleared or approved by the US Food and Drug Administration. This test was performed in a CLIA certified laboratory and is intended for clinical purposes. Performed By: [facility] [address] [place] [address] Grain Merchandiser: Michael Marx MD, PhD CLIA Number: [id number] Performed By: #### V [facility] #### [facility] CLIA [id number] [address] [place] [address] Gastroenterology Visit Repor camila 11-21-2024 Gastroenterology Visit Report [facility] Gastroenterology [address] [place] [address] OFFICE VISIT Date of Service: 11/21/24 MR#: [id number] Acct: [id number] Name: SLOAN BONILLA Rep #: [id number] : 2000 Provider: Angel Gutierrez DO Age/Sex: 24/F Location: [facility] Status: Signed Intake Vital Signs 01/02/24 08:44 08/28/24 12:46 Height 5 ft 8 in 5 ft 7 in Intake Visit Reasons: 6 M FU Allergies No Known Allergies Allergy (Verified 08/28/24 12:44) Medications ???Medication ???Instructions ???Recorded ???Confirmed ???Type omeprazole 20 mg capsule,delayed 20 mg PO DAILY PRN heartburn 06/1011/21/24 History release ondansetron HCl 4 mg tablet 4 mg PO Q6H PRN PRN nausea/vomitin g 12/28/23 11/21/24 History fludrocortisone 0.1 mg tablet 0.1 mg PO DAILY 05/21/24 11/21/24 History spironolactone 100 mg tablet 50 mg PO QPM 05/21/24 11/21/24 His tory minoxidil 2.5 mg tablet 1.25 mg PO DAILY 08/24/24 11/21/24 History norethindrone 1.5 mg-ethinyl 1 tab PO DAILY 08/24/24 11/21/24 H istory estradiol 30 mcg(21)/iron 75 mg(7) tablet (Junel FE 1.5/30 (28)) azathioprine 50 mg tablet (Imuran) 50 mg PO DAILY #45 tabs 09/25/24 09/25/24 Rx PFSH Medical History (Updated 10/26/24 @ 10:56 by Leatha Scott) Gastroparesis Cancer Wears glasses History of Clostridium difficile infection Bruising Hepatitis History of IBS Gastric reflux Smoker IYER (nonalcoholic steatohepatitis) Bloating Surgical History Hx of colonoscopy History of liver biopsy Family History Grandmother Thyroid disorder Hypertension Social History Smoking Status: Light Smoker (<10/day) alcohol intake: never HPI HPI Details: SLOAN BONILLA, is a 24 F who presents to the office today for follow up. US and elastography 06.01.23 hepatic measurement 15.7cm with fatty infiltration, stiffness measures 5.8kPa. Colonoscopy 01.02.24 Tortuous colon. The examination was otherwise normal on direct and retroflexion views. No specimens collected. OV 05.21.24 pt reports daily nausea after she eats that gets worse the longer she has gone without a bm. Pt reports constipation has improved since colonoscopy in December when she started a fiber supplement and is now having 1-2 formed bm per week; denies blood in the stool. Pt reports increased HB that is worse when she has not been able to have a BM. Pt reports that she began having difficulty swallowing in mid April where she feels like she will either throw up or choke; states that she just takes a break from eating and the problem resolves. Pt reports she only has difficulty with food. EGD 08.28.24 Benign-appearing esophageal stenosis. Dilated. Z-line irregular, 40 cm from the incisors. Biopsied. Excessive gastric fluid. Fluid aspiration performed. Normal first portion of the duodenum. GET 12 abnormal 58.99 minutes GET 4hr 10.24.24 abnormal 68% emptying and 32% retention OV 2 pt reports that her symptoms have improved since last visit. Pt is now having 2-3 formed bm per week. Reports that she has an appointment with the gastroparesis clinic on 12.26.24. ROS Const Constitutional: Positive for fatigue, headache(s) and weight change (weight loss); No fever(s) ENT ENT: Positive for headache(s); No difficulty swallowing Gastro GI: Positive for bloating, constipation, heartburn, excessive flatus and nausea/dyspepsia; No abdominal pain, belching, change in bowel habits, change in stool character, coffee ground emesis, cramping, diarrhea, difficulty swallowing, feeling full early, incontinent of stools, Vomiting blood/hematemesis, Blood in stool, loose stools, Black,tarry stools, pain with swallowing, vomiting or other Musc Musculoskeletal: Positive for numbness and tingling; No joint pain Skin Skin: Positive for dry skin and itchy eyes; No yellowing of the eye Neuro Neurology: Positive for headache(s), numbness, tingling and other (vertigo) Psych Psychiatric: No anxiety and No depression Endo Endocrine: Positive for fatigue and weight change (weight loss) Aller/Imm Allergy/Immunologic: Positive for itchy eyes Lawrence/Lymp Hematologic/Lymphatic: No easy bleeding or easy bruising Exam Const General: cooperative, no acute distress and well developed Nutritional Appearance: average body habitus Orientation: alert, awake and oriented x3 Other: BMI 18.1 %. thin body build. HENMT Head: normocephalic and atraumatic Nose: external nose normal Face and sinus: normal facial exam Mouth: moist mucous membranes Eyes Pupils: PERRL EOM: EOM intact bilaterally Neck Neck: normal visual inspection, no meni (more content not included)... Normal [facility] Tender Cytology Reporton 2024 Filter Tank Tender Cytology Report . Pathology Reports Accession: Collected Date/Time: Received Date/Time: Pathologist: [id number] 11/05/2024 11:31 EST 11/05/2024 18:00 EST MD OSMAN CARRERA Filter [facility] T[facility] Cytology Report SPECIMEN: Specimen Description: Liquid Prep w/ HPV Specimen: Cervical/Endocervical Screening or Diagnostic: Screening RELEVANT HISTORY: LMP: 09/11/2024 SPECIMEN ADEQUACY: SATISFACTORY FOR EVALUATION Endocervical/Transformat ional zone component absent/insufficient INTERPRETATION/RESULTS: NEGATIVE FOR INTRAEPITHELIAL LESION OR MALIGNANCY SUGGESTIONS/EDUCATIONAL NOTES: This case has been reviewed for 10% QA rescreen HIGH RISK HPV TESTING: Event Code Result HPV Interp See Interp HPVN HPV Interp Text: High Risk HPV Typing: NEGATIVE HPV types 16, 18, 31, 33, 35, 39, 45, 51, 52, 56, 58, 59, 66 and 68 DNA were undetectable or below the pre-set [...] inhibitors and sufficient DNA to be detected. As of: 11/08/24 12:26 EST Pathology Reports Accession: Collected Date/Time: Received Date/Time: Pathologist: [id number] 11/05/2024 11:31 EST 11/05/2024 18:00 EST MD OSMAN CARRERA COMMENT: This Pap Test was successfully processed and evaluated with the assistance of the Access Point ThinPrep Test Imaging System. Verified by Pathology report verified by [facility] Screened by: CORKY Electronically signed by OSMAN CARRERA MD Sign-Out Date: 11/08/2024 14:04 Performing Lab: [address] Pathology Dept Disclaimer The Pap test is a screening test for cervical cancer. As evidenced by published data, it is subject to both inherent false negative and false positive results. Your patient's results should be interpreted in context with pertinent clinical history including gynecological examination. Normal [facility] Filter Tank Tender Cytology Report #[id number] [facility] Work Phone: Filter Tank Tender Cytology Report #[id number] [facility] Work Phone: Filter Tank Tender Cytology Report #[id number] [facility] Work Phone: Filter Tank Tender Cytology Report #[id number] [facility] Work Phone: Filter Tank Tender Cytology Report #[id number] [facility] Work Phone: Filter Tank Tender Cytology Report #[id number] [facility] Work Phone: Filter Tank Tender Cytology Report #[id number] [facility] Work Phone: Filter Tank Tender Cytology Report #[id number] [facility] Work Phone: Filter Tank Tender Cytology Report #[id number] [facility] Work Phone: HPVon 11-07-2024 HPV Interp Normal See Interp HPVN [facility] Comment on above: Order Comment: Order placed by AP_HPV_ORDER rule from [id number] Result Comment: High Risk HPV Typing: NEGATIVE HPV types 16, 18, 31, 33, 35, 39, 45, 51, 52, 56, 58, 59, 66 and 68 DNA were undetectable or below the pre-set [...] sufficient DNA to be detected. See Interp HPVN Performed By: #### H PV #### [place] [address] HPV Source Cervix Normal [facility] Comment on above: Order Comment: Order placed by AP_HPV_ORDER rule from [id number] Performed By: #### H PV #### [place] [id number] CTPCRon 11-06-2024 C. trachomatis Interp Normal See CT Interp N [facility] Comment on above: Result Comment: C. t rachomatis DNA not detected. Specimen is presumptive negative for C. trachomatis. A negative result does not preclude C. trachomatis infection because results depend on adequate specimen collection, absence of inhibitors, and sufficient DNA to be detected. See CT Interp N Performed By: #### N GPCR1, CTPCR #### [place] [address] C.trachomatis PCR Negative Normal Negative [facility] Comment on above: Result Comment: Mole cular (PCR) assay performed on the Narciso Margarita 4800 system. Performed By: #### N GPCR1, CTPCR #### [place] [id number] Chlam Source Cervix Normal [facility] Comment on above: Performed By: #### N GPCR1, CTPCR #### [place] [address] [id number] 11-06-2024 GC PCR Source Cervix Normal [facility] Comment on above: Performed By: #### N GPCR1, CTPCR #### [place] [address] N. gonorrhoeae (PCR) Negative Normal Negative [facility] Comment on above: Result Comment: Mole cular (PCR) assay performed on the Narciso Margarita 4800 System. Performed By: #### N GPCR1, CTPCR #### [place] [address] N. gonorrhoeae Interp Normal See NG Interp N [facility] Comment on above: Result Comment: N. g onorrhoeae DNA not detected. Specimen is presumptive negative for N. gonorrhoeae. A negative result does not preclude Neisseria gonorrhoeae infection because results depend on adequate specimen collection, absence of inhibitors, and sufficient DNA to be detected. See NG Interp N Performed By: #### N GPCR1, CTPCR #### [place] [address] LABORATORYOrdered By: Louann Smith on 11-05-2024 C. trachomatis DNA FLORENTIN+probe Ql (Unsp spec) Negative 2 (11/05/24 2:25 PM) Normal Negative [facility] Comment on above: Interpretive Data: M olecular (PCR) assay performed on the Narciso Margarita 4800 system. C. trachomatis DNA FLORENTIN+probe Ql (Unsp spec) C. trachomatis DNA not detected. Specimen is presumptive negative forC. trachomatis.A negative result does not preclude C. trachomatis infection becauseresults depend on adequate specimen collection, absence of inhibitors,and sufficient DNA to be detected. Normal See CT Interp N Auto Viro/Sero SS N. gonorrhoeae DNA FLORENTIN+probe Ql (Unsp spec) Negative 1 (11/05/24 2:25 PM) Normal Negative [facility]ero [facility] Comment on above: Interpretive Data: Umu salas (PCR) assay performed on the Narciso Margarita 4800 System. N. gonorrhoeae DNA FLORENTIN+probe Ql (Unsp spec) N. gonorrhoeae DNA not detected. Specimen is presumptive negative forN. gonorrhoeae. A negative result does not preclude Neisseria gonorrhoeaeinfection because results depend on adequate specimen collection, absenceof inhibitors, and sufficient DNA to be detected. Normal See NG Interp N [facility] LABORATORYOrdered By: Carson Thompson on 11-05-2024 HPV Interp High Risk HPV Typing : NEGATIVEHPV types 16, 18, 31, 33, 35, 39, 45, 51, 52, 56, 58, 59, 66 and 68 DNA wereundetectable or below the pre-set threshold.The margarita High-Risk HPV DNA Test is not intended for use as a screening device forPap normal women under age 30 and is not intended to substitute for regular Papscreening.The margarita High-Risk HPV DNA Test is designed to augment existing methods for thedetection of cervical disease and should be used in conjunction with clinicalinformation derived from other diagnostic and screening tests, physical examinationsand full medical history in accordance with appropriate patient managementprocedures.NOT E: A negative result does not preclude the presence of HPV infection because resultsdepend on adequate specimen collection, absence of inhibitors and sufficientDNA to be detected. Normal See Interp HPVN Auto Viro/Sero SS Specimen source Nom (Unsp spec) Cervix (11/05/24 11:31 AM) Normal [facility] Laboratory - Specimen inform ationOrdered By: Louann Smith on 11-05-2024 Specimen source Nom (Unsp spec) Cervix (11/05/24 2:25 PM) Normal Auto Viro/Sero SS CNPNon 10-30-2024 CNPN Telephone (GASTSP) -------- SLOAN BONILLA ([id number]) 1 F Date Time Provider Department 10/30/24 GARCIA CULP [facility] During your visit today, we recorded the following information about you: Erma Daley 10/30/2024 3:44 PM Signed ----- Message from Polo Gonzalez sent at 10/26/2024 12:13 PM EST ----- Regarding: Gastroparesis Sloan Bonilla is being referred to or the Gastroparesis clinic. Referring Physician: Angel Friend DO Preferred phone number for contact: [phone] ? Send to GASTROPARESIS SCHEDULING POOL [[phone]] Erma Daley 10/30/2024 3:44 PM Signed Left VM for patient to call office to update registration and go over records needed for review prior to scheduling. Erma Daley 11/02/2024 8:24 AM Signed Gastric Emptying Study? Patient will have GES and GI records faxed to office for review. Has the patient had a Smart Pill? No When was your last EGD? 2023 Has the patient had Gastric Bypass? No Has the patient had a Gastric Sleeve? No Has the patient had a Shu or Hiatal Hernia Repair? No Has the patient had POP/Pyloroplasty? No Is the patient currently on TPN? No Does the patient have a G/J Tube? No Do you have at least 3 bowel movements a week? No Referring Provider: Markos Cedeno 11/05/2024 7:38 AM Signed Records in scanned docs. Please rev and advise Garcia Culp DO 11/05/2024 7:46 AM Signed Me first as this appears to be all constipation. Egg is in Garcia Culp DO 11/05/2024 7:47 AM Signed Addended by: GARCIA CULP on: 11/05/2024 07:47 AM Modules accepted: Orders Erma Daley 11/06/2024 1:54 PM Signed Patient is scheduled Allergies As of Date: 10/30/2024 (Not on File) Date Reviewed: Never Reviewed Reason for Visit: Appointment [186] Primary Visit Diagnosis:Gastroparesis [K31.84] Order(s):EGG (ELECTROGASTROGRAPHY) [77136IVZ] Order #: [id number] Problem List As Of Date: 10/30/2024 (None) Encounter Status:Closed by ERMA DALEY on 10/30/24 Normal [facility] Gastric Emptying Study - 4 H Wesley 10-24-2024 Gastric Emptying Study - 4 HR [facility] Services [address] [place] [id number] Gastric Emptying Study - 4 HR MR#: [id number] Acct: [id number] Name: SLOAN BONILLA Rep #: [id number] : 2000 F 24 From: Osman Ortega PCP: KRISTINA ChuC Status: REG CLI Study: Gastric Emptying Study - 4 HR Date of Exam: Exam# [id number] Ordering Dr: Angel Gutierrez DO [id number] CLINICAL: 24-year-old female with history of chronic nausea. SOLID PHASE 99m Tc SULFUR COLLOID GASTRIC EMPTYING STUDY COMPARISON: Semisolid phase gastric emptying study report dated 10/08/2024 FINDINGS: The patient was administered 1.0 mCi of 99m Tc sulfur colloid mixed with egg and consumed per os. Image acquisitions in the anterior-posterior projections were obtained for 223 minutes following meal consumption. There is prompt visualization of the stomach. There is no gastroesophageal reflux identified. First order kinetics are maintained throughout the duration of the acquisitions. The T ? raw data emptying was calculated to be 173.43 minutes, (Normal 65-110 minutes). 68 % emptying and 32 % retention are defined at 4 hours post meal ingestion. NM/Gastric Emptying Study - 4 HR IMPRESSION: 1. ABNORMAL 99m Tc sulfur colloid solid phase gastric emptying imaging examination. A. There is abnormal solid phase gastric emptying compared to normal controls with maintained first order kinetics throughout all components of the examination. (Lexa et al, Gastroenterology 77: 75, 1979 Segun et al, Semin Nucl Med 12: 116, 1981 Noelle et al, SN Procedure Guidelines Adult Solid Meal Gastric Emptying Study 3.0 SNM.[email or web address]). B. Greater than 10% retention of the initial gastric contents at 4 hours post dose is consistent with abnormal solid phase gastric emptying which correlates with the results of the T ? emptying calculation. (Gregg et al, J Nucl Med 48: 568, 2007). C. Compared to the semisolid phase gastric emptying examination dated 10/08/2024, there is minimal interval change. Electronically Signed: Osman Kaufman DO at 8:16 EST Reading Location ID and State: [facility] / [place] Tel , Service support , CC: RISHABH Serrano; Angel Gutierrez DO Peanut Vendor: Signed Normal [facility] Gastric Emptying Studyon Gastric Emptying Study [facility] Services [address] [place] [address] Gastric Emptying Study MR#: [id number] Acct: [id number] Name: SLAON BONILLA Rep #: [id number] : 2000 F 24 From: Osman Ortega PCP: RISHABH Chu Status: REG CLI Study: Gastric Emptying Study Date of Exam: 10/08/24 Exam# [id number] Ordering Dr: Angel Gutierrez DO [id number] CLINICAL: 44-year-old female with history of chronic nausea. SEMI-SOLID PHASE 99m Tc SULFUR COLLOID GASTRIC EMPTYING STUDY COMPARISON: None available FINDINGS: The patient was administered 1.1 mCi of 99m Tc sulfur colloid mixed with oatmeal and consumed per os. Image acquisitions in the anterior-posterior projections were obtained for 60 minutes. There is prompt visualization of the stomach. There is no gastroesophageal reflux identified. First order kinetics are maintained throughout the duration of the acquisitions. The T ? linear fit was calculated to be 58.99 minutes, (Normal: 12-56 minutes). NM/Gastric Emptying Study IMPRESSION: 1. ABNORMAL 99m Tc sulfur colloid semi-solid phase (oatmeal) gastric emptying imaging examination. A. There is delayed semi-solid phase gastric emptying compared to normal controls with demonstrated first order kinetics throughout all components of the examination. (Jovana et al, J Nucl Med Tech 38: 186, 2010). Electronically Signed: Osman Kaufman DO at 8:35 EST , CC: RISHABH Serrano; Angel Gutierrez DO Peanut Vendor: Signed Normal [facility] Thyroid Peroxidase ABon 08-11 THYR PEROX AB 11 IU/mL Normal 0-34 [facility] Comment on above: Order Comment: Test( s) 152062-[id number], Plasma or Serumwas developed and its performance characteristicsdetermined by [employer]. It has not been cleared or approvedby the Food and Drug Administration. Result Comment: Perf ormed at: [address] [id number] Automotive Electrician: Jen Foster MD, Phone: [phone] Performed at: [address] [id number] Automotive Electrician: Brett Cobos PhD, Phone: [phone] Performed By: #### L 100.0100, L3545.1348, S733.6566, L5061000, G2575.1574 ####[facility] [address] [place], [address] Zinc, Plasma or Serumon 08-11 ZINC,PLASMA/SER 69 ug/dL Normal 44-115 [facility] Comment on above: Order Comment: Test( s) 580644-Hjkz, Plasma or Serumwas developed and its performance characteristicsdetermined by [employer]. It has not been cleared or approvedby the Food and Drug Administration. Result Comment: Dete ction Limit = 5 Performed By: #### L 100.0100, L3300.9900, L503.6550, L506.1000, L3300.6900 ####[facility] [address] [place], [address] CBC W/Diff, Automatedon 11-2 Absolute Lymph 1.30 X10 3/uL Normal 0.83-4.51 [facility] Comment on above: Performed By: #### L 100.0100, L3300.9900, L503.6550, L506.1000, L3300.6900 ####[facility] [address] [place], [address] Absolute Neut 7.8 X10 3/uL High 2.0-7.7 [facility] Comment on above: Performed By: #### L 100.0100, L3300.9900, L503.6550, L506.1000, L3300.6900 ####[facility] [address] [place], [address] Basophils/100 WBC (Bld) 0.5 % Normal 0-1 [facility] Comment on above: Performed By: #### L 100.0100, L3300.9900, L503.6550, L506.1000, L3300.6900 ####[facility] [address] [place], [address] Eosinophils/100 WBC (Bld) 0.3 % Normal 0-5 [facility] Comment on above: Performed By: #### L 100.0100, L3300.9900, L503.6550, L506.1000, L3300.6900 ####[facility] [address] [place], [address] Erythrocyte distribution width (RBC) [Ratio] 13.3 % Normal 11.6-14.6 [facility] Comment on above: Performed By: #### L 100.0100, L3300.9900, L503.6550, L506.1000, L3300.6900 ####[facility] [address] [place], [address] Hematocrit (Bld) [Volume fraction] 38.2 % Normal 37-47 [facility] Comment on above: Performed By: #### L 100.0100, L3300.9900, L503.6550, L506.1000, L3300.6900 ####[facility] [address] [place], [address] Hemoglobin (Bld) [Mass/Vol] 13.4 g/dL Normal 12.0-15.0 [facility] Comment on above: Performed By: #### L 100.0100, L3300.9900, L503.6550, L506.1000, L3300.6900 ####[facility] [address] [place], [address] IG% 0.300 Normal 0.0-0.9 [facility] Comment on above: Result Comment: IG% - Immature Granulocytes (promyelocytes, myelocytes and metamyelocytes) > 1% indicates that a LEFT SHIFT is Present. Performed By: #### L 100.0100, L3300.9900, L503.6550, L506.1000, L3300.6900 ####[facility] [address] [place], [address] Lymphocytes/100 WBC (Bld) 13.5 % Low 19-41 [facility] Comment on above: Performed By: #### L 100.0100, L3300.9900, L503.6550, L506.1000, L3300.6900 ####[facility] [address] [place], [address] MCH (RBC) [Entitic mass] 32.3 pg High 27.0-32.0 [facility] Comment on above: Performed By: #### L 100.0100, L3300.9900, L503.6550, L506.1000, L3300.6900 ####[facility] [address] [place], [address] MCHC (RBC) [Mass/Vol] 35.1 g/dL Normal 32-36 [facility] Comment on above: Performed By: #### L 100.0100, L3300.9900, L503.6550, L506.1000, L3300.6900 ####[facility] [address] [place], [address] MCV (RBC) [Entitic vol] 92.0 fL Normal 81-99 [facility] Comment on above: Performed By: #### L 100.0100, L3300.9900, L503.6550, L506.1000, L3300.6900 ####[facility] [address] [place], [address] Monocytes/100 WBC (Bld) 4.8 % Normal 0-10 [facility] Comment on above: Performed By: #### L 100.0100, L3300.9900, L503.6550, L506.1000, L3300.6900 ####[facility] [address] [place], [address] Neutrophils/100 WBC (Bld) 80.6 % High 47-70 [facility] Comment on above: Performed By: #### L 100.0100, L3300.9900, L503.6550, L506.1000, L3300.6900 ####[facility] [address] [place], [address] Nucleated RBC (Bld) [#/Vol] 0 10*3/uL Normal 0-5 [facility] Comment on above: Performed By: #### L 100.0100, L3300.9900, L503.6550, L506.1000, L3300.6900 ####[facility] [address] [place], [address] Platelet mean volume (Bld) [Entitic vol] 10.9 fL Normal 6.2-12.0 [facility] Comment on above: Performed By: #### L 100.0100, L3300.9900, L503.6550, L506.1000, L3300.6900 ####[facility] [address] [place], [address] Platelets (Bld) [#/Vol] 297 10*3/uL Normal 150-450 [facility] Comment on above: Performed By: #### L 100.0100, L3300.9900, L503.6550, L506.1000, L3300.6900 ####[facility] [address] [place], [address] RBC (Bld) [#/Vol] 4.15 10*6/uL Low 4.2-5.4 [facility] Comment on above: Performed By: #### L 100.0100, L3300.9900, L503.6550, L506.1000, L3300.6900 ####[facility] [address] [place], [address] RDW SD 43.8 fl Normal 35.1-43.9 [facility] Comment on above: Performed By: #### L 100.0100, L3300.9900, L503.6550, L506.1000, L3300.6900 ####[facility] [address] [place], [address] WBC (Bld) [#/Vol] 9.7 10*3/uL Normal 4.4-11.0 [facility] Comment on above: Performed By: #### L 100.0100, L3300.9900, L503.6550, L506.1000, L3300.6900 ####[facility] [address] [place], [address] Ferritinon 09-03-2024 Ferritin [Mass/Vol] 32 ng/mL Normal 8-252 [facility] Comment on above: Performed By: #### L 100.0100, L3300.9900, L503.6550, L506.1000, L3300.6900 ####[facility] [address] [place], [address] Vitamin D,25 Hydroxyon 09-03 Vitamin D 25-OH 46.9 ng/mL Normal [facility] Comment on above: Result Comment: Vesna min D 25(OH) Status Range Deficiency <20 ng/mL (50nmol/L) Insufficiency 20 - 30 ng/mL (50 - 75 nmol/L) Sufficiency 30 - 100 ng/mL (75 - 250 nmol/L) Toxicity >100 ng/mL (>250 nmol/L) Performed By: #### L 100.0100, L3300.9900, L503.6550, L506.1000, L3300.6900 ####[facility] [address] [place], [address] EGD Reporton 08-28-2024 EGD Report [facility] Medical Records Department [address] [place] [address] EGD Report MR#: [id number] Acct: [id number] Name: SLOAN BONILLA Rep #: [id number] : 2000 24 From: Angel Gutierrez DO PCP: RISHABH Chu [place] [facility] [place] Patient Name: Sloan Bonilla Procedure Date: 08/28/2024 1:36 PM Date of : 2000 Age: 24 Procedure: Upper GI endoscopy Indications: Dysphagia Providers: Angel Gutierrez DO Medicines: Monitored Anesthesia Care Patient Profile: This is a 24 year old female. Refer to note in patient chart for documentation of history and physical. Patient has symptoms of dysphagia with solids. Complications: No immediate complications. Procedure: Pre-Anesthesia Assessment: - Prior to the procedure, a History and Physical was performed, and patient medications and allergies were reviewed. The patient is competent. The risks and benefits of the procedure and the sedation options and risks were discussed with the patient. All questions were answered and informed consent was obtained. Patient identification and proposed procedure were verified by the physician in the pre-procedure area. Mental Status Examination: alert and oriented. Airway Examination: normal oropharyngeal airway and neck mobility. Respiratory Examination: clear to auscultation. CV Examination: normal. Prophylactic Antibiotics: The patient does not require prophylactic antibiotics. Prior Anticoagulants: The patient has taken no anticoagulant or antiplatelet agents except for NSAID medication. ASA Grade Assessment: II - A patient with mild systemic disease. After reviewing the risks and benefits, the patient was deemed in satisfactory condition to undergo the procedure. The anesthesia plan was to use monitored anesthesia care (MAC). Immediately prior to administration of medications, the patient was re-assessed for adequacy to receive sedatives. The heart rate, respiratory rate, oxygen saturations, blood pressure, adequacy of pulmonary ventilation, and response to care were monitored throughout the procedure. The physical status of the patient was re-assessed after the procedure. After obtaining informed consent, the endoscope was passed under direct vision. Throughout the procedure, the patient's blood pressure, pulse, and oxygen saturations were monitored continuously. The Endoscope was introduced through the mouth, and advanced to the second part of duodenum. The upper GI endoscopy was accomplished without difficulty. The patient tolerated the procedure well. Scope In: 1:47:12 PM Scope Out: 1:53:27 PM Total Procedure Duration Time 0 hours 6 minutes 15 seconds Findings: One benign-appearing, intrinsic moderate stenosis was found 38 to 40 cm from the incisors. This stenosis measured 3 cm (in length). The stenosis was traversed. A guidewire was placed and the scope was withdrawn. Dilation was performed with a Savary dilator with no resistance at 60 Fr. The dilation site was examined and showed moderate mucosal disruption. Estimated blood loss: none. The Z-line was irregular and was found 40 cm from the incisors. Biopsies were taken with a cold forceps for histology. Biopsies were taken with a cold forceps for histology. Verification of patient identification for the specimen was done. Estimated blood loss was minimal. Excessive fluid was found in the entire examined stomach. Fluid aspiration was performed. The first portion of the duodenum was normal. Impression: - Benign-appearing esophageal stenosis. Dilated. - Z-line irregular, 40 cm from the incisors. Biopsied. - Excessive gastric fluid. Fluid aspiration performed. - Normal first portion of the duodenum. Recommendation: - Discharge patient to home. - Full liquid diet today. - Continue present medications. - Await pathology results. Procedure Code(s): --- Professional --- 69533, Esophagogastroduodenosco py, flexible, transoral; with insertion of guide wire followed by passage of dilator(s) through esophagus over guide wire 21344, 59,51, Esophagogastroduodenosco py, flexible, transoral; with biopsy, single or multiple CPT copyright 2021 [employer]. All rights reserved. The codes documented in this report are preliminary and upon calcine furnace loader review may be revised to meet current compliance requirements. Angel Gutierrez DO 08/28/2024 2:00:38 PM This report has been signed electronically. Number of Addenda: 0 Note Initiated On: 08/28/2024 1:36 PM 08/28/24 1400 Date Angel Gutierrez DO Cosigner Signature: Date (if indicated) CC: ARABIC TEACHER-C Osman Gutierrez DO Date Dictated: 08/28/24 1336 Date Transcribed: Transcriptionis (more content not included)... Normal [facility] MR/POSTOP.ANEon 08-28-2024 MR/POSTOP.[facility] Medical Records Department [address] [place] [address] Anesthesia Postop Eval I 08/28/24 1403 MR#: [id number] Acct: [id number] Name: SLOAN BONILLA Rep #: [id number] : 2000 24 From: Nilay Balderas PCP: Osman Serrano ARABIC TEACHEROkC Status:REG SDC Y Race: C Location: AC AC18-1 Anesthesia: Postop Eval I Current Vital Signs Temperature: 97.9 F Pulse Rate: 85 Blood Pressure: 87/53 Respiratory Rate: 16 Pulse Ox: 98 Oxygen Delivery Method: Room Air Assessment Airway patent: Yes Spontaneous unlabored respirations: Yes Mental status: Asleep nausea: No Vomiting: No Anesthesia Complication: No Fluid Hydration Crystalloid volume administer (ml): 40 Total IV fluid infused: 40 Progress Note Anesthesia document: Postop Eval 1 completed: Yes 08/28/24 1403 Date Nilay Cruzigner Signature: Date CC: Signed Normal [facility]/[id number] 08-28-2024 /[facility] Medical Records Department [address] [place] [address] Anesthesia Postop Eval II 08/28/24 1611 MR#: [id number] Acct: [id number] Name: SLOAN BONILLA Rep #: [id number] : 2000 24 From: Micky Fernández MD 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 Y Race: C Location: EN Anesthesia Postop Eval I Sum Postop Eval Completion status Anesthesia document: Postop Eval 1 completed: Yes Anesthesia Postop Eval I Summary Anesthesia Postop Eval I Summary: Anesthesia Postop Eval I: Assessment Summary Airway patent Yes 08/28/24 14:03 [email or web address] Spontaneous unlabored Yes 08/28/24 14:03 [email or web address] respirations Mental status Asleep 08/28/24 14:03 [email or web address] nausea No 08/28/24 14:03 [email or web address] Vomiting No 08/28/24 14:03 [email or web address] Anesthesia Postop Eval I: Fluid Summary Crystalloid volume administer 40 08/28/24 14:03 [email or web address] (ml) Colloids volume administered ( ml) Blood Product volume administered (ml) Total IV fluid infused 40 08/28/24 14:03 [email or web address] Anesthesia Postop Eval I: Summary Notes Anesthesia Complication No 08/28/24 14:03 [email or web address] Anesthesia Complication Comment: Post-operative progress note Anesthesia: Postop Eval II Evaluation Mental status: Awake and Calm Pain Level: 0 nausea: No Vomiting: No Complications Anesthesia Complication: No 08/28/24 1612 Date Micky Jolene Rogers Signature: Date CC: Signed Normal [facility] ,Urineon 08-28-2024 Beta HCG ( test) Ql (U) Negative Normal [facility] Comment on above: Result Comment: Very dilute urine specimens, as indicated by a low specific gravity, may not contain traveling representative levels of hCG. If is still suspected, a first morning urine specimen should be collected 48 hours later and tested. Performed By: #### L 400.7600 ####[facility] [address] [place], [address] Special Stain Group Ion 11- Special Stain Group I ------ Patient Age/Sex Location Account Attending Physician SLOAN BONILLA EN [id number] Angel Gutierrez DO Specimen: [id number] Received: 08/28/24 Status: JAVIER Blockcandie Num: [id number] Spec Type: EGD BIOPSY Subm Dr: DO TRINITY Ramos OPERATION: EGD with biopsy and dilation PRE-OP DIAGNOSIS: Autoimmune hepatitis, constipation, dysphagia TISSUE SUBMITTED: Distal esophagus biopsy MICROSCOPIC DIAGNOSIS Distal esophagus, biopsy: Fragments of gastroesophageal mucosa with chronic inflammation. Intestinal metaplasia (goblet cell metaplasia) not identified. See comment. 08/30/2024 COMMENT Alcian blue/PAS stain with matched control is used in the evaluation of the specimen. The specimen predominantly consists of gastric mucosa. MICROSCOPIC DESCRIPTION Slides are reviewed. GROSS DESCRIPTION Received in fixative is one container labeled with the patient's name and designated Distal esophagus biopsy. The specimen consists of two irregular fragments of light christensen soft tissue that in aggregate measure 0.6 x 0.6 x 0.1 cm. The specimen is totally submitted in one cassette. 08/29/2024 TC:3 CPT:04141,18700 Patient Age/Sex Location Account Attending Physician SLOAN BONILLA EN [id number] Anegl Gutierrez DO Signed (signature on file) Dr. Maynor Chan MD 08/30/24 1133 Normal [facility] Comment on above: Performed By: #### P SSI ####[facility] [address] [place], [place], [id number] Magnesiumon 08-03-2024 Magnesium [Mass/Vol] 2.4 mg/dL Normal 1.6-2.6 [facility] Comment on above: Performed By: #### L 506.1000, L501.5200, L501.9520, L503.0105, L506.0400, L501.9186 ####[facility] [address] [place], [address] T3 Total - Triiodothyronineo n 08-03-2024 T3 Total 1.39 ng/mL Normal 0.6-1.81 [facility] Comment on above: Performed By: #### L 506.1000, L501.5200, L501.9520, L503.0105, L506.0400, L501.9186 ####[facility] [address] [place], [address] T4 Free Directon 08-03-2024 T4 FREE DIRECT 1.03 ng/dL Normal 0.76-1.46 [facility] Comment on above: Performed By: #### L 506.1000, L501.5200, L501.9520, L503.0105, L506.0400, L501.9186 ####[facility] [address] [place], [address] Thyroid Stim Hormone (TSH)on 08-03-2024 TSH 1.760 uIU/mL Normal 0.358-3.74 0 [facility] Comment on above: Performed By: #### L 506.1000, L501.5200, L501.9520, L503.0105, L506.0400, L501.9186 ####[facility] [address] [place], [address] Vitamin B12on 08-03-2024 Cobalamin (Vitamin B12) [Mass/Vol] 383 pg/mL Normal 211-911 [facility] Comment on above: Performed By: #### L 506.1000, L501.5200, L501.9520, L503.0105, L506.0400, L501.9186 ####[facility] [address] [place], [address] Vitamin D,25 Hydroxyon 08-03 Vitamin D 25-OH 42.2 ng/mL Normal [facility] Comment on above: Result Comment: Vesna min D 25(OH) Status Range Deficiency <20 ng/mL (50nmol/L) Insufficiency 20 - 30 ng/mL (50 - 75 nmol/L) Sufficiency 30 - 100 ng/mL (75 - 250 nmol/L) Toxicity >100 ng/mL (>250 nmol/L) Performed By: #### L 506.1000, L501.5200, L501.9520, L503.0105, L506.0400, L501.9186 ####[facility] [address] [place], [address] Amylaseon 07-13-2024 SANDRA 60 U/L Normal 25-115 [facility] Comment on above: Performed By: #### L 100.0100, L501.2450, L501.6710, L101.9900, L500.3400, L501.2400 ####[facility] [address] [place], [address] CBC W/Diff, Automatedon 10 Absolute Lymph 1.54 X10 3/uL Normal 0.83-4.51 [facility] Comment on above: Performed By: #### L 100.0100, L501.2450, L501.6710, L101.9900, L500.3400, L501.2400 ####[facility] [address] [place], [address] Absolute Neut 6.2 X10 3/uL Normal 2.0-7.7 [facility] Comment on above: Performed By: #### L 100.0100, L501.2450, L501.6710, L101.9900, L500.3400, L501.2400 ####[facility] [address] [place], [address] Basophils/100 WBC (Bld) 0.6 % Normal 0-1 [facility] Comment on above: Performed By: #### L 100.0100, L501.2450, L501.6710, L101.9900, L500.3400, L501.2400 ####[facility] [address] [place], [address] Eosinophils/100 WBC (Bld) 0.6 % Normal 0-5 [facility] Comment on above: Performed By: #### L 100.0100, L501.2450, L501.6710, L101.9900, L500.3400, L501.2400 ####[facility] [address] [place], [address] Erythrocyte distribution width (RBC) [Ratio] 13.4 % Normal 11.6-14.6 [facility] Comment on above: Performed By: #### L 100.0100, L501.2450, L501.6710, L101.9900, L500.3400, L501.2400 ####[facility] [address] [place], [address] Hematocrit (Bld) [Volume fraction] 36.7 % Low 37-47 [facility] Comment on above: Performed By: #### L 100.0100, L501.2450, L501.6710, L101.9900, L500.3400, L501.2400 ####[facility] [address] [place], [address] Hemoglobin (Bld) [Mass/Vol] 12.9 g/dL Normal 12.0-15.0 [facility] Comment on above: Performed By: #### L 100.0100, L501.2450, L501.6710, L101.9900, L500.3400, L501.2400 ####[facility] [address] [place], [address] IG% 0.600 Normal 0.0-0.9 [facility] Comment on above: Result Comment: IG% - Immature Granulocytes (promyelocytes, myelocytes and metamyelocytes) > 1% indicates that a LEFT SHIFT is Present. Performed By: #### L 100.0100, L501.2450, L501.6710, L101.9900, L500.3400, L501.2400 ####[facility] [address] [place], [address] Lymphocytes/100 WBC (Bld) 18.2 % Low 19-41 [facility] Comment on above: Performed By: #### L 100.0100, L501.2450, L501.6710, L101.9900, L500.3400, L501.2400 ####[facility] [address] [place], [address] MCH (RBC) [Entitic mass] 31.5 pg Normal 27.0-32.0 [facility] Comment on above: Performed By: #### L 100.0100, L501.2450, L501.6710, L101.9900, L500.3400, L501.2400 ####[facility] [address] [place], [address] MCHC (RBC) [Mass/Vol] 35.1 g/dL Normal 32-36 [facility] Comment on above: Performed By: #### L 100.0100, L501.2450, L501.6710, L101.9900, L500.3400, L501.2400 ####[facility] [address] [place], [address] MCV (RBC) [Entitic vol] 89.7 fL Normal 81-99 [facility] Comment on above: Performed By: #### L 100.0100, L501.2450, L501.6710, L101.9900, L500.3400, L501.2400 ####[facility] [address] [place], [address] Monocytes/100 WBC (Bld) 6.7 % Normal 0-10 [facility] Comment on above: Performed By: #### L 100.0100, L501.2450, L501.6710, L101.9900, L500.3400, L501.2400 ####[facility] [address] [place], [address] Neutrophils/100 WBC (Bld) 73.3 % High 47-70 [facility] Comment on above: Performed By: #### L 100.0100, L501.2450, L501.6710, L101.9900, L500.3400, L501.2400 ####[facility] [address] [place], [address] Nucleated RBC (Bld) [#/Vol] 0 10*3/uL Normal 0-5 [facility] Comment on above: Performed By: #### L 100.0100, L501.2450, L501.6710, L101.9900, L500.3400, L501.2400 ####[facility] [address] [place], [address] Platelet mean volume (Bld) [Entitic vol] 11.0 fL Normal 6.2-12.0 [facility] Comment on above: Performed By: #### L 100.0100, L501.2450, L501.6710, L101.9900, L500.3400, L501.2400 ####[facility] [address] [place], [address] Platelets (Bld) [#/Vol] 276 10*3/uL Normal 150-450 [facility] Comment on above: Performed By: #### L 100.0100, L501.2450, L501.6710, L101.9900, L500.3400, L501.2400 ####[facility] [address] [place], [address] RBC (Bld) [#/Vol] 4.09 10*6/uL Low 4.2-5.4 [facility] Comment on above: Performed By: #### L 100.0100, L501.2450, L501.6710, L101.9900, L500.3400, L501.2400 ####[facility] [address] [place], [address] RDW SD 43.5 fl Normal 35.1-43.9 [facility] Comment on above: Performed By: #### L 100.0100, L501.2450, L501.6710, L101.9900, L500.3400, L501.2400 ####[facility] [address] [place], [address] WBC (Bld) [#/Vol] 8.5 10*3/uL Normal 4.4-11.0 [facility] Comment on above: Performed By: #### L 100.0100, L501.2450, L501.6710, L101.9900, L500.3400, L501.2400 ####[facility] [address] [place], [address] CRPon 07-13-2024 C-REACTIVE PROT < 2.90 Normal 0.0-3.0 [facility] Comment on above: Result Comment: C-Re active Protein (CRP) provides useful information for the diagnosis, therapy and monitoring of inflammatory processes and associated diseases. For the evaluation of Relative Risk for Cardiovascular Disease, a High Sensitivity CRP (HSCRP) should be ordered. Performed By: #### L 100.0100, L501.2450, L501.6710, L101.9900, L500.3400, L501.2400 ####[facility] [address] [place], [address] Erythrocyte Sed Rateon 07-13 SED RATE 2 mm/hr Normal 0-30 [facility] Comment on above: Performed By: #### L 100.0100, L501.2450, L501.6710, L101.9900, L500.3400, L501.2400 ####[facility] [address] [place], [address] Lipaseon 07-13-2024 Lipase [Catalytic activity/Vol] 53 U/L Normal 13-75 [facility] Comment on above: Result Comment: Preet alegria note: LIPASE revised reference range effective 23. New Lipase methodology. Expected to produce lower values than the previous assay method. NEW Reference Range: 13 - 75 U/L Performed By: #### L 100.0100, L501.2450, L501.6710, L101.9900, L500.3400, L501.2400 ####[facility] [address] [place], [address] Liver Profileon 07-13-2024 Albumin [Mass/Vol] 3.5 g/dL Normal 3.2-5.0 [facility] Comment on above: Performed By: #### L 100.0100, L501.2450, L501.6710, L101.9900, L500.3400, L501.2400 ####[facility] [address] [place], [address] ALK P 69 U/L Normal 45-117 [facility] Comment on above: Performed By: #### L 100.0100, L501.2450, L501.6710, L101.9900, L500.3400, L501.2400 ####[facility] [address] [place], [address] ALT [Catalytic activity/Vol] 99 U/L High 13-56 [facility] Comment on above: Performed By: #### L 100.0100, L501.2450, L501.6710, L101.9900, L500.3400, L501.2400 ####[facility] [address] [place], [address] AST [Catalytic activity/Vol] 32 U/L Normal 15-37 [facility] Comment on above: Performed By: #### L 100.0100, L501.2450, L501.6710, L101.9900, L500.3400, L501.2400 ####[facility] [address] [place], [address] Bilirubin [Mass/Vol] 0.90 mg/dL Normal 0.20-1.00 [facility] Comment on above: Result Comment: For patients on eltrombopag therapy, use of Dimension Eunice TBIL is not recommended. Performed By: #### L 100.0100, L501.2450, L501.6710, L101.9900, L500.3400, L501.2400 ####[facility] [address] [place], [address] Bilirubin.direct [Mass/Vol] 0.33 mg/dL High 0.00-0.30 [facility] Comment on above: Performed By: #### L 100.0100, L501.2450, L501.6710, L101.9900, L500.3400, L501.2400 ####[facility] [address] [place], [address] Globulin (S) [Mass/Vol] 3.9 g/dL Normal 2.2-4.2 [facility] Comment on above: Performed By: #### L 100.0100, L501.2450, L501.6710, L101.9900, L500.3400, L501.2400 ####[facility] [address] [place], [address] T PROT 7.4 g/dL Normal 6.4-8.2 [facility] Comment on above: Performed By: #### L 100.0100, L501.2450, L501.6710, L101.9900, L500.3400, L501.2400 ####[facility] [address] [place], [address] XR KNEE THREE VIEWS LEFTon 0 2024 [...] Date: 2024 2:43:07 PM Ordering Provider: OSMAN SERRANO [facility] ([place] Gastroenterology Visit Repor camila 05-21-2024 Gastroenterology Visit Report [facility] Gastroenterology [address] [place] [address] OFFICE VISIT Date of Service: 05/21/24 MR#: [id number] Acct: [id number] Name: SLOAN BONILLA Rep #: [id number] : 2000 Provider: Angel Gutierrez DO Age/Sex: 23/F Location: [facility] [place] Status: Signed Intake Vital Signs 01/02/24 08:44 Height 5 ft 8 in Intake Visit Reasons: Follow up GI Allergies No Known Allergies Allergy (Verified 01/02/24 08:43) Medications ???Medication ???Instructions ???Recorded ???Confirmed ???Type omeprazole 20 mg capsule,delayed 20 mg PO DAILY PRN heartburn 06/10/22 05/21/24 History release azathioprine 50 mg tablet (Imuran) 50 mg PO DAILY #45 tabs 12/09/23 05/21/24 Rx ondansetron HCl 4 mg tablet 4 mg PO Q6H PRN PRN nausea/vomiting 12/28/23 05/21/24 History fludrocortisone 0.1 mg tablet 0.1 mg PO DAILY 05/21/24 05/21/24 History spironolactone 100 mg tablet 50 mg PO QPM 05/21/24 05/21/24 History PFSH Medical History Wears glasses History of Clostridium difficile infection Bruising Hepatitis History of IBS Gastric reflux Smoker IYER (nonalcoholic steatohepatitis) Bloating Surgical History History of liver biopsy Family History Grandmother Thyroid disorder Hypertension Social History Smoking Status: Light Smoker (<10/day) alcohol intake: never HPI HPI Details: SLOAN BONILLA, is a 23 F who presents to the office today for follow up. US and elastography . hepatic measurement 15.7cm with fatty infiltration, stiffness measures 5.8kPa. Colonoscopy 3.25.24 Tortuous colon. The examination was otherwise normal on direct and retroflexion views. No specimens collected. OV 8.24 pt reports daily nausea after she eats that gets worse the longer she has gone without a bm. Pt reports constipation has improved since colonoscopy in December when she started a fiber supplement and is now having 1-2 formed bm per week; denies blood in the stool. Pt reports increased HB that is worse when she has not been able to have a BM. Pt reports that she began having difficulty swallowing in mid April where she feels like she will either throw up or choke; states that she just takes a break from eating and the problem resolves. Pt reports she only has difficulty with food. ROS Const Constitutional: Positive for fatigue and weight change (weight loss); No fever(s) ENT ENT: Positive for difficulty swallowing Gastro GI: Positive for bloating, constipation, heartburn, difficulty swallowing, excessive flatus and nausea/dyspepsia; No abdominal pain, belching, change in bowel habits, change in stool character, coffee ground emesis, cramping, diarrhea, feeling full early, incontinent of stools, Vomiting blood/hematemesis, Blood in stool, loose stools, Black,tarry stools, pain with swallowing, vomiting or other Musc Musculoskeletal: Positive for muscle weakness, numbness and tingling; No joint pain Skin Skin: Positive for dry skin and itchy eyes; No yellowing of the eye Neuro Neurology: Positive for numbness and tingling Psych Psychiatric: No anxiety and No depression Endo Endocrine: Positive for fatigue and weight change (weight loss) Aller/Imm Allergy/Immunologic: Positive for itchy eyes Lawrence/Lymp Hematologic/Lymphatic: No easy bleeding or easy bruising Exam Const General: cooperative, no acute distress and well developed Nutritional Appearance: average body habitus Orientation: alert, awake and oriented x3 Other: BMI 18.1 %. thin body build. [facility] Head: normocephalic and atraumatic Nose: external nose normal Face and sinus: normal facial exam Mouth: moist mucous membranes Eyes Pupils: PERRL EOM: EOM intact bilaterally Neck Neck: normal visual inspection, no meningeal signs and trachea midline Carotids: no bruits Chest Chest palpation inspection: normal inspection of the chest Resp Effort Inspection: normal respiratory effort and symmetric chest movement Auscultation: Bilateral: Clear to Auscultation Cardio Palpation: normal PMI Rate: regular rate Rhythm: regular rhythm Heart Sounds: S1 normal and S2 normal GI Auscultation: normal bowel sounds Percussion: normal to percussion Palpation: soft, no hepatosplenomegaly and no guarding Other: No tenderness, no abdominal distention. Liver not enlarged. Spleen not palpable. No clinically palpable ascites. General: bimanual renal exam normal bilaterally, bladder normal to inspection and bladder normal to palpation Bimanual Exam- Vagina Uterus: bladder normal to palpation Musc Musculoskeletal: No joint tendernes (more content not included)... Normal [facility] Gastroenterology Visit Repor ton 05-03-2024 Gastroenterology Visit Report [facility] Gastroenterology [address] [place] [address] OFFICE VISIT Date of Service: 05/18/24 MR#: [id number] Acct: [id number] Name: SLOAN BONILLA Rep #: [id number] : 2000 Provider: Angel Gutierrez DO Age/Sex: 23/F [place] [facility] [place]: Signed Intake Vital Signs 01/02/24 08:44 Height 5 ft 8 in Intake Visit Reasons: Follow up GI Allergies No Known Allergies Allergy (Verified 01/02/24 08:43) PFSH Medical History Wears glasses History of Clostridium difficile infection Bruising Hepatitis History of IBS Gastric reflux Smoker IYER (nonalcoholic steatohepatitis) Bloating Surgical History History of liver biopsy Family History Grandmother Thyroid disorder Hypertension Social History Smoking Status: Light Smoker (<10/day) alcohol intake: never HPI HPI Details: SLOAN BONILLA, is a 23 F who presents to the office today for follow up. Sloan established with this clinic 08.19.22. She was previously diagnosed with autoimmune hepatitis by Dr. Granados in 2009 following routine lab work revealing transaminase elevation in the 400???s. Abdominal US followed by Liver biopsy 04.30.2010 mild chronic active hepatitis with portal inflammation 3 of 4, piecemeal necrosis /20, lobular degeneration/necrosis ??? and fibrosis 0/4. Subsequently started on prednisone and Imuran with marked improvement of transaminases. US RUQ 4.20.17 normal. Liver biopsy 09.09.2017 portal inflammation 1 of 4 with mild lymphocytes in one portal area; periportal/periseptal inflammation 0 of 5; parenchymal changes 0 of 4, confluent necrosis 0 of 6; fibrosis 0 of 6. she developed dark urine and jaundice with AST 89/ALT 125, TB 3.1, DB 0.8, platelet 132 ??? started on prednisone 40mg QD. 12.22.20 labs AST 122/ALT 184, TB 2.4 ??? prednisone 30mg BID. Liver US normal, doppler reports portal HTN. 12.30.20 labs AST 26/ALT 101, TB 1.1, DB 0.2. 6TG 250, 6MMP 392. ??? Imuran increased to 75mg QD. 01.13.21 labs normalized and prednisone Weaned .06.30 labs AST 23/ALT39, TB 1.3, DB0.2 6TG 414, 6MMP <322 US liver 07.20.21 without portal HTN noted PMH CDI infection at age 10 requiring hospitalization. FH negative for IBD/liver disease. Biochemical workup ESR, coagulation, Ferritin, LDH, CRP, celiac, GUME comp, hepatitis, ANCA, ASM ab, IgGAE without pertinent abnormality. IgM H242 US RUQ and elastography 09.21.22 with normal hepatic echogenicity. No abnormalities noted. Hepatic stiffness measures 5.5kPa. Plan LV 08.19.22: Constipation ??? Autoimmune Hepatitis ??? biochemical workup and imaging BM have slightly improved with less days between BM but continues to have very small/hard BM without abd pain/bloating/discomfort /bleeding associated. Reports some nausea in the form of a ???gaggy??? feeling that she believes is related to her heartburn. Heartburn is an issue approximately 1-2 times a week, feels this is partially associated with poor diet choices. OV 8.9.23 In regards to her liver she feels she is doing very well. She has been itching lately; though body lotion has been helpful. Constipation has been an issue for the last few months; she will have no BM/very small BM for several weeks, has had one episode of loose stool with preceding abdominal cramping. She is not typically having abdominal pain. With this she has been having nausea and decreased appetite, though she continues to feel hungry. [facility] recommended Colace and fiber which have been ineffective. US abd/elastography 06.01.23- Liver measures 15.7 5.8 kPa OV 11.23- Pt is stable since last visit. Currently taking Imuran 50mg as we were trying to wean her off at last visit. Has tolerated it well. Still struggles with constipation. PCP has her on Amitiza 8mcg BID. Is somewhat helpful Has a BM 1-2 days but feels she is not emptying. Lower abd cramping due to constipation. Is concerned about hair loss. Patient had thin hair and subsequent hair loss before 2009 that led to the diagnosis of AIH after liver biopsy but it got better and her hair becomes thicker after starting on Imuran. It was good until last 4 months again same thing here with hair loss. Patient has not seen electrophonic engineer. Denies abdominal pain. OV 3.1.24- Pt continues to have constipation. Did not go for 3 weeks and was seen at [facility] a month ago. Is taking Amitiza 16mcg BID from her primary. BM are still every 5 days. Also has had dizziness, SOB and fatigue. Has also started seeing [facility] and they are currently working her up for possible Nassawadox's disease and pots. Colonoscopy (more content not included)... Normal [facility] CRPon 04-26-2024 C-REACTIVE PROT < 2.90 Normal 0.0-3.0 [facility] Comment on above: Result Comment: C-Re active Protein (CRP) provides useful information for the diagnosis, therapy and monitoring of inflammatory processes and associated diseases. For the evaluation of Relative Risk for Cardiovascular Disease, a High Sensitivity CRP (HSCRP) should be ordered. Performed By: #### L 501.6710, L500.3400, L300.3900 ####[facility] [address] [place], [address] Liver Profileon 04-26-2024 Albumin [Mass/Vol] 4.2 g/dL Normal 3.2-5.0 [facility] Comment on above: Performed By: #### L 501.6710, L500.3400, L300.3900 ####[facility] [address] [place], [address] ALK P 76 U/L Normal 45-117 [facility] Comment on above: Performed By: #### L 501.6710, L500.3400, L300.3900 ####[facility] [address] [place], [address] ALT [Catalytic activity/Vol] 29 U/L Normal 13-56 [facility] Comment on above: Performed By: #### L 501.6710, L500.3400, L300.3900 ####[facility] [address] [place], [address] AST [Catalytic activity/Vol] 15 U/L Normal 15-37 [facility] Comment on above: Performed By: #### L 501.6710, L500.3400, L300.3900 ####[facility] [address] [place], [address] Bilirubin [Mass/Vol] 1.00 mg/dL Normal 0.20-1.00 [facility] Comment on above: Result Comment: For patients on eltrombopag therapy, use of Dimension Eunice TBIL is not recommended. Performed By: #### L 501.6710, L500.3400, L300.3900 ####[facility] [address] [place], [address] Bilirubin.direct [Mass/Vol] 0.30 mg/dL Normal 0.00-0.30 [facility] Comment on above: Performed By: #### L 501.6710, L500.3400, L300.3900 ####[facility] [address] [place], [address] Globulin (S) [Mass/Vol] 3.5 g/dL Normal 2.2-4.2 [facility] Comment on above: Performed By: #### L 501.6710, L500.3400, L300.3900 ####[facility] [address] [place], [address] T PROT 7.7 g/dL Normal 6.4-8.2 [facility] Comment on above: Performed By: #### L 501.6710, L500.3400, L300.3900 ####[facility] [address] [place], [address] Prothrombin Time w/INRon INR Coag (PPP) [Relative time] 1.2 {INR} Normal [facility] Comment on above: Performed By: #### L 501.6710, L500.3400, L300.3900 ####[facility] [address] [place], [place], [address] PT Coag (PPP) [Time] 14.8 s Normal 11.7-14.9 [facility] Comment on above: Performed By: #### L 501.6710, L500.3400, L300.3900 ####[facility] [address] [place], [address] GUME w/ Reflex Mult Confirmon 03-21-2024 GUME,DIRECT Negative Normal Negative [facility] Comment on above: Result Comment: Perf ormed at: [facility] [address] [id number] Automotive Electrician: Brett Cobos PhD, Phone: [phone] Performed By: #### L 3300.1200, L100.0100, L500.4050, L3100.5450, L800.1280, L803.2200 #### [facility] [address] [place], [place], [id number] ANCAon 03-21-2024 Atypical pANCA <1:20 Normal Neg:<1:20 [facility] Comment on above: Result Comment: The atypical pANCA pattern has been observed in a significant percentage of patients with ulcerative colitis, primary sclerosing cholangitis and autoimmune hepatitis. Performed By: #### L 3300.1200, L100.0100, L500.4050, L3100.5450, L800.1280, L803.2200 ####[facility] [address] [place], [place], [address] Cytoplasmic Ab <1:20 Normal Neg:<1:20 [facility] Comment on above: Performed By: #### L 3300.1200, L100.0100, L500.4050, L3100.5450, L800.1280, L803.2200 ####[facility] [address] [place], [place], [id number] Perinuclear Ab. <1:20 Normal Neg:<1:20 [facility] Comment on above: Result Comment: The presence of positive fluorescence exhibiting P-ANCA or C-ANCA patterns alone is not specific for the diagnosis of Lois's Granulomatosis (WG) or microscopic polyangiitis. Decisions about treatment should not be based solely on ANCA IFA results. The International ANCA Group Consensus recommends follow up testing of positive sera with both DC- 3 and MPO-ANCA enzyme immunoassays. As many as 5% serum samples are positive only by EIA. Ref. AM J Clin Pathol 1999;111:507-513. Performed By: #### L 3300.1200, L100.0100, L500.4050, L3100.5450, L800.1280, L803.2200 ####[facility] [address] [place], [place], [id number] Anti-Mitochondrial ABon 03-10 ANTIMITOCHON AB <20.0 Normal 0.0-20.0 [facility] Comment on above: Result Comment: Nega tive 0.0 - 20.0 Equivocal 20.1 - 24.9 Positive >24.9 Mitochondrial (M2) Antibodies are found in 90-96% of patients with primary biliary cirrhosis. Performed By: #### L 3300.1200, L100.0100, L500.4050, L3100.5450, L800.1280, L803.2200 #### [facility] [address] [place], [address] Anti-Smooth Muscle ABSon ANTISMOOTH MUSC 18 Units Normal 0-19 [facility] Comment on above: Result Comment: Nega tive 0 - 19 Weak positive 20 - 30 Moderate to strong positive >30 Actin Antibodies are found in 52-85% of patients with autoimmune hepatitis or chronic active hepatitis and in 22% of patients with primary biliary cirrhosis. Performed at: [facility] [address] [id number] Automotive Electrician: Brett Cobos PhD, Phone: [phone] Performed By: #### L 3258.3260, L100.0102, L500.1303, M5240.4090, L939.2711, L332.3752 #### [facility] [address] [place], [address] Gastroenterology Visit Repor ton 03-20-2024 Gastroenterology Visit Report [facility] Gastroenterology [address] [place] [address] OFFICE VISIT Date of Service: 03/20/24 MR#: [id number] Acct: [id number] Name: SLOAN BONILLA Rep #: [id number] : 2000 Provider: Dr. Artie victoria MD Age/Sex: 23/F [place] [facility] [place]: Signed Intake Vital Signs 12/09/23 08:21 01/02/24 08:44 03/20/24 11:41 Height 5 ft 8 in 5 ft 8 in Weight: 119 lb BP 106/70 Pulse 70 Pulse Oximetry (%) 96 Intake Visit Reasons: FOLLOW UP Allergies No Known Allergies Allergy (Verified 01/02/24 08:43) [facility] Medical History Wears glasses History of Clostridium difficile infection Bruising Hepatitis History of IBS Gastric reflux Smoker IYER (nonalcoholic steatohepatitis) Bloating Surgical History History of liver biopsy Family History Grandmother Thyroid disorder Hypertension Social History Smoking Status: Light Smoker (<10/day) alcohol intake: never HPI HPI Details: SLOAN BONILLA, is a 23 F who presents to the office today for ROS Const Constitutional: No fever(s), decreased energy, weakness or weight change ENT ENT: No dizziness/vertigo, nosebleed/epistaxis or tongue swelling Resp Respiratory: No shortness of breath or wheezing Cardio Cardiology: No chest pain at rest or dyspnea on exertion Gastro GI: Positive for bloating, constipation, heartburn, excessive flatus and nausea/dyspepsia Genitourinary-Female: No difficulty urinating or burning urination Musc Musculoskeletal: Positive for joint pain and muscle cramps Skin Skin: Positive for dry skin; No rash Neuro Neurology: No abnormal movements, behavioral changes, weakness or lack of coordination Psych Psychiatric: No behavioral changes, No hyperactivity and No inattentiveness Endo Endocrine: No increased thirst/drinking, increased hunger or weight change Aller/Imm Allergy/Immunologic: No tongue swelling or wheezing Lawrence/Lymp Hematologic/Lymphatic: No easy bleeding or easy bruising Exam Const General: cooperative, no acute distress and well developed Nutritional Appearance: average body habitus Orientation: alert, awake and oriented x3 Other: BMI 18.1 %. thin body build. [facility] Head: normocephalic and atraumatic Nose: external nose normal Face and sinus: normal facial exam Mouth: moist mucous membranes Eyes Pupils: PERRL EOM: EOM intact bilaterally Neck Neck: normal visual inspection, no meningeal signs and trachea midline Carotids: no bruits Chest Chest palpation inspection: normal inspection of the chest Resp Effort Inspection: normal respiratory effort and symmetric chest movement Auscultation: Bilateral: Clear to Auscultation Cardio Palpation: normal PMI Rate: regular rate Rhythm: regular rhythm Heart Sounds: S1 normal and S2 normal GI Auscultation: normal bowel sounds Percussion: normal to percussion Palpation: soft, no hepatosplenomegaly and no guarding Other: No tenderness, no abdominal distention. Liver not enlarged. Spleen not palpable. No clinically palpable ascites. General: bimanual renal exam normal bilaterally, bladder normal to inspection and bladder normal to palpation Bimanual Exam- Vagina Uterus: bladder normal to palpation Musc Musculoskeletal: No joint tenderness, joint redness, joint warmth or decreased range of motion Thoracic/Lumbar Spine: thor and lumb spine abnorm to inspection Skin General: rashes and/or lesions noted, turgor normal and no erythema Wounds: wound noted Other: Alopecia. chronic Hair loss. Neuro General: patient alert, patient awake, patient oriented x3 and no focal motor deficits Speech: speech normal Motor: muscle tone normal throughout Extrem General: normal exam except as noted Psych Appearance: grossly normal Mood: congruent mood Affect: normal affect Attitude: cooperative Assessment and Plan Assessment and Plan (1) Autoimmune hepatitis: Status: Chronic Plan: This is a 22-year-old female patient who was diagnosed with AIH type I almost a decade ago; which usually in pancreatic is group's type II. Her lab work reviewed. CBC all 3 cell lines are in normal range. Liver chemistry shows ALT 72, AST 15 otherwise all liver normals. Autoimmune work-up was essentially negative. QuantiFERON gold test negative. Hepatitis panel negative.Last abdominal ultrasound in May 2023 reported normal liver size 15.7 cm with normal echogenicity. Biliary system within normal limit. No gallstones CBD 2 mm. Size and echogenicity. No pancreatic mass or cyst. Liver elastography reported 5.5 kPa compatible with F3 t (more content not included)... Normal [facility] CBC W/Diff, Automatedon --2023 Absolute Lymph 1.18 X10 3/uL Normal 0.83-4.51 [facility] Comment on above: Performed By: #### L 3300.1200, L100.0100, L500.4050, L3100.5450, L800.1280, L803.2200 #### [facility] [address] [place], [address] Absolute Neut 6.9 X10 3/uL Normal 2.0-7.7 [facility] Comment on above: Performed By: #### L 3300.1200, L100.0100, L500.4050, L3100.5450, L800.1280, L803.2200 #### [facility] [address] [place], [address] Basophils/100 WBC (Bld) 0.6 % Normal 0-1 [facility] Comment on above: Performed By: #### L 3300.1200, L100.0100, L500.4050, L3100.5450, L800.1280, L803.2200 #### [facility] [address] [place], [address] Eosinophils/100 WBC (Bld) 0.6 % Normal 0-5 [facility] Comment on above: Performed By: #### L 3300.1200, L100.0100, L500.4050, L3100.5450, L800.1280, L803.2200 #### [facility] [address] [place], [address] Erythrocyte distribution width (RBC) [Ratio] 14.4 % Normal 11.6-14.6 [facility] Comment on above: Performed By: #### L 3300.1200, L100.0100, L500.4050, L3100.5450, L800.1280, L803.2200 #### [facility] [address] [place], [address] Hematocrit (Bld) [Volume fraction] 39.6 % Normal 37-47 [facility] Comment on above: Performed By: #### L 3300.1200, L100.0100, L500.4050, L3100.5450, L800.1280, L803.2200 #### [facility] [address] [place], [address] Hemoglobin (Bld) [Mass/Vol] 13.6 g/dL Normal 12.0-15.0 [facility] Comment on above: Performed By: #### L 3300.1200, L100.0100, L500.4050, L3100.5450, L800.1280, L803.2200 #### [facility] [address] [place], [address] IG% 0.500 Normal 0.0-0.9 [facility] Comment on above: Result Comment: IG% - Immature Granulocytes (promyelocytes, myelocytes and metamyelocytes) > 1% indicates that a LEFT SHIFT is Present. Performed By: #### L 3300.1200, L100.0100, L500.4050, L3100.5450, L800.1280, L803.2200 #### [facility] [address] [place], [address] Lymphocytes/100 WBC (Bld) 13.6 % Low 19-41 [facility] Comment on above: Performed By: #### L 3300.1200, L100.0100, L500.4050, L3100.5450, L800.1280, L803.2200 #### [facility] [address] [place], [address] MCH (RBC) [Entitic mass] 32.2 pg High 27.0-32.0 [facility] Comment on above: Performed By: #### L 3300.1200, L100.0100, L500.4050, L3100.5450, L800.1280, L803.2200 #### [facility] [address] [place], [address] MCHC (RBC) [Mass/Vol] 34.3 g/dL Normal 32-36 [facility] Comment on above: Performed By: #### L 3300.1200, L100.0100, L500.4050, L3100.5450, L800.1280, L803.2200 #### [facility] [address] [place], [address] MCV (RBC) [Entitic vol] 93.8 fL Normal 81-99 [facility] Comment on above: Performed By: #### L 3300.1200, L100.0100, L500.4050, L3100.5450, L800.1280, L803.2200 #### [facility] [address] [place], [address] Monocytes/100 WBC (Bld) 5.3 % Normal 0-10 [facility] Comment on above: Performed By: #### L 3300.1200, L100.0100, L500.4050, L3100.5450, L800.1280, L803.2200 #### [facility] [address] [place], [address] Neutrophils/100 WBC (Bld) 79.4 % High 47-70 [facility] Comment on above: Performed By: #### L 3300.1200, L100.0100, L500.4050, L3100.5450, L800.1280, L803.2200 #### [facility] [address] [place], [address] Nucleated RBC (Bld) [#/Vol] 0 10*3/uL Normal 0-5 [facility] Comment on above: Performed By: #### L 3300.1200, L100.0100, L500.4050, L3100.5450, L800.1280, L803.2200 #### [facility] [address] [place], [address] Platelet mean volume (Bld) [Entitic vol] 10.9 fL Normal 6.2-12.0 [facility] Comment on above: Performed By: #### L 3300.1200, L100.0100, L500.4050, L3100.5450, L800.1280, L803.2200 #### [facility] [address] [place], [address] Platelets (Bld) [#/Vol] 308 10*3/uL Normal 150-450 [facility] Comment on above: Performed By: #### L 3300.1200, L100.0100, L500.4050, L3100.5450, L800.1280, L803.2200 #### [facility] [address] [place], [address] RBC (Bld) [#/Vol] 4.22 10*6/uL Normal 4.2-5.4 [facility] Comment on above: Performed By: #### L 3300.1200, L100.0100, L500.4050, L3100.5450, L800.1280, L803.2200 #### [facility] [address] [place], [address] RDW SD 49.1 fl High 35.1-43.9 [facility] Comment on above: Performed By: #### L 3300.1200, L100.0100, L500.4050, L3100.5450, L800.1280, L803.2200 #### [facility] [address] [place], [address] WBC (Bld) [#/Vol] 8.7 10*3/uL Normal 4.4-11.0 [facility] Comment on above: Performed By: #### L 3300.1200, L100.0100, L500.4050, L3100.5450, L800.1280, L803.2200 #### [facility] [address] [place], [address] Comprehensive Metabolic Prof [facility] 03-19-2024 Albumin [Mass/Vol] 4.0 g/dL Normal 3.2-5.0 [facility] Comment on above: Performed By: #### L 3300.1200, L100.0100, L500.4050, L3100.5450, L800.1280, L803.2200 #### [facility] [address] [place], [address] Albumin/Globulin [Mass ratio] 0.9 {ratio} Normal 0.9-2.4 [facility] Comment on above: Performed By: #### L 3300.1200, L100.0100, L500.4050, L3100.5450, L800.1280, L803.2200 #### [facility] [address] [place], [address] ALK P 79 U/L Normal 45-117 [facility] Comment on above: Performed By: #### L 3300.1200, L100.0100, L500.4050, L3100.5450, L800.1280, L803.2200 #### [facility] [address] [place], [address] ALT [Catalytic activity/Vol] 227 U/L High 13-56 [facility] Comment on above: Performed By: #### L 3300.1200, L100.0100, L500.4050, L3100.5450, L800.1280, L803.2200 #### [facility] [address] [place], [address] AST [Catalytic activity/Vol] 81 U/L High 15-37 [facility] Comment on above: Performed By: #### L 3300.1200, L100.0100, L500.4050, L3100.5450, L800.1280, L803.2200 #### [facility] [address] [place], [address] Bilirubin [Mass/Vol] 1.70 mg/dL High 0.20-1.00 [facility] Comment on above: Result Comment: For patients on eltrombopag therapy, use of Dimension Eunice TBIL is not recommended. Performed By: #### L 3300.1200, L100.0100, L500.4050, L3100.5450, L800.1280, L803.2200 #### [facility] [address] [place], [address] BUN/CRE 8.5 RATIO Low 10-20 [facility] Comment on above: Performed By: #### L 3300.1200, L100.0100, L500.4050, L3100.5450, L800.1280, L803.2200 #### [facility] [address] [place], [address] CA,Total 9.5 mg/dL Normal 8.5-10.1 [facility] Comment on above: Performed By: #### L 3300.1200, L100.0100, L500.4050, L3100.5450, L800.1280, L803.2200 #### [facility] [address] [place], [address] Chloride [Moles/Vol] 105 mmol/L Normal 98-107 [facility] Comment on above: Performed By: #### L 3300.1200, L100.0100, L500.4050, L3100.5450, L800.1280, L803.2200 #### [facility] [address] [place], [address] CO2 [Moles/Vol] 25.0 mmol/L Normal 21.0-32.0 [facility] Comment on above: Performed By: #### L 3300.1200, L100.0100, L500.4050, L3100.5450, L800.1280, L803.2200 #### [facility] [address] [place], [address] Creatinine [Mass/Vol] 0.82 mg/dL Normal 0.55-1.02 [facility] Comment on above: Result Comment: The validity of the calculated GFR GFRAA in patients over 70 years has not been determined. Clinical correlation is essential. Performed By: #### L 3300.1200, L100.0100, L500.4050, L3100.5450, L800.1280, L803.2200 #### [facility] [address] [place], [address] EST GFR - AA 110 mL/min Normal >60 [facility] Comment on above: Result Comment: Afri can Togolese GFR Calc Performed By: #### L 3300.1200, L100.0100, L500.4050, L3100.5450, L800.1280, L803.2200 #### [facility] [address] [place], [address] GAP 5 Normal 5-15 [facility] Comment on above: Performed By: #### L 3300.1200, L100.0100, L500.4050, L3100.5450, L800.1280, L803.2200 #### [facility] [address] [place], [address] GFR/1.73 sq M.predicted among non-blacks MDRD (S/P/Bld) [Vol rate/Area] 91 mL/min/{1.73_m2} Normal >60 [facility] Comment on above: Result Comment: Non- GFR Calc Performed By: #### L 3300.1200, L100.0100, L500.4050, L3100.5450, L800.1280, L803.2200 #### [facility] [address] [place], [address] Globulin (S) [Mass/Vol] 4.4 g/dL High 2.2-4.2 [facility] Comment on above: Performed By: #### L 3300.1200, L100.0100, L500.4050, L3100.5450, L800.1280, L803.2200 #### [facility] [address] [place], [address] Glucose [Mass/Vol] 113 mg/dL High 74-106 [facility] Comment on above: Result Comment: Fast ing Glucose result from 100 to 125 mg/dL suggests IMPAIRED HOMEOSTASIS per A.D.A. criteria. Performed By: #### L 3300.1200, L100.0100, L500.4050, L3100.5450, L800.1280, L803.2200 #### [facility] [address] [place], [address] Potassium [Moles/Vol] 3.6 mmol/L Normal 3.5-5.1 [facility] Comment on above: Performed By: #### L 3300.1200, L100.0100, L500.4050, L3100.5450, L800.1280, L803.2200 #### [facility] [address] [place], [address] Sodium [Moles/Vol] 135 mmol/L Low 136-145 [facility] Comment on above: Performed By: #### L 3300.1200, L100.0100, L500.4050, L3100.5450, L800.1280, L803.2200 #### [facility] [address] [place], [address] T PROT 8.4 g/dL High 6.4-8.2 [facility] Comment on above: Performed By: #### L 3300.1200, L100.0100, L500.4050, L3100.5450, L800.1280, L803.2200 #### [facility] [address] [place], [address] Urea nitrogen [Mass/Vol] 7 mg/dL Normal 7-18 [facility] Comment on above: Performed By: #### L 3300.1200, L100.0100, L500.4050, L3100.5450, L800.1280, L803.2200 #### [facility] [address] [place], [address] ANDROon 01-23-2024 Androstenedione LCMS 47 ng/dL Normal 41-262 On license of [facility] ([place]) Comment on above: Result Comment: This test was developed and its performance characteristics determined by [facility]. It has not been cleared or approved by the Food and Drug Administration. Performed At: [address] [id number] Cristian Li MD Ph:[phone] Performed By: #### 0 [address] #### [address] [address] TFTESTon 01-18-2024 Free Testost Direct 0.7 pg/mL Normal 0.0-4.2 [facility] ([place]) Comment on above: Result Comment: Perf ormed At: [address] [id number] Cristian Li MD Ph:[phone] Performed At: [address] [id number] Chandrika West PhD Ph:[phone] Performed By: #### 0 [address], FERR, CBC, ANEU, TSH, 938992, GFR, CMP, 243117, FT4, ADIFF #### [place] [address] #### FOL, DHEAS, B12 #### [place] [address] Testosterone Lvl <3 Low 13-71 [facility] ([place]) Comment on above: Performed By: #### 0 90436, FERR, CBC, ANEU, TSH, 655768, GFR, CMP, 657873, FT4, ADIFF #### [place] [address] #### FOL, DHEAS, B12 #### [place] [address] ANDROon 01-16-2024 Androstenedione LCMS Not performed Normal [facility] ([place]) Comment on above: Result Comment: Test not performed. Gel barrier tube unsuitable for test ordered. Contacted Brianna Gómez at your facility 01/16/2024 This test was developed and its performance characteristics determined by [facility]. It has not been cleared or approved by the Food and Drug Administration. Performed At: [address] [id number] Cristian Li MD Ph:[phone] Performed By: #### 0 35225, FERR, CBC, ANEU, TSH, 900425, GFR, CMP, 793901, FT4, ADIFF #### [place] [address] #### FOL, DHEAS, B12 #### [facility] [address] [place], [place] [address] Laboratory - Chemistry and C hemistry - challengeOrdered By: Jose De Jesus Arthur on 01-02-2024 HCG ( test) Ql (U) Negative [facility] Comment on above: Very dilute urine sp ecimens, as indicated by a low specificgravity, may not contain traveling representative levels of hCG. If is still suspected, a first morning urinespecimen should be collected 48 hours later and tested. CORTon 12-17-2023 Cortisol Level 32.4 mcg/dL Normal [facility] ([place]) Comment on above: Order Comment: 60 mi n post cortrosyn IV injection Result Comment: Fili isol AM Reference Range 6.5-26.0 mcg/dL Cortisol PM Reference Range 3.5-15.0 mcg/dL Performed By: #### 0 69721, FERR, CBC, ANEU, TSH, 827974, GFR, CMP, 022675, FT4, ADIFF #### [address] [address] #### FOL, DHEAS, B12 #### [place] [address] Cortisol Level 15.3 mcg/dL Normal [facility] ([place]) Comment on above: Order Comment: draw baseline cortisol, then inject with 250 MCG of cortrosyn IM/IV and then draw level at 30 mins and 60 mins. Result Comment: Fili isol AM Reference Range 6.5-26.0 mcg/dL Cortisol PM Reference Range 3.5-15.0 mcg/dL Performed By: #### 0 88799, FERR, CBC, ANEU, TSH, 482204, GFR, CMP, 235144, FT4, ADIFF #### [address] [address] #### FOL, DHEAS, B12 #### [place] [address] Cortisol Level 24.4 mcg/dL Normal [facility] ([place]) Comment on above: Order Comment: 30 mi n post cortrosyn IV inj Result Comment: Fili isol AM Reference Range 6.5-26.0 mcg/dL Cortisol PM Reference Range 3.5-15.0 mcg/dL Performed By: #### 0 93825, FERR, CBC, ANEU, TSH, 167938, GFR, CMP, 402762, FT4, ADIFF #### [facility] [address] [place], [place] [address] #### FOL, DHEAS, B12 #### [address] [address] LABORATORYOrdered By: SYSTEM SYSTEM on 12-16-2023 Cortisol [Mass/Vol] 32.4 ug/dL Invalid Interpretation Code [facility] Comment on above: Interpretive Data: C ortisol AM Reference Range 6.5-26.0 mcg/dL Cortisol PM Reference Range 3.5-15.0 mcg/dL Cortisol [Mass/Vol] 24.4 ug/dL Invalid Interpretation Code [facility] Comment on above: Interpretive Data: C ortisol AM Reference Range 6.5-26.0 mcg/dL Cortisol PM Reference Range 3.5-15.0 mcg/dL Cortisol [Mass/Vol] 15.3 ug/dL Invalid Interpretation Code [facility] Comment on above: Interpretive Data: C ortisol AM Reference Range 6.5-26.0 mcg/dL Cortisol PM Reference Range 3.5-15.0 mcg/dL Absolute lymphocyte countOrd ered By: Artie Martinez on 12-07-2023 Lymphocytes Auto (Unsp spec) [#/Vol] 1.98 10*3/uL 0.83-4.51 [facility] Automated lymphocyte count a s percentage of total leukocytesOrdered By: Artie Martinez on 12-07-2023 Lymphocytes/100 WBC Auto (Unsp spec) 27.6 % 19-41 [facility] Basophil percentageOrdered B y: Atrie Martinez on 12-07-2023 Basophils/100 WBC (Bld) 0.6 % 0-1 [facility] Bilirubin [Mass/Vol] 1.00 mg/dL 0.20-1.00 [facility] Comment on above: For patients on eltr ombopag therapy, use of Dimension Eunice TBIL is not recommended. Chloride [Moles/Vol] 106 mmol/L 98-107 [facility] Eosinophils/100 WBC (Bld) 1.0 % 0-5 [facility] Glucose [Mass/Vol] 86 mg/dL 74-106 [facility] Hemoglobin (Bld) [Mass/Vol] 14.4 g/dL 12.0-15.0 [facility] Monocytes/100 WBC (Bld) 5.7 % 0-10 [facility] Neutrophils (Bld) [#/Vol] 4.7 10*3/uL 2.0-7.7 [facility] Neutrophils/100 WBC (Bld) 64.8 % 47-70 [facility] Potassium [Moles/Vol] 3.8 mmol/L 3.5-5.1 [facility] Protein [Mass/Vol] 8.1 g/dL 6.4-8.2 [facility] Sodium [Moles/Vol] 138 mmol/L 136-145 [facility] WBC (Bld) [#/Vol] 7.2 10*3/uL 4.4-11.0 [facility] Determination of erythrocyte mean corpuscular volume (MCV)Ordered By: Artie Martinez on 12-07-2023 MCV (RBC) [Entitic vol] 90.0 fL 81-99 [facility] Erythrocyte distribution wid th ratioOrdered By: Artie Martinez on 12-07-2023 Erythrocyte distribution width (RBC) [Ratio] 13.0 % 11.6-14.6 [facility] Erythrocyte distribution wid th standard deviationOrdered By: Artie Martinez on 12-07-2023 Erythrocyte distribution width (RBC) [Entitic vol] 42.2 fL 35.1-43.9 [facility] Erythrocyte sedimentation ra teOrdered By: Artie Martinez on 12-07-2023 ESR (Bld) [Velocity] mm/h 0-30 [facility] Hematocrit Auto (Bld) [Volum e fraction]Ordered By: Artie Martinez on 12-07-2023 Hematocrit (Bld) [Volume fraction] 40.4 % 37-47 [facility] Immature granulocytes/100 WB C Auto (Bld)Ordered By: Artie Martinez on 12-07-2023 Immature granulocytes/100 WBC (Bld) 0.300 % 0.0-0.9 [facility] Comment on above: IG% - Immature Granu locytes (promyelocytes, myelocytes and metamyelocytes) > 1% indicates that a LEFT SHIFT is Present. Laboratory - Chemistry and C hemistry - challengeOrdered By: Artie Martinez on 12-07-2023 Albumin/Globulin [Mass ratio] 1.2 {ratio} 0.9-2.4 [facility] ALP [Catalytic activity/Vol] 63 U/L 45-117 [facility] ALT [Catalytic activity/Vol] 20 U/L 13-56 [facility] CO2 [Moles/Vol] 25.0 mmol/L 21.0-32.0 [facility] Globulin (S) [Mass/Vol] 3.7 g/dL 2.2-4.2 [facility] Urea nitrogen/Creatinine [Mass ratio] 12.0 mg/mg 10-20 [facility] Laboratory - CoagulationOrde red By: Artie Martinez on 12-07-2023 INR Coag (Bld) [Relative time] 1.2 {INR} [facility] PT Coag (PPP) [Time] 15.0 s 11.7-14.9 [facility] Laboratory - Hematology and Cell countsOrdered By: Artie Martinez on 12-07-2023 MCH (RBC) [Entitic mass] 32.1 pg 27.0-32.0 [facility] MCHC (RBC) [Mass/Vol] 35.6 g/dL 32-36 [facility] Nucleated RBC/100 WBC (Bld) [Ratio] 0 % 0-5 [facility] Platelet mean volume (Bld) [Entitic vol] 11.4 fL 6.2-12.0 [facility] Platelets (Bld) [#/Vol] 282 10*3/uL 150-450 [facility] No Panel InformationOrdered By: Artie Martinez on 12-07-2023 C-Reactive Protein Extended Range < 2.90 mg/L 0.0-3.0 [facility] Comment on above: C-Reactive Protein ( CRP) provides useful information for thediagnosis, therapy and monitoring of inflammatory processesand associated diseases. For the evaluation of Relative Riskfor Cardiovascular Disease, a High Sensitivity CRP (HSCRP)should be ordered. Estimated GFR (MDRD) Amer 88 mL/min >60 [facility] Comment on above: GFR Calc Estimated GFR (MDRD) Non-Af Amer 73 mL/min >60 [facility] Comment on above: Non- GFR Calc Tumor Marker Alpha Fetoprotein < 1.8 ng/mL 0.0-4.7 [facility] Comment on above: [facility] El ectrochemiluminescence Immunoassay(ECLIA)Values obtained with different assay methods or kits cannotbe used interchangeably. Results cannot be interpreted asabsolute evidence of the presence or absence of malignantdisease.This test is not interpretable in females.Performed at: [facility] [id number] Director: Brett Cobos PhD, Phone: [phone] Vitamin D 25-Hydroxy 34.2 ng/mL [facility] Comment on above: Vitamin D 25(OH) Sta tus Range Deficiency <20 ng/mL (50nmol/L) Insufficiency 20 - 30 ng/mL (50 - 75 nmol/L) Sufficiency 30 - 100 ng/mL (75 - 250 nmol/L) Toxicity >100 ng/mL (>250 nmol/L) RBC Auto (Bld) [#/Vol]Ordere d By: Artie Martinez on 12-07-2023 RBC (Bld) [#/Vol] 4.49 10*6/uL 4.2-5.4 [facility] Serum or plasma calcium harrison urement (mass/volume)Ordered By: Artie Martinez on 12-07-2023 Calcium [Mass/Vol] 9.4 mg/dL 8.5-10.1 [facility] Serum or plasma creatinine m easurement (mass/volume)Ordered By: Artie Martinez on 12-07-2023 Creatinine [Mass/Vol] 1.00 mg/dL 0.55-1.02 [facility] Comment on above: The validity of the calculated GFR & GFRAA in patients over 70 years has not been determined. Clinical correlation is essential. Serum or plasma urea nitroge n measurement (mass/volume)Ordered By: Artie Martinez on 12-07-2023 Urea nitrogen [Mass/Vol] 12 mg/dL 7-18 [facility] Thin prep Papanicolaou smear with manual screeningOrdered By: Artie Martinez on 12-07-2023 Thin prep Papanicolaou smear with manual screening 4.4 g/dL 3.2-5.0 [facility] Thin prep Papanicolaou smear with manual screening 11 U/L 15-37 [facility] Thin prep Papanicolaou smear with manual screening 7 5-15 [facility] Final Surgical Pathology Rep sari 12-06-2023 Final Surgical Pathology Report . Pathology Reports Accession: Collected Date/Time: Received Date/Time: Pathologist: [id number] 12/02/2023 14:10 EST 12/05/2023 08:55 JENNIFFER CHAU [...] All parts labelled with patient name and [id number] A. Received in formalin labeled ECC is [...] x 0.2 cm. TS-1 Praveena Marshall, Grossing Power Regulator/ Dr. Monroe Sexton, Pathologist Dictated by Praveena Marshall MICROSCOPIC DESCRIPTION: The microscopic examination is performed, except in the case of Gross Only. Electronically Signed by Pathology Report verified by [facility] JENNIFFER MCKEON Sign out Date: 12/06/2023 14:32 Performing Lab: [facility], [address] [place] [address] Pathology Dept Pathology Reports Accession: Collected Date/Time: Received Date/Time: Pathologist: [id number] 12/02/2023 14:10 EST 12/05/2023 08:55 JENNIFFER CHAU MD Disclaimer If ancillary studies were utilized, the following Laboratory Developed Test (LDT) disclaimer will apply: Under CLIA requirements, [facility] is qualified to perform high complexity testing. For all ancillary stains, positive and negative controls stain appropriately. Performance characteristics of immunohistochemical and chromogenic in-situ hybridization tests have been determined by [facility]. These tests are used for clinical purposes, They should not be regarded as investigational or for research. Normal [facility] ([place]) 17OHPon 11-29-2023 17-OH Progesterone LCMS 18 ng/dL Normal [facility] ([place]) Comment on above: Result Comment: Adul t Female Follicular 15 - 70 Luteal 35 - 290 This test was developed and its performance characteristics determined by [facility]. It has not been cleared or approved by the Food and Drug Administration. Performed At: [facility] [id number] Cristian Li MD Ph:[phone] Performed By: #### 0 61183, FERR, CBC, ANEU, TSH, 144327, GFR, CMP, 178830, FT4, ADIFF #### [address] [address] #### FOL, DHEAS, B12 #### [address] [address] HPVon 11-25-2023 HPV Interp Abnormal See Interp HPVN [facility] ([place]) Comment on above: Order Comment: Order placed by [email or web address] rule from [id number] Result Comment: High Risk HPV Typing is [...] See Interp HPVO Performed By: #### 0 39301, FERR, CBC, ANEU, TSH, 544550, GFR, CMP, 990746, FT4, ADIFF #### [address] [address] #### FOL, DHEAS, B12 #### [address] [address] HPV Source Cervix Normal [facility] ([place]) Comment on above: Order Comment: Order placed by [email or web address] rule from [id number] Performed By: #### 0 43947, FERR, CBC, ANEU, TSH, 027935, GFR, CMP, 283432, FT4, ADIFF #### [address] [address] #### FOL, DHEAS, B12 #### [address] [address] [employer] Reporton 2023 [facility] Report . Pathology Reports Accession: Collected Date/Time: Received Date/Time: Pathologist: [id number] 11/17/2023 09:16 EST 11/17/2023 18:00 MD OSMAN IBANEZ [employer] [facility] Report SPECIMEN: Specimen Description: Liquid Prep Reflex ASCUS+ Specimen: Cervical/Endocervical Screening or Diagnostic: Screening RELEVANT HISTORY: LMP: None given Control: Yes SPECIMEN ADEQUACY: SATISFACTORY FOR EVALUATION Endocervical/Transformat ional zone component present INTERPRETATION/RESULTS: EPITHELIAL CELL ABNORMALITIES, SQUAMOUS High-grade squamous intraepithelial lesion (HSIL) (encompassing: moderate and severe dysplasia, CIS; CITLALI 2 and CITLALI 3) OTHER NON-NEOPLASTIC FINDINGS: Atrophy COMMENT: This Pap Test was successfully processed and evaluated with the assistance of the [employer] Thin[employer] Test Imaging System. Electronically Signed by Pathology report verified by [facility] Screened by: SANDY Electronically signed by OSMAN CARRERA MD Sign-Out Date: 11/24/2023 13:53 Performing Lab: [facility], [address] [place] [address] Pathology Dept Disclaimer The Pap test is a screening test for cervical cancer. As evidenced by published data, it is subject to both inherent false negative and false positive results. Your patient's results should be interpreted in context with pertinent clinical history including gynecological examination. Normal [facility] ([place]) E2on 11-23-2023 Estradiol Level 18.57 pg/mL Normal [facility]) Comment on above: Result Comment: No te - New Reference Range in effect 20 Adult Female E2 Reference Ranges: Follicular phase 19.5 - 144.2 pg/mL Midcycle 63.9 - 356.7 pg/mL Luteal phase 55.8 - 214.2 pg/mL Post menopausal 0 - 33.2 pg/mL Performed By: #### 0 89665, FERR, CBC, ANEU, TSH, 248070, GFR, CMP, 928420, FT4, ADIFF #### [address] [address] #### FOL, DHEAS, B12 #### [address] [address] FSHon 11-23-2023 FSH 10.0 mIU/mL Normal [facility] ([place]) Comment on above: Result Comment: Adul t Female FSH Reference Ranges (09/02/99): Follicular phase 2.5 - 10.2 mIU/mL Midcycle phase 3.4 - 33.4 mIU/mL Luteal phase 1.5 - 9.1 mIU/mL Post menopausal 23.0 -116.3 mIU/mL Adult Male: 1.4 - 18.1 mIU/mL Performed By: #### 0 67793, FERR, CBC, ANEU, TSH, 206243, GFR, CMP, 010561, FT4, ADIFF #### [place] [address] #### FOL, DHEAS, B12 #### [place] [address] LHon 11-23-2023 LH 6.3 mIU/mL Normal [facility] ([place]) Comment on above: Result Comment: No te - New Reference Range in effect 20 Adult Female LH Reference Ranges: Follicular phase 1.9 - 12.5 mIU/mL Midcycle phase 8.7 - 76.3 mIU/mL Luteal phase 0.5 - 16.9 mIU/mL Post menopausal 5.0 - 55.2 mIU/mL Performed By: #### 0 55404, FERR, CBC, ANEU, TSH, 748735, GFR, CMP, 937874, FT4, ADIFF #### [place] [id number] #### FOL, DHEAS, B12 #### [place] [address] PROLon 11-23-2023 Prolactin 8.4 ng/mL Normal 2.0-30.0 [facility] [place]) Comment on above: Performed By: #### 0 86661, FERR, CBC, ANEU, TSH, 430085, GFR, CMP, 345231, FT4, ADIFF #### [address] [address] #### FOL, DHEAS, B12 #### [place] [address] ALDOSon 11-20-2023 Aldosterone. 32.2 ng/dL High 0.0-30.0 [facility] ([place]) Comment on above: Result Comment: This test was developed and its performance characteristics determined by [facility]. It has not been cleared or approved by the Food and Drug Administration. Performed At: [address] [id number] Cristian Li MD Ph:[phone] Performed By: #### 0 88762, FERR, CBC, ANEU, TSH, 000311, GFR, CMP, 802520, FT4, ADIFF #### [address] [address] #### FOL, DHEAS, B12 #### [address] [address] RENINon 11-20-2023 Renin Activity 5.369 ng/mL/hr Normal 0.167-5.38 0 [facility] ([place]) Comment on above: Result Comment: This test was developed and its performance characteristics [facility]. It has not been cleared or approved by the Food and Drug Administration. Performed At: [address] [id number] Cristian Li MD Ph:[phone] Performed By: #### 0 06193, FERR, CBC, ANEU, TSH, 488867, GFR, CMP, 901432, FT4, ADIFF #### [place] [address] #### FOL, DHEAS, B12 #### [place] [id number] PTHRPon 11-19-2023 PTHrP <2.0 Normal [facility] ([place]) Comment on above: Result Comment: This test was developed and its performance characteristics determined by [facility]. It has not been cleared or [...] discordant, please contact the laboratory. Performed At: [facility] [address] [place] [id number] Leora Boone MD Ph:[phone] Performed By: #### 0 72950, FERR, CBC, ANEU, TSH, 160410, GFR, CMP, 058493, FT4, ADIFF #### [place] [address] #### FOL, DHEAS, B12 #### [address] [address] ONHB1ot 11-15-2023 ACTH 11.7 pg/mL Normal 7.2-63.3 [facility] ([place] Comment on above: Result Comment: ACTH reference interval for samples collected between 7 and 10 AM. Performed At: [facility] [id number] Chandrika West PhD Ph:[phone] Performed By: #### 0 01633, FERR, CBC, ANEU, TSH, 627265, GFR, CMP, 601504, FT4, ADIFF #### [place] [address] #### FOL, DHEAS, B12 #### [place] [address] CORTon 11-14-2023 Cortisol Level 9.6 mcg/dL Normal [facility] [place] Comment on above: Result Comment: Fili isol AM Reference Range 6.5-26.0 mcg/dL Cortisol PM Reference Range 3.5-15.0 mcg/dL Performed By: #### 0 79528, FERR, CBC, ANEU, TSH, 634994, GFR, CMP, 846218, FT4, ADIFF #### [place] [address] #### FOL, DHEAS, B12 #### [place] [address] DHEASon 11-14-2023 DHEA-SO4 79.12 mcg/dL Normal 25.90-460. 20 [facility] ([place]) Comment on above: Result Comment: No te - New Reference Range in effect 20 Performed By: #### 0 80977, FERR, CBC, ANEU, TSH, 448926, GFR, CMP, 406481, FT4, ADIFF #### [place] [address] #### FOL, DHEAS, B12 #### [place] [address] LABORATORYOrdered By: SYSTEM SYSTEM on 11-14-2023 Cortisol [Mass/Vol] 9.6 ug/dL Invalid Interpretation Code AH ADM SS Comment on above: Interpretive Data: C ortisol AM Reference Range 6.5-26.0 mcg/dL Cortisol PM Reference Range 3.5-15.0 mcg/dL DHEA-S [Mass/Vol] 79.12 ug/dL Normal 25.90 - 460.20 mcg/dL AH ADM SS Comment on above: Interpretive Data: * *Note - New Reference Range in effect 20 .Auto Diffon 10-27-2023 Basophil, Absolute 0.0 10 3/mcL Normal 0.0-0.2 On license of [facility] ([place]) Comment on above: Performed By: #### 0 61328, FERR, CBC, ANEU, TSH, 210267, GFR, CMP, 088187, FT4, ADIFF #### [address] [address] #### FOL, DHEAS, B12 #### [address] [address] Basophils/100 WBC (Bld) 0.6 % Normal 0.0-2.5 [facility] ([place]) Comment on above: Performed By: #### 0 44733, FERR, CBC, ANEU, TSH, 068624, GFR, CMP, 576876, FT4, ADIFF #### [address] [address] #### FOL, DHEAS, B12 #### [address] [address] Eosinophil, Absolute 0.1 10 3/mcL Normal 0.0-0.4 [facility] ([place]) Comment on above: Performed By: #### 0 33979, FERR, CBC, ANEU, TSH, 361882, GFR, CMP, 620584, FT4, ADIFF #### [address] [address] #### FOL, DHEAS, B12 #### [address] [address] Eosinophils/100 WBC (Bld) 1.1 % Normal 0.0-7.0 [facility] [place] Comment on above: Performed By: #### 0 60329, FERR, CBC, ANEU, TSH, 119330, GFR, CMP, 623766, FT4, ADIFF #### [place] [address] #### FOL, DHEAS, B12 #### [address] [address] Lymphocyte, Absolute 1.0 10 3/mcL Normal 0.8-3.9 [facility] ([place] Comment on above: Performed By: #### 0 51770, FERR, CBC, ANEU, TSH, 402720, GFR, CMP, 776338, FT4, ADIFF #### [address] [address] #### FOL, DHEAS, B12 #### [address] [address] Lymphocytes/100 WBC (Bld) 18.1 % Normal 10.0-50.0 [facility] [place] Comment on above: Performed By: #### 0 34871, FERR, CBC, ANEU, TSH, 488517, GFR, CMP, 887062, FT4, ADIFF #### [place] [address] #### FOL, DHEAS, B12 #### [address] [address] Monocyte, Absolute 0.3 10 3/mcL Normal 0.2-1.0 On license of [facility] ([place]) Comment on above: Performed By: #### 0 90655, FERR, CBC, ANEU, TSH, 676503, GFR, CMP, 220815, FT4, ADIFF #### [address] [address] #### FOL, DHEAS, B12 #### [address] [address] Monocytes/100 WBC (Bld) 5.9 % Normal 1.7-13.0 [facility] ([place]) Comment on above: Performed By: #### 0 66734, FERR, CBC, ANEU, TSH, 591610, GFR, CMP, 462617, FT4, ADIFF #### [place] [address] #### FOL, DHEAS, B12 #### [address] [address] Neutrophils/100 WBC (Bld) 74.3 % Normal 37.0-80.0 [facility] [place] Comment on above: Performed By: #### 0 71373, FERR, CBC, ANEU, TSH, 429762, GFR, CMP, 428956, FT4, ADIFF #### [place] [id number] #### FOL, DHEAS, B12 #### [address] [address] .GFRon 10-27-2023 GFR 85 ml/min/1.73sqm Normal [facility] ([place] Comment on above: Result Comment: GFR Population [...] mL/min/1.73 square meters Performed By: #### 0 36842, FERR, CBC, ANEU, TSH, 352840, GFR, CMP, 134460, FT4, ADIFF #### [place] [address] #### FOL, DHEAS, B12 #### [address] [address] GFR Non- 70 ml/min/1.73sqm Normal [facility] [place] Comment on above: Result Comment: GFR Population [...] mL/min/1.73 square meters Performed By: #### 0 56345, FERR, CBC, ANEU, TSH, 168881, GFR, CMP, 456915, FT4, ADIFF #### [place] [address] #### FOL, DHEAS, B12 #### [place] [address] .MDWon 10-27-2023 Monocyte Distribution Width 18.21 Normal 0.00-20.00 [facility] [place] Comment on above: Result Comment: For ED adult patients suspected of sepsis, MDW<=20.0 does not rule out sepsis or risk of sepsis Performed By: #### 0 26239, FERR, CBC, ANEU, TSH, 952281, GFR, CMP, 549632, FT4, ADIFF #### [place] [address] #### FOL, DHEAS, B12 #### [place] [address] .NEUABSon 10-27-2023 Neutrophil, Absolute 4.2 10 3/mcL Normal 2.9-6.2 [facility] ([place] Comment on above: Performed By: #### 0 58699, FERR, CBC, ANEU, TSH, 951395, GFR, CMP, 528979, FT4, ADIFF #### [place] [address] #### FOL, DHEAS, B12 #### [place] [address] CBCon 10-27-2023 Erythrocyte distribution width (RBC) [Ratio] 13.9 % Normal 11.5-14.5 [facility] ([place] Comment on above: Performed By: #### 0 89247, FERR, CBC, ANEU, TSH, 903935, GFR, CMP, 653282, FT4, ADIFF #### [place] [address] #### FOL, DHEAS, B12 #### [place] [address] Hematocrit (Bld) [Volume fraction] 40.4 % Normal 37.0-47.0 [facility] ([place] Comment on above: Performed By: #### 0 64977, FERR, CBC, ANEU, TSH, 213794, GFR, CMP, 304713, FT4, ADIFF #### [place] [address] #### FOL, DHEAS, B12 #### [place] [address] Hgb 14.8 G/dL Normal 12.0-16.0 [facility] ([place] Comment on above: Performed By: #### 0 67013, FERR, CBC, ANEU, TSH, 400259, GFR, CMP, 286965, FT4, ADIFF #### [place] [address] #### FOL, DHEAS, B12 #### [place] [address] MCH (RBC) [Entitic mass] 32.4 pg High 27.0-31.2 [facility] ([place] Comment on above: Performed By: #### 0 59712, FERR, CBC, ANEU, TSH, 567814, GFR, CMP, 398521, FT4, ADIFF #### [place] [address] #### FOL, DHEAS, B12 #### [place] [address] MCHC 36.5 G/dL Normal 33.0-37.0 [facility] [place] Comment on above: Performed By: #### 0 25069, FERR, CBC, ANEU, TSH, 716081, GFR, CMP, 807712, FT4, ADIFF #### [place] [address] #### FOL, DHEAS, B12 #### [place] [address] MCV (RBC) [Entitic vol] 88.6 fL Normal 80.0-94.0 [facility] ([place] Comment on above: Performed By: #### 0 35069, FERR, CBC, ANEU, TSH, 792459, GFR, CMP, 514793, FT4, ADIFF #### [place] [address] #### FOL, DHEAS, B12 #### [place] [address] Platelet 229 10 3/mcL Normal 130-400 [facility] ([place] Comment on above: Performed By: #### 0 72443, FERR, CBC, ANEU, TSH, 333210, GFR, CMP, 251888, FT4, ADIFF #### [place] [address] #### FOL, DHEAS, B12 #### [place] [address] Platelet mean volume (Bld) [Entitic vol] 8.9 fL Normal 7.4-10.4 [facility] [place] Comment on above: Performed By: #### 0 32597, FERR, CBC, ANEU, TSH, 029942, GFR, CMP, 560299, FT4, ADIFF #### [place] [address] #### FOL, DHEAS, B12 #### [place] [address] RBC 4.56 10 6/mcL Normal 4.20-5.40 [facility] ([place] Comment on above: Performed By: #### 0 92106, FERR, CBC, ANEU, TSH, 313231, GFR, CMP, 541683, FT4, ADIFF #### [place] [address] #### FOL, DHEAS, B12 #### [place] [address] WBC 5.7 10 3/mcL Normal 4.6-10.8 [facility] ([place] Comment on above: Performed By: #### 0 91882, FERR, CBC, ANEU, TSH, 707120, GFR, CMP, 903086, FT4, ADIFF #### [address] [address] #### FOL, DHEAS, B12 #### [address] [address] CMPon 10-27-2023 Albumin Level 4.0 G/dL Normal 3.5-5.0 [facility] ([place] Comment on above: Performed By: #### 0 42775, FERR, CBC, ANEU, TSH, 204383, GFR, CMP, 669139, FT4, ADIFF #### [address] [address] #### FOL, DHEAS, B12 #### [address] [address] Albumin/Globulin [Mass ratio] 1.1 {ratio} Normal 1.1-2.5 [facility] ([place] Comment on above: Performed By: #### 0 96376, FERR, CBC, ANEU, TSH, 518641, GFR, CMP, 138944, FT4, ADIFF #### [address] [address] #### FOL, DHEAS, B12 #### [address] [address] ALP [Catalytic activity/Vol] 70 U/L Normal 40-135 [facility] ([place] Comment on above: Performed By: #### 0 21725, FERR, CBC, ANEU, TSH, 473841, GFR, CMP, 218423, FT4, ADIFF #### [address] [address] #### FOL, DHEAS, B12 #### [address] [address] ALT [Catalytic activity/Vol] 24 U/L Normal 14-59 [facility] ([place] Comment on above: Performed By: #### 0 58418, FERR, CBC, ANEU, TSH, 516759, GFR, CMP, 657995, FT4, ADIFF #### [address] [address] #### FOL, DHEAS, B12 #### [address] [address] AST [Catalytic activity/Vol] 12 U/L Normal 10-40 [facility] ([place] Comment on above: Performed By: #### 0 54363, FERR, CBC, ANEU, TSH, 731207, GFR, CMP, 620132, FT4, ADIFF #### [address] [address] #### FOL, DHEAS, B12 #### [place] [id number] Bili Total 1.2 mg/dL High 0.2-1.0 [facility] ([place] Comment on above: Result Comment: Use of this assay is not recommended for patients undergoing treatment with eltrombopag due to the potential for falsely elevated results. Performed By: #### 0 75652, FERR, CBC, ANEU, TSH, 635156, GFR, CMP, 867505, FT4, ADIFF #### [place] [address] #### FOL, DHEAS, B12 #### [place] [id number] BUN/Creatinine Ratio 9 ratio Normal 7-27 On license of [facility] ([place] Comment on above: Performed By: #### 0 61624, FERR, CBC, ANEU, TSH, 840993, GFR, CMP, 075076, FT4, ADIFF #### [place] [address] #### FOL, DHEAS, B12 #### [place] [id number] Calcium [Mass/Vol] 8.7 mg/dL Normal 8.4-10.2 [facility] ([place] Comment on above: Performed By: #### 0 44573, FERR, CBC, ANEU, TSH, 610574, GFR, CMP, 700562, FT4, ADIFF #### [place] [address] #### FOL, DHEAS, B12 #### [place] [id number] Chloride [Moles/Vol] 107 mmol/L Normal 98-107 On license of [facility] ([place] Comment on above: Performed By: #### 0 18293, FERR, CBC, ANEU, TSH, 108351, GFR, CMP, 766471, FT4, ADIFF #### [address] [address] #### FOL, DHEAS, B12 #### [address] [address] CO2 [Moles/Vol] 26 mmol/L Normal 22-29 [facility] ([place] Comment on above: Performed By: #### 0 74592, FERR, CBC, ANEU, TSH, 884735, GFR, CMP, 382689, FT4, ADIFF #### [place] [address] #### FOL, DHEAS, B12 #### [place] [address] Creatinine [Mass/Vol] 0.98 mg/dL Normal 0.55-1.02 [facility] ([place]) Comment on above: Performed By: #### 0 68096, FERR, CBC, ANEU, TSH, 611759, GFR, CMP, 996891, FT4, ADIFF #### [place] [address] #### FOL, DHEAS, B12 #### [address] [address] Electrolyte Balance 9.0 mEq/L Normal 4.0-15.0 [facility] ([place]) Comment on above: Performed By: #### 0 92281, FERR, CBC, ANEU, TSH, 899126, GFR, CMP, 084248, FT4, ADIFF #### [address] [address] #### FOL, DHEAS, B12 #### [address] [address] Globulin 3.5 G/dL Normal [facility] ([place] Comment on above: Performed By: #### 0 34629, FERR, CBC, ANEU, TSH, 487787, GFR, CMP, 283200, FT4, ADIFF #### [address] [address] #### FOL, DHEAS, B12 #### [address] [address] Glucose [Mass/Vol] 97 mg/dL Normal 70-105 [facility] ([place] Comment on above: Performed By: #### 0 66035, FERR, CBC, ANEU, TSH, 712196, GFR, CMP, 071828, FT4, ADIFF #### [place] [address] #### FOL, DHEAS, B12 #### [address] [address] Potassium [Moles/Vol] 4.2 mmol/L Normal 3.5-5.1 [facility] ([place]) Comment on above: Performed By: #### 0 71453, FERR, CBC, ANEU, TSH, 382007, GFR, CMP, 086339, FT4, ADIFF #### [place] [address] #### FOL, DHEAS, B12 #### [address] [address] Sodium [Moles/Vol] 142 mmol/L Normal 136-145 [facility] ([place] Comment on above: Performed By: #### 0 85251, FERR, CBC, ANEU, TSH, 026944, GFR, CMP, 303029, FT4, ADIFF #### [place] [address] #### FOL, DHEAS, B12 #### [address] [address] Total Protein 7.5 G/dL Normal 6.4-8.2 [facility] ([place] Comment on above: Performed By: #### 0 61324, FERR, CBC, ANEU, TSH, 308209, GFR, CMP, 276781, FT4, ADIFF #### [address] [address] #### FOL, DHEAS, B12 #### [address] [address] Urea nitrogen [Mass/Vol] 9 mg/dL Normal 04-26 [facility] ([place] Comment on above: Performed By: #### 0 14778, FERR, CBC, ANEU, TSH, 047329, GFR, CMP, 301785, FT4, ADIFF #### [place] [address] [place], [place] [address] #### FOL, DHEAS, B12 #### [address] [address] [address] ABD/PELVIS W/ IV CONTRAST ONLYon 10-27-2023 [...] the resident's finding and interpretation. Interpreted by: Garcia Nicole MD Preliminary Report By: Rosaura Melendez Electronically signed By Garcia Nicole MD Dictated Date: 10/27/2023 8:50:31 AM Prelim Date: 10/27/2023 8:56:42 AM Sign Date: 10/27/2023 9:04:05 AM Ordering Provider: JUSTYNA CELIS Normal [facility] ([place] LABORATORYOrdered By: SYSTEM SYSTEM on 10-27-2023 Albumin [...] MCH (RBC) [Entitic mass] 32.4 pg High 27. 0 - 31.2 pg AO Workflow SS MCHC [...] (Bld) [#/Vol] 4.56 106/mcL Normal 4.20 - 5.40 10^6/mcL AO Workflow SS Sodium [Moles/Vol] 142 [...] Ql (U) Negative Normal Negative AO Auto Urine SS test (u) int Not detected Invalid [...] Spec Grav 1.025 (10/27/23 7:39 AM) Normal 1.015-1.02 5 AO Auto Urine SS UA Specimen Type Clean Catch (10/27/23 7:39 AM) Normal AO Auto Urine SS UA Urobilinogen 1.0 E.U./dL Normal 0.2-1.0 AO Auto Urine SS LIPon 10-27-2023 Lipase Level 44 U/L Normal 16-77 [facility] ([place] Comment on above: Performed By: #### 0 18935, FERR, CBC, ANEU, TSH, 741515, GFR, CMP, 558378, FT4, ADIFF #### [place] [address] #### FOL, DHEAS, B12 #### [place] [address] PREGUon 10-27-2023 HCG ( test) Ql (U) Negative Normal [facility] ([place] Comment on above: Performed By: #### 0 34009, FERR, CBC, ANEU, TSH, 982300, GFR, CMP, 645416, FT4, ADIFF #### [address] [address] #### FOL, DHEAS, B12 #### [address] [address] test (u) int Not detected Invalid Interpretation Code [facility] ([place] Comment on above: Performed By: #### 0 68322, FERR, CBC, ANEU, TSH, 804864, GFR, CMP, 511278, FT4, ADIFF #### [place] [address] #### FOL, DHEAS, B12 #### [place] [address] TFTESTon 10-27-2023 Free Testost Direct <0.2 Normal 0.0-4.2 [facility] ([place]) Comment on above: Result Comment: Perf ormed At: [facility] [address] [id number] Cristian Li MD Ph:[phone] Performed At: [facility] [address] [id number] Chandrika West PhD Ph:[phone] Performed By: #### 0 45928, FERR, CBC, ANEU, TSH, 321403, GFR, CMP, 778141, FT4, ADIFF #### [place] [address] #### FOL, DHEAS, B12 #### [place] [address] Testosterone Lvl <3 Low 13-71 [facility] ([place] Comment on above: Performed By: #### 0 72377, FERR, CBC, ANEU, TSH, 584366, GFR, CMP, 813750, FT4, ADIFF #### [place] [address] #### FOL, DHEAS, B12 #### [place] [address] UAon 10-27-2023 Color (U) Yellow Normal [facility] ([place] Comment on above: Performed By: #### 0 02923, FERR, CBC, ANEU, TSH, 622152, GFR, CMP, 679577, FT4, ADIFF #### [place] [address] #### FOL, DHEAS, B12 #### [place] [id number] Glucose (U) [Mass/Vol] Negative Normal Negative [facility] ([place] Comment on above: Performed By: #### 0 99206, FERR, CBC, ANEU, TSH, 448999, GFR, CMP, 255254, FT4, ADIFF #### [place] [address] #### FOL, DHEAS, B12 #### [place] [address] Ketones Ql (U) Negative Normal Negative [facility] ([place] Comment on above: Performed By: #### 0 97145, FERR, CBC, ANEU, TSH, 428035, GFR, CMP, 179510, FT4, ADIFF #### [place] [address] #### FOL, DHEAS, B12 #### [place] [address] UA Appear Clear Normal Clear [facility] ([place] Comment on above: Performed By: #### 0 54892, FERR, CBC, ANEU, TSH, 807922, GFR, CMP, 106676, FT4, ADIFF #### [place] [address] #### FOL, DHEAS, B12 #### [place] [address] UA Blood Negative Normal Negative [facility] ([place] Comment on above: Performed By: #### 0 38896, FERR, CBC, ANEU, TSH, 960389, GFR, CMP, 146801, FT4, ADIFF #### [place] [address] #### FOL, DHEAS, B12 #### [place] [address] UA Leuk Est Negative Normal Negative [facility] ([place] Comment on above: Performed By: #### 0 94980, FERR, CBC, ANEU, TSH, 824055, GFR, CMP, 098237, FT4, ADIFF #### [place] [address] #### FOL, DHEAS, B12 #### [place] [address] UA Nitrite Negative Normal Negative [facility] ([place] Comment on above: Performed By: #### 0 99342, FERR, CBC, ANEU, TSH, 385109, GFR, CMP, 251183, FT4, ADIFF #### [place] [address] #### FOL, DHEAS, B12 #### [place] [address] UA pH 6.5 Normal 5.0 - 8.0 [facility] ([place] Comment on above: Performed By: #### 0 55556, FERR, CBC, ANEU, TSH, 493584, GFR, CMP, 792253, FT4, ADIFF #### [place] [address] #### FOL, DHEAS, B12 #### [place] [address] UA Protein Negative Normal Negative [facility] ([place] Comment on above: Performed By: #### 0 04536, FERR, CBC, ANEU, TSH, 678485, GFR, CMP, 546308, FT4, ADIFF #### [place] [address] #### FOL, DHEAS, B12 #### [place] [address] UA Spec Grav 1.025 Normal 1.015-1.02 5 [facility] ([place] Comment on above: Performed By: #### 0 40974, FERR, CBC, ANEU, TSH, 708102, GFR, CMP, 124461, FT4, ADIFF #### [place] [address] #### FOL, DHEAS, B12 #### [place] [address] UA Specimen Type Clean Catch Normal [facility] ([place] Comment on above: Performed By: #### 0 73217, FERR, CBC, ANEU, TSH, 838818, GFR, CMP, 524033, FT4, ADIFF #### [address] [address] #### FOL, DHEAS, B12 #### [place] [address] UA Urobilinogen 1.0 E.U./dL Normal 0.2-1.0 [facility] ([place] Comment on above: Performed By: #### 0 27164, FERR, CBC, ANEU, TSH, 818569, GFR, CMP, 890171, FT4, ADIFF #### [address] [address] #### FOL, DHEAS, B12 #### [place] [address] Urobilinogen (U) [Mass/Vol] Negative Normal Negative [facility] ([place] Comment on above: Performed By: #### 0 02799, FERR, CBC, ANEU, TSH, 594067, GFR, CMP, 768472, FT4, ADIFF #### [place] [address] #### FOL, DHEAS, B12 #### [place] [address] ANDROon 10-23-2023 Androstenedione LCMS 40 ng/dL Low 41-262 On license of [facility] ([place]) Comment on above: Result Comment: This test was developed and its performance characteristics determined by [facility]. It has not been cleared or approved by the Food and Drug Administration. Performed At: [address] [id number] Cristian Li MD Ph:[phone] Performed By: #### 0 13248, FERR, CBC, ANEU, TSH, 622210, GFR, CMP, 163428, FT4, ADIFF #### [place] [address] #### FOL, DHEAS, B12 #### [place] [address] ZINCon 10-20-2023 Zinc Lvl 114 UG/DL Normal 44-115 [facility] ([place]) Comment on above: Result Comment: This test was developed and its performance characteristics determined by [facility]. It has not been cleared or approved by the Food and Drug Administration. Detection Limit = 5 Performed At: [facility] [id number] Cristian Li MD Ph:[phone] Performed By: #### 0 [id number], FERR, CBC, ANEU, TSH, 386281, GFR, CMP, 197452, FT4, ADIFF #### [place] [address] #### FOL, DHEAS, B12 #### [place] [address] AMYon 10-19-2023 Amylase [Catalytic activity/Vol] 57 U/L Normal 25-115 [facility] ([place]) Comment on above: Performed By: #### 0 [id number], FERR, CBC, ANEU, TSH, 218351, GFR, CMP, 638384, FT4, ADIFF #### [place] [address] #### FOL, DHEAS, B12 #### [place] [address] LIPon 10-19-2023 Lipase Level 58 U/L Normal 16-77 [facility] ([place]) Comment on above: Performed By: #### 0 72872, FERR, CBC, ANEU, TSH, 836180, GFR, CMP, 533171, FT4, ADIFF #### [place] [address] #### FOL, DHEAS, B12 #### [place] [address] .Auto Diffon 10-17-2023 Basophil, Absolute 0.0 10 3/mcL Normal 0.0-0.2 On license of [facility] ([place]) Comment on above: Performed By: #### 0 16253, FERR, CBC, ANEU, TSH, 792276, GFR, CMP, 956705, FT4, ADIFF #### [place] [address] #### FOL, DHEAS, B12 #### [place] [address] Basophils/100 WBC (Bld) 0.6 % Normal 0.0-2.5 A [facility] ([place]) Comment on above: Performed By: #### 0 04021, FERR, CBC, ANEU, TSH, 114741, GFR, CMP, 316519, FT4, ADIFF #### [address] [address] #### FOL, DHEAS, B12 #### [address] [address] Eosinophil, Absolute 0.1 10 3/mcL Normal 0.0-0.4 [facility] ([place]) Comment on above: Performed By: #### 0 97745, FERR, CBC, ANEU, TSH, 075844, GFR, CMP, 232221, FT4, ADIFF #### [place] [address] #### FOL, DHEAS, B12 #### [address] [address] Eosinophils/100 WBC (Bld) 1.0 % Normal 0.0-7.0 [facility] ([place] Comment on above: Performed By: #### 0 85891, FERR, CBC, ANEU, TSH, 363048, GFR, CMP, 368946, FT4, ADIFF #### [place] [address] #### FOL, DHEAS, B12 #### [address] [address] Lymphocyte, Absolute 1.8 10 3/mcL Normal 0.8-3.9 [facility] ([place] Comment on above: Performed By: #### 0 74109, FERR, CBC, ANEU, TSH, 521053, GFR, CMP, 875289, FT4, ADIFF #### [place] [address] #### FOL, DHEAS, B12 #### [address] [address] Lymphocytes/100 WBC (Bld) 23.5 % Normal 10.0-50.0 [facility] ([place] Comment on above: Performed By: #### 0 13563, FERR, CBC, ANEU, TSH, 065246, GFR, CMP, 585981, FT4, ADIFF #### [address] [address] #### FOL, DHEAS, B12 #### [address] [address] Monocyte, Absolute 0.5 10 3/mcL Normal 0.2-1.0 On license of [facility] ([place]) Comment on above: Performed By: #### 0 12729, FERR, CBC, ANEU, TSH, 541213, GFR, CMP, 971849, FT4, ADIFF #### [address] [address] #### FOL, DHEAS, B12 #### [address] [address] Monocytes/100 WBC (Bld) 6.2 % Normal 1.7-13.0 [facility] ([place]) Comment on above: Performed By: #### 0 88646, FERR, CBC, ANEU, TSH, 025708, GFR, CMP, 013927, FT4, ADIFF #### [address] [address] #### FOL, DHEAS, B12 #### [address] [address] Neutrophils/100 WBC (Bld) 68.7 % Normal 37.0-80.0 [facility] ([place] Comment on above: Performed By: #### 0 28437, FERR, CBC, ANEU, TSH, 704535, GFR, CMP, 590377, FT4, ADIFF #### [address] [address] #### FOL, DHEAS, B12 #### [address] [address] .GFRon 10-17-2023 GFR Non- 72 ml/min/1.73sqm Normal [facility] ([place] Comment on above: Result Comment: GFR Population [...] mL/min/1.73 square meters Performed By: #### 0 73872, FERR, CBC, ANEU, TSH, 075052, GFR, CMP, 786200, FT4, ADIFF #### [address] [address] #### FOL, DHEAS, B12 #### [address] [address] GFR 87 ml/min/1.73sqm Normal [facility] ([place] Comment on above: Result Comment: GFR Population [...] mL/min/1.73 square meters Performed By: #### 0 25398, FERR, CBC, ANEU, TSH, 498804, GFR, CMP, 847517, FT4, ADIFF #### [address] [address] #### FOL, DHEAS, B12 #### [address] [address] .NEUABSon 10-17-2023 Neutrophil, Absolute 5.2 10 3/mcL Normal 2.9-6.2 [facility] ([place] Comment on above: Performed By: #### 0 08711, FERR, CBC, ANEU, TSH, 928366, GFR, CMP, 535540, FT4, ADIFF #### [address] [address] #### FOL, DHEAS, B12 #### [address] [address] B12on 10-17-2023 Cobalamin (Vitamin B12) [Mass/Vol] 515 pg/mL Normal 211-911 [facility] ([place] Comment on above: Performed By: #### 0 67151, FERR, CBC, ANEU, TSH, 774683, GFR, CMP, 966548, FT4, ADIFF #### [place] [address] #### FOL, DHEAS, B12 #### [address] [address] CBCon 10-17-2023 Erythrocyte distribution width (RBC) [Ratio] 13.8 % Normal 11.5-14.5 [facility] ([place] Comment on above: Performed By: #### 0 72321, FERR, CBC, ANEU, TSH, 037848, GFR, CMP, 247129, FT4, ADIFF #### [place] [address] #### FOL, DHEAS, B12 #### [address] [address] Hematocrit (Bld) [Volume fraction] 39.4 % Normal 37.0-47.0 [facility] ([place] Comment on above: Performed By: #### 0 18000, FERR, CBC, ANEU, TSH, 161383, GFR, CMP, 715368, FT4, ADIFF #### [place] [address] #### FOL, DHEAS, B12 #### [place] [address] Hgb 14.2 G/dL Normal 12.0-16.0 [facility] ([place] Comment on above: Performed By: #### 0 15189, FERR, CBC, ANEU, TSH, 159334, GFR, CMP, 486208, FT4, ADIFF #### [place] [address] #### FOL, DHEAS, B12 #### [address] [address] MCH (RBC) [Entitic mass] 31.8 pg High 27.0-31.2 [facility] [place] Comment on above: Performed By: #### 0 53758, FERR, CBC, ANEU, TSH, 727365, GFR, CMP, 820812, FT4, ADIFF #### [place] [address] #### FOL, DHEAS, B12 #### [place] [address] MCHC 35.9 G/dL Normal 33.0-37.0 [facility] [place] Comment on above: Performed By: #### 0 21500, FERR, CBC, ANEU, TSH, 822018, GFR, CMP, 462268, FT4, ADIFF #### [place] [address] #### FOL, DHEAS, B12 #### [address] [address] MCV (RBC) [Entitic vol] 88.5 fL Normal 80.0-94.0 [facility] ([place] Comment on above: Performed By: #### 0 20799, FERR, CBC, ANEU, TSH, 065393, GFR, CMP, 296179, FT4, ADIFF #### [place] [address] #### FOL, DHEAS, B12 #### [place] [address] Platelet 271 10 3/mcL Normal 130-400 [facility] [place] Comment on above: Performed By: #### 0 61883, FERR, CBC, ANEU, TSH, 376984, GFR, CMP, 737763, FT4, ADIFF #### [place] [address] #### FOL, DHEAS, B12 #### [place] [address] Platelet mean volume (Bld) [Entitic vol] 9.1 fL Normal 7.4-10.4 [facility] [place] Comment on above: Performed By: #### 0 19153, FERR, CBC, ANEU, TSH, 657981, GFR, CMP, 838378, FT4, ADIFF #### [place] [address] #### FOL, DHEAS, B12 #### [place] [address] RBC 4.46 10 6/mcL Normal 4.20-5.40 [facility] [place] Comment on above: Performed By: #### 0 73906, FERR, CBC, ANEU, TSH, 547370, GFR, CMP, 180033, FT4, ADIFF #### [place] [address] #### FOL, DHEAS, B12 #### [place] [address] WBC 7.6 10 3/mcL Normal 4.6-10.8 [facility] [place] Comment on above: Performed By: #### 0 02475, FERR, CBC, ANEU, TSH, 711136, GFR, CMP, 453948, FT4, ADIFF #### [place] [address] #### FOL, DHEAS, B12 #### [place] [address] CMPon 10-17-2023 Albumin Level 4.7 G/dL Normal 3.5-5.0 [facility] [place] Comment on above: Performed By: #### 0 36682, FERR, CBC, ANEU, TSH, 347353, GFR, CMP, 196748, FT4, ADIFF #### [place] [address] #### FOL, DHEAS, B12 #### [place] [address] Albumin/Globulin [Mass ratio] 1.3 {ratio} Normal 1.1-2.5 [facility] [place] Comment on above: Performed By: #### 0 89557, FERR, CBC, ANEU, TSH, 774091, GFR, CMP, 076814, FT4, ADIFF #### [address] [address] #### FOL, DHEAS, B12 #### [address] [address] ALP [Catalytic activity/Vol] 69 U/L Normal 40-135 [facility] [place] Comment on above: Performed By: #### 0 61988, FERR, CBC, ANEU, TSH, 544163, GFR, CMP, 592789, FT4, ADIFF #### [address] [address] #### FOL, DHEAS, B12 #### [place] [address] ALT [Catalytic activity/Vol] 26 U/L Normal 14-59 [facility] [place] Comment on above: Performed By: #### 0 26091, FERR, CBC, ANEU, TSH, 432891, GFR, CMP, 244073, FT4, ADIFF #### [address] [address] #### FOL, DHEAS, B12 #### [place] [address] AST [Catalytic activity/Vol] 12 U/L Normal 10-40 [facility] [place] Comment on above: Performed By: #### 0 43214, FERR, CBC, ANEU, TSH, 227850, GFR, CMP, 159171, FT4, ADIFF #### [address] [address] #### FOL, DHEAS, B12 #### [place] [address] Bili Total 0.9 mg/dL Normal 0.2-1.0 [facility] ([place] Comment on above: Result Comment: Use of this assay is not recommended for patients undergoing treatment with eltrombopag due to the potential for falsely elevated results. Performed By: #### 0 81586, FERR, CBC, ANEU, TSH, 961718, GFR, CMP, 736605, FT4, ADIFF #### [address] [address] #### FOL, DHEAS, B12 #### [address] [address] BUN/Creatinine Ratio 11 ratio Normal 7-27 On license of [facility] ([place]) Comment on above: Performed By: #### 0 29587, FERR, CBC, ANEU, TSH, 814692, GFR, CMP, 441600, FT4, ADIFF #### [address] [address] #### FOL, DHEAS, B12 #### [address] [address] Calcium [Mass/Vol] 9.8 mg/dL Normal 8.4-10.2 [facility] ([place]) Comment on above: Performed By: #### 0 83037, FERR, CBC, ANEU, TSH, 417267, GFR, CMP, 001004, FT4, ADIFF #### [address] [address] #### FOL, DHEAS, B12 #### [address] [address] Chloride [Moles/Vol] 105 mmol/L Normal 98-107 On license of [facility] ([place]) Comment on above: Performed By: #### 0 53672, FERR, CBC, ANEU, TSH, 011412, GFR, CMP, 650087, FT4, ADIFF #### [address] [address] #### FOL, DHEAS, B12 #### [address] [address] CO2 [Moles/Vol] 26 mmol/L Normal 22-29 [facility] ([place] Comment on above: Performed By: #### 0 18338, FERR, CBC, ANEU, TSH, 736179, GFR, CMP, 929833, FT4, ADIFF #### [address] [address] #### FOL, DHEAS, B12 #### [address] [address] Creatinine [Mass/Vol] 0.96 mg/dL Normal 0.55-1.02 [facility] ([place]) Comment on above: Performed By: #### 0 24839, FERR, CBC, ANEU, TSH, 546187, GFR, CMP, 873968, FT4, ADIFF #### [address] [address] #### FOL, DHEAS, B12 #### [address] [address] Electrolyte Balance 11.0 mEq/L Normal 4.0-15.0 [facility] ([place]) Comment on above: Performed By: #### 0 44479, FERR, CBC, ANEU, TSH, 938067, GFR, CMP, 795977, FT4, ADIFF #### [address] [address] #### FOL, DHEAS, B12 #### [address] [address] Globulin 3.6 G/dL Normal [facility] [place] Comment on above: Performed By: #### 0 18525, FERR, CBC, ANEU, TSH, 095073, GFR, CMP, 184658, FT4, ADIFF #### [address] [address] #### FOL, DHEAS, B12 #### [address] [address] Glucose [Mass/Vol] 96 mg/dL Normal 70-105 [facility] ([place] Comment on above: Performed By: #### 0 88974, FERR, CBC, ANEU, TSH, 362427, GFR, CMP, 889731, FT4, ADIFF #### [address] [address] #### FOL, DHEAS, B12 #### [address] [address] Potassium [Moles/Vol] 4.3 mmol/L Normal 3.5-5.1 [facility] ([place]) Comment on above: Performed By: #### 0 90764, FERR, CBC, ANEU, TSH, 369358, GFR, CMP, 334816, FT4, ADIFF #### [address] [address] #### FOL, DHEAS, B12 #### [address] [address] Sodium [Moles/Vol] 142 mmol/L Normal 136-145 [facility] ([place] Comment on above: Performed By: #### 0 41889, FERR, CBC, ANEU, TSH, 068298, GFR, CMP, 943486, FT4, ADIFF #### [place] [address] #### FOL, DHEAS, B12 #### [address] [address] Total Protein 8.3 G/dL High 6.4-8.2 [facility] [place] Comment on above: Performed By: #### 0 34142, FERR, CBC, ANEU, TSH, 342975, GFR, CMP, 355103, FT4, ADIFF #### [address] [address] #### FOL, DHEAS, B12 #### [address] [address] Urea nitrogen [Mass/Vol] 11 mg/dL Normal 7-18 [facility] ([place] Comment on above: Performed By: #### 0 12736, FERR, CBC, ANEU, TSH, 900618, GFR, CMP, 767724, FT4, ADIFF #### [place] [address] #### FOL, DHEAS, B12 #### [address] [address] DHEASon 10-17-2023 DHEA-SO4 57.81 mcg/dL Normal 25.90-460. 20 [facility] ([place] Comment on above: Result Comment: No te - New Reference Range in effect 20 Performed By: #### 0 29012, FERR, CBC, ANEU, TSH, 552500, GFR, CMP, 858006, FT4, ADIFF #### [address] [address] #### FOL, DHEAS, B12 #### [address] [address] Syd 10-17-2023 Ferritin [Mass/Vol] 100.0 ng/mL Normal 8.0-252.0 On license of [facility] ([place]) Comment on above: Performed By: #### 0 32969, FERR, CBC, ANEU, TSH, 321381, GFR, CMP, 895354, FT4, ADIFF #### [address] [address] #### FOL, DHEAS, B12 #### [address] [address] FOLon 10-17-2023 Folate 11.08 ng/mL Normal 5.38-24.00 [facility] [place] Comment on above: Performed By: #### 0 96458, FERR, CBC, ANEU, TSH, 049657, GFR, CMP, 616693, FT4, ADIFF #### [address] [address] #### FOL, DHEAS, B12 #### [address] [address] FT4on 10-17-2023 Free T4 [Mass/Vol] 1.04 ng/dL Normal 0.76-1.46 [facility] ([place] Comment on above: Performed By: #### 0 40907, FERR, CBC, ANEU, TSH, 025391, GFR, CMP, 774856, FT4, ADIFF #### [address] [address] #### FOL, DHEAS, B12 #### [address] [address] TSHon 10-17-2023 TSH Qn 1.36 m[IU]/L Normal 0.36-3.74 [facility] ([place] Comment on above: Performed By: #### 0 30644, FERR, CBC, ANEU, TSH, 704569, GFR, CMP, 840015, FT4, ADIFF #### [place] [address] [place], [place] [address] #### FOL, DHEAS, B12 #### [address] [address] Absolute lymphocyte countOrd ered By: Artie Martinez on 09-05-2023 Lymphocytes Auto (Unsp spec) [#/Vol] 1.27 10*3/uL 0.83-4.51 [facility] Basophil percentageOrdered B y: Artie Martinez on 09-05-2023 Basophils/100 WBC (Bld) 0.6 % 0-1 [facility] Bilirubin [Mass/Vol] 1.00 mg/dL 0.20-1.00 [facility] Comment on above: For patients on eltr ombopag therapy, use of Dimension Eunice TBIL is not recommended. Chloride [Moles/Vol] 109 mmol/L 98-107 [facility] Eosinophils/100 WBC (Bld) 0.8 % 0-5 [facility] Glucose [Mass/Vol] 89 mg/dL 74-106 [facility] Neutrophils (Bld) [#/Vol] 5.3 10*3/uL 2.0-7.7 [facility] Neutrophils/100 WBC (Bld) 74.4 % 47-70 [facility] Potassium [Moles/Vol] 4.1 mmol/L 3.5-5.1 [facility] Protein [Mass/Vol] 7.8 g/dL 6.4-8.2 [facility] Sodium [Moles/Vol] 139 mmol/L 136-145 [facility] WBC (Bld) [#/Vol] 7.1 10*3/uL 4.4-11.0 [facility] Blood erythrocytes count (nu mber/volume)Ordered By: Arite Martinez on 09-05-2023 RBC (Bld) [#/Vol] 4.60 10*6/uL 4.2-5.4 [facility] Blood hemoglobin measurement (mass/volume)Ordered By: Artie Martinez on 09-05-2023 Hemoglobin (Bld) [Mass/Vol] 14.2 g/dL 12.0-15.0 [facility] Blood lymphocytes/100 leukoc ytesOrdered By: Artie Martinez on 09-05-2023 Lymphocytes/100 WBC (Bld) 18.0 % 19-41 [facility] Blood monocytes/100 leukocyt esOrdered By: Artie Martinez on 09-05-2023 Monocytes/100 WBC (Bld) 5.8 % 0-10 [facility] Blood platelet mean volumeOr dered By: Artie Martinez on 09-05-2023 Platelet mean volume (Bld) [Entitic vol] 11.1 fL 6.2-12.0 [facility] Determination of erythrocyte mean corpuscular volume (MCV)Ordered By: Artie Martniez on 09-05-2023 MCV (RBC) [Entitic vol] 90.9 fL 81-99 [facility] Erythrocyte sedimentation ra teOrdered By: Artie Martinez on 09-05-2023 ESR (Bld) [Velocity] mm/h 0-30 [facility] Hematocrit Auto (Bld) [Volum e fraction]Ordered By: Artie Martinez on 09-05-2023 Hematocrit (Bld) [Volume fraction] 41.8 % 37-47 [facility] INR in Blood by Coagulation assayOrdered By: Artie Martinez on 09-05-2023 INR Coag (Bld) [Relative time] 1.1 {INR} [facility] Laboratory - Chemistry and C hemistry - challengeOrdered By: Artie Martinez on 09-05-2023 ALP [Catalytic activity/Vol] 62 U/L 45-117 [facility] ALT [Catalytic activity/Vol] 20 U/L 13-56 [facility] CO2 [Moles/Vol] 27.0 mmol/L 21.0-32.0 [facility] Globulin (S) [Mass/Vol] 3.7 g/dL 2.2-4.2 [facility] Urea nitrogen/Creatinine [Mass ratio] 11.4 mg/mg 10-20 [facility] Laboratory - CoagulationOrde red By: Artie Martinez on 09-05-2023 PT Coag (PPP) [Time] 14.4 s 11.7-14.9 [facility] Laboratory - Hematology and Cell countsOrdered By: Artie Martinez on 09-05-2023 Erythrocyte distribution width (RBC) [Entitic vol] 43.4 fL 35.1-43.9 [facility] Erythrocyte distribution width (RBC) [Ratio] 13.2 % 11.6-14.6 [facility] Immature granulocytes/100 WBC (Bld) 0.400 % 0.0-0.9 [facility] Comment on above: IG% - Immature Granu locytes (promyelocytes, myelocytes and metamyelocytes) > 1% indicates that a LEFT SHIFT is Present. MCH (RBC) [Entitic mass] 30.9 pg 27.0-32.0 [facility] Nucleated RBC/100 WBC (Bld) [Ratio] 0 % 0-5 [facility] MCHC Auto (RBC) [Mass/Vol]Or dered By: Artie Martinez on 09-05-2023 MCHC (RBC) [Mass/Vol] 34.0 g/dL 32-36 [facility] No Panel InformationOrdered By: Artie Martinez on 09-05-2023 Estimated GFR (MDRD) Amer 102 mL/min >60 [facility] Comment on above: GFR Calc Estimated GFR (MDRD) Non-Af Amer 84 mL/min >60 [facility] Comment on above: Non- GFR Calc Platelets bldOrdered By: Crystal Martinez on 09-05-2023 Platelets (Bld) [#/Vol] 235 10*3/uL 150-450 [facility] Serum or plasma C reactive p rotein measurement (mass/volume)Ordered By: Artie Martinez on 09-05-2023 CRP [Mass/Vol] mg/L 0.0-3.0 [facility] Comment on above: C-Reactive Protein ( CRP) provides useful information for thediagnosis, therapy and monitoring of inflammatory processesand associated diseases. For the evaluation of Relative Riskfor Cardiovascular Disease, a High Sensitivity CRP (HSCRP)should be ordered. Serum or plasma albumin harrison urement (mass/volume)Ordered By: Artie Martinez on 09-05-2023 Albumin [Mass/Vol] 4.1 g/dL 3.2-5.0 [facility] Serum or plasma albumin/glob ulin mass ratioOrdered By: Artie Martinez on 09-05-2023 Albumin/Globulin [Mass ratio] 1.1 {ratio} 0.9-2.4 [facility] Serum or plasma calcium harrison urement (mass/volume)Ordered By: Artie Martinez on 09-05-2023 Calcium [Mass/Vol] 9.1 mg/dL 8.5-10.1 [facility] Serum or plasma creatinine m easurement (mass/volume)Ordered By: Artie Martinez on 09-05-2023 Creatinine [Mass/Vol] 0.88 mg/dL 0.55-1.02 [facility] Comment on above: The validity of the calculated GFR & GFRAA in patients over 70 years has not been determined. Clinical correlation is essential. Serum or plasma urea nitroge n measurement (mass/volume)Ordered By: Artie Martinez on 09-05-2023 Urea nitrogen [Mass/Vol] 10 mg/dL 7-18 [facility] Thin prep Papanicolaou smear with manual screeningOrdered By: Artie Martinez on 09-05-2023 Thin prep Papanicolaou smear with manual screening 13 U/L 15-37 [facility] Thin prep Papanicolaou smear with manual screening 3 5-15 [facility] Absolute lymphocyte countOrd ered By: Angel Gutierrez on 07-19-2023 Lymphocytes Auto (Unsp spec) [#/Vol] 1.92 10*3/uL 0.83-4.51 [facility] Basophil percentageOrdered B y: Angel Gutierrez on 07-19-2023 Basophils/100 WBC (Bld) 0.8 % 0-1 [facility] Bilirubin [Mass/Vol] 0.90 mg/dL 0.20-1.00 [facility] Comment on above: For patients on eltr ombopag therapy, use of Dimension Eunice TBIL is not recommended. Chloride [Moles/Vol] 111 mmol/L 98-107 [facility] Eosinophils/100 WBC (Bld) 0.8 % 0-5 [facility] Glucose [Mass/Vol] 80 mg/dL 74-106 [facility] Neutrophils (Bld) [#/Vol] 3.6 10*3/uL 2.0-7.7 [facility] Neutrophils/100 WBC (Bld) 57.7 % 47-70 [facility] Potassium [Moles/Vol] 4.3 mmol/L 3.5-5.1 [facility] Protein [Mass/Vol] 7.5 g/dL 6.4-8.2 [facility] Sodium [Moles/Vol] 141 mmol/L 136-145 [facility] WBC (Bld) [#/Vol] 6.2 10*3/uL 4.4-11.0 [facility] Blood erythrocytes count (nu mber/volume)Ordered By: Angel Gutierrez on 07-19-2023 RBC (Bld) [#/Vol] 4.53 10*6/uL 4.2-5.4 [facility] Blood hemoglobin measurement (mass/volume)Ordered By: Angel Gutierrez on 07-19-2023 Hemoglobin (Bld) [Mass/Vol] 14.3 g/dL 12.0-15.0 [facility] Blood lymphocytes/100 leukoc ytesOrdered By: Angel Gutierrez on 07-19-2023 Lymphocytes/100 WBC (Bld) 31.1 % 19-41 [facility] Blood monocytes/100 leukocyt esOrdered By: Angel Gutierrez on 07-19-2023 Monocytes/100 WBC (Bld) 8.1 % 0-10 [facility] Blood platelet mean volumeOr dered By: Angel Gutierrez on 07-19-2023 Platelet mean volume (Bld) [Entitic vol] 10.9 fL 6.2-12.0 [facility] Determination of erythrocyte mean corpuscular volume (MCV)Ordered By: Angel Gutierrez on 07-19-2023 MCV (RBC) [Entitic vol] 90.9 fL 81-99 [facility] Hematocrit Auto (Bld) [Volum e fraction]Ordered By: Angel Gutierrez on 07-19-2023 Hematocrit (Bld) [Volume fraction] 41.2 % 37-47 [facility] Laboratory - Chemistry and C hemistry - challengeOrdered By: Angel Gutierrez on 07-19-2023 ALP [Catalytic activity/Vol] 62 U/L 45-117 [facility] ALT [Catalytic activity/Vol] 72 U/L 13-56 [facility] CO2 [Moles/Vol] 26.0 mmol/L 21.0-32.0 [facility] Globulin (S) [Mass/Vol] 3.6 g/dL 2.2-4.2 [facility] Urea nitrogen/Creatinine [Mass ratio] 16.6 mg/mg 10-20 [facility] Laboratory - Hematology and Cell countsOrdered By: Anegl Gutierrez on 07-19-2023 Erythrocyte distribution width (RBC) [Entitic vol] 42.1 fL 35.1-43.9 [facility] Erythrocyte distribution width (RBC) [Ratio] 12.8 % 11.6-14.6 [facility] Immature granulocytes/100 WBC (Bld) 1.500 % 0.0-0.9 [facility] Comment on above: IG% - Immature Granu locytes (promyelocytes, myelocytes and metamyelocytes) > 1% indicates that a LEFT SHIFT is Present. MCH (RBC) [Entitic mass] 31.6 pg 27.0-32.0 [facility] Nucleated RBC/100 WBC (Bld) [Ratio] 0 % 0-5 [facility] MCHC Auto (RBC) [Mass/Vol]Or dered By: Angel Gutierrez on 07-19-2023 MCHC (RBC) [Mass/Vol] 34.7 g/dL 32-36 [facility] No Panel InformationOrdered By: Angel Gutierrez on 07-19-2023 Estimated GFR (MDRD) Amer 108 mL/min >60 [facility] Comment on above: GFR Calc Estimated GFR (MDRD) Non-Af Amer 89 mL/min >60 [facility] Comment on above: Non- GFR Calc Platelets bldOrdered By: Abdirahman Gutierrez on 07-19-2023 Platelets (Bld) [#/Vol] 280 10*3/uL 150-450 [facility] Serum or plasma albumin harrison urement (mass/volume)Ordered By: Angel Gutierrez on 07-19-2023 Albumin [Mass/Vol] 3.9 g/dL 3.2-5.0 [facility] Serum or plasma albumin/glob ulin mass ratioOrdered By: Angel Gutierrez on 07-19-2023 Albumin/Globulin [Mass ratio] 1.1 {ratio} 0.9-2.4 [facility] Serum or plasma calcium harrison urement (mass/volume)Ordered By: Angel Gutierrez on 07-19-2023 Calcium [Mass/Vol] 9.1 mg/dL 8.5-10.1 [facility] Serum or plasma creatinine m easurement (mass/volume)Ordered By: Angel Gutierrez on 07-19-2023 Creatinine [Mass/Vol] 0.84 mg/dL 0.55-1.02 [facility] Comment on above: The validity of the calculated GFR & GFRAA in patients over 70 years has not been determined. Clinical correlation is essential. Serum or plasma urea nitroge n measurement (mass/volume)Ordered By: Angel Gutierrez on 07-19-2023 Urea nitrogen [Mass/Vol] 14 mg/dL 7-18 [facility] Thin prep Papanicolaou smear with manual screeningOrdered By: Angel Gutierrez on 07-19-2023 Thin prep Papanicolaou smear with manual screening 15 U/L 15-37 [facility] Thin prep Papanicolaou smear with manual screening 4 5-15 [facility] Absolute lymphocyte countOrd ered By: Angel Gutierrez on 05-18-2023 Lymphocytes Auto (Unsp spec) [#/Vol] 1.55 10*3/uL 0.83-4.51 [facility] Atypical perinuclear antineu trophil cytoplasmic antibodies measurementOrdered By: Angel Gutierrez on 05-18-2023 Neutrophil cytoplasmic Ab.perinuclear.atypical IF (S) [Titer] <1:20 titer Neg:<1:20 [facility] Comment on above: The atypical pANCA p attern has been observed in asignificant percentage of patients with ulcerative colitis,primary sclerosing cholangitis and autoimmune hepatitis. Basophil percentageOrdered B y: Angel Gutierrez on 05-18-2023 Basophils/100 WBC (Bld) 0.7 % 0-1 [facility] Bilirubin [Mass/Vol] 0.90 mg/dL 0.20-1.00 [facility] Comment on above: For patients on eltr ombopag therapy, use of Dimension [place] TBIL is not recommended. Chloride [Moles/Vol] 107 mmol/L 98-107 [facility] Eosinophils/100 WBC (Bld) 1.0 % 0-5 [facility] Glucose [Mass/Vol] 82 mg/dL 74-106 [facility] LDH [Catalytic activity/Vol] 168 U/L 84-246 [facility] Neutrophils (Bld) [#/Vol] 4.0 10*3/uL 2.0-7.7 [facility] Neutrophils/100 WBC (Bld) 66.2 % 47-70 [facility] Potassium [Moles/Vol] 4.2 mmol/L 3.5-5.1 [facility] Protein [Mass/Vol] 7.7 g/dL 6.4-8.2 [facility] Sodium [Moles/Vol] 140 mmol/L 136-145 [facility] WBC (Bld) [#/Vol] 6.0 10*3/uL 4.4-11.0 [facility] Blood erythrocytes count (nu mber/volume)Ordered By: Angel Gutierrez on 05-18-2023 RBC (Bld) [#/Vol] 4.13 10*6/uL 4.2-5.4 [facility] Blood hemoglobin measurement (mass/volume)Ordered By: Angel Gutierrez on 05-18-2023 Hemoglobin (Bld) [Mass/Vol] 13.1 g/dL 12.0-15.0 [facility] Blood lymphocytes/100 leukoc ytesOrdered By: Angel Gutierrez on 05-18-2023 Lymphocytes/100 WBC (Bld) 25.8 % 19-41 [facility] Blood monocytes/100 leukocyt esOrdered By: Angel Gutierrez on 05-18-2023 Monocytes/100 WBC (Bld) 6.0 % 0-10 [facility] Blood platelet mean volumeOr dered By: Angel Gutierrez on 05-18-2023 Platelet mean volume (Bld) [Entitic vol] 11.5 fL 6.2-12.0 [facility] Determination of erythrocyte mean corpuscular volume (MCV)Ordered By: Angel Gutierrez on 05-18-2023 MCV (RBC) [Entitic vol] 93.9 fL 81-99 [facility] Erythrocyte sedimentation ra teOrdered By: Angel Gutierrez on 05-18-2023 ESR (Bld) [Velocity] mm/h 0-30 [facility] Hematocrit Auto (Bld) [Volum e fraction]Ordered By: Angel Gutierrez on 05-18-2023 Hematocrit (Bld) [Volume fraction] 38.8 % 37-47 [facility] Laboratory - Chemistry and C hemistry - challengeOrdered By: Angel Gutierrez on 05-18-2023 ALP [Catalytic activity/Vol] 62 U/L 45-117 [facility] ALT [Catalytic activity/Vol] 41 U/L 13-56 [facility] CO2 [Moles/Vol] 26.0 mmol/L 21.0-32.0 [facility] Globulin (S) [Mass/Vol] 3.6 g/dL 2.2-4.2 [facility] Urea nitrogen/Creatinine [Mass ratio] 12.4 mg/mg 10-20 [facility] Laboratory - Hematology and Cell countsOrdered By: Angel Gutierrez on 05-18-2023 Erythrocyte distribution width (RBC) [Entitic vol] 45.6 fL 35.1-43.9 [facility] Erythrocyte distribution width (RBC) [Ratio] 13.3 % 11.6-14.6 [facility] Immature granulocytes/100 WBC (Bld) 0.300 % 0.0-0.9 [facility] Comment on above: IG% - Immature Granu locytes (promyelocytes, myelocytes and metamyelocytes) > 1% indicates that a LEFT SHIFT is Present. MCH (RBC) [Entitic mass] 31.7 pg 27.0-32.0 [facility] Nucleated RBC/100 WBC (Bld) [Ratio] 0 % 0-5 [facility] MCHC Auto (RBC) [Mass/Vol]Or dered By: Angel Gutierrez on 05-18-2023 MCHC (RBC) [Mass/Vol] 33.8 g/dL 32-36 [facility] No Panel InformationOrdered By: Angel Gutierrez on 05-18-2023 Endomysial IgA Antibody Negative Negative [facility] Estimated GFR (MDRD) Amer 92 mL/min >60 [facility] Comment on above: GFR Calc Estimated GFR (MDRD) Non-Af Amer 76 mL/min >60 [facility] Comment on above: Non- GFR Calc Hepatitis A IgM Antibody Negative Negative [facility] Hepatitis B Core IgM Antibody Negative Negative [facility] Hepatitis C Antibody (EIA) Non-Reactive Non Reactive [facility] Hepatitis C Antibody Comment Comment . [facility] Comment on above: Not infected with HC V unless early or acute infection issuspected (which may be delayed in an immunocompromisedindividual), or other evidence exists to indicate HCVinfection. Platelets bldOrdered By: Abdirahman Gutierrez on 05-18-2023 Platelets (Bld) [#/Vol] 220 10*3/uL 150-450 [facility] Qualitative QuantiFERON-TB g old in tube testOrdered By: Angel Gutierrez on 05-18-2023 M. tuberculosis tuberculin stim IFN-g Ql (Bld) 0.06 IU/mL . [facility] Serum IgA measurement (units /volume)Ordered By: Angel Gutierrez on 05-18-2023 IgA Qn (S) 117 mg/dL 87-352 [facility] Serum classic neutrophil cyt oplasmic antibody assay (units/volume)Ordered By: Angel Gutierrez on 05-18-2023 Neutrophil cytoplasmic Ab.classic Qn (S) <1:20 titer Neg:<1:20 [facility] Serum or plasma C reactive p rotein measurement (mass/volume)Ordered By: Angel Gutierrez on 05-18-2023 CRP [Mass/Vol] mg/L 0.0-3.0 [facility] Comment on above: C-Reactive Protein ( CRP) provides useful information for thediagnosis, therapy and monitoring of inflammatory processesand associated diseases. For the evaluation of Relative Riskfor Cardiovascular Disease, a High Sensitivity CRP (HSCRP)should be ordered. Serum or plasma actin IgG an tibody assay (units/volume)Ordered By: Angel Gutierrez on 05-18-2023 Actin IgG Qn 15 Units 0-19 [facility] Comment on above: Negative 0 - 19 Weak positive 20 - 30 Moderate to strong positive >30 Actin Antibodies are found in 52-85% of patients with autoimmune hepatitis or chronic active hepatitis and in 22% of patients with primary biliary cirrhosis.Performed at: [facility] [id number] Director: Brett Cobos PhD, Phone: [phone] Serum or plasma albumin harrison urement (mass/volume)Ordered By: Angel Gutierrez on 05-18-2023 Albumin [Mass/Vol] 4.1 g/dL 3.2-5.0 [facility] Serum or plasma albumin/glob ulin mass ratioOrdered By: Angel Gutierrez on 05-18-2023 Albumin/Globulin [Mass ratio] 1.1 {ratio} 0.9-2.4 [facility] Serum or plasma calcium harrison urement (mass/volume)Ordered By: Angelmicheal Gutierrez on 05-18-2023 Calcium [Mass/Vol] 8.9 mg/dL 8.5-10.1 [facility] Serum or plasma creatinine m easurement (mass/volume)Ordered By: Angel Gutierrez on 05-18-2023 Creatinine [Mass/Vol] 0.96 mg/dL 0.55-1.02 [facility] Comment on above: The validity of the calculated GFR & GFRAA in patients over 70 years has not been determined. Clinical correlation is essential. Serum or plasma ferritin mitchell surement (mass/volume)Ordered By: Angel Gutierrez on 05-18-2023 Ferritin [Mass/Vol] 55 ng/mL 8 [facility] Serum or plasma hepatitis B virus surface antigen detection by immunoassayOrdered By: Angel Gutierrez on 05-18-2023 HBV surface Ag IA Ql Negative Negative [facility] Serum or plasma urea nitroge n measurement (mass/volume)Ordered By: Angel Gutierrez on 05-18-2023 Urea nitrogen [Mass/Vol] 12 mg/dL 7-18 [facility] Serum perinuclear neutrophil cytoplasmic antibody titer by immunofluorescenceOrdered By: Angel Gutierrez on 05-18-2023 Neutrophil cytoplasmic Ab.perinuclear IF (S) [Titer] <1:20 titer Neg:<1:20 [facility] Comment on above: The presence of posi tive fluorescence exhibiting P-ANCA orC-ANCA patterns alone is not specific for the diagnosis ofWegener's Granulomatosis (WG) or microscopic polyangiitis.Decisions about treatment should not be based solely onANCA IFA results. The [employer] AN[employer] Group Consensusrecommends follow up testing of positive sera with both DC-3 and MPO-ANCA enzyme immunoassays. As many as 5% serumsamples are positive only by EIA. Ref. AM J Clin [id number];111:507-513. Serum tissue transglutaminas e IgA antibody assay (units/volume)Ordered By: Angel Gutierrez on 05-18-2023 tTG IgA Qn (S) <2 U/mL 0-3 [facility] Comment on above: Negative 0 - 3 Weak Positive 4 - 10 Positive >10 Tissue Transglutaminase (tTG) has been identified as the endomysial antigen. Studies have demonstr- ated that endomysial IgA antibodies have over 99% specificity for gluten sensitive enteropathy. Thin prep Papanicolaou smear with manual screeningOrdered By: Angel Gutierrez on 05-18-2023 Thin prep Papanicolaou smear with manual screening 15 U/L 15-37 [facility] Thin prep Papanicolaou smear with manual screening 7 5-15 [facility] Thin prep Papanicolaou smear with manual screening Comment . [facility] Comment on above: QuantiFERON-TB Gold Plus is a qualitative indirect test forM tuberculosis infection (including disease) and isintended for use in conjunction with risk assessment,radiography, and other medical and diagnostic evaluations.The QuantiFERON-TB Gold Plus result is determined bysubtracting the Nil value from either TB antigen (Ag)value. The Mitogen tube serves as a control for the test. Thin prep Papanicolaou smear with manual screening 0.07 IU/mL . [facility] Thin prep Papanicolaou smear with manual screening 0.06 IU/mL . [facility] Thin prep Papanicolaou smear with manual screening > 10.00 IU/mL . [facility] Thin prep Papanicolaou smear with manual screening Negative Negative [facility] Comment on above: No response to M tub erculosis antigens detected.Infection with M tuberculosis is unlikely, but high riskindividuals should be considered for additional testing(ATS/IDSA/CDC Clinical Practice Guidelines, 2017). Thereference range is an Antigen minus Nil result of <0.35IU/mL.The specimen received for QuantiFERON testing was incubatedby the ordering institution. Specific procedures outlinedin our Directory of Services and in the package insert forthe QuantiFERON Gold (In Tube) test must be followed toenable for proper stimulation of cells for the productionof interferon gamma. Chemiluminescence immunoassaymethodology Atypical perinuclear antineu trophil cytoplasmic antibodies measurementon 08-19-2022 Neutrophil cytoplasmic Ab.perinuclear.atypical IF (S) [Titer] <1:20 titer Neg:<1:20 [facility] Work Phone: Comment on above: The atypical pANCA p attern has been observed in asignificant percentage of patients with ulcerative colitis,primary sclerosing cholangitis and autoimmune hepatitis. Basophil percentageon 2021 Basophil percentage < 0.2 AI 0.0-0.9 [facility] Work Phone: Erythrocyte sedimentation ra obi 08-19-2022 ESR (Bld) [Velocity] mm/h 0-30 [facility] Work Phone: INR in Blood by Coagulation assayon 08-19-2022 INR Coag (Bld) [Relative time] 1.2 {INR} [facility] Work Phone: Laboratory - Coagulationon 1 10-19-2021 PT Coag (PPP) [Time] 14.4 s 11.7-14.9 [facility] Work Phone: No Panel Informationon 08-19 Centromere B Antibody <0.2 AI 0.0-0.9 [facility] Work Phone: Endomysial IgA Antibody Negative Negative [facility] Work Phone: Hepatitis A IgM Antibody Negative Negative [facility] Work Phone: Hepatitis B Core IgM Antibody Negative Negative [facility] Work Phone: Hepatitis C Antibody (EIA) 0.1 s/co ratio 0.0-0.9 [facility] Work Phone: Hepatitis C Antibody Comment Comment . [facility] Work Phone: Comment on above: NegativeNot infected with HCV, unless recent infection issuspected or other evidence exists to indicate HCVinfection. Immunoglobulin E 15 IU/mL 6-495 [facility] Work Phone: [phone] [employer]OLASS[employer] Antibody <0.2 AI 0.0-0.9 [facility] Work Phone: [phone] Serum DNA double strand anti body assay (units/volume)on 08-19-2022 DNA double strand Ab Qn (S) 2 [IU]/mL 0-9 [facility] Work Phone: Comment on above: Negative <5 Equivoca l 5 - 9 Positive >9 Serum IgA measurement (units /volume)on 08-19-2022 IgA Qn (S) 137 mg/dL 87-352 [facility] Work Phone: Comment on above: Performed at: [place] [id number] Director: Brett Cobos PhD, Phone: [phone] Serum Marcie-1 antibody assay (u nits/volume)on 08-19-2022 Marcie-1 extractable nuclear Ab Qn (S) <0.2 AI 0.0-0.9 [facility] Work Phone: [phone] Serum Scl-70 extractable nuc lear antibody assay (units/volume)on 08-19-2022 SCL-70 extractable nuclear Ab Qn (S) <0.2 AI 0.0-0.9 [facility] Work Phone: [phone] Serum Christopher extractable nucl ear antibody detectionon 08-19-2022 Christopher extractable nuclear Ab Ql (S) <0.2 AI 0.0-0.9 [facility] Work Phone: [phone] Serum classic neutrophil cyt oplasmic antibody assay (units/volume)on 08-19-2022 Neutrophil cytoplasmic Ab.classic Qn (S) <1:20 titer Neg:<1:20 [facility] Work Phone: [phone] Serum or plasma C reactive p rotein measurement (mass/volume)on 08-19-2022 CRP [Mass/Vol] mg/L 0.0-3.0 [facility] Work Phone: Comment on above: C-Reactive Protein ( CRP) provides useful information for thediagnosis, therapy and monitoring of inflammatory processesand associated diseases. For the evaluation of Relative Riskfor Cardiovascular Disease, a High Sensitivity CRP (HSCRP)should be ordered. Serum or plasma IgA measurem ent (mass/volume)on 08-19-2022 IgA [Mass/Vol] 133 mg/dL 87-352 [facility] Work Phone: [phone] Serum or plasma IgG measurem ent (mass/volume)on 08-19-2022 IgG [Mass/Vol] 1275 mg/dL 586-1602 [facility] Work Phone: [phone] Serum or plasma IgM measurem ent (mass/volume)on 08-19-2022 IgM [Mass/Vol] 242 mg/dL 26-217 [facility] Work Phone: [phone] Comment on above: Performed at: [facility] [address] [id number] Director: Brett Cobos PhD, Phone: [phone] at: [facility] [id number] Director: Jen Foster MD, Phone: [phone] Serum or plasma actin IgG an tibody assay (units/volume)on 08-19-2022 Actin IgG Qn 11 Units 0-19 [facility] Work Phone: Comment on above: Negative 0 - 19 Weak positive 20 - 30 Moderate to strong positive >30 Actin Antibodies are found in 52-85% of patients with autoimmune hepatitis or chronic active hepatitis and in 22% of patients with primary biliary cirrhosis. Serum or plasma ferritin mitchell surement (mass/volume)on 08-19-2022 Ferritin [Mass/Vol] 108 ng/mL 8-252 [facility] Work Phone: [phone] Serum or plasma hepatitis B virus surface antigen detection by immunoassayon 08-19-2022 HBV surface Ag IA Ql Negative Negative [facility] Work Phone: [phone] Serum perinuclear neutrophil cytoplasmic antibody titer by immunofluorescenceon 08-19-2022 Neutrophil cytoplasmic Ab.perinuclear IF (S) [Titer] <1:20 titer Neg:<1:20 [facility] Work Phone: [phone] Comment on above: The presence of posi tive fluorescence exhibiting P-ANCA orC-ANCA patterns alone is not specific for the diagnosis ofWegener's Granulomatosis (WG) or microscopic polyangiitis.Decisions about treatment should not be based solely onANCA IFA results. The [employer] Consensusrecommends follow up testing of positive sera with both DC-3 and MPO-ANCA enzyme immunoassays. As many as 5% serumsamples are positive only by EIA. Ref. AM J Clin [id number];111:507-513. Serum tissue transglutaminas e IgA antibody assay (units/volume)on 08-19-2022 tTG IgA Qn (S) <2 U/mL 0-3 [facility] Work Phone: Comment on above: Negative 0 - 3 Weak Positive 4 - 10 Positive >10 Tissue Transglutaminase (tTG) has been identified as the endomysial antigen. Studies have demonstr- ated that endomysial IgA antibodies have over 99% specificity for gluten sensitive enteropathy. Thin prep Papanicolaou smear with manual screeningon 08-19-2022 Thin prep Papanicolaou smear with manual screening 150 U/L 84-246 [facility] Work Phone: LABORATORYOrdered By: Marylou Montgomery on 06-30-2022 Albumin [...] 55 U/L AH ADM SS Progress Noteon 06-10-2022 Client Strategist Authentication Interface Message Text Sloan Bonilla is here for follow-up for: Hepatic Disease History of Present Illness HPI History provided by patient She was last seen 07/29/21 Sloan is a 22 year old female with [...] is scheduled to see Adult GI in [place] (Dr. Sanchez) on August 19. She reports overall having issues with constipation. She had been using colace 300mg daily however no improvement. Currently with bowel movements 2-3 times per week and always small amounts. She overall has abdominal discomfort and bloating with nausea with worsening constipation. No diarrhea or hematochezia She [facility] [place] [facility] [employer] Past Medical History Past Medical History: Diagnosis [...] the country? No Water source for child? [place] Has the patient ever been hospitalized? Yes Alternative meds, herbals, OTC meds and vitamins documented in medication section? No Review of Systems Review of Systems Constitution (more content not included)... Normal [facility] No Panel Informationon 08-07 Culture Urine 10,000 - 50,000 cfu/ ml Mixed growth consistent with normal urogenital alison. [facility] Work Phone: Ferritinon 07-30-2021 Ferritin [Mass/Vol] 41 ng/mL Normal 10- [facility] Comment on above: Order Comment: Relea se to patient->Automatic 66928&Blood Performed By: #### F ERTN #### [address] [address] TSH with reflex T4FRon 07-30 TSH with reflex T4FR 1.216 uIU/mL Normal 0.350-5 .50 0 [facility] Comment on above: Order Comment: Relea se to patient->Automatic 18017&Blood Performed By: #### T SHR #### [address] [address] Complete Blood Counton 07-29 Differential Complete Automated Normal [facility] Comment on above: Order Comment: Relea se to patient->Automatic 23368&Blood Performed By: #### C BC #### [address] [address] Basophils/100 WBC (Bld) 0.90 % Normal 0.00-1.00 [facility] Comment on above: Order Comment: Relea se to patient->Automatic 94392&Blood Performed By: #### C BC #### [address] [address] Eosinophils/100 WBC (Bld) 0.90 % Normal 0.00-3.00 [facility] Comment on above: Order Comment: Relea se to patient->Automatic 14626&Blood Performed By: #### C BC #### [address] [address] Erythrocyte distribution width (RBC) [Ratio] 13.2 % Normal 0.0-14.4 [facility] Comment on above: Order Comment: Relea se to patient->Automatic 40985&Blood Performed By: #### C BC #### [address] [address] Hematocrit (Bld) [Volume fraction] 40.9 % Normal 36.0-44.0 [facility] Comment on above: Order Comment: Relea se to patient->Automatic 08701&Blood Performed By: #### C BC #### [address] [address] Hemoglobin (Bld) [Mass/Vol] 14.2 g/dL Normal 12.0-15.0 [facility] Comment on above: Order Comment: Relea se to patient->Automatic 12820&Blood Performed By: #### C BC #### [address] [address] Immature granulocytes/100 WBC (Bld) 0.20 % Normal [facility] Comment on above: Order Comment: Relea se to patient->Automatic 42761&Blood Result Comment: Manju ture Granulocyte Percent includes promyelocytes, myelocytes, and metamyelocytes. IG% > 1.0 indicates a left shift is present. With automated differentials, bands are included in the neutrophil count and not in the Immature Granulocyte Percent. Performed By: #### C BC #### [address] [address] Lymphocytes/100 WBC (Bld) 29.8 % Normal 24.0-44.0 [facility] Comment on above: Order Comment: Relea se to patient->Automatic 72077&Blood Performed By: #### C BC #### [address] [address] MCH (RBC) [Entitic mass] 31.6 pg Normal 26.0-34.0 [facility] Comment on above: Order Comment: Relea se to patient->Automatic 00936&Blood Performed By: #### C BC #### [address] [address] MCHC 34.7 % Normal 31.0-37.0 [facility] Comment on above: Order Comment: Relea se to patient->Automatic 49567&Blood Performed By: #### C BC #### [address] [place] [address] MCV (RBC) [Entitic vol] 90.9 fL Normal 80.0-100.0 [facility] Comment on above: Order Comment: Relea se to patient->Automatic 83791&Blood Performed By: #### C BC #### [address] [address] Monocytes/100 WBC (Bld) 8.70 % High 3.00-6.00 [facility] Comment on above: Order Comment: Relea se to patient->Automatic 43096&Blood Performed By: #### C BC #### [address] [address] Neutrophils (Bld) [#/Vol] 2.6 10*3/uL Normal 2.0-7.2 [facility] Comment on above: Order Comment: Relea se to patient->Automatic 33880&Blood Performed By: #### C BC #### [address] [address] Neutrophils/100 WBC (Bld) 59.5 % Normal 35.0-66.0 [facility] Comment on above: Order Comment: Relea se to patient->Automatic 21348&Blood Performed By: #### C BC #### [address] [address] Nucleated RBC/100 WBC (Bld) [Ratio] 0.0 % Normal -1.0-0.0 [facility] Comment on above: Order Comment: Relea se to patient->Automatic 23940&Blood Performed By: #### C BC #### [address] [address] Platelet mean volume (Bld) [Entitic vol] 11.6 fL Normal [facility] Comment on above: Order Comment: Relea se to patient->Automatic 42382&Blood Result Comment: MPV is platelet range and age dependent Performed By: #### C BC #### [address] [address] Platelets (Bld) [#/Vol] 246 10*3/uL Normal 150-450 [facility] Comment on above: Order Comment: Relea se to patient->Automatic 91164&Blood Performed By: #### C BC #### [address] [address] RBC 4.50 10E12/L Normal 4.00-4.90 [facility] Comment on above: Order Comment: Relea se to patient->Automatic 92880&Blood Performed By: #### C BC #### [address] [address] WBC (Bld) [#/Vol] 4.4 10*3/uL Low 4.5-11.0 [facility] Comment on above: Order Comment: Relea se to patient->Automatic 06640&Blood Performed By: #### C BC #### [address] [address] GGTon 07-29-2021 Gamma glutamyl transferase [Catalytic activity/Vol] 12 U/L Normal 7-51 [facility] Comment on above: Order Comment: Relea se to patient->Automatic 40122&Blood Performed By: #### G GT #### [address] [address] Hepatic Panelon 07-29-2021 Albumin [Mass/Vol] 4.7 g/dL Normal 3.5-5.0 [facility] Comment on above: Order Comment: Relea se to patient->Automatic 27349&Blood Performed By: #### L IVER #### [address] [address] ALP [Catalytic activity/Vol] 48 U/L Normal 35-104 [facility] Comment on above: Order Comment: Relea se to patient->Automatic 33844&Blood Performed By: #### L IVER #### [address] [address] ALT [Catalytic activity/Vol] 20 U/L Normal 0-31 [facility] Comment on above: Order Comment: Relea se to patient->Automatic 02637&Blood Performed By: #### L IVER #### [address] [address] AST [Catalytic activity/Vol] 17 U/L Normal 0-31 [facility] Comment on above: Order Comment: Relea se to patient->Automatic 11232&Blood Performed By: #### L IVER #### [address] [address] Bili,Conjugated 0.2 mg/dL Normal 0.0-0.7 [facility] Comment on above: Order Comment: Relea se to patient->Automatic 49171&Blood Performed By: #### L IVER #### [address] [address] Bili,Total 1.0 mg/dl Normal 0.0-1.0 [facility] Comment on above: Order Comment: Relea se to patient->Automatic 53756&Blood Performed By: #### L IVER #### [address] [address] Protein [Mass/Vol] 7.7 g/dL Normal 5.9-8.4 [facility] Comment on above: Order Comment: Relea se to patient->Automatic 76490&Blood Performed By: #### L IVER #### [address] [address] Ironon 07-29-2021 %Saturation 21 % Normal 13-59 [facility] Comment on above: Order Comment: Relea se to patient->Automatic [id number]&Blood Performed By: #### I WESLEY #### [address] [place] [id number] Iron [Mass/Vol] 57 ug/dL Normal 30-160 [facility] Comment on above: Order Comment: Relea se to patient->Automatic [id number]&Blood Performed By: #### I WESLEY #### [facility] [address] [place] [address] TIBC 274 ug/dl Normal 228-428 [facility] Comment on above: Order Comment: Relea se to patient->Automatic [id number]&Blood Performed By: #### I WESLEY #### [facility] [address] [place] [address] Progress Noteon 07-29-2021 Client Strategist Authentication Interface Message Text Sloan Bonilla is here for follow-up for: Hepatitis (Patient is present with mom, is in office for follow up. No problems or concerns.) History of Present Illness HPI History provided by patient and mother She was last seen 04/23/21 Sloan is a 21 year old female female [...] normal. Ab (more content not included)... Normal [facility] US ABDOMEN COMPLETEon 2020 US ABDOMEN COMPLETE Addendum: Correction: Comparison exam is 12/30/2020. No evidence for portal hypertension on this examination. This report has been created using voice recognition software Signed by: Dr. Ran Akins at 07/20/2021 10:19 Normal [facility] US DUPLEX ABDOMEN PELVIS COM PLETEon 07-20-2021 US DUPLEX ABDOMEN PELVIS COMPLETE Addendum: Correction: No evidence for portal hypertension in this examination. This report has been created using voice recognition software Signed by: Dr. Ran Akins at 07/20/2021 10:19 Normal [facility] Gamma GTon 04-19-2017 Gamma GT 28 U/L Normal 5-55 [facility] Comment on above: Performed By: #### G GT ####[facility] [address] [place] [id number] CBC (AO)on 04-18-2017 Basophils Auto #/vol (Bld) 0.10 10 3/mcL Normal 0.00-0.19 [facility] Comment on above: Performed By: #### C BCO ####[address] [address] Basophils/100 WBC Auto (Bld) 1.0 % Normal 0.0-2.5 [facility] Comment on above: Performed By: #### C BCO ####[address] [address] Eosinophils 0.10 10 3/mcL Normal 0.00-0.40 [facility] Comment on above: Performed By: #### C BCO ####[address] [address] Eosinophils/100 leukocytes 1.4 % Normal 0.0-7.0 [facility] Comment on above: Performed By: #### C BCO ####[address] [address] Erythrocyte distribution width Auto Ratio (RBC) 12.9 % Normal 11.5-14.5 [facility] Comment on above: Performed By: #### C BCO ####[address] [address] Erythrocytes (RBC) 4.52 10 6/mcL Normal 4.20-5.40 [facility] Comment on above: Performed By: #### C BCO ####[address] [address] Hematocrit (HCT) 41.1 % Normal 37.0-47.0 [facility] Comment on above: Performed By: #### C BCO ####[address] [address] Hemoglobin mass conc (Bld) 14.0 G/dL Normal 12.0-16.0 [facility] Comment on above: Performed By: #### C BCO ####[address] [address] Lymphocytes 1.50 10 3/mcL Normal 0.77-3.85 [facility] Comment on above: Performed By: #### C BCO ####[address] [address] Lymphocytes/100 leukocytes 25.9 % Normal 10.0-50.0 [facility] Comment on above: Performed By: #### C BCO ####[address] [address] MCH 31.0 pg Normal 27.0-31.2 [facility] Comment on above: Performed By: #### C BCO ####[address] [address] MCHC mass conc (RBC) 34.1 G/dL Normal 33.0-37.0 On license of [facility] Comment on above: Performed By: #### C BCO ####[address] [address] MCV 90.9 fL Normal 80.0-94.0 [facility] Comment on above: Performed By: #### C BCO ####[address] [address] Monocytes 0.50 10 3/mcL Normal 0.15-1.00 [facility] Comment on above: Performed By: #### C BCO ####[address] [address] Monocytes/100 leukocytes 8.2 % Normal 1.7-13.0 [facility] Comment on above: Performed By: #### C BCO ####[address] [address] Neutrophils 3.70 10 3/mcL Normal 2.85-6.16 [facility] Comment on above: Performed By: #### C BCO ####[address] [address] Neutrophils/100 WBC Auto (Bld) 63.5 % Normal 37.0-80.0 [facility] Comment on above: Performed By: #### C BCO ####[address] [address] Platelet mean volume (PMV) 10.2 fL Normal 7.4-10.4 [facility] Comment on above: Performed By: #### C BCO ####[address] [address] Platelets 235 10 3/mcL Normal 130-400 [facility] Comment on above: Performed By: #### C BCO ####Kemal [address] [address] WBC (Leukocytes) 5.80 10 3/mcL Normal 4.60-10.80 [facility] Comment on above: Performed By: #### C BCO ####Kemal [address] [address] Hepatic Function Panel (AO)o n 04-18-2017 Alanine aminotransferase (ALT) 28 U/L Normal 10-35 [facility] Comment on above: Performed By: #### H FPO ####[address] [address] Alk. Phosphatase 84 IU/L Low 135-450 [facility] Comment on above: Performed By: #### H FPO ####Kemal [address] [address] Aspartate aminotransferase (AST) 22 U/L Normal 10-40 [facility] Comment on above: Performed By: #### H FPO ####[address] [address] T. Protein 7.3 G/dL Normal 6.0-8.3 [facility] Comment on above: Performed By: #### H FPO ####[address] [address] Bilirubin (direct) 0.7 mg/dL Normal 0.2-1.0 [facility] Comment on above: Performed By: #### H FPO ####Kemal [address] [address] Bilirubin (direct) 0.2 mg/dL Normal 0.1-0.5 [facility] Comment on above: Performed By: #### H FPO ####[address] [address] Bilirubin (indirect) 0.5 mg/dL Normal On license of [facility] Comment on above: Performed By: #### H FPO ####Kemal [address] [address] Albumin 4.6 G/dL Normal 3.5-5.0 [facility] Comment on above: Performed By: #### H FPO ####[address] [address] Vital Signs Date Time Vital Sign Value Performing Clinician Facility 04-05-2025 12:57-0400 Diastolic blood pressure 65 mm[Hg] Garcia Culp DO Work Phone: [facility] 04-05-2025 12:57-0400 Heart rate 82 /min Garcia Culp DO Work Phone: [facility] 04-05-2025 12:57-0400 Respiratory rate 16 /min Garcia Culp DO Work Phone: [facility] 04-05-2025 12:57-0400 SaO2% (BldA) [Mass fraction] 100 % Gracia Culp DO Work Phone: [facility] 04-05-2025 12:57-0400 Systolic blood pressure 101 mm[Hg] Garcia Culp DO Work Phone: [facility] 04-05-2025 12:46-0400 Body temperature 97.7 [degF] Garcia Culp DO Work Phone: [facility] 03-20-2025 10:46-0400 Body height 172.7 cm [facility] Work Phone: [facility] 03-20-2025 10:46-0400 Body mass index (BMI) [Ratio] 18.25 kg/m2 [facility] Work Phone: [facility] 03-20-2025 10:46-0400 Body weight 54.43 kg [facility] Work Phone: [facility] 03-20-2025 10:46-0400 Heart rate 78 /min [facility] Work Phone: [facility] 03-20-2025 10:46-0400 Respiratory rate 16 /min [facility] Work Phone: [facility] 12-26-2024 15:10-0400 Body height 172.7 cm Garcia Culp DO Work Phone: [facility] 12-26-2024 15:10-0400 Body mass index (BMI) [Ratio] 18.34 kg/m2 Garcia Quijanoe DO Work Phone: [facility] 12-26-2024 15:10-0400 Body weight 54.7 kg Garcia Quijanoe DO Work Phone: [facility] 12-26-2024 15:10-0400 Diastolic blood pressure 50 mm[Hg] Garcia Culp DO Work Phone: [facility] 12-26-2024 15:10-0400 Heart rate 74 /min Garcia Quijanoe DO Work Phone: [facility] 12-26-2024 15:10-0400 Systolic blood pressure 108 mm[Hg] Garcia Culp DO Work Phone: [facility] 01-02-2024 10:13-0400 Body temperature 97.3 [degF] ARABIC TEACHER-C Osman Serrano ARABIC TEACHER Work Phone: [facility] 01-02-2024 10:13-0400 Diastolic blood pressure 51 mm[Hg] ARABIC TEACHER-C Osman Serrano ARABIC TEACHER Work Phone: [facility] 01-02-2024 10:13-0400 Heart rate 60 /min ARABIC TEACHER-C Osman Serrano ARABIC TEACHER Work Phone: [facility] 01-02-2024 10:13-0400 Respiratory rate 18 /min ARABIC TEACHER-C Osman Serrano ARABIC TEACHER Work Phone: [facility] 01-02-2024 10:13-0400 SaO2% (BldA) [Mass fraction] 96 % ARABIC TEACHER-C Osman Serrano ARABIC TEACHER Work Phone: [facility] 01-02-2024 10:13-0400 Systolic blood pressure 90 mm[Hg] ARABIC TEACHER-C Osman Serrano ARABIC TEACHER Work Phone: [facility] 01-02-2024 08:44-0400 Body height 172.72 cm ARABIC TEACHER-C Osman Serrano ARABIC TEACHER Work Phone: [facility] 01-02-2024 08:44-0400 Body mass index (BMI) [Ratio] 17.4 kg/m2 ARABIC TEACHER-C Osman Serrano ARABIC TEACHER Work Phone: [facility] 01-02-2024 08:44-0400 Body weight 52 kg ARABIC TEACHER-C Osman Serrano ARABIC TEACHER Work Phone: [facility] 12-16-2023 12:39-0500 Body temperature 98.06 [degF] SHANTE GUSTAFSON FASHION DIRECTOR-TILE ROOFER [facility] 12-16-2023 12:39-0500 Diastolic Blood Pressure Non-Invasive 63 mm[Hg] SHANTE GUSTAFSON FASHION DIRECTOR-TILE ROOFER [facility] 12-16-2023 12:39-0500 Heart rate 67 /min SHANTE GUSTAFSON FASHION DIRECTOR-TILE ROOFER [facility] 12-16-2023 12:39-0500 Systolic Blood Pressure Non-Invasive 109 mm[Hg] SHANTE GUSTAFSON FASHION DIRECTOR-TILE ROOFER [facility] 12-16-2023 11:23-0500 Body temperature 98.06 [degF] SHANTE GUSTAFSON FASHION DIRECTOR-TILE ROOFER [facility] 12-16-2023 11:23-0500 Diastolic Blood Pressure Non-Invasive 69 mm[Hg] SHANTE GUSTAFSON FASHION DIRECTOR-TILE ROOFER [facility] 12-16-2023 11:23-0500 Heart rate 76 /min SHANTE GUSTAFSON FASHION DIRECTOR-TILE ROOFER [facility] 12-16-2023 11:23-0500 Systolic Blood Pressure Non-Invasive 103 mm[Hg] SHANTE GUSTAFSON FASHION DIRECTOR-TILE ROOFER [facility] 12-09-2023 08:21-0500 Body height 172.72 cm ARABIC TEACHER-C Osman Serrano ARABIC TEACHER Work Phone: [facility] 12-09-2023 08:21-0500 Body mass index (BMI) [Ratio] 17.9 kg/m2 ARABIC TEACHER-C Osman Serrano ARABIC TEACHER Work Phone: [facility] 12-09-2023 08:21-0500 Body weight 53.52 kg ARABIC TEACHER-C Osman Serrano ARABIC TEACHER Work Phone: [facility] 12-09-2023 08:21-0500 Diastolic blood pressure 64 mm[Hg] ARABIC TEACHER-C Osman Serrano ARABIC TEACHER Work Phone: [facility] 12-09-2023 08:21-0500 Heart rate 69 /min ARABIC TEACHER-C Osman Serrano ARABIC TEACHER Work Phone: [facility] 12-09-2023 08:21-0500 SaO2% (BldA) [Mass fraction] 99 % ARABIC TEACHER-C Osman Serrano ARABIC TEACHER Work Phone: [facility] 12-09-2023 08:21-0500 Systolic blood pressure 95 mm[Hg] ARABIC TEACHER-C Osman Serrano ARABIC TEACHER Work Phone: [facility] 10-27-2023 07:23-0500 Body height 172.[address] JUSTYNA CELIS MD [facility] 10-27-2023 07:23-0500 Body temperature 99.14 [degF] DR JUSTYNA CELIS MD [facility] 10-27-2023 07:23-0500 Body weight 54.[address] JUSTYNA CELIS MD [facility] 10-27-2023 07:23-0500 Diastolic Blood Pressure Non-Invasive 71 mm[Hg] DR JUSTYNA CELIS MD [facility] 10-27-2023 07:23-0500 Heart rate 124 /min DR JUSTYNA CELIS MD [facility] 10-27-2023 07:23-0500 Respiratory rate 20 /min DR JUSTYNA CELIS MD [facility] 10-27-2023 07:23-0500 Systolic Blood Pressure Non-Invasive 96 mm[Hg] DR JUSTYNA CELIS MD [facility] 09-05-2023 09:29-0500 Body height 172.72 cm ARABIC TEACHER-C Osman Serrano ARABIC TEACHER Work Phone: [facility] 09-05-2023 09:29-0500 Body mass index (BMI) [Ratio] 18.3 kg/m2 ARABIC TEACHER-C Osman Serrano ARABIC TEACHER Work Phone: [facility] 09-05-2023 09:29-0500 Body weight 54.88 kg ARABIC TEACHER-C Osman Serrano ARABIC TEACHER Work Phone: [facility] 09-05-2023 09:29-0500 Diastolic blood pressure 63 mm[Hg] ARABIC TEACHER-C Osman Serrano ARABIC TEACHER Work Phone: [facility] 09-05-2023 09:29-0500 Heart rate 70 /min ARABIC TEACHER-C Osman Serrano ARABIC TEACHER Work Phone: [facility] 09-05-2023 09:29-0500 SaO2% (BldA) [Mass fraction] 94 % ARABIC TEACHER-C Osman Serrano ARABIC TEACHER Work Phone: [facility] 09-05-2023 09:29-0500 Systolic blood pressure 96 mm[Hg] ARABIC TEACHER-C Osman Serrano ARABIC TEACHER Work Phone: [facility] Encounters Encounter Date Encounter Type Care Provider Facility Start: 05-15-2025 End: 05-19-2025 ambulatory OSMAN SERRANO FASHION DIRECTOR - TILE ROOFER Facility:[facility] Start: 05-15-2025 End: 05-19-2025 Outreach Lab TALISHA NICOLE MD [facility] Start: 04-05-2025 ambulatory DEBBIE HARRIS Facility:[facility] Start: 04-05-2025 End: 04-05-2025 Subsequent hospital visit by physician Garcia Culp DO Work Phone: [facility] Comment on above: Gastroparesis [K31.8 4] Start: 04-04-2025 End: 04-04-2025 ambulatory Garcia Culp DO Work Phone: [facility] Start: 03-20-2025 End: 03-20-2025 Admission to establishment [facility] Work Phone: Pre Anesthesia Start: 03-20-2025 End: 03-20-2025 Anesthesia consultation [facility] Work Phone: Pre Anesthesia Comment on above: POTS (postural ortho static tachycardia syndrome) (Primary Dx); MVP (mitral valve prolapse); Hair loss; Gastroesophageal reflux disease, unspecified whether esophagitis present; Autoimmune hepatitis (HCC); Engages in vaping; Underweight Start: 03-20-2025 End: 03-20-2025 ambulatory GARCIA CULP Facility:[facility] Start: 03-12-2025 End: 03-12-2025 [facility] Start: 03-12-2025 End: 03-12-2025 ambulatory Osman Serrano ARABIC TEACHER-C Work Phone: [facility] Work Phone: Start: 02-21-2025 End: 02-21-2025 Telemedicine consultation with patient Garcia Culp DO Work Phone: Gastroenterology Start: 02-21-2025 End: 02-21-2025 ambulatory Garcia Culp DO Work Phone: Gastroenterology Comment on above: Gastroparesis (Prima ry Dx) Start: 12-27-2024 End: 12-27-2024 ambulatory Garcia Culp DO Work Phone: Gastroenterology Comment on above: EGG RESULTS Start: 12-27-2024 End: 12-27-2024 Patient encounter procedure Garcia Culp DO Work Phone: Gastroenterology Start: 12-26-2024 End: 12-26-2024 ambulatory GACRIA CULP Facility:[facility] Start: 12-26-2024 End: 12-26-2024 Patient encounter [address] [facility] Work Phone: Gastroenterology Comment on above: Gastroparesis (Prima ry Dx) Gastroparesis (Prima ry Dx); Chronic idiopathic constipation; Dysautonomia (HCC) Start: 12-26-2024 End: 01-01-2025 Telephone encounter Garcia Culp DO Work Phone: Gastroenterology Comment on above: Appointment (Gastrop aresis clinic: f/u) Start: 11-21-2024 End: 11-21-2024 Patient encounter procedure Angel Gutierrez DO -[facility] Work Phone: Start: 11-21-2024 End: 11-21-2024 ambulatory Osman Serrano NP Facility:[facility] Start: 11-05-2024 End: 11-09-2024 ambulatory TALISHA NICOLE MD Facility:[facility] Start: 11-05-2024 End: 11-09-2024 Outreach Lab TALISHA NICOLE MD [facility] Start: 10-30-2024 End: 10-30-2024 Telephone encounter Garcia Culp DO Work Phone: Gastroenterology Comment on above: Appointment Start: 10-24-2024 End: 10-24-2024 ambulatory Osman Serrano NP Facility:[facility] Start: 10-08-2024 End: 10-08-2024 ambulatory Angelmicheal Gutierrez Facility:[facility] Start: 09-25-2024 Encounter for other preprocedural examination Angel Gutierrez [facility] Start: 09-03-2024 End: 09-03-2024 ambulatory Krishna Houston Facility:[facility] Start: 08-28-2024 End: 08-28-2024 ambulatory Osman Serrano NP Facility:[facility] Start: 08-03-2024 End: 08-03-2024 ambulatory HE OLEARYE Facility:[facility] Start: 07-13-2024 End: 07-13-2024 ambulatory Angel Gutierrez Facility:[facility] Start: 2024 End: 2024 ambulatory OSMAN SERRANO FASHION DIRECTOR - TILE ROOFER Facility:[facility] Start: 2024 End: 2024 Patient encounter procedure OSMAN SERRANO FASHION DIRECTOR - TILE ROOFER [facility] Start: 05-21-2024 End: 05-21-2024 ambulatory Osman Serrano ARABIC TEACHER Facility:[facility] Start: 04-26-2024 End: 04-26-2024 ambulatory Artieheide Martinez Facility:[facility] Start: 03-30-2024 ambulatory Artieheide Martinez Facility: [facility] Start: 03-20-2024 End: 03-20-2024 ambulatory Osman Serrano ARABIC TEACHER Facility:[facility] Start: 03-19-2024 End: 03-19-2024 ambulatory Osman Serrano ARABIC TEACHER Facility:[facility] Start: 02-23-2024 End: 02-23-2024 ambulatory OSMAN SERRANO FASHION DIRECTOR - TILE ROOFER Facility:[facility] Start: 02-23-2024 End: 02-23-2024 Patient encounter procedure OSMAN ESRRANO FASHION DIRECTOR - TILE ROOFER [facility] Start: 01-19-2024 End: 01-19-2024 ambulatory TALISHA NICOLE MD Facility:[facility] Start: 01-19-2024 End: 01-19-2024 Patient encounter procedure TALISHA NICOLE MD [facility] Start: 01-13-2024 End: 01-13-2024 ambulatory TALISHA NICOLE MD Facility:[facility] Start: 01-09-2024 End: 01-09-2024 ambulatory SHANTE GUSTAFSON FASHION DIRECTOR-TILE ROOFER Facility:[facility] Start: 01-09-2024 End: 01-09-2024 Patient encounter procedure SHANTE GUSTAFSON FASHION DIRECTOR-TILE ROOFER [facility] Start: 01-02-2024 Non-patient / Non-visit ARABIC TEACHER-C Osman Serrano ARABIC TEACHER Work Phone: [facility] Start: 01-02-2024 End: 01-02-2024 Admission to same day surgery center ARABIC TEACHER-C Osman Serrano ARABIC TEACHER Work Phone: [facility]End[facility] Work Phone: Start: 01-02-2024 End: 01-02-2024 ambulatory ARABIC TEACHER-C Osman Serrano ARABIC TEACHER Work Phone: [facility] Work Phone: Start: 12-16-2023 End: 12-16-2023 ambulatory SHANTE GUSTAFSON FASHION DIRECTOR-TILE ROOFER Facility:[facility] Start: 12-16-2023 End: 12-16-2023 SAME DAY STAY SHANTE GUSTAFSON FASHION DIRECTOR-TILE ROOFER [facility] Start: 12-09-2023 End: 12-09-2023 Patient encounter procedure ARABIC TEACHER-C Osman Serrano ARABIC TEACHER Work Phone: [facility] Work Phone: Start: 12-07-2023 End: 12-07-2023 ambulatory ARABIC TEACHER-C Osman Serrano ARABIC TEACHER Work Phone: [facility] Work Phone: Start: 12-07-2023 End: 12-07-2023 Patient encounter procedure ARABIC TEACHER-C Osman Serrano ARABIC TEACHER Work Phone: [facility]-Laboratory Work Phone: Start: 12-02-2023 End: 12-06-2023 ambulatory TALISHA NICOLE MD Facility:[facility] Start: 12-02-2023 End: 12-06-2023 Outreach Lab TALISHA NICOLE MD [facility] Start: 11-23-2023 End: 11-23-2023 ambulatory BETSY LO FASHION DIRECTOR-TILE ROOFER Facility:[facility] Start: 11-17-2023 End: 11-21-2023 ambulatory BETSY LO FASHION DIRECTOR-TILE ROOFER Facility:[facility] Start: 11-17-2023 End: 11-21-2023 Encounter for gynecological examination (general) (routine) without abnormal findings BETSY LO FASHION DIRECTOR-TILE ROOFER Facility:[facility] Start: 11-17-2023 End: 11-21-2023 Outreach Lab BETSY LO FASHION DIRECTOR-TILE ROOFER [facility] Start: 11-14-2023 End: 11-14-2023 ambulatory OSMAN SERRANO FASHION DIRECTOR - TILE ROOFER Facility:[facility] Start: 11-14-2023 End: 11-14-2023 Patient encounter procedure OSMAN SERRANO FASHION DIRECTOR - TILE ROOFER [facility] Start: 10-27-2023 End: 10-27-2023 Emergency department patient visit DR JUSTYNA CELIS MD [facility] Start: 10-17-2023 End: 10-17-2023 ambulatory ASHLYN CHILDS PAC Facility:[facility] Start: 09-05-2023 End: 09-05-2023 ambulatory ARABIC TEACHER-C Osman Serrano ARABIC TEACHER Work Phone: [facility] Work Phone: Start: 09-05-2023 End: 09-05-2023 Patient encounter procedure ARABIC TEACHER-C Osman Serrano ARABIC TEACHER Work Phone: [facility] Work Phone: Start: 07-19-2023 End: 07-19-2023 ambulatory ARABIC TEACHER-C Osman Serrano ARABIC TEACHER Work Phone: [facility] Work Phone: Start: 07-19-2023 End: 07-19-2023 Patient encounter procedure ARABIC TEACHER-C Osman Serrano ARABIC TEACHER Work Phone: [facility]Labor[facility] Work Phone: Start: 06-01-2023 End: 06-01-2023 ambulatory ARABIC TEACHER-C Osman Serrano ARABIC TEACHER Work Phone: [facility] Work Phone: Start: 06-01-2023 End: 06-01-2023 Patient encounter procedure ARABIC TEACHER-C Osman Serrano ARABIC TEACHER Work Phone: [facility] Work Phone: Start: 05-18-2023 End: 05-18-2023 ambulatory ARABIC TEACHER-C Osman Serrano ARABIC TEACHER Work Phone: [facility] Work Phone: Start: 05-18-2023 End: 05-18-2023 Patient encounter procedure ARABIC TEACHER-C Osman Serrano ARABIC TEACHER Work Phone: [facility] Gastroenter[facility] Work Phone: Start: 09-21-2022 End: 09-21-[address] Angel Gutierrez Work Phone: [facility] Work Phone: Start: 09-21-2022 End: 09-21-[address] Angel Gutierrez Work Phone: [facility] Start: 08-19-2022 End: 08-19-[address] Angel Gutierrez Work Phone: [facility] Work Phone: Start: 08-19-2022 End: 08-19-[address] Angel Gutierrez Work Phone: [facility] Start: 08-19-2022 End: 08-19-[address] Angel Gutierrez Work Phone: [facility] Start: 07-07-2022 End: 07-07-[address] RADHA SANTIAGO MD [facility] Start: 06-30-2022 End: 06-30-[address] RADHA SANTIAGO MD [facility] Start: 10-06-2021 End: 10-10-2021 Outreach Lab OSMAN SERRANO FASHION DIRECTOR - TILE ROOFER [facility] Start: 08-07-2021 End: 08-11-2021 Outreach Lab LO RICHTER FASHION DIRECTOR-TILE ROOFER [facility] Start: 04-18-2017 End: 04-19-2017 Ambulatory PHY WO ID REFERRING Facility:[facility] Procedures Date Procedure Procedure Detail Performing Clinician Start: 04-05-2025 Esophagoscp rig morales soral hypopharynx crv edward Culp DO Work Phone: Start: 01-02-2024 Colonoscopy ARABIC TEACHER-C Yuki Lombard[place]kins ARABIC TEACHER Work Phone: Start: 06-01-2023 Ultrasonography of abdomen ARABIC TEACHER-C Osman Serrano ARABIC TEACHER Work Phone: Start: 06-01-2023 Ultrasound elastography ARABIC TEACHER-C Osman Duncankins ARABIC TEACHER Work Phone: Start: 09-21-[address] Angel Gutierrez Work Phone: Start: 09-21-[address] Angel Gutierrez Work Phone: Biopsy of liver TALISHA NICOLE MD Colposcopy TALISHA NICOLE MD Plan of Treatment Date Care Activity Detail Author Start: 06-10-2025 Influenza vaccination Influenza Vaccine (Season Ended) [facility] Start: 04-05-2025 End: 04-05-2025 Patient encounter procedure 04/05/2025 2:45 PM EDT Appointment [facility] [place] [id number] Garcia Culp DO [place] [employer] [address] [id number] Gastroparesis [facility] Comment on above: Gastroparesis Start: 04-05-2025 ambulatory 04/05/2025 GI Preprocedure Call [facility] [place] [address] Garcia Culp DO [place] [employer] [address] [place] [id number] [facility] Start: 04-05-2025 End: 04-05-2025 Patient encounter procedure 04/05/2025 1:30 PM EDT Appointment [facility] [place] [id number] Garcia Culp DO [address] [place] [address] Gastroparesis [facility] Comment on above: Gastroparesis Start: 12-26-2024 End: 03-27-2025 ACETYLCHOLINE REC BINDING AB [facility] kenyatta Comment on above: Expected: 12/26/2024, Expires: Start: 12-26-2024 End: 03-27-2025 AMINO ACIDS, PLASMA W/ CONSULTATION [facility] Comment on above: Expected: 12/26/2024, Expires: Start: 12-26-2024 End: 03-27-2025 CARNITINE FREE & TOTAL, PLASMA [facility] Comment on above: Expected: 12/26/2024, Expires: Start: 12-26-2024 End: 03-27-2025 CYTOKINE PANEL 13, [facility] Comment on above: Expected: 12/26/2024, Expires: Start: 12-26-2024 End: 03-27-2025 ESTROGEN FRACTION BL [facility] Comment on above: Expected: 12/26/2024, Expires: Start: 12-26-2024 End: 03-27-2025 Glutamate decarboxylase 65 Ab [Units/volume] in Serum [facility] Comment on above: Expected: 12/26/2024, Expires: Start: 12-26-2024 End: 03-27-2025 Hemoglobin A1c in Blood [facility] Comment on above: Expected: 12/26/2024, Expires: Start: 12-26-2024 End: 03-27-2025 IgA [Mass/volume] in Serum or Plasma [facility] Comment on above: Expected: 12/26/2024, Expires: Start: 12-26-2024 End: 03-27-2025 IgG [Mass/volume] in Serum or Plasma [facility] Comment on above: Expected: 12/26/2024, Expires: Start: 12-26-2024 End: 03-27-2025 IgM [Mass/volume] in Serum or Plasma [facility] Comment on above: Expected: 12/26/2024, Expires: Start: 12-26-2024 End: 03-27-2025 Lactate dehydrogenase [Enzymatic activity/volume] in Serum or Plasma [facility] Work Phone: Comment on above: Expected: 12/26/2024, Expires: Start: 12-26-2024 End: 03-27-2025 ORGANIC ACIDS UR, QUANT W/CONSULTATION [facility] Comment on above: Expected: 12/26/2024, Expires: Start: 12-26-2024 End: 03-27-2025 PYRUVATE+LACTATE BL [facility] Comment on above: Expected: 12/26/2024, Expires: Start: 12-26-2024 End: 03-27-2025 Thyroxine (T4) free [Mass/volume] in Serum or Plasma [facility] Comment on above: Expected: 12/26/2024, Expires: Start: 12-26-2024 End: 03-27-2025 VOLTAGE GATED CA IGG [facility] Comment on above: Expected: 12/26/2024, Expires: Start: 12-26-2024 End: 03-27-2025 Voltage-gated potassium channel Ab [Moles/volume] in Serum [facility] Comment on above: Expected: 12/26/2024, Expires: Start: 06-10-2024 Influenza vaccination Influenza Vaccine (#1) [facility] Start: 01-02-2024 Patient discharge [facility] Start: 05-11-2023 Urine microalbumin profile DTaP,Tdap,Td Vaccine (8 - Td or Tdap) [facility] Start: 08-19-2022 Acute hepatitis 2000 panel - Serum [facility] Work Phone: Start: 08-19-2022 IgA [Mass/volume] in Serum or Plasma [facility] Work Phone: Start: 08-19-2022 IgE [Units/volume] in Serum or Plasma [facility] Work Phone: Start: 08-19-2022 IgG [Mass/volume] in Serum or Plasma [facility] Work Phone: Start: 08-19-2022 IgM [Mass/volume] in Serum or Plasma [facility] Work Phone: Start: 08-19-2022 Smooth muscle Ab [Presence] in Serum [facility] Work Phone: Start: 08-19-2022 [facility] Work Phone: Start: 2019 Pneumococcal vaccination Pneumococcal Vaccine (1 of 2 - PCV) [facility] Start: 2019 Shingrix Vaccine (1 of 2) Shingrix Vaccine (1 of 2) [facility] Start: 2018 Anxiety Screening Anxiety Screening [facility] Start: 2018 Depression Screening Depression Screening [facility] Start: 2018 Hepatitis C screening Hepatitis C Screening [facility] Start: 2018 HIV screening HIV Screening [facility] Start: 2014 Peds To Adult Transition Annual Assessment Peds To Adult Transition Annual Assessment [facility] Start: 2012 Peds To Adult Transition Initial Discussion Peds To Adult Transition Initial Discussion [facility] Start: 2011 Screening for malignant neoplasm of cervix Cervical Cancer Screening [facility] Start: 2005 Covid-19 Vaccine (#1) Covid-19 Vaccine (#1) [facility] End: 12-26-2025 ADULT [place] [employer] [place]ULT [place] [employer] Endoscopy Routine Chronic idiopathic constipation 1 Occurrences starting 12/26/2024 until 12/26/2025 [facility] Comment on above: 1 Occurrences starting 12/26/2024 until 12/26/2025 [id number]. tumor marker [Units/volume] in Serum or Plasma [facility] C reactive protein [Mass/volume] in Serum or Plasma [facility] CBC W Auto Different ial panel - Blood [facility] CBC W Auto Different ial panel - Blood [facility] Cytoplasmic ANCA Screen [facility]: 05-15-2026 EGD - THERAPEUTIC, EUS, OR TUBE INTERVENTIONS EGD - THERAPEUTIC, EUS, OR TUBE INTERVENTIONS Endoscopy Routine Gastroparesis 1 Occurrences starting 02/21/2025 until 02/21/2026 [facility] Work Phone: Comment on above: 1 Occurrences starting 02/21/2025 until 02/21/2026 Electrogastrography dx transcut w/provoctve tstg EGG (ELECTROGASTROGRAPHY) Procedures Routine Gastroparesis Ordered: 11/05/2024 [facility] Work Phone: Comment on above: Ordered: 11/05/2024 Erythrocyte sediment ation rate [facility] Gastrointestinal pat hogens panel - Stool by FLORENTIN with probe detection [facility] Giardia lamblia Ag [Presence] in Stool by Immunoassay [facility] Hepatitis A virus Ig M Ab [Presence] in Serum [facility] Work Phone: Hepatitis B core ant ibody measurement, IgM type [facility] Work Phone: Hepatitis B surface antigen measurement [facility] Work Phone: Hepatitis C antibody measurement [facility] Work Phone: IgA [Mass/volume] in Serum or Plasma [facility] Work Phone: IgE [Units/volume] i n Serum or Plasma [facility] Work Phone: IgG [Mass/volume] in Serum or Plasma [facility] Work Phone: IgM [Mass/volume] in Serum or Plasma [facility] Work Phone: Lactoferrin [Presenc e] in Stool by Immunoassay [facility] Measurement of occul t blood in stool specimen using immunoassay [facility] Mitochondria Ab [Pre sence] in Serum [facility] Neutrophil cytoplasm ic Ab.classic [Units/volume] in Serum [facility] Work Phone: P-ANCA measurement [facility] Work Phone: Patient referral [facility] Work Phone: Protein measurement [facility] Prothrombin time [facility] Smooth muscle Ab [Pr esence] in Serum [facility] Work Phone: Smooth muscle Ab [Pr esence] in Serum [facility] Ultrasound elastography [facility] Work Phone: Ultrasound elastography [facility] US Abdomen limited [facility] Vitamin D, 25-hydrox y measurement [facility] Immunizations Immunization Date Immunization Notes Care Provider Fa rhys 07-25-2019 influenza, injectable, quadrivalent, preservative free; Translations: [Fluarix PF Quadrivalent ] Ayi Laile [facility] 07-25-2019 influenza virus vaccine, unspecified formulation [facility] Work Phone: [facility] 07-13-2018 meningococcal polysaccharide (groups A, C, Y and W-135) diphtheria toxoid conjugate vaccine (MCV4P) Ayi Laile [facility] 05-12-2016 hepatitis A vaccine, adult dosage Ayi Laile [facility] 05-11-2013 meningococcal polysaccharide (groups A, C, Y and W-135) diphtheria toxoid conjugate vaccine (MCV4P) Ayi Laile [facility] 05-11-2013 tetanus toxoid, reduced diphtheria toxoid, and acellular pertussis vaccine, adsorbed Ayi Laile [facility] 12-07-2012 Human Papillomavirus Quadval Ayi Laile [facility] 07-21-2012 Human Papillomavirus Quadval [facility] 05-08-2012 Human Papillomavirus Quadval [facility] 02-22-2006 diphtheria, tetanus toxoids and acellular pertussis vaccine, unspecified formulation [facility] 05-17-2005 measles/mumps/rubell a virus vaccine [facility] 09-05-2001 diphtheria, tetanus toxoids and acellular pertussis vaccine, unspecified formulation [facility] 09-05-2001 poliovirus vaccine, inactivated [facility] 06-06-2001 measles/mumps/rubell a virus vaccine [facility] 06-06-2001 varicella virus vaccine [facility] 2000 diphtheria, tetanus toxoids and acellular pertussis vaccine, unspecified formulation [facility] 2000 hepatitis B pediatri c vaccine [facility] 2000 poliovirus vaccine, inactivated [facility] [employer] [facility] 2000 diphtheria, tetanus toxoids and acellular pertussis vaccine, unspecified formulation [facility] [employer] [facility] 2000 hepatitis B pediatri c vaccine [facility] [employer] [facility] 2000 poliovirus vaccine, inactivated [facility] [place] [employer] [facility] 2000 diphtheria, tetanus toxoids and acellular pertussis vaccine, unspecified formulation [facility] [employer] [facility] 2000 hepatitis B [facility]iatri c [facility] 2000 poliovirus vaccine, inactivated [place] [place] [employer] [facility] Payers Date Payer Category Payer Private Health Insurance [id number] 2024 Medicaid [id number] 2024 Unknown [id number] 2024 Unknown [id number] 2024 Self-pay 2024 Unknown [id number] 2023 Unknown [id number] 2023 Unknown [id number] 2023 Unknown [id number] 2023 Unknown [id number] 2014 Unknown [id number] 2000 Unknown [id number] 2.16.840.1.371177.3.579.2.62 2000 Unknown [id number] 2.16.840.1.058686.3.579.2. 2000 Unknown [id number] 2.16.840.1.094899.3.579.2. 2000 Unknown [id number] 2.16.840.1.306307.3.579.2. 2000 Unknown [id number] 2.16.840.1.968385.3.579.2. 2000 Unknown [id number] 2.16.840.1.936325.3.579.2. 2000 Unknown [id number] 2.16.840.1.779455.3.579.2. 2000 Unknown [id number] 2.16.840.1.343723.3.579.2. 2000 Unknown [id number] 2.16.840.1.983948.3.579.2. 2000 Unknown [id number] 2.16.840.1.186460.3.579.2. 2000 Unknown [id number] 2.16.840.1.444977.3.579.2. 2000 Unknown [id number] 2.16.840.1.792756.3.579.2. 2000 Unknown [id number] 2.16.840.1.207245.3.579.2.627 2000 Unknown [id number] 2.16.840.1.723431.3.579.2.627 Unknown [place] [employer] [employer] [id number] Unknown [id number] 2.16.840.1.423063.3.579.2.462 Unknown [id number] 2.16.840.1.535646.3.579.2.462 Unknown [id number] 2.16.840.1.051440.3.579.2.462 Unknown [id number] 2.16.840.1.478719.3.579.2.462 Unknown [id number] 2.16840.1.018072.3.579.2.462 Unknown [id number] 2.840.1.657610.3.579.2.462 Unknown [id number] 2.16840.1.263313.3.579.2.462 Unknown [id number] 2.16840.1.295454.3.579.2.462 Unknown [id number] 2.16.840.1.677758.3.579.2.462 Unknown [id number] 2.16840.1.999537.3.579.2.462 Unknown [id number] 2.840.1.750539.3.579.2.462 Unknown [id number] 2.16840.1.884010.3.579.2.462 Unknown [id number] 2.840.1.565849.3.579.2.462 Unknown [id number] 2.840.1.328006.3.579.2.462 Social History Date Type Detail Facility Start: 08-07-2021 End: 05-15-2025 Never smoked tobacco (finding) [facility] Comment on above: Minimal smoke exposu re no current vaping Pt Vapes daily Start: 2000 Sex Assigned At Female A [facility] Start: 08-19-2022 End: 12-28-2023 Tobacco smoking status NHIS Unknown if ever smoked [facility] Start: 2000 Sex assigned at Not on file [facility] Start: 12-26-2024 End: 03-20-2025 Gender identity Not on file [facility] Sexual Orientation [facility] Start: 04-04-2019 Sex Female (finding) [facility] Start: 12-26-2024 End: 03-20-2025 History of Social function [facility] National Score (1-100), lower number is lower risk 74 [facility] Start: 08-24-2024 Tobacco smoking stat us NHIS Current Light tobacco smoker [facility] Start: 08-28-2024 Tobacco Use Tobacco Use [facility] Start: 03-20-2025 Tobacco use and exposure Smokeless tobacco non-user [facility] Start: 03-20-2025 End: 04-05-2025 Alcoholic beverage intake Current drinker of alcohol (finding) [facility] Start: 03-20-2025 Alcohol Comment maybe a few vasquez lf- drinks a few times a year [facility] NEGATED: Highlighted row [facility] Goals Date Patient Goal Desired Activity /State Functional Status Date Assessment Result Facility 10-27-2023 Functional Status Independent [facility] 10-27-2023 Functional Status Resting [facility] Mental Status Date Assessment Result Facility 01-02-2024 Cognitive function Voice/Name [facility] Work Phone: 10-27-2023 Mental Status Orientation Oriented x 4 [facility] Clinical Notes 12-19-2020 to 04-05-2025 Garcia Culp, - 04/05/2025 12:30 PM Garcia Emery, - 04/05/2025 12:30 PM Garcia Nova RN - 04/05/2025 12:20 PM Garcia Nova RN - 04/05/2025 12:20 PM EDTPatient Instructions Note Date & Type Note Facility 04-05-2025 History and physical note PROCEDURAL SEDATION HISTORY AND PHYSICAL EXAM SERVICE DATE: 04/05/2025 SERVICE TIME: 1232 Subjective HPI: This is a 24 year old female who presents with GP PAST ANESTHESIA HISTORY:No history of adverse event PAST MEDICAL HISTORY Diagnosis Date Hepatitis chronic autoimmune POTS (postural orthostatic tachycardia syndrome) 2023 PAST SURGICAL HISTORY Procedure Laterality Date COLONOSCOPY S[facility] x [facility]J PAST SURGICAL HISTORY OF liver biopsy PAST SURGICAL HISTORY OF wisdom teeth removal Prior to Admission medications as of 04/05/25 1201 Medication Sig Last Dose Taking omeprazole (PRILOSEC) 40 mg capsule Take 40 mg by mouth once daily. prn 04/04/2025 Morning Yes lubiprostone (AMITIZA) 24 mcg capsule Take 1 capsule by mouth two times a day with meals. Unknown Yes pyridostigmine (MESTINON) 60 mg tablet Take 1 tablet by mouth three times a day. 04/04/2025 Morning Yes azaTHIOprine (IMURAN) 50 mg tablet Take 50 mg by mouth once daily. 04/03/2025 Evening fludrocortisone (FLORINEF) 0.1 mg tablet Take 1 tablet by mouth once daily. 04/03/2025 Evening minoxidil (LONITEN) 2.5 mg tablet Take 2.5 mg by mouth once daily. 04/03/2025 Evening 1.5/30, 28, 1.5 mg-30 mcg (21)/75 mg (7) tablet Take 1 tablet by mouth once daily. 04/03/2025 Evening ondansetron (ZOFRAN) 4 mg tablet Take 4 mg by mouth every 6 hours as needed for nausea/vomiting (PRN). 04/03/2025 Evening spironolactone (ALDACTONE) 50 mg tablet Take 50 mg by mouth once daily. 04/03/2025 Evening ALLERGIES No Known Allergies CARDIOVASCULAR:No chest pain, leg swelling and palpitations PULMONARY:No cough,wheezing and shortness of breath Objective PHYSICAL EXAM:The remainder of the physical exam is noncontributory AIRWAY: Mouth opening greater than 3 fingerbreadths: Yes Neck Full Range of Motion: Yes LUNGS: Lungs clear to auscultation CARDIAC: Regular rhythm,Regular rate Assessment/Plan ASA Class: 2 Patient OK for Sedation: Yes Sedation Goal: Deep Provisional Diagnosis/Treatment Plan: GP/ egd Sedation Goal: Deep SIGNATURE: Garcia Culp DO PATIENT NAME: Sloan Bonilla DATE: April 05, 2025 TIME: 12:32 PM Created 2023 [facility] 04-05-2025 History and physical note PROCEDURAL SEDATION HISTORY AND PHYSICAL EXAM SERVICE DATE: 04/05/2025 SERVICE TIME: 1232 Subjective HPI: This is a 24 year old female who presents with GP PAST ANESTHESIA HISTORY:No history of adverse event PAST MEDICAL HISTORY Diagnosis Date Hepatitis chronic autoimmune POTS (postural orthostatic tachycardia syndrome) 2023 PAST SURGICAL HISTORY Procedure Laterality Date COLONOSCOPY SCREENING x 2 EGD W/O [facility] SPEC VARICIES INJ PAST SURGICAL HISTORY OF liver biopsy PAST SURGICAL HISTORY OF wisdom teeth removal Prior to Admission medications as of 04/05/25 1201 Medication Sig Last Dose Taking omeprazole (PRILOSEC) 40 mg capsule Take 40 mg by mouth once daily. prn 04/04/2025 Morning Yes lubiprostone (AMITIZA) 24 mcg capsule Take 1 capsule by mouth two times a day with meals. Unknown Yes pyridostigmine (MESTINON) 60 mg tablet Take 1 tablet by mouth three times a day. 04/04/2025 Morning Yes azaTHIOprine (IMURAN) 50 mg tablet Take 50 mg by mouth once daily. 04/03/2025 Evening fludrocortisone (FLORINEF) 0.1 mg tablet Take 1 tablet by mouth once daily. 04/03/2025 Evening minoxidil (LONITEN) 2.5 mg tablet Take 2.5 mg by mouth once daily. 04/03/2025 Evening 1.5/30, 28, 1.5 mg-30 mcg (21)/75 mg (7) tablet Take 1 tablet by mouth once daily. 04/03/2025 Evening ondansetron (ZOFRAN) 4 mg tablet Take 4 mg by mouth every 6 hours as needed for nausea/vomiting (PRN). 04/03/2025 Evening spironolactone (ALDACTONE) 50 mg tablet Take 50 mg by mouth once daily. 04/03/2025 Evening ALLERGIES No Known Allergies CARDIOVASCULAR:No chest pain, leg swelling and palpitations PULMONARY:No cough,wheezing and shortness of breath Objective PHYSICAL EXAM:The remainder of the physical exam is noncontributory AIRWAY: Mouth opening greater than 3 fingerbreadths: Yes Neck Full Range of Motion: Yes LUNGS: Lungs clear to auscultation CARDIAC: Regular rhythm,Regular rate Assessment/Plan ASA Class: 2 Patient OK for Sedation: Yes Sedation Goal: Deep Provisional Diagnosis/Treatment Plan: GP/ egd Sedation Goal: Deep SIGNATURE: Garcia Culp DO PATIENT NAME: Sloan Bonilla DATE: April 05, 2025 TIME: 12:32 PM 2023 documented in this encounter [facility] 04-05-2025 Note HNO ID: [id number] Author: GARCIA BATES RN Service: ? Author Type: Registered Nurse Type: Nursing Progress Note Filed: 04/05/2025 12:21 Note Text: Discussed procedure and safety protocols with patient, who verbalized an understanding [facility] 04-05-2025 Nurse Note Discussed procedure and safety protocols with patient, who verbalized an understanding [facility] 04-05-2025 Nurse Note Discussed procedure and safety protocols with patient, who verbalized an understanding documented in this encounter [facility] 03-20-2025 Instructions Vinicius Brannon PA-C - 03/20/2025 11:10 AM EDT PATIENT PREOPERATIVE INSTRUCTIONS Garcia Culp DO has scheduled you for your procedure at this surgery center: [facility]: [phone] -- [place] [address]. Arrival Time for Surgery: - The Surgery Center or hospital where you are having surgery will call the afternoon before surgery (or Tuesday for Tuesday surgery) with a scheduled arrival time. - If you have not heard by 4 pm, please contact the surgery center above. Please read below carefully for your personalized instructions. Dietary Restrictions: - No solid food after midnight. - You may have 12 ounces of clear liquids (water, clear juices such as apple juice or gatorade, carbonated beverages, clear tea, black coffee, jello) until 2 hours before scheduled arrival at facility. Medications: Unless instructed differently below, stay on all of your medications until your surgery. If you start any new medications after today's visit, please contact your surgeon. Pre-Surgery Med Instructions Medication Instructions azaTHIOprine (IMURAN) 50 mg tablet If you normally take this medication in the morning, take the morning of surgery. fludrocortisone (FLORINEF) 0.1 mg tablet If you normally take this medication in the morning, take the morning of surgery. minoxidil (LONITEN) 2.5 mg tablet Do not take the day of surgery , , 1.5 mg-30 mcg (21)/75 mg (7) tablet If you normally take this medication in the morning, take the morning of surgery. omeprazole (PRILOSEC) 40 mg capsule If you normally take this medication in the morning, take the morning of surgery. ondansetron (ZOFRAN) 4 mg tablet If you normally take this medication in the morning, take the morning of surgery. spironolactone (ALDACTONE) 50 mg tablet Do not take the day of surgery lubiprostone (AMITIZA) 24 mcg capsule Do not take the day of surgery pyridostigmine (MESTINON) 60 mg tablet If you normally take this medication in the morning, take the morning of surgery. If you are currently using a jkre-yuh-hctk injectable or oral medication for diabetes or weight loss such as Dulaglutide (Trulicity), Exenatide (Byetta, Bydureon), Liraglutide (Victoza, Saxenda), Semaglutide (Ozempic, Wegovy, Rybelsus), or Tirzepatide (Mounjaro), the medicine should be stopped at least 7 days before surgery. These medicines can cause food to remain in your stomach for a very long time and increase the risks from surgery and anesthesia. Not stopping the medication for a long enough time may result in your surgery being rescheduled. If you start any new medications after today's visit, please contact the surgeon's office. Blood Thinning Medications: - Stop NSAIDS (Ibuprofen, Advil, Aleve, Motrin, Celebrex, Mobic, etc.) 7 days before surgery, as directed by your surgeon. - Stop Aspirin 7 days before surgery, as directed by your surgeon. - Stop herbals and dietary supplements 14 days before surgery. - You may take Tylenol (Acetaminophen) or any of your pain medications that do not contain aspirin or NSAIDS as needed. Important Reminders: - If you use CPAP/BIPAP, bring the machine with you to the surgery center. - Candy, mints, and tobacco products are NOT permitted the morning of surgery. - Hearing aids, dentures and glasses may be worn the morning of surgery. - NO jewelry, body piercings, makeup, hairpins or contacts are to be worn the day of surgery. If you develop symptoms such as a fever, cold, or flu, or have other changes to your health within TWO DAYS of scheduled surgery or the morning of surgery, please contact the surgery center above. Personal Belongings: -Please have photo ID and insurance cards. -If you do not have a copy of advance directives on file with us, please bring a copy with you on the day of surgery. - Leave ALL valuables and money at home or with family members. For Outpatient Procedures: - YOU MUST HAVE A RESPONSIBLE YOUTH OFFICER TAKE YOU HOME. A CERTIFIED SURGICAL TECHNOLOGIST OR BEEKEEPER CANNOT BE MADE A RESPONSIBLE YOUTH OFFICER. - We recommend that a responsible person stays with you overnight to take care of you. - You cannot stay in a hotel alone after outpatient surgery. You will not be permitted to have your surgery, if you do not have someone to take care of you. Please be aware that emergency situations arise, which may delay or change your surgical time. If this happens, we will notify you as soon as possible and regret any inconvenience. If you already have an Advance Directive, please fax a copy to [phone] or email to for it to be added to your chart. If you do not have an Advance Directive, you can find the appropriate form and more information at [email or web address]. We recommend that you complete the Advance Directive form found on the website and bring it with you the day of your surgery. It can be witnessed and scanned into your chart that day. Vinicius Brannon PA-C documented in this encounter [facility] 03-20-2025 History and physical note HISTORY AND PHYSICAL EXAMINATION SERVICE DATE: 03/20/2025 SERVICE TIME: 10:40 AM PRIMARY CARE PHYSICIAN: No primary care provider on file. Assessment Patient has the following medical conditions which may affect alexander-operative course: POTS (postural orthostatic tachycardia syndrome) Assessment: Following with Dr. Covarrubias at [facility] in [place], [place] with cardiology Patient states surgeon recommended she follow up with neurology, as well. Pending an appointment. Was on Florinef in the past but Dr. Culp asked her to hold and take pyridostigmine and states she is tolerating well Denies any syncopal episodes Well controlled with staying well hydrated MVP (mitral valve prolapse) Assessment: Following with cardiology Noted on outside chart; patient denies any known history of Hair loss Assessment: Managing with Spironolactone and minoxidil Following with dermatology GERD (gastroesophageal reflux disease) Assessment: States is well controlled with omeprazole and denies any recent exacerbations Follows with PCP Autoimmune hepatitis (HCC) Assessment: Since fifth grade Following with hepatology, Dr. Gutierrez in [place] Managing with [facility] History of esophageal varices: none that patient is aware of Denies any recent ascites or jaundice. Most recent LFTs:07/29/2021 Bilirubin, Conjugated 0.0 - 0.7 mg/dL 0.2 Total Bilirubin 0.0 - 1.0 mg/dl 1 ALT 0 - 31 U/L 20 AST 0 - 31 U/L 17 Alkaline Phosphatase 35 - 104 IU/L 48 Protein, Total 5.9 - 8.4 g/dL 7.7 Albumin 3.5 - 5.0 g/dL 4.7 Engages in vaping Assessment: Daily, disposable device; contains nicotine and blueberry flavoring Underweight Assessment: Body mass index is 18.25 kg/m . ANESTHESIA FINDINGS: Intubation History: No history of difficult intubation. No abnormal airway history Significant Anesthesia Considerations: none Airway History: No prior anesthesia report available for review at this time. No history of difficult airway No abnormal airway history [place] Activity Status Index: METS: Walk indoors, such as around the house (1.75 METs) Do light work around the house, such as dusting or washing dishes (2.70 METs) Take care of self; that is eating, dressing, bathing, using the toilet (2.75 METs) Walk a block or two on level ground (2.75 METs) Do moderate work around the house, such as vacuuming, sweeping floors, or carrying in groceries (3.50 METs) Do yardwork, such as raking leaves, weeding, or pushing a power mower (4.50 METs) Have sexual relations (5.25 METs) Climb a flight of stairs or walk up a hill (5.50 METs) Participate in moderate recreational activites, such as golf, bowling, dancing, doubles tennis, or throwing a baseball or football (6.00 METs) Participate in strenuous sport, such as swimming, singles tennis, football, basketball, or skiing (7.50 METs) Do heavy work around the house, such as scrubbing floors, lifting or moving heavy furniture (8.00 METs) DASI Score: 50.2 Patient denies any chest pain or undue shortness of breath with the above physical activity. Clinical Frailty Scale: 2. Well STOP-Bang Score: Denies snoring loudly Denies feeling tired, fatigued, or sleepy during the daytime Has not been observed to stop breathing or choking/gasping during sleep Denies having high blood pressure BMI less than or equal to 35 kg/m^2 Patient 50 years old or younger Does not have a large neck Non-male patient STOP-Bang Score: 0 [id number] Score: Age: <65 Sex: female CHF history: No Hypertension history: No Stroke/TIA/thromboembolism history: No Vascular disease history: No Diabetes history: No [id number] Score: 1 I - PHYSICAL EVALUATION AIRWAY Patient intubated: No. Tracheostomy tube not present Mallampati: I. TM distance: >3 FB. Neck ROM: full ROM without neurological symptoms. Mouth opening: adequate. Short neck: no. Thick neck: no Cervantes present: no Lip Bite Test: I Microretrognathia/Micronagthia/ Recessed Chin: No DENTAL Dental findings: teeth intact. Additional comments: Denies any chipped or broken teeth. Denies any dental pain or infections. . II - ANESTHESIA PLAN Anesthetic Plan: other Anesthetic plan additional comments: *PACC/TCI - anesthesia choice. Beta Henny Monitoring Plan Post Procedure Analgesic Plan Prepared for Surgery: optimally prepared for surgery, pending [see comment]. Patient will send in most recent blood work from outside hospital via MixRank message. CONSULTS: Planned Anesthetic: other anesthesia choice The Following Tests/Procedures Have Been Initiated: No orders of the defined types were placed in this encounter. This is a virtual visit using MixRank video visit. It required patient-provider interaction for the medical decision making as documented below. REASON FOR VISIT: Sloan Bonilla is a 24 year old female who is scheduled for * No surgery found * at the request of Dr. Garcia Culp for consultation. My final recommendation will be communicated back to the requesting physician by way of shared medical record or letter. Subjective The patient has the following: ACTIVE PROBLEM LIST Autoimmune Hepatitis (Hcc) Chronic Idiopathic Constipation Gerd (Gastroesophageal Reflux Disease) Mvp (Mitral Valve Prolapse) Pots (Postural Orthostatic Tachycardia Syndrome) Underweight Hair Loss Engages in Vaping COVID-19 Immunization Status Current Care Gaps Covid-19 Vaccine (1) Never done No completion, postpone, frequency change, or communication history exists for this topic. CHIEF COMPLAINT: Gastroparesis HPI: Patient is a 24 year old female presenting with a history of gastroparesis. She states she has been diagnosed with gastroparesis in the past but now is not sure. She states the upcoming procedure is to dilate her pyloric sphincter to see if that alleviates her symptoms of persistent nausea. She denies any episodes of dry heaving or vomiting recently, but does note episodes of gagging . Symptoms have been present for the past 3 years. She denies any pain or any other symptoms at this time. Chronic constipation is unchanged from her normal. Denies any diarrhea or blood in her stool. Patient denies any other specific radiating, alleviating or aggravating factors. This is a virtual visit. The visit was conducted using MixRank video visit. It required patient-provider interaction for the medical decision making as documented below. I have communicated my name and active licensure. The patient's identity and physical location were verified at the time of this visit. Either the patient or their legal traveling representative has been informed of the risks and benefits of and alternatives to treatment through a remote evaluation and consents to proceed with the evaluation remotely. REVIEW OF SYSTEMS: General: No weight loss, malaise or fevers. Neurological: No history of TIA's, stroke, JOCKEY VALET tumor, impaired sensorium, hemiplegia, paraplegia or quadraplegia. No neurological symptoms or problems. Respiratory: Vaping. No history of current cough or dyspnea, or pneumonia in the past 6 weeks. No history of respiratory/pulmonary symptoms or problems. Cardiovascular: POTS. No history of HTN requiring medication, no history of angina, CHF, NV, cardiac surgery or stents. Denies rest pain, gangrene or revascularization/amputation for PVD. No history of cardiovascular symptoms or problems. Negative for: angina, anticoagulation therapy, arrhythmia, atrial fibrillation, CAD, chest pain, CHF, congenital heart defect, DVT/PE, hyperlipidemia, hypertension, recent NV and murmur/valvular heart disease. GI: See HPI. Positive for: GERD and liver disease (Autoimmune hepatitis) Negative for: abdominal pain, ascites, nausea and vomiting. : No history of dysuria, frequency or incontinence, stones or chronic kidney disease. No difficulty urinating, nocturia > 1 time per night or hematuria. TEST SKEIN WINDER: Negative for abnormal vaginal bleeding, abnormal vaginal discharge. Endocrine: No history of diabetes. Has not taken steroids within the past 30 days. No history of endocrinological symptoms or problems. Hematology: No history of bleeding or clotting disorder. Patient is not taking anti-coagulation or platelet medications. No history of hematological symptoms or problems. Oncology: No history of CA metastasis, chemo within 30 days, or radiotherapy within 90 days. No history of oncological symptoms or problems. Psych: No history of psychiatric symptoms or problems. Musculoskeletal: Negative for joint pain or swelling, back pain or muscle pain. Skin: Negative for lesions, rash and itching. Implanted Devices: No implanted devices. History reviewed. No pertinent past medical history. PAST SURGICAL HISTORY Procedure Laterality Date COLONOSCOPY SCREENING x 2 EGD W/O BRSH SPEC VARICIES INJ PAST SURGICAL HISTORY OF liver biopsy PAST SURGICAL HISTORY OF wisdom teeth removal FAMILY HISTORY Problem Relation Age of Onset Anesthesia Problems No Family History Blood Clots No Family History Clotting Disorder No Family History Social History Tobacco Use Smoking status: Never Smokeless tobacco: Never Vaping Use Vaping status: current everyday user Substances: Nicotine, Flavoring Devices: Disposable Substance Use Topics Alcohol use: Yes Comment: maybe a few half- drinks a few times a year Drug use: Not Currently Prior to Admission medications as of 03/20/25 1050 Medication Sig Last Dose Taking azaTHIOprine (IMURAN) 50 mg tablet Take 50 mg by mouth once daily. Yes fludrocortisone (FLORINEF) 0.1 mg tablet Take 1 tablet by mouth once daily. Yes minoxidil (LONITEN) 2.5 mg tablet Take 2.5 mg by mouth once daily. Yes JUNEL FE 1.5/30, 28, 1.5 mg-30 mcg (21)/75 mg (7) tablet Take 1 tablet by mouth once daily. Yes omeprazole (PRILOSEC) 40 mg capsule Take 40 mg by mouth once daily. prn Yes ondansetron (ZOFRAN) 4 mg tablet Take 4 mg by mouth every 6 hours as needed for nausea/vomiting (PRN). Yes spironolactone (ALDACTONE) 50 mg tablet Take 50 mg by mouth once daily. Yes lubiprostone (AMITIZA) 24 mcg capsule Take 1 capsule by mouth two times a day with meals. Yes pyridostigmine (MESTINON) 60 mg tablet Take 1 tablet by mouth three times a day. Yes No medication comments found. ALLERGIES No Known Allergies Objective PHYSICAL EXAM: (if completed, exam performed via video enabled technology) General: alert and oriented and healthy appearance. Pertinent negatives noted - not distressed. Skin: normal color, no rash or lesions. HEENT: Head is normocephalic, no abnormality or lesion noted Eyes show no injection and visual acuity is grossly normal Ears note grossly normal hearing Nose exam notes external nose is normal without rhinorrhea Oropharynx exam notes moist mucous membranes with no noted tonsillar hypertrophy, erythema or edema Uvula is midline. . Cardiovascular: Patient palpated radial pulse, regular when counted aloud by patient. Capillary refill is less than 3 seconds in bilateral upper extremities. . Respiratory: Equal chest rise with normal respiratory effort . Abdomen: soft. Pertinent negatives noted - not distended and not tender. No pain upon palpation by patient . Extremities: no deformity, no edema or tenderness, no joint swelling or clubbing. Neurological: normal cognition and motor skills. Gait stated to be normal per patient . PAIN ASSESSMENT: VITALS: BP [108/50 on 12/26/2024 reviewed[ Pulse 78 Temp [no thermometer available - feeling well[ Resp 16 Ht 5' 8 (1.73m) Wt 120 lb (54.4kg) LMP 01/28/2025 BMI 18.25 kg/(m^2). Diagnostic tests reviewed for today's visit: Lab Value Units Date High Low HB No results within date range. HCT No results within date range. WBC No results within date range. PLT No results within date range. NA No results within date range. K No results within date range. GLUC No results within date range. BUN No results within date range. CREAT No results within date range. PTSEC No results within date range. INR No results within date range. APTT No results within date range. ALT No results within date range. AST No results within date range. TBILI No results within date range. TSH 1.100 mIU/L 12/26/2024 4.200 0.270 Lab Value Units Date High Low HCGQT No results within date range. UHCG No results within date range. HCG, BODY* No results within date range. Lab Value Units Date High Low ABORHD No results within date range. ABSCREEN No results within date range. Hemoglobin A1C (%) Date Value 12/26/2024 4.3 No results found for this or any previous visit (from the past 8760 hours). No results found for this or any previous visit (from the past 16567 hours). Instructions Given to Patient: Instructions located in the after visit summary. Patient given verbal and written preop instructions and voices comprehension and compliance. SIGNATURE: Vinicius Brannon PA-C PATIENT NAME: Sloan Bonilla DATE: 03/20/2025 TIME: 10:40 AM PAGER/CONTACT #: [facility] 03-20-2025 History and physical note HISTORY AND PHYSICAL EXAMINATION SERVICE DATE: 03/20/2025 SERVICE TIME: 10:40 AM PRIMARY CARE PHYSICIAN: No primary care provider on file. Assessment Patient has the following medical conditions which may affect alexander-operative course: POTS (postural orthostatic tachycardia syndrome) Assessment: Following with Dr. Covarrubias at [facility] in [place], [place] with cardiology Patient states surgeon recommended she follow up with neurology, as well. Pending an appointment. Was on Florinef in the past but Dr. Culp asked her to hold and take pyridostigmine and states she is tolerating well Denies any syncopal episodes Well controlled with staying well hydrated MVP (mitral valve prolapse) Assessment: Following with cardiology Noted on outside chart; patient denies any known history of Hair loss Assessment: Managing with Spironolactone and minoxidil Following with dermatology GERD (gastroesophageal reflux disease) Assessment: States is well controlled with omeprazole and denies any recent exacerbations Follows with PCP Autoimmune hepatitis (HCC) Assessment: Since fifth grade Following with hepatology, Dr. Gutierrez in [place] Managing with [facility] History of esophageal varices: none that patient is aware of Denies any recent ascites or jaundice. Most recent LFTs:07/29/2021 Bilirubin, Conjugated 0.0 - 0.7 mg/dL 0.2 Total Bilirubin 0.0 - 1.0 mg/dl 1 ALT 0 - 31 U/L 20 AST 0 - 31 U/L 17 Alkaline Phosphatase 35 - 104 IU/L 48 Protein, Total 5.9 - 8.4 g/dL 7.7 Albumin 3.5 - 5.0 g/dL 4.7 Engages in vaping Assessment: Daily, disposable device; contains nicotine and blueberry flavoring Underweight Assessment: Body mass index is 18.25 kg/m . ANESTHESIA FINDINGS: Intubation History: No history of difficult intubation. No abnormal airway history Significant Anesthesia Considerations: none Airway History: No prior anesthesia report available for review at this time. No history of difficult airway No abnormal airway history [facility] Activity Status Index: METS: Walk indoors, such as around the house (1.75 METs) Do light work around the house, such as dusting or washing dishes (2.70 METs) Take care of self; that is eating, dressing, bathing, using the toilet (2.75 METs) Walk a block or two on level ground (2.75 METs) Do moderate work around the house, such as vacuuming, sweeping floors, or carrying in groceries (3.50 METs) Do yardwork, such as raking leaves, weeding, or pushing a power mower (4.50 METs) Have sexual relations (5.25 METs) Climb a flight of stairs or walk up a hill (5.50 METs) Participate in moderate recreational activites, such as golf, bowling, dancing, doubles tennis, or throwing a baseball or football (6.00 METs) Participate in strenuous sport, such as swimming, singles tennis, football, basketball, or skiing (7.50 METs) Do heavy work around the house, such as scrubbing floors, lifting or moving heavy furniture (8.00 METs) DASI Score: 50.2 Patient denies any chest pain or undue shortness of breath with the above physical activity. Clinical Frailty Scale: 2. Well STOP-Bang Score: Denies snoring loudly Denies feeling tired, fatigued, or sleepy during the daytime Has not been observed to stop breathing or choking/gasping during sleep Denies having high blood pressure BMI less than or equal to 35 kg/m^2 Patient 50 years old or younger Does not have a large neck Non-male patient STOP-Bang Score: 0 [id number] Score: Age: <65 Sex: female CHF history: No Hypertension history: No Stroke/TIA/thromboembolism history: No Vascular disease history: No Diabetes history: No [id number] Score: 1 I - PHYSICAL EVALUATION AIRWAY Patient intubated: No. Tracheostomy tube not present Mallampati: I. TM distance: >3 FB. Neck ROM: full ROM without neurological symptoms. Mouth opening: adequate. Short neck: no. Thick neck: no Cervantes present: no Lip Bite Test: I Microretrognathia/Micronagthia/ Recessed Chin: No DENTAL Dental findings: teeth intact. Additional comments: Denies any chipped or broken teeth. Denies any dental pain or infections. . II - ANESTHESIA PLAN Anesthetic Plan: other Anesthetic plan additional comments: *PACC/TCI - anesthesia choice. Beta Henny Monitoring Plan Post Procedure Analgesic Plan Prepared for Surgery: optimally prepared for surgery, pending [see comment]. Patient will send in most recent blood work from outside hospital via MixRank message. CONSULTS: Planned Anesthetic: other anesthesia choice The Following Tests/Procedures Have Been Initiated: No orders of the defined types were placed in this encounter. This is a virtual visit using Open[employer] video visit. It required patient-provider interaction for the medical decision making as documented below. REASON FOR VISIT: Sloan Bonilla is a 24 year old female who is scheduled for * No surgery found * at the request of Dr. Garcia Culp for consultation. My final recommendation will be communicated back to the requesting physician by way of shared medical record or letter. Subjective The patient has the following: ACTIVE PROBLEM LIST Autoimmune Hepatitis (Hcc) Chronic Idiopathic Constipation Gerd (Gastroesophageal Reflux Disease) Mvp (Mitral Valve Prolapse) Pots (Postural Orthostatic Tachycardia Syndrome) Underweight Hair Loss Engages in Vaping COVID-19 Immunization Status Current Care Gaps Covid-19 Vaccine (1) Never done No completion, postpone, frequency change, or communication history exists for this topic. CHIEF COMPLAINT: Gastroparesis HPI: Patient is a 24 year old female presenting with a history of gastroparesis. She states she has been diagnosed with gastroparesis in the past but now is not sure. She states the upcoming procedure is to dilate her pyloric sphincter to see if that alleviates her symptoms of persistent nausea. She denies any episodes of dry heaving or vomiting recently, but does note episodes of gagging . Symptoms have been present for the past 3 years. She denies any pain or any other symptoms at this time. Chronic constipation is unchanged from her normal. Denies any diarrhea or blood in her stool. Patient denies any other specific radiating, alleviating or aggravating factors. This is a virtual visit. The visit was conducted using MixRank video visit. It required patient-provider interaction for the medical decision making as documented below. I have communicated my name and active licensure. The patient's identity and physical location were verified at the time of this visit. Either the patient or their legal traveling representative has been informed of the risks and benefits of and alternatives to treatment through a remote evaluation and consents to proceed with the evaluation remotely. REVIEW OF SYSTEMS: General: No weight loss, malaise or fevers. Neurological: No history of TIA's, stroke, JOCKEY VALET tumor, impaired sensorium, hemiplegia, paraplegia or quadraplegia. No neurological symptoms or problems. Respiratory: Vaping. No history of current cough or dyspnea, or pneumonia in the past 6 weeks. No history of respiratory/pulmonary symptoms or problems. Cardiovascular: POTS. No history of HTN requiring medication, no history of angina, CHF, NV, cardiac surgery or stents. Denies rest pain, gangrene or revascularization/amputation for PVD. No history of cardiovascular symptoms or problems. Negative for: angina, anticoagulation therapy, arrhythmia, atrial fibrillation, CAD, chest pain, CHF, congenital heart defect, DVT/PE, hyperlipidemia, hypertension, recent NV and murmur/valvular heart disease. GI: See HPI. Positive for: GERD and liver disease (Autoimmune hepatitis) Negative for: abdominal pain, ascites, nausea and vomiting. : No history of dysuria, frequency or incontinence, stones or chronic kidney disease. No difficulty urinating, nocturia > 1 time per night or hematuria. TEST SKEIN WINDER: Negative for abnormal vaginal bleeding, abnormal vaginal discharge. Endocrine: No history of diabetes. Has not taken steroids within the past 30 days. No history of endocrinological symptoms or problems. Hematology: No history of bleeding or clotting disorder. Patient is not taking anti-coagulation or platelet medications. No history of hematological symptoms or problems. Oncology: No history of CA metastasis, chemo within 30 days, or radiotherapy within 90 days. No history of oncological symptoms or problems. Psych: No history of psychiatric symptoms or problems. Musculoskeletal: Negative for joint pain or swelling, back pain or muscle pain. Skin: Negative for lesions, rash and itching. Implanted Devices: No implanted devices. History reviewed. No pertinent past medical history. PAST SURGICAL HISTORY Procedure Laterality Date COLONOSCOPY SCREENING x 2 EGD W/O BRSH SPEC VARICIES INJ PAST SURGICAL HISTORY OF liver biopsy PAST SURGICAL HISTORY OF wisdom teeth removal FAMILY HISTORY Problem Relation Age of Onset Anesthesia Problems No Family History Blood Clots No Family History Clotting Disorder No Family History Social History Tobacco Use Smoking status: Never Smokeless tobacco: Never Vaping Use Vaping status: current everyday user Substances: Nicotine, Flavoring Devices: Disposable Substance Use Topics Alcohol use: Yes Comment: maybe a few half- drinks a few times a year Drug use: Not Currently Prior to Admission medications as of 03/20/25 1050 Medication Sig Last Dose Taking azaTHIOprine (IMURAN) 50 mg tablet Take 50 mg by mouth once daily. Yes fludrocortisone (FLORINEF) 0.1 mg tablet Take 1 tablet by mouth once daily. Yes minoxidil (LONITEN) 2.5 mg tablet Take 2.5 mg by mouth once daily. Yes .03/08, 28, 1.5 mg-30 mcg (21)/75 mg (7) tablet Take 1 tablet by mouth once daily. Yes omeprazole (PRILOSEC) 40 mg capsule Take 40 mg by mouth once daily. prn Yes ondansetron (ZOFRAN) 4 mg tablet Take 4 mg by mouth every 6 hours as needed for nausea/vomiting (PRN). Yes spironolactone (ALDACTONE) 50 mg tablet Take 50 mg by mouth once daily. Yes lubiprostone (AMITIZA) 24 mcg capsule Take 1 capsule by mouth two times a day with meals. Yes pyridostigmine (MESTINON) 60 mg tablet Take 1 tablet by mouth three times a day. Yes No medication comments found. ALLERGIES No Known Allergies Objective PHYSICAL EXAM: (if completed, exam performed via video enabled technology) General: alert and oriented and healthy appearance. Pertinent negatives noted - not distressed. Skin: normal color, no rash or lesions. HEENT: Head is normocephalic, no abnormality or lesion noted Eyes show no injection and visual acuity is grossly normal Ears note grossly normal hearing Nose exam notes external nose is normal without rhinorrhea Oropharynx exam notes moist mucous membranes with no noted tonsillar hypertrophy, erythema or edema Uvula is midline. . Cardiovascular: Patient palpated radial pulse, regular when counted aloud by patient. Capillary refill is less than 3 seconds in bilateral upper extremities. . Respiratory: Equal chest rise with normal respiratory effort . Abdomen: soft. Pertinent negatives noted - not distended and not tender. No pain upon palpation by patient . Extremities: no deformity, no edema or tenderness, no joint swelling or clubbing. Neurological: normal cognition and motor skills. Gait stated to be normal per patient . PAIN ASSESSMENT: VITALS: BP [108/50 on 12/26/2024 reviewed[ Pulse 78 Temp [no thermometer available - feeling well[ Resp 16 Ht 5' 8 (1.73m) Wt 120 lb (54.4kg) LMP 01/28/2025 BMI 18.25 kg/(m^2). Diagnostic tests reviewed for today's visit: Lab Value Units Date High Low HB No results within date range. HCT No results within date range. WBC No results within date range. PLT No results within date range. NA No results within date range. K No results within date range. GLUC No results within date range. BUN No results within date range. CREAT No results within date range. PTSEC No results within date range. INR No results within date range. APTT No results within date range. ALT No results within date range. AST No results within date range. TBILI No results within date range. TSH 1.100 mIU/L 12/26/2024 4.200 0.270 Lab Value Units Date High Low HCGQT No results within date range. UHCG No results within date range. HCG, BODY* No results within date range. Lab Value Units Date High Low ABORHD No results within date range. ABSCREEN No results within date range. Hemoglobin A1C (%) Date Value 12/26/2024 4.3 No results found for this or any previous visit (from the past 8760 hours). No results found for this or any previous visit (from the past 28933 hours). Instructions Given to Patient: Instructions located in the after visit summary. Patient given verbal and written preop instructions and voices comprehension and compliance. SIGNATURE: Vinicius Brannon PA-C PATIENT NAME: Sloan Bonilla DATE: 03/20/2025 TIME: 10:40 AM PAGER/CONTACT #: documented in this encounter [facility] 02-21-2025 Note HNO ID: [id number] Author: GARCIA CULP, DO Service: ? Author Type: Physician Type: Progress Notes Filed: 02/21/2025 08:42 Note Text: VIRTUAL VISIT FOLLOW UP VISIT I have communicated my name and active licensure. The patient's identity and physical location were verified at the time of this visit. Either the patient or their legal traveling representative has been informed of the risks and benefits of -- and alternatives to -- treatment through a remote evaluation and consents to proceed with the evaluation remotely. CHIEF COMPLAINT Patient presents with: Constipation Gastroparesis Ms. Bonilla is here today for follow-up of: Gastroparesis constipation. HPI: Patient is a 24-year-old female presenting for follow-up with ongoing gastrointestinal issues, including diarrhea and concerns about stomach emptying. Patient reports experiencing soft, diarrhea-like stools more frequently than twice a week. She notes that the diarrhea worsens when she takes Mestinon (pyridostigmine) three times a day, so she has been taking it twice a day instead. She has not started Amitiza (lubiprostone) due to the high cost of $240.00. She has been using stool softeners as needed. Patient inquires about the potential impact of vaping on her gastrointestinal issues. She is currently in the process of quitting vaping. Past Diagnostic Results: - Electrical Test: Revealed that the patient's electrical system is operating faster than the normal rate of three times per minute, although much of the time was within the normal range. - Lab Work: Showed some inflammation in the body, but no other autoimmune issues were detected. Carnitine levels were low, and the amino acid panel showed some variations, which were attributed to nutritional factors. Current Outpatient Medications Medication Sig Dispense Refill azaTHIOprine (IMURAN) 50 mg tablet Take 50 mg by mouth once daily. fludrocortisone (FLORINEF) 0.1 mg tablet Take 1 tablet by mouth once daily. minoxidil (LONITEN) 2.5 mg tablet Take 2.5 mg by mouth once daily. 1.5/, 28, 1.5 mg-30 mcg (21)/75 mg (7) tablet Take 1 tablet by mouth once daily. omeprazole (PRILOSEC) 40 mg capsule Take 40 mg by mouth once daily. prn ondansetron (ZOFRAN) 4 mg tablet Take 4 mg by mouth every 6 hours as needed for nausea/vomiting (PRN). spironolactone (ALDACTONE) 50 mg tablet Take 50 mg by mouth once daily. lubiprostone (AMITIZA) 24 mcg capsule Take 1 capsule by mouth two times a day with meals. 60 capsule 6 pyridostigmine (MESTINON) 60 mg tablet Take 1 tablet by mouth three times a day. 90 tablet 5 No current facility-administered medications for this visit. ALLERGIES No Known Allergies Medical History: No changes since last visit. REVIEW OF SYSTEMS: GENERAL: weight stable, no fevers. CARDIOVASCULAR: No chest pain, no edema RESPIRATORY: No dyspnea : Negative TEST SKEIN WINDER: Negative The remainder of the review of systems are negative. Reviewed with patient during visit today. PHYSICAL EXAMINATION: There were no vitals taken for this visit. GENERAL APPEARANCE: Well developed and well nourished. SKIN: Skin color, texture, turgor normal. No rashes or lesions. EYES: Conjunctiva normal without icterus. OROPHARYNX: lips, mucosa, and tongue normal, teeth and gums normal NECK: Supple, full range of motion, no lymphadenopathy, normal thyroid, no carotid bruits and no JVD LUNGS: Normal breath sounds, Clear to auscultation, No wheezes, No crackles. HEART:Normal PMI, Regular rate and rhythm, Normal heart sounds, S1 and S2 and No murmurs. NEURO: Alert and oriented in no acute distress. ABDOMEN: Normal bowel sounds, abdomen flat with no distention, Soft, non-tender, no hepatomegaly. no palpable masses, no abdominal bruits, no rebound and no rigidity. EXTREMITIES:Extremities normal, No deformities, No skin discoloration, No edema . ASSESSMENT AND PLAN 1. Gastroparesis (K31.84) Patient experiencing increased frequency of loose stools, likely secondary to pyridostigmine (Mestinon) therapy. Recent lab work indicates inflammation, but no additional autoimmune markers were identified. Electrical testing revealed an accelerated gastric electrical rhythm, suggesting potential pyloric dysfunction. - Adjusted pyridostigmine (Mestinon) dosage to twice daily to mitigate diarrhea. - Deferred initiation of lubiprostone (Amitiza) due to cost and current bowel movement frequency; consider alternative if necessary in 3-4 weeks. - Scheduled endoscopic pyloric dilation to assess and potentially improve gastric emptying. - Continue neurology consultation for comprehensive management. - Advised cessation of vaping due to potential exacerbation of gastrointestinal symptoms. - Monitor nutritional status; consider supplementation if indicated. Garcia Culp DO 02/21/2025 Recording using Section 101 software for draft documentation of the visit was discussed with the (more content not included)... [facility] 02-21-2025 History of Present illness Narrative VIRTUAL VISIT FOLLOW UP VISIT I have communicated my name and active licensure. The patient's identity and physical location were verified at the time of this visit. Either the patient or their legal traveling representative has been informed of the risks and benefits of -- and alternatives to -- treatment through a remote evaluation and consents to proceed with the evaluation remotely. CHIEF COMPLAINT Patient presents with: Constipation Gastroparesis Ms. Bonilla is here today for follow-up of: Gastroparesis constipation. HPI: Patient is a 24-year-old female presenting for follow-up with ongoing gastrointestinal issues, including diarrhea and concerns about stomach emptying. Patient reports experiencing soft, diarrhea-like stools more frequently than twice a week. She notes that the diarrhea worsens when she takes Mestinon (pyridostigmine) three times a day, so she has been taking it twice a day instead. She has not started Amitiza (lubiprostone) due to the high cost of $240.00. She has been using stool softeners as needed. Patient inquires about the potential impact of vaping on her gastrointestinal issues. She is currently in the process of quitting vaping. Past Diagnostic Results: - Electrical Test: Revealed that the patient's electrical system is operating faster than the normal rate of three times per minute, although much of the time was within the normal range. - Lab Work: Showed some inflammation in the body, but no other autoimmune issues were detected. Carnitine levels were low, and the amino acid panel showed some variations, which were attributed to nutritional factors. Current Outpatient Medications Medication Sig Dispense Refill azaTHIOprine (IMURAN) 50 mg tablet Take 50 mg by mouth once daily. fludrocortisone (FLORINEF) 0.1 mg tablet Take 1 tablet by mouth once daily. minoxidil (LONITEN) 2.5 mg tablet Take 2.5 mg by mouth once daily. 1.5/30, 28, 1.5 mg-30 mcg (21)/75 mg (7) tablet Take 1 tablet by mouth once daily. omeprazole (PRILOSEC) 40 mg capsule Take 40 mg by mouth once daily. prn ondansetron (ZOFRAN) 4 mg tablet Take 4 mg by mouth every 6 hours as needed for nausea/vomiting (PRN). spironolactone (ALDACTONE) 50 mg tablet Take 50 mg by mouth once daily. lubiprostone (AMITIZA) 24 mcg capsule Take 1 capsule by mouth two times a day with meals. 60 capsule 6 pyridostigmine (MESTINON) 60 mg tablet Take 1 tablet by mouth three times a day. 90 tablet 5 No current facility-administered medications for this visit. ALLERGIES No Known Allergies Medical History: No changes since last visit. REVIEW OF SYSTEMS: GENERAL: weight stable, no fevers. CARDIOVASCULAR: No chest pain, no edema RESPIRATORY: No dyspnea : Negative TEST SKEIN WINDER: Negative The remainder of the review of systems are negative. Reviewed with patient during visit today. PHYSICAL EXAMINATION: There were no vitals taken for this visit. GENERAL APPEARANCE: Well developed and well nourished. SKIN: Skin color, texture, turgor normal. No rashes or lesions. EYES: Conjunctiva normal without icterus. OROPHARYNX: lips, mucosa, and tongue normal, teeth and gums normal NECK: Supple, full range of motion, no lymphadenopathy, normal thyroid, no carotid bruits and no JVD LUNGS: Normal breath sounds, Clear to auscultation, No wheezes, No crackles. HEART:Normal PMI, Regular rate and rhythm, Normal heart sounds, S1 and S2 and No murmurs. NEURO: Alert and oriented in no acute distress. ABDOMEN: Normal bowel sounds, abdomen flat with no distention, Soft, non-tender, no hepatomegaly. no palpable masses, no abdominal bruits, no rebound and no rigidity. EXTREMITIES:Extremities normal, No deformities, No skin discoloration, No edema . ASSESSMENT AND PLAN 1. Gastroparesis (K31.84) Patient experiencing increased frequency of loose stools, likely secondary to pyridostigmine (Mestinon) therapy. Recent lab work indicates inflammation, but no additional autoimmune markers were identified. Electrical testing revealed an accelerated gastric electrical rhythm, suggesting potential pyloric dysfunction. - Adjusted pyridostigmine (Mestinon) dosage to twice daily to mitigate diarrhea. - Deferred initiation of lubiprostone (Amitiza) due to cost and current bowel movement frequency; consider alternative if necessary in 3-4 weeks. - Scheduled endoscopic pyloric dilation to assess and potentially improve gastric emptying. - Continue neurology consultation for comprehensive management. - Advised cessation of vaping due to potential exacerbation of gastrointestinal symptoms. - Monitor nutritional status; consider supplementation if indicated. Garcia Culp DO 02/21/2025 Recording using Section 101 software for draft documentation of the visit was discussed with the patient/authorized traveling representative; all questions welcomed and answered. Patient/authorized traveling representative agreed to proceed documented in this encounter [facility] 01-01-2025 Telephone encounter Note Ref placed and waiting for authorization [facility] 01-01-2025 Miscellaneous Notes Ref placed and waiting for authorization Please call and schedule patient for follow up virtual or in person appointment with Garcia Culp D.O. in 4-6 weeks or close to that date in the [facility] for ongoing discussion of plan of care and results review if available. documented in this encounter [facility] 12-27-2024 Note HNO ID: [id number] Author: GARCIA CULP DO Service: ? Author Type: Physician Type: Progress Notes Filed: 12/27/2024 14:50 Note Text: [facility] 12-27-2024 History of Present illness Narrative Images from the original note were not included. documented in this encounter [facility] 12-26-2024 Telephone encounter Note Please call and schedule patient for follow up virtual or in person appointment with Garcia Culp D.O. in 4-6 weeks or close to that date in the [facility]ast[facility]aresis [facility] for ongoing discussion of plan of care and results review if available. [facility] 12-26-2024 History of Present illness Narrative GASTROPARESIS CONSULT Patient is referred by Dr. Angel Gutierrez for an opinion regarding GP and my final recommendations will be communicated back to the requesting physician by way of shared Medical Record. PRESENTING COMPLAINT & HISTORY Sloan is a 24 yr old female w/hx of C diff, AIH type 1, POTS with positive tilt, and liver biopsies that had an abnormal gastric emptying study 10/2024 showing 32% retention at 4 hours. Gastroparesis symptoms started 2 years ago with sudden onset. Constipation with average bm 1-2 x per week takes prn Amitiza and stool softeners. Linzess and Trulance caused severe diarrhea and incontinence. Weight is pretty stable with a 4-5 lb loss recently. Has not been on prokinetics. Failed Buspar for GI. C/o severe stomach fullness, early satiety, lack of appetite with moderate bloating and abd distention. Diet: snacks as tolerated. Is not able to eat meals. Symptoms started . The bowels and stomach symptoms started together. The patient is hypermobile. She has incomplete evacuation and dyssynergic defecation. Patient is interested in learning more about EMPTIES Trial: No Patient is a candidate for EMPTIES Trial: No Gastrointestinal Symptoms Reflux/heartburn: Yes takes omeprazole Abdominal pain/discomfort: Yes intermittent abdominal pain that is related to eating at times. Weight loss: Yes 4-5 lb recent weight loss Do you have less than 3 bowel movements per week? Yes Diarrhea: no Constipation: Yes average bm is 1-2 x per week. Takes Amitiza and stool softeners but not on a regular basis Malnutrition: no Gastroparesis Cardinal Symptom Index (CGSI) 1. Nausea: 4 2. Retchin 3. Vomitin 4. Stomach fullness: 5 5. Not able to finish a normal-sized meal: 5 6. Feeling excessively full after meals: 5 7. Loss of appetite: 4 8. Bloating (feeling like you need to loosen your clothes): 3 9. Stomach or belly visibly larger: 3 CGSI Score: 3.14 Scale (0-none; 1-very mild; 2-mild; 3-moderate; 4-severe; 5-very severe) MEDICATION HISTORY Promotility Drugs - Reglan (Metoclopramide): No - Gimoti (Metoclopramide nasal): No - Motilium (Domperidone): No - Erythromycin (E-mycin): No - Propulsid (Cisapride)_: No Other - Tricyclic Antidepressants (nortriptyline - Pamelor; amitriptyline - Elavil): No - Buspirone (Buspar): Yes tried in the past for GI; failed - Mirtazapin (Remeron): No Anti-Nausea Medications - Compazine (Prochlorperazine): No - Phenergan (Promethazine): No - Benadryl (Diphenhydramine): No - Zofran (Ondansetron): Yes prn - Scopace (Scopolamine Patch): No - Granisetron (Kytril or Sancuso): No - Tigan (Trimethobenzamide)_: No GLP-1 Receptor Agonists (for Diabetes or Weight loss): No Constipation Medications - Bulking Agents (Metamucil,Citrucel, Fibercon): No - Osmotic Laxatives (MOM, Polyethylene glycol (PEG), lactulose, sorbitol,MiraLax, Chronulal, Cephulac,Xylitol): Yes Miralax - failed - Stimulant Laxatives (Ex-Lax, Senokot,Correctol, Dulcolax): in the past - Stool Softeners (Colace): prn - Chloride Channel Activator (Amitiza): Yes prn - Linzess: severe diarrhea and incontinence - Trulance: caused severe diarrhea and incontinence. - Motegrity: No - Ibsrella: No Pain Medications - Does the patient see a painting department supervisor for chronic pain?No - Is the patient taking narcotic pain medication for chronic abdominal pain? No - Narcotic Medications: (Tramadol, Fentanyl, codeine, hydrocodone, Hydromorphone, methadone, morphine, Oxycodone) No Drug use - History or current drug use (Marijuana, Cocaine, Heroine, etc...) No Eating Disorders - Does the patient have a history of eating disorders No Psychiatric Disorders - Does the patient have a history of psychiatric disorders including PTSD: No Nutrition - Has the patient met with a cashier manager for diet recommendations with Gastroparesis? No - Jejunostomy (J-tube): _No - Gastrostomy (G-tube): No - Gastro-Jejunostomy (GJ-tube): _No - Nasojejunal (NJ-tube): _No - Nasogastric (NG-tube): _No - TPN (IV): _No - IV home hydration (IV): _No Medical Records - Has the patient had a smart capsule study completed? No - Does the patient have a history of any foregut surgery (vagotomy, hiatal hernia repair/SHU Fundoplication, Heller Myotomy, gastrectomy, gastric bypass)?No If surgery, recent UGI? No - EGD: Yes - Botox Injections: No Patient Name Sloan Bonilla Age [age] year old Gastroparesis Consult Test Date Completed Results Labs EGD 08/28/2024 Impression: - benign appearing esophageal stenosis, Dilated - z line irregular, 40 cm from the incisors, biopsied - excessive gastric fluid. Fluid aspiration performed - normal first portion of the duodenum. Gastric Emptying Study 10/24/2024 Findings: 68% emptying and 32% retention are defined at 4 hours post meal ingestion. Abd xray 12/25/2020 Impression: Moderate amount of stool in the colon Consults GI No past surgical history on file. No current outpatient medications on file. No current facility-administered medications for this visit. ALLERGIES Not on File No family history on file. GI SPECIFIC ROS Difficulty swallowing / foods sticking in throat: No Hoarseness: No Chronic cough: No Regurgitation: Yes Chest pain: No Recent change in bowel movements: No Bloody or black, bowel movements: No Loss of control of bowel movements: No Night sweats, fever, chills: No Thought or memory problems: No Fluid in abdomen (ascites): No Prominent leg swelling: No Vomiting blood: No REVIEW OF SYSTEMS GENERAL: No weight loss, malaise or fevers HEENT: No changes in hearing or vision, no nose bleeds or other nasal problems RESPIRATORY: Negative for cough, hemoptysis, wheezing, COPD, dyspnea or shortness of breath CARDIOVASCULAR: See HPI : No history of dysuria, frequency or incontinence TEST SKEIN WINDER: Negative for abnormal vaginal bleeding, abnormal vaginal discharge MUSCULOSKELETAL: Negative for joint pain or swelling, back pain or muscle pain SKIN: Negative for lesions, rash, and itching PSYCH: sleep fragmented ENDOCRINE: Negative for cold or heat intolerance, polyuria, polydipsia and goiter NEURO: Migraine headaches PHYSICAL EXAMINATION BP 108/50 Pulse 74 Ht 5' 8 (1.73m) Wt 120 lb 9.5 oz (54.7kg) BMI 18.34 kg/(m^2). General appearance: alert and in no acute distress Skin: Skin color, texture, turgor normal, no suspicious rashes or lesions Head: normal Eyes: Anicteric sclera. Pupils are equally round and reactive to light. Extraocular movements are intact. Ears: Negative Nose/Sinuses: Negative Oropharynx: Negative findings: lips normal without lesions Neck: Negative findings: no jugular venous distention Back: motor and sensory appear to be normal Lungs: Unlabored on room air Heart: RRR without murmur, gallop, or rubs. No ectopy Abdomen: Normal abdominal exam Extremities: hypermobile Musculoskeletal: No joint swelling, deformity, or tenderness Peripheral pulses: Normal Neuro: Negative findings: speech normal, mental status intact, cranial nerves 2-12 intact Plan Given the risk of autoimmune gastrointestinal dysmotility (AGID) as a possible cause for this patient's symptoms, as well as the fact the patient has yet to be evaluated for AGID, a full workup will be undertaken. If the antibody tests reveal a positive result the patient will then need to be treated with IVIG therapy as this is the only known treatment available at this time for AGID. Encounter Diagnosis ICD-10-CM 1. Gastroparesis K31.84 CREATINE KINASE/CK LACTATE DEHYDROGENASE HEMOGLOBIN A1C THYROID STIMULATING HORMONE T4 FREE/FREE THYROXINE PYRUVATE+LACTATE BL AMINO ACIDS, PLASMA W/ CONSULTATION CARNITINE FREE & TOTAL, PLASMA ACETYLCHOLINE REC BINDING AB VOLTAGE GATED CA IGG VOLTAGE-GATED POTASSIUM HERRERA AB GLUTAMIC AC DECARBOXYLASE AB ORGANIC ACIDS UR, QUANT W/CONSULTATION IMMUNOGLOBULIN A IMMUNOGLOBULIN G IMMUNOGLOBULIN M C-REACTIVE PROTEIN SEDIMENTATION RATE, WESTERGREN CYTOKINE PANEL 13, SERUM ESTROGEN FRACTION BL pyridostigmine (MESTINON) 60 mg tablet 2. Chronic idiopathic constipation K59.04 lubiprostone (AMITIZA) 24 mcg capsule ADULT [place] ANORECTAL MANOMETRY 3. Dysautonomia (HCC) G90.1 CONSULT TO NEUROMUSCULAR MEDIC Garcia Culp DO 12/25/2024 documented in this encounter [facility] 12-26-2024 Note HNO ID: [id number] Author: GARCIA CULP DO Service: ? Author Type: Physician Type: Progress Notes Filed: 12/26/2024 16:02 Note Text: GASTROPARESIS CONSULT Patient is referred by Dr. Angel Ziegler Friend for an opinion regarding GP and my final recommendations will be communicated back to the requesting physician by way of shared Medical Record. PRESENTING COMPLAINT AND HISTORY Sloan is a 24 yr old female w/hx of C diff, AIH type 1, POTS with positive tilt, and liver biopsies that had an abnormal gastric emptying study 10/2024 showing 32% retention at 4 hours. Gastroparesis symptoms started 2 years ago with sudden onset. Constipation with average bm 1-2 x per week takes prn Amitiza and stool softeners. Linzess and Trulance caused severe diarrhea and incontinence. Weight is pretty stable with a 4-5 lb loss recently. Has not been on prokinetics. Failed Buspar for GI. C/o severe stomach fullness, early satiety, lack of appetite with moderate bloating and abd distention. Diet: snacks as tolerated. Is not able to eat meals. Symptoms started [id number]. The bowels and stomach symptoms started together. The patient is hypermobile. She has incomplete evacuation and dyssynergic defecation. Patient is interested in learning more about EMPTIES Trial: No Patient is a candidate for EMPTIES Trial: No Gastrointestinal Symptoms Reflux/heartburn: Yes takes omeprazole Abdominal pain/discomfort: Yes intermittent abdominal pain that is related to eating at times. Weight loss: Yes 4-5 lb recent weight loss Do you have less than 3 bowel movements per week? Yes Diarrhea: no Constipation: Yes average bm is 1-2 x per week. Takes Amitiza and stool softeners but not on a regular basis Malnutrition: no Gastroparesis Cardinal Symptom Index (CGSI) 1. Nausea: 4 2. Retchin 3. Vomitin 4. Stomach fullness: 5 5. Not able to finish a normal-sized meal: 5 6. Feeling excessively full after meals: 5 7. Loss of appetite: 4 8. Bloating (feeling like you need to loosen your clothes): 3 9. Stomach or belly visibly larger: 3 CGSI Score: 3.14 Scale (0-none; 1-very mild; 2-mild; 3-moderate; 4-severe; 5-very severe) MEDICATION HISTORY Promotility Drugs - Reglan (Metoclopramide): No - Gimoti (Metoclopramide nasal): No - Motilium (Domperidone): No - Erythromycin (E-mycin): No - Propulsid (Cisapride)_: No Other - Tricyclic Antidepressants (nortriptyline - Pamelor; amitriptyline - Elavil): No - Buspirone (Buspar): Yes tried in the past for GI; failed - Mirtazapin (Remeron): No Anti-Nausea Medications - Compazine (Prochlorperazine): No - Phenergan (Promethazine): No - Benadryl (Diphenhydramine): No - Zofran (Ondansetron): Yes prn - Scopace (Scopolamine Patch): No - Granisetron (Kytril or Sancuso): No - Tigan (Trimethobenzamide)_: No GLP-1 Receptor Agonists (for Diabetes or Weight loss): No Constipation Medications - Bulking Agents (Metamucil,Citrucel, Fibercon): No - Osmotic Laxatives (MOM, Polyethylene glycol (PEG), lactulose, sorbitol,MiraLax, Chronulal, Cephulac,Xylitol): Yes Miralax - failed - Stimulant Laxatives (Ex-Lax, Senokot,Correctol, Dulcolax): in the past - Stool Softeners (Colace): prn - Chloride Channel Activator (Amitiza): Yes prn - Linzess: severe diarrhea and incontinence - Trulance: caused severe diarrhea and incontinence. - Motegrity: No - Ibsrella: No Pain Medications - Does the patient see a painting department supervisor for chronic pain?No - Is the patient taking narcotic pain medication for chronic abdominal pain? No - Narcotic Medications: (Tramadol, Fentanyl, codeine, hydrocodone, Hydromorphone, methadone, morphine, Oxycodone) No Drug use - History or current drug use (Marijuana, Cocaine, Heroine, etc...) No Eating Disorders - Does the patient have a history of eating disorders No Psychiatric Disorders - Does the patient have a history of psychiatric disorders including PTSD: No Nutrition - Has the patient met with a cashier manager for diet recommendations with Gastroparesis? No - Jejunostomy (J-tube): _No - Gastrostomy (G-tube): No - Gastro-Jejunostomy (GJ-tube): _No - Nasojejunal (NJ-tube): _No - Nasogastric (NG-tube): _No - TPN (IV): _No - IV home hydration (IV): _No Medical Records - Has the patient had a smart capsule study completed? No - Does the patient have a history of any foregut surgery (vagotomy, hiatal hernia repair/SHU Fundoplication, Heller Myotomy, gastrectomy, gastric bypass)?No If surgery, recent UGI? No - EGD: Yes - Botox Injections: No Patient Name Sloan Bonilla Age [age] year old Gastroparesis Consult Test Date Completed Results Labs EGD 08/28/2024 Impression: - benign appearing esophageal stenosis, Dilated - z line irregular, 40 cm from the incisors, biopsied - excessive gastric fluid. Fluid aspiration performed - normal first portion of the duodenum. Gastric E (more content not included)... [facility] 12-26-2024 Note HNO ID: [id number] Author: ZEE AVILA RN Service: ? Author Type: Registered Nurse Type: Progress Notes Filed: 12/26/2024 15:06 Note Text: ELECTROGASTROGRAPY W/ TEST Operation / Procedure performed 325 ml of water ingested. [facility] 12-26-2024 History of Present illness Narrative ELECTROGASTROGRAPY W/ TEST Operation / Procedure performed 325 ml of water ingested. documented in this encounter [facility] 11-21-2024 Evaluation note Diagnosis Onset Date Resolution Gastroparesis acute November 212024 8:00am Autoimmune hepatitis chronic Febr 2024 8:00am Constipation chronic November 8:00am [facility] Work Phone: 1(659) 567-929201-21-2025 Telephone encounter Note* Telephone Encounter - Erma Daley - 10/30/2024 3:44 PM EST Left VM for patient to call office to update registration and go over records needed for review prior to scheduling. [facility]01-21-2025 Telephone encounter Note* Telephone Encounter - Erma Daley - 10/30/2024 3:44 PM EST ----- Message from [employer] PF sent at 10/26/2024 12:13 PM EST ----- Regarding: Gastroparesis Sloan Bonilla is being referred to or the Gastroparesis clinic. Referring Physician: Angel Gutierrez DO Preferred phone number for contact: [phone] Send to GASTROPARESIS SCHEDULING POOL [[id number]] [facility]01-21-2025 Miscellaneous Notes* Telephone Encounter - Erma Daley - 10/30/2024 3:44 PM EST Left VM for patient to call office to update registration and go over records needed for review prior to scheduling. * Telephone Encounter - Erma Daley - 10/30/2024 3:44 PM EST ----- Message from [employer] sent at 10/26/2024 12:13 PM EST ----- Regarding: Gastroparesis Sloan Bonilla is being referred to or the Gastroparesis clinic. Referring Physician: Angel Gutierrez DO Preferred phone number for contact: [phone] Send to GASTROPARESIS SCHEDULING POOL [[id number]] [facility] Medical Records Department [address] [place] [address] History Physical Exam 08/28/24 1253 MR#: [id number] Acct: [id number] Name: SLOAN BONILLA Rep #: [id number] : 2000 24 From: Angel Gutierrez DO PCP: KRISTINA ChuC Status[facility] Location: [place] [address] History and Physical Date of Admission: 08/28/24 SLOAN BONILLA, is a 23 F who presents to the office today for follow up. US and elastography 06.01.23 hepatic measurement 15.7cm with fatty infiltration, stiffness measures 5.8kPa. Colonoscopy 01.02.24 Tortuous colon. The examination was otherwise normal on direct and retroflexion views. No specimens collected. OV 8 pt reports daily nausea after she eats that gets worse the longer she has gone without a bm. Pt reports constipation has improved since colonoscopy in December when she started a fiber supplement and is now having 1-2 formed bm per week; denies blood in the stool. Pt reports increased HB that is worse when she has not been able to have a BM. Pt reports that she began having difficulty swallowing in mid April where she feels like she will either throw up or choke; states that she just takes a break from eating and the problem resolves. Pt reports she only has difficulty with food. ROS Const Constitutional: Positive for fatigue and weight change (weight loss); No fever(s) ENT ENT: Positive for difficulty swallowing Gastro GI: Positive for bloating, constipation, heartburn, difficulty swallowing, excessive flatus and nausea/dyspepsia; No abdominal pain, belching, change in bowel habits, change in stool character, coffee ground emesis, cramping, diarrhea, feeling full early, incontinent of stools, Vomiting blood/hematemesis, Blood in stool, loose stools, Black,tarry stools, pain with swallowing, vomiting or other Musc Musculoskeletal: Positive for muscle weakness, numbness and tingling; No joint pain Skin Skin: Positive for dry skin and itchy eyes; No yellowing of the eye Neuro Neurology: Positive for numbness and tingling Psych Psychiatric: No anxiety and No depression Endo Endocrine: Positive for fatigue and weight change (weight loss) Aller/Imm Allergy/Immunologic: Positive for itchy eyes Lawrence/Lymp Hematologic/Lymphatic: No easy bleeding or easy bruising Exam Const General: cooperative, no acute distress and well developed Nutritional Appearance: average body habitus Orientation: alert, awake and oriented x3 Other: BMI 18.1 %. thin body build. [facility] Head: normocephalic and atraumatic Nose: external nose normal Face and sinus: normal facial exam Mouth: moist mucous membranes Eyes Pupils: PERRL EOM: EOM intact bilaterally Neck Neck: normal visual inspection, no meningeal signs and trachea midline Carotids: no bruits Chest Chest palpation inspection: normal inspection of the chest Resp Effort Inspection: normal respiratory effort and symmetric chest movement Auscultation: Bilateral: Clear to Auscultation Cardio Palpation: normal PMI Rate: regular rate Rhythm: regular rhythm Heart Sounds: S1 normal and S2 normal GI Auscultation: normal bowel sounds Percussion: normal to percussion Palpation: soft, no hepatosplenomegaly and no guarding Other: No tenderness, no abdominal distention. Liver not enlarged. Spleen not palpable. No clinically palpable ascites. General: bimanual renal exam normal bilaterally, bladder normal to inspection and bladder normal to palpation Bimanual Exam- Vagina Uterus: bladder normal to palpation Musc Musculoskeletal: No joint tenderness, joint redness, joint warmth or decreased range of motion Thoracic/Lumbar Spine: thor and lumb spine abnorm to inspection Skin General: rashes and/or lesions noted, turgor normal and no erythema Wounds: wound noted Other: Alopecia. chronic Hair loss. Neuro General: patient alert, patient awake, patient oriented x3 and no focal motor deficits Speech: speech normal Motor: muscle tone normal throughout Extrem General: normal exam except as noted Psych Appearance: grossly normal Mood: congruent mood Affect: normal affect Attitude: cooperative Assessment and Plan Assessment and Plan (1) Autoimmune hepatitis: Status: Chronic Plan: This is a 22-year-old female patient who was diagnosed with AIH type I almost a decade ago; which usually in pancreatic is group's type II. Her lab work reviewed. CBC all 3 cell lines are in normal range. Liver chemistry shows ALT 72, AST 15 otherwise all liver normals. Autoimmune work-up was essentially negative. QuantiFERON gold test negative. Hepatitis panel negative.Last abdominal ultrasound in May 2023 reported normal liver size 15.7 cm with normal echogenicity. Biliary system within normal limit. No gallstones CBD 2 mm. Size and echogenicity. No pancreatic mass or cyst. Liver elas (more content not included)...[facility]08-26-2024 Note ORIGINAL EXAMINATION: THREE XRAY VIEWS OF [...] Date: 2024 2:43:07 PM [facility]ing [facility]* Exam Date Time Procedure Performing Provider Status 02/23/24 2:16 PM Echocardiogram, Adult - CV Auth (Verified) [facility] 04-01-2024 Note Date of Service January [...] the morning 4. Maximize activity as tolerated (Salazar protocol - at home regimen designed for [...] LEO DA SILVA on 01/09/2024 04:13 PM [id number] [facility]03-25-[address] [facility]02-27-2024 Note If ancillary studies were utilized, the following Laboratory Developed Test (LDT) disclaimer will apply: Under CLIA requirements, [facility] is qualified to perform high complexity testing. For all ancillary stains, positive and negative controls stain appropriately. Performance characteristics of immunohistochemical and chromogenic in-situ hybridization tests have been deter mined by [facility]. These tests are used for clinical purposes, They should not be regarded as investigational or for research. [facility] 02-26-2024 Note If ancillary studies were utilized, the following Laboratory Developed Test (LDT) disclaimer will apply: Under CLIA requirements, [facility] is qualified to perform high complexity testing. For all ancillary stains, positive and negative controls stain appropriately. Performance characteristics of immunohistochemical and chromogenic in-situ hybridization tests have been deter mined by [facility]. These tests are used for clinical purposes, They should not be regarded as investigational or for research. [facility] 02-26-2024 Note If ancillary studies were utilized, the following Laboratory Developed Test (LDT) disclaimer will apply: Under CLIA requirements, [facility] is qualified to perform high complexity testing. For all ancillary stains, positive and negative controls stain appropriately. Performance characteristics of immunohistochemical and chromogenic in-situ hybridization tests have been deter mined by [facility]. These tests are used for clinical purposes, They should not be regarded as investigational or for research. [facility] 02-26-2024 Note If ancillary studies were utilized, the following Laboratory Developed Test (LDT) disclaimer will apply: Under CLIA requirements, [facility] is qualified to perform high complexity testing. For all ancillary stains, positive and negative controls stain appropriately. Performance characteristics of immunohistochemical and chromogenic in-situ hybridization tests have been deter mined by [facility]. These tests are used for clinical purposes, They should not be regarded as investigational or for research. [facility] 02-26-2024 Note If ancillary studies were utilized, the following Laboratory Developed Test (LDT) disclaimer will apply: Under CLIA requirements, [facility] is qualified to perform high complexity testing. For all ancillary stains, positive and negative controls stain appropriately. Performance characteristics of immunohistochemical and chromogenic in-situ hybridization tests have been deter mined by [facility]. These tests are used for clinical purposes, They should not be regarded as investigational or for research. [facility] 02-26-2024 Note If ancillary studies were utilized, the following Laboratory Developed Test (LDT) disclaimer will apply: Under CLIA requirements, [facility] is qualified to perform high complexity testing. For all ancillary stains, positive and negative controls stain appropriately. Performance characteristics of immunohistochemical and chromogenic in-situ hybridization tests have been deter mined by [facility]. These tests are used for clinical purposes, They should not be regarded as investigational or for research. [facility] 02-26-2024 Note If ancillary studies were utilized, the following Laboratory Developed Test (LDT) disclaimer will apply: Under CLIA requirements, [facility] is qualified to perform high complexity testing. For all ancillary stains, positive and negative controls stain appropriately. Performance characteristics of immunohistochemical and chromogenic in-situ hybridization tests have been deter mined by [facility]. These tests are used for clinical purposes, They should not be regarded as investigational or for research. [facility] 01-18-2024 Hospital Discharge instructions Patient Education [...] Black, tarry stool Involuntary weight loss Weakness 2280-0095 [employer]. [address] [place] [address], [place] [address]. All rights reserved. This information is not [...] foods again, start with small amounts of yjrn-gs-yyinvk, low- fat foods. These include apple sauce, [...] increase stomach acid. Don't use aspirin or ixla-khz-fcagumh pain and fever medicines, if possible. This includes nonsteroidal anti-inflammatory drugs (NSAIDs). Lose excess weight. Finish eating at least 2 hours before you go to bed or lie down. Raise the head of your bed. 8845-7047 [employer]. [address] [place] [address]. All rights reserved. This information is not intended as a substitute for professional medical care. Always follow yourhealthcare professional's instructions. Follow Up Care 10/27/2023 07:15:25 With:OSMAN SERRANO APRN - TILE ROOFER Address: [address] [place] [address]- When:2-4 days [facility] 01-18-2024 Note Discharge Instructions Thank you for allowing [facility] to assist you with your healthcare needs. The following is importantdischarge information regarding your hospital visit. Diagnosis from Today's Visit Abdominal pain Abdominal pain Constipation What to Do Next Instructions from Your Care Team No qualifying data available. Post Acute Orders No qualifying data available. You Need to Schedule the Following Appointments Follow Up with OSMAN SERRANO APRN, CNP When Within 2-4 days Where: [address] [place] [address]- Allergies NKA Medications Please ask your primary [...] or retail pharmacies. Medication Leaflets docusate (oral/rectal) (DOK ue sate) Colace, Colace Clear, Docu Soft, Doculase, Docusate [...] may report side effects to FDA at 4-667-SPZ-3695. What other drugs will affect docusate? Other drugs may affect docusate, including prescription and ihhr-dei-junvkwk medicines, vitamins, and herbal products. Tell your [...] to ensure that the information provided by [employer]. ('[employer]') is accurate, up-to-date, and complete, but no guarantee is made to that effect. Drug information contained herein may be time sensitive. [employer] information has been compiled for use by healthcare practitioners and consumers in the [place] and therefore [employer] does not warrant that uses outside of the [place] are appropriate, unless specifically indicated otherwise. [employer] drug information does not endorse drugs, diagnose patients or recommend therapy. [employer] drug information isan informational resource designed to [...] effective or appropriate for any given patient. [facility] does not assume any responsibility for any aspect of healthcare administered with the aid of information [facility] provides. The information contained herein is not intended to cover all possible uses, directions, precautions, warnings, drug interactions, allergic reactions, or adverse effects. If you have questions about the drugs you are taking, check with your doctor, nurse or pharmacist. Copyright 9370-7512 [employer]. Version: 7.01. Revision Date: 05/06/2023. lactulose (oral) [...] may report side effects to FDA at 8-569-AHK-0725. What other drugs will affect lactulose? Other drugs may affect lactulose, including prescription and gyiu-aam-vleuzcj medicines, vitamins, and herbal products. Tell your [...] to ensure that the information provided by [employer]') is accurate, up-to-date, and complete, but no guarantee is made to that effect. Drug information contained herein may be time sensitive. [employer] information has been compiled for use by healthcare practitioners and consumers in the [place] and therefore [employer] does not warrant that uses outside of the [place] are appropriate, unless specifically indicated otherwise. [employer] drug information does not endorse drugs, diagnose patients or recommend therapy. [employer] drug information isan informational resource designed to [...] effective or appropriate for any given patient. [employer] does not assume any responsibility for any aspect of healthcare administered with the aid of information [employer] provides. The information contained herein is not intended to cover all possible uses, directions, precautions, warnings, drug interactions, allergic reactions, or adverse effects. If you have questions about the drugs you are taking, check with your doctor, nurse or pharmacist. Copyright 4417-4789 [facility] [employer]. Version: 3.01. Revision Date: 07/14/2021. Education Materials [...] Black, tarry stool Involuntary weight loss Weakness 0930-7239 [employer]. [address] [place] [address], [place] [address]. All rights reserved. This information is not [...] foods again, start with small amounts of oifa-kr-tibavu, low- fat foods. These include apple sauce, [...] increase stomach acid. Don't use aspirin or qxft-kgm-dcophgs pain and fever medicines, if possible. This includes nonsteroidal anti-inflammatory drugs (NSAIDs). Lose excess weight. Finish eating at least 2 hours before you go to bed or lie down. Raise the head of your bed. 8833-6210 [employer]. [address] [place] [address]. All rights reserved. This information is not intended as a substitute for professional medical care. Always follow yourhealthcare professional's instructions. Additional Information VACCINATE! IT SAVES LIVES! Members of the community who have not yet received the COVID-19 vaccine and would like to receive it can visit one of [facility] vaccine clinics. There are many vaccine clinic locations within the [facility]. For locations and available times, please visit www.gettheshot.coronavirus.[place].gov/. It is important to note that some COVID mobile vaccine clinics are held outdoors and may be canceled in rainy or stormy conditions. To learn more about pediatric vaccinations (ages 5-11), we invite you to visit the [facility] webpage. https://www.[facility].org/pages/4451-Qgmhj-Uzzvtqyxkvx-Qmnlmlxshq-Xjcly-Ugs stions.htmlTo learn more about the COVID-19 vaccine, we invite you to visit the CDC website for a list of frequently asked questions. https://www.cdc.gov/coronavirus/2019-ncov/vaccines/faq.html [facility] Patient Portal Access Instructions: Stay connected with your healthcare team and access your personal medical information anytime with the [employer] Patient Portal. If you would like a full copy of your medical records please contact the [facility] Medical Records Department Tuesday through Tuesday between 8a.m. and 4:30p.m. Please follow the directions below to access the portal: 1.Access the email account you provided upon registration to the [facility].2.Look for an invitation email from [facility].3.Open the email and access the invitation link: Accept Invitation to [employer]4.Fill in the required krause to create your account. Sign into www.[employer] with your username and password that you [...] you will allow to register on the [employer] Patient Portal for access to your information. You can also access the [employer] Patient Portal on the [employer] shiva. Simply click on Health Records under [employer] and then click on the [employer] logo. HOW TO SAFELY DISPOSE OF PRESCRIPTION [...] Call your local pharmacy or go to http://bit.stickapps/0H7Ef4o to find one close to you.3.Make use of household items: Use cat litter or old coffee grounds to dispose medications if other options arenot available. Mix your drugs with these household products, seal them in an airtight container andthrow it into the garbage. Call [facility]: [phone] to be sure your drugs can be [...] been reviewed and explained to me and IZARA KARLIE M understand my current condition and have read and understand these discharge instructions. I have received a written copy of the plan/instructions. If I have questions, I am aware that I should contact my d octor. 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 Interpreted by: Garcia Nicole MD Preliminary Report By: Rosaura Melendez Electronically signed By Garcia Nicole MD Dictated Date: 10/27/2023 8:50:31 AM Prelim Date: 10/27/2023 8:56:42 AM Sign Date: 10/27/2023 9:04:05 AM Ordering Provider: JUSTYNA [facility]01-10-2024 Evaluation + Plan note Future Scheduled Tests Radiology* US Abdomen Limited 10/19/23 [facility] 09-21-2022 Evaluation + Plan note Diagnostic Tests Pending * [facility] Lab Send out (Blood Specimens) 06/30/22 Future Scheduled Tests Laboratory* Pathology Tissue Request 10/06/21 * Pathology Tissue Request 10/06/21 * Pathology Tissue Request 10/06/21 * Pathology Tissue Request 10/06/21 * Pathology Tissue Request 10/06/21 * Pathology Tissue Request 10/06/21 * Pathology Tissue Request 10/06/21 * Pathology Tissue Request 10/06/21 Radiology* XR Foot Minimum 3 Views Right 06/18/22 [facility] 03-12-2021 Evaluation + Plan note Future Scheduled Tests Laboratory* Amylase Level 12/19/20 * Antinuclear Antibody Screen, Serum 12/19/20 * Complete Blood Count 12/19/20 * Gamma Glutamyl Transferase 12/19/20 * Complete Metabolic Panel 12/19/20 Radiology* XR Foot Minimum 3 Views Right 02/24/21 * CT Abdomen w/ Contrast 12/21/20 [facility] Evaluation + Plan note Future Appointments Appointment Date:10/22/2021 10:00:00 AM Scheduled Provider: Location:[facility] Appointment Type:PC Nurse Injection Future Scheduled Tests [...] 02/24/21 * CT Abdomen w/ Contrast 12/21/20 [facility] Evaluation + Plan note Future Appointments Appointment Date:01/03/2023 09:20:00 AM Scheduled Provider:OSMAN SERRANO APRN, CNP Location[facility] Appointment Type: OV Follow Up Diagnostic Tests Pending * [facility] [facility] Lab Send out (Blood Specimens) 07/07/22 Future [...] XR Foot Minimum 3 Views Right 06/18/22 [facility] Evaluation + Plan note Future Appointments Appointment Date:11/18/2023 10:30:00 AM Scheduled Provider: Location:[facility] Appointment Type:PC Nurse Appointment Date:01/06/2024 10:00:00 AM Scheduled Provider:OSMAN SERRANO APRN, CNP Location:[facility] Appointment Type:PC OV Future Scheduled Tests Radiology* US Abdomen Limited 10/19/23 [facility] Evaluation + Plan note Future Appointments Appointment Date:11/18/2023 10:30:00 AM Scheduled Provider: Location:[facility] Appointment Type:PC Nurse Appointment Date:12/23/2023 10:40:00 AM Scheduled Provider:OSMAN SERRANO APRN, CNP Location:[facility] Appointment Type:PC OV Appointment Date:01/06/2024 10:00:00 AM Scheduled Provider:OSMAN SERRANO APRN - CECE Location:[facility] Appointment Type:PC OV Diagnostic Tests Pending * Aldosterone LCMS, Serum 11/14/23 * Renin Activity, Plasma 11/14/23 * ACTH, Plasma 11/14/23 * PTHrP (PTH-Related Peptide) 11/14/23 Future Scheduled Tests Radiology* US Abdomen Limited 10/19/23 [facility] Evaluation + Plan note Future Appointments Appointment Date:12/01/2023 01:00:00 PM Scheduled Provider:SHANTE GUSTAFSON Location:[facility] Appointment Type:ENDO ARABIC TEACHER Appointment Date:12/23/2023 10:40:00 AM Scheduled Provider:OSMAN SERRANO APRN, CNP Location:[facility] Appointment Type:PC OV Appointment Date:01/06/2024 10:00:00 AM Scheduled Provider:OSMAN SERRANO APRN, CNP Location:[facility] Appointment Type:PC OV Appointment Date:02/10/2024 09:45:00 AM Scheduled Provider: Location:[facility] Appointment Type:PC Nurse Injection Future Scheduled Tests Laboratory* 17-OH Progesterone LCMS 11/17/23 * Estradiol Level 11/17/23 * Luteinizing Hormone 11/17/23 * Prolactin Level 11/17/23 * Follicle Stimulating Hormone Level 11/17/23 Radiology* US Abdomen Limited 10/19/23 [facility] Evaluation + Plan note Future Appointments Appointment Date:12/12/2023 09:30:00 AM Scheduled Provider:TALISHA NICOLE MD Location: [facility] Appointment Type:WH OV Appointment Date:12/16/2023 11:30:00 AM Scheduled Provider: Location:[facility] Appointment Type:INF Injection - Cosyntropin Appointment Date:12/23/2023 10:40:00 AM Scheduled Provider:OSMAN SERRANO APRN, CNP Location:[facility] Appointment Type:PC OV Appointment Date:01/06/2024 10:00:00 AM Scheduled Provider:OSMAN SERRANO APRN, CNP Location:[facility] Appointment Type:PC OV Appointment Date:02/10/2024 09:45:00 AM Scheduled Provider: Location:[facility] Appointment Type:PC Nurse Injection Future Scheduled Tests Laboratory* Cortisol Level 12/01/23 Radiology* US Abdomen Limited 10/19/23 [facility] Evaluation + Plan note Future Appointments Appointment Date:12/23/2023 10:40:00 AM Scheduled Provider:OSMAN SERRANO APRN, CNP Location:[facility] Appointment Type:PC OV Appointment Date:01/06/2024 09:00:00 AM Scheduled Provider:TALISHA NICOLE MD Location: [facility] Appointment Type: Office Procedure Appointment Date:01/06/2024 10:00:00 AM Scheduled Provider:OSMAN SERRANO APRN, CNP Location:[facility] Appointment Type:PC OV Appointment Date:02/10/2024 09:45:00 AM Scheduled Provider: Location:[facility] Appointment Type:PC Nurse Injection Future Scheduled Tests Radiology* US Abdomen Limited 10/19/23 [facility] Evaluation + Plan note Future Appointments Appointment Date:01/20/2024 09:45:00 AM Scheduled Provider:TALISHA NICOLE MD Location:[facility] Appointment Type: OV Appointment Date:02/10/2024 09:45:00 AM Scheduled Provider: Location:[facility] Appointment Type:PC Nurse Injection Future Scheduled Tests Laboratory* Testosterone,Free and Total 01/06/24 * Androstenedione LCMS 01/06/24 Radiology* US Abdomen Limited 10/19/23 [facility] Evaluation + Plan note Future Appointments Appointment Date:01/20/2024 09:45:00 AM Scheduled Provider:TALISHA NICOLE MD Location:[facility] Appointment Type: OV Appointment Date:02/07/2024 03:00:00 PM Scheduled Provider: Location:[facility] Appointment Type:Echo - Echocardiogram Adult Diagnostic Tests Pending * Androstenedione LCMS 01/19/24 Future Scheduled Tests Radiology* US Abdomen Limited 10/19/23 [facility] Evaluation + Plan note Future Appointments Appointment Date:04/24/2024 02:30:00 PM Scheduled Provider:GRACE COVARRUBIAS Location:[facility] Appointment Type:CV ARABIC TEACHER Future Scheduled Tests Radiology* US Abdomen Limited 10/19/23 [facility] Evaluation + Plan note Future Appointments Appointment Date:03/27/2025 09:45:00 AM Scheduled Provider:GRACE COVARRUBIAS Location:[facility] Appointment Type:CV OV Appointment Date:05/15/2025 09:00:00 AM Scheduled Provider:TALISHA NICOLE MD Location:[facility] Appointment Type: OV Future Scheduled Tests Laboratory* C-Reactive Protein 07/05/24 * Magnesium Level 07/27/24 * Thyroid Stimulating Hormone 07/27/24 * Free T4 07/27/24 * Vitamin B12 Level 07/27/24 * Complete Blood Count 07/05/24 * Sedimentation Rate Automated 07/05/24 * Total T3 07/27/24 * Vitamin D Level 07/27/24 * Complete Metabolic Panel 07/05/24 Radiology* MRI Knee w/o Contrast Left 06/21/24 [facility] Evaluation + Plan note Future Appointments Appointment Date:11/20/2025 09:00:00 AM Scheduled Provider:TALISHA NICOLE MD Location:[facility] Appointment Type:[facility] Annual Exam Future Scheduled Tests Laboratory* C-Reactive Protein 07/05/24 * Magnesium Level 07/27/24 * Thyroid Stimulating Hormone 07/27/24 * Free T4 07/27/24 * Vitamin B12 Level 07/27/24 * Complete Blood Count 07/05/24 * Sedimentation Rate Automated 07/05/24 * Total T3 07/27/24 * Vitamin D Level 07/27/24 * Complete Metabolic Panel 07/05/24 Radiology* MRI Knee w/o Contrast Left 06/21/24 [facility] evaluation note* Diagnosis Onset Date Resolution Status Autoimmune hepatitis chronic Constipation [facility] Work Phone: evaluation note* Diagnosis Onset Date Resolution Status Autoimmune hepatitis chronic Constipation chronic Autoimmune hepatitis chronic Constipation [facility] Work Phone: Evaluation note* Diagnosis Gastroparesis- Primary documented in this [facility]* Diagnosis Gastroparesis- Primary Chronic idiopathic constipation Unspecified constipation Dysautonomia (HCC) Unspecified disorder of autonomic nervous system documented in this encounter [facility]* Diagnosis Gastroparesis- Primary documented in this encounter [facility]* Diagnosis Gastroparesis- Primary documented in this [facility]* Diagnosis POTS (postural orthostatic tachycardia syndrome)- Primary Tachycardia, unspecified MVP (mitral valve prolapse) Mitral valve disorders Hair loss Alopecia, unspecified Gastroesophageal reflux disease, unspecified whether esophagitis present Autoimmune hepatitis (HCC) Autoimmune hepatitis Engages in vaping Underweight * Assessment & Plan Note - Vinicius Brannon PA-C - 03/20/2025 11:12 AM EDT Associated Problem(s): Underweight Assessment: Body mass index is 18.25 kg/m . * Assessment & Plan Note - Vinicius Brannon PA-C - 03/20/2025 11:12 AM EDT Associated Problem(s): Engages in vaping Assessment: Daily, disposable device; contains nicotine and blueberry flavoring * Assessment & Plan Note - Vinicius Brannon PA-C - 03/20/2025 11:02 AM EDT Associated Problem(s): Autoimmune hepatitis (HCC) Assessment: Since fifth grade Following with hepatology, Dr. Gutierrez in [place] Managing with Imuran History of esophageal varices: none that patient is aware of Denies any recent ascites or jaundice. Most recent LFTs:07/29/2021 Bilirubin, Conjugated 0.0 - 0.7 mg/dL 0.2 Total Bilirubin 0.0 - 1.0 mg/dl 1 ALT 0 - 31 U/L 20 AST 0 - 31 U/L 17 Alkaline Phosphatase 35 - 104 IU/L 48 Protein, Total 5.9 - 8.4 g/dL 7.7 Albumin 3.5 - 5.0 g/dL 4.7 * Assessment & Plan Note - Vinicius Brannon PA-C - 03/20/2025 11:02 AM EDT Associated Problem(s): GERD (gastroesophageal reflux disease) Assessment: States is well controlled with omeprazole and denies any recent exacerbations Follows with PCP * Assessment & Plan Note - Vinicius Brannon PA-C - 03/20/2025 11:02 AM EDT Associated Problem(s): Hair loss Assessment: Managing with Spironolactone and minoxidil Following with dermatology * Assessment & Plan Note - Vinicius Brannon PA-C - 03/20/2025 11:02 AM EDT Associated Problem(s): MVP (mitral valve prolapse) Assessment: Following with cardiology Noted on outside chart; patient denies any known history of * Assessment & Plan Note - Vinicius Brannon PA-C - 03/20/2025 11:01 AM EDT Associated Problem(s): POTS (postural orthostatic tachycardia syndrome) Assessment: Following with Dr. Covarrubias at [facility] in [place], [place] with cardiology Patient states surgeon recommended she follow up with neurology, as well. Pending an appointment. Was on Florinef in the past but Dr. Culp asked her to hold and take pyridostigmine and states she is tolerating well Denies any syncopal episodes Well controlled with staying well hydrated [facility] Diagnosis POTS (postural orthostatic tachycardia syndrome)- Primary Tachycardia, unspecified MVP (mitral valve prolapse) Mitral valve disorders Hair loss Alopecia, unspecified Gastroesophageal reflux disease, unspecified whether esophagitis present Autoimmune hepatitis (HCC) Autoimmune hepatitis Engages in vaping Underweight Gastroparesis- Primary [facility] Author Angel Friend [facility] January 02, 2024 9:31am Note Date/Time January 02, 2024 9:3 1am [facility] Medical Records Department [address] [place] [address] History & Physical Exam 01/02/24 0930 MR#: [id number] Acct: [id number] Name: SLOAN BONILLA Rep #:[id number] : 2000 23 From: Angel Gutierrez DO PCP: RIHSABH Chu [place] [address] History and Physical Date of Admission: 01/02/24 SLOAN BONILLA, is a 23 F who presents to the office today for follow up. Sloan established with this clinic 08.19.22. She was previously diagnosed with autoimmune hepatitis by Dr. Granados in 2009 following routine lab work revealing transaminase elevation in the 400?s. Abdominal US followed by Liver biopsy 04.30.2010 mild chronic active hepatitis with portal inflammation 3 of 4, piecemeal necrosis 1/20, lobular degeneration/necrosis ? and fibrosis 0/4. Subsequently started on prednisone andImuran with marked improvement of transaminases. US RUQ 4.20.17 normal. Liver biopsy 09.09.2017 portal inflammation 1 of 4 with mild lymphocytes in one portal area; periportal/periseptal inflammation 0 of 5; parenchymal changes 0 of4, confluent necrosis 0 of 6; fibrosis 0 of 6. she developed dark urine and jaundice with AST 89/ALT 125, TB 3.1, DB 0.8, platelet 132 ? started on prednisone 40mg QD. 12.22.20 labs AST 122/ALT 184, TB 2.4 ? prednisone 30mg BID. Liver US normal, doppler reports portal HTN. 12.30.20 labs AST 26/ALT 101, TB 1.1, DB 0.2. 6TG 250, 6MMP 392. ? Imuran increased to 75mg QD. 01.13.21 labs normalized and prednisone Weaned .06.30 labs AST 23/ALT39, TB 1.3, DB0.2 6TG 414, 6MMP <322 US liver 07.20.21 without portal HTN noted PMH CDI infection at age 10 requiring hospitalization. FH negative for IBD/liver disease. Biochemical workup ESR, coagulation, Ferritin, LDH, CRP, celiac, GUME comp, hepatitis, ANCA, ASM ab, IgGAE without pertinent abnormality. IgM H242 US RUQ and elastography 09.21.22 with normal hepatic echogenicity. No abnormalities noted. Hepatic stiffness measures 5.5kPa. Plan LV 08.19.22: Constipation ? Autoimmune Hepatitis ? biochemical workup and imaging BM have slightly improved with less days between BM but continues to have very small/hard BM without abd pain/bloating/discomfort/bleeding associated. Reports some nausea in the form of a ?gaggy? feeling that she believes is related to herheartburn. Heartburn is an issue approximately 1-2 times a week, feels this is partially associated with poor diet choices. OV 8 In regards to her liver she feels she is doing very well. She has beenitching lately; though body lotion has been helpful. Constipation has been an issue for the last few months; she will have no BM/verysmall BM for several weeks, has had one episode of loose stool with preceding abdominal cramping. She is not typically having abdominal pain. With this she has been having nausea and decreased appetite, though she continues to feel hungry. [facility] recommended Colace and fiber which have been ineffective. US abd/elastography 06.01.23- Liver measures 15.7 5.8 kPa OV 11.27.23- Pt is stable since last visit. Currently taking Imuran 50mg as we were trying to wean her off at last visit. Has tolerated it well. Still struggles with constipation. PCP has her on Amitiza 8mcg BID. Is somewhat helpful Has a BM 1-2 days but feels she is not emptying. Lower abd cramping due to constipation. Is concerned about hair loss. Patient had thin hair and subsequent hair loss before 2009 that led to the diagnosis of AIH after liver biopsy but it got better and her hair becomes thicker after starting on Imuran. It was good until last 4 months again same thing here with hair loss. Patient has not seen electrophonic engineer. Denies abdominal pain. OV 3.1.24- Pt continues to have constipation. Did not go for 3 weeks and was seen at [facility] a month ago. Is taking Amitiza 16mcg BID from her primary. BMare still every 5 days. Also has had dizziness, SOB and fatigue. Has also started seeing [facility] and they are currently working her up for possible Nassawadox's disease and pots. ROS Const Constitutional: Positive for fatigue and weakness ENT ENT: No difficulty swallowing Gastro GI: Positive for bloating, constipation, diarrhea, heartburn, excessive flatus and nausea/dyspepsia; No abdominal pain, belching, change in bowel habits, change in stool character, coffee ground emesis, cramping, difficulty swallowing, feeling full early, incontinent of stools, Vomiting blood/hematemesis, Blood in stool, loose stools,Black,tarry stools, pain with swallowing, vomiting or other Musc Musculoskeletal: Positive for muscle weakness; No joint pain Skin Skin: No yellowing of the eye or itchy eyes Neuro Neurology: Positive for weakness Psych Psychiatric: No anxiety and No depression Endo Endocrine: Positive for fatigue Aller/Imm Allergy/Immunologic: No itchy eyes Lawrence/Lymp Hematologic/Lymphatic: No easy bleeding or easy bruising Quality Reporting Tobacco Screening ([facility] 138) Smoking Status: Never smoker Assessment and Plan Assessment and Plan (1) Autoimmune hepatitis: Status: Chronic Plan: This is a 22-year-old female patient who was diagnosed with AIH type I almost adecade ago; which usually in pancreatic is group's type II. Her lab work reviewed. CBC all 3 cell lines are in normal range. Liver chemistry shows ALT 72, AST 15 otherwise all liver normals. Autoimmune work-up was essentially negative. QuantiFERON gold test negative. Hepatitis panel negative.Last abdominal ultrasound in May 2023 reported normal liver size 15.7 cm with normal echogenicity. 3 system within normal limit. No gallstones CBD 2 mm. Size and echogenicity. No pancreatic mass or cyst. Liver elastography reported 5.5 kPa compatible with F3 to F4 1 normal to mild liver fibrosis mattery score. In meantime, she saw electrophonic engineer for her hair loss and seems it is better. Hereferred to senior director insight patient is feeling very weak and fatigued, low muscle mass. As per the patient though we do not have any record, there is abnormality of testosterone and other hormones and she is getting workup for Loco's disease. Labs reviewed. Liver chemistry, all 3 cell lines within normal limit. Liver ultrasound with elastography also shows normal echogenicity of liver in size. No demonstrated mass. Median liver stiffness 5.5 kPa. Follow-up in 3 months. (2) Constipation: Status: Chronic Qualifiers: Constipation type: unspecified constipation type Qualified Code(s): K59.00 - Constipation, unspecified Plan: She visited [facility] on 10/27/2023 for severe constipation when she did not hadbowel movement as per patient for about [address] abdomen and pelvis with contrast was done and reported as GI tract dilatation or evidence of inflammatory changes. Appendix unremarkable. No focal bladder wall thickening,no hydronephrosis or nephrolithiasis. Mild periportal edema and distention of IVC also reported otherwise liver, spleen, pancreas and both adrenal glands appear normal. She was given enema and Dulcolax oral as per the patient she moved bowel and discharged from the ED. She is on Amitiza 16 mcg twice daily She still has Dulcolax oral and takes it when she could not move bowel in 3 days. Advised to take MiraLAX 17 g twice daily and senna S2 tablet twice daily as needed. Will schedule colonoscopy. I have examined the patient and the H&P has been reviewed. There are no clinical changes since date of exam. 01/02/24 09 <Electronically signed by Angel Gutierrez DO> Cosigner Signature (if applicable): CC: RISHABH Serrano; Angel Gutierrez DO~ Signed [facility] Work Phone: Hospital course Narrative No data available for this section [facility] Hospital Discharge instructions No data available for this section [facility] Progress note No data available for this section [facility] Reason for referral (narrative)No reason for [facility] Phone: Reason for visit Narrative* (Routine) - New Request Specialty Diagnoses / Procedures Referred By Bessy orr Referred To Contact ANESTHESIOLOGY Diagnoses Needs pre-anesthesia assessment Procedures PREOP ANES OR PROXY B/4 SURG Garcia Culp DO [facility] [address] [place] [address] Phone: tel: fax: Pre Anesthesia [address] [place] [address] Phone: tel: Referral ID Status Reason Start Date Expiration Date Visits Requested Visits Authorized [id number] New Request OON/Self Pay Override 03/08/2025 06/16/2026 1 1 [facility] Outpatient Procedure (Routine) - Closed Specialty Diagnoses / Procedures Referred By Bessy orr Referred To Contact [facility] Diagnoses Gastroparesis Procedures EGD - THERAPEUTIC, EUS, OR TUBE INTERVENTIONS EGD BALLOON DILATION ESOPHAGUS <30 MM DIAM Garcia Culp DO [facility] [employer] [address] [place] [address] Phone: tel: fax: [facility] [address] [place] [address] Referral ID Status Reason Start Date Expiration Date V isits Requested Visits Authorized [id number] Closed Auto-Generate d Referral OON/Self Pay Override 02/21/2025 02/21/2026 1 1 [facility] Summary Purpose Family History No Family History Records Found Relationship Condition Age at Onset Recorded Date/T morgan grandmother Disorder of thyroid Unknown Hypertension Unknown Advance Directives No Advanced Directives Records Found Advance Directive Response Recorded Date/ Time Living Will No December 28, 2023 1:43pm Power of Car Rental Agent No December 27 1:43pm Advance Directive Response Recorded Date/ Time Living Will No December 28, 2023 1:43pm Do you have a Healthcare Power of Car Rental Agent? No December 28, 2023 1:43pm Chief Complaint and Reason for Visit Chief Complaint Consult E ORDER Reason for Visit Autoimmune hepatitis Constipation Chief Complaint Consult E ORDER IYER Reason for Visit Autoimmune hepatitis Constipation Chief Complaint 6 MO FU Reason for Visit Autoimmune hepatitis Constipation Chief Complaint 6 MO FU INT LABS Reason for Visit Autoimmune hepatitis Constipation Chief Complaint 6 MO FU INT LABS First Visit 60 E ORDERS Reason for Visit Autoimmune hepatitis Constipation Autoimmune hepatitis Constipation Chief Complaint First Visit 60 E ORDERS E-ORDER 3 MO 30 MIN Reason for Visit Autoimmune hepatitis Constipation Autoimmune hepatitis Constipation Chief Complaint Admit Date 6 M FU November 21, 2024 8:00am 4 M FU March 12, 2025 8:03a m Reason for Visit Admit Date Gastroparesis November 21, 2024 8:00am Autoimmune hepatitis November 21, 2024 8:00am Constipation November 21, 2024 8:00am Additional Source Comments INFORMATION SOURCE (unrecogn ized section and content) DATE CREATED AUTHOR 04/05/2018 [facility] DATE CREATED AUTHOR AUTHOR'S ORGANIZ ATION 06/11/2022 [facility] DATE CREATED AUTHOR AUTHOR'S ORGANIZ ATION 06/07/2024 [facility] ([place]) DATE CREATED AUTHOR AUTHOR'S ORGANIZ ATION 03/12/2025 [facility] DATE CREATED AUTHOR AUTHOR'S ORGANIZ ATION 03/22/2025 [facility] DATE CREATED AUTHOR AUTHOR'S ORGANIZ ATION 04/06/2025 [facility] DATE CREATED AUTHOR AUTHOR'S ORGANIZ ATION 05/21/2025 [facility] Care Team (unrecognized sect ion and content) Care Team Personnel Name: Charles Aldridge Clerk Valerie PT Position: P3 Scheduling - Gis Software Developer Advanced Member Role: Other Name: OSMAN SERRANO APRN, CNP Position: P4 Advanced Practice Nurse Med Service: Employed Provider Member Role: Primary Care Physician Address: Address: [address] [place] [id number] Care Team Related Persons Name: XIOMY BONILLA Address: Home [address] [place], [place] [phone] [place] Address: Temporary [address] [place] [phone] Name: XIOMY BONILLA Address: Home [address] [place] [phone] [place] Name: SCAR BONILLA Address: Home [address] [place] [phone] Care Team Personnel Name: Charles Aldridge Clesara Padilla PT Position: P3 Scheduling - Gis Software Developer Advanced Member Role: Other Name: OSMAN SERRANO APRN TILE ROOFER Position: P4 Advanced Practice Nurse Med Service: Employed Provider Member Role: Primary Care Physician Address: Address: [address] [place] [id number] Care Team Related Persons Name: XIOMY BONILLA Address: Home [address] [place], [place] [phone] [place] Name: XIOMY BONILLA Address: Home [address] [place] [phone] [place] Address: Temporary [address] [place] [phone] Name: SCAR BONILLA Address: Home [address] [place] [phone] Goals (unrecognized section and content) Goals may be documented in a n alternate section Care Teams (unrecognized sec tion and content) Team Status: Active Member Role Status Dates Osman Serrano ARABIC TEACHER, ARABIC TEACHER-C Primary Care Provider Active Team Status: Inactive Member Role Status Dates Osman Serrano ARABIC TEACHER, ARABIC TEACHER-C Primary Care Provider, Referring Provider Active Dr. Angel Gutierrez DO Attending Provider Active Team Status: Inactive Member Role Status Dates Osman Serrano ARABIC TEACHER, ARABIC TEACHER-C Primary Care Provider Active Dr. Angel Gutierrez DO Attending Provider, Referring Provider Active Team Status: Inactive Member Role Status Dates Osman Serrano ARABIC TEACHER, ARABIC TEACHER-C Primary Care Provider, Referring Provider Active Dr. Artie Martinez MD Attending Provider Active Team Status: Inactive Member Role Status Dates Osman Serrano ARABIC TEACHER, ARABIC TEACHER-C Primary Care Provider Active Dr. Artie Martinez MD Attending Provider, Referring P maximus Active Team Status: Active Member Role Status Dates Osman Serrano ARABIC TEACHER, ARABIC TEACHER-C Primary Care Provider, Referring Provider Active Dr. Angel Gutierrez DO Attending Provider, Other Prov ider Active Simulation Developer Relationship Specialty Start Date End Date Matt Angel Ziegler DO [address] [place] [address] Referring Gastroenterology 10/26/24 Simulation Developer Relationship Specialty Start Date End Date MattAngel DO [address] [place] [address] Referring Gastroenterology 10/26/24 Simulation Developer Relationship Specialty Start Date End Date MattAngel DO [address] [place] [address] Referring Gastroenterology 10/26/24 Simulation Developer Relationship Specialty Start Date End Date MattAngel DO [address] [place] [address] Referring Gastroenterology 10/26/24 Simulation Developer Relationship Specialty Start Date End Date Angel Gutierrez DO [address] [place] [address] Referring Gastroenterology 10/26/24 Team Status: Inactive Member Role Status Dates Osman Serrano ARABIC TEACHER, ARABIC TEACHER-C Primary Care Provider Active Start: November [id number] End: November 21, 2024 Osman Serrano ARABIC TEACHER, ARABIC TEACHER-C Referring Provider Active Start: November End: November 21, 2024 Dr. Angel Gutierrez DO Attending Provider Active Start: November 21, 2024 End: November 21, 2024 Team Status: Inactive Member Role Status Dates Osman Serrano ARABIC TEACHER, ARABIC TEACHER-C Primary Care Provider Active Start: March 12, 2025 End: March 12, 2025 Osman Serrano ARABIC TEACHER, ARABIC TEACHER-C Referring Provider Ac tive Start: March 12, 2025 End: March 12, 2025 Dr. Angel Gutierrez DO Attending Provider Active Start: March 12, 2025 End: March 12, 2025 Simulation Developer Relationship Specialty Start Date End Date Angel Gutierrez DO [address] [place], [place] [address] Referring Gastroenterology 10/26/24 Simulation Developer Relationship Specialty Start Date End Date Angel Gutierrez DO [address] [place], [place] [id number] Referring Gastroenterology 10/26/24 Simulation Developer Relationship Specialty Start Date End Date Angel Gutierrez DO [address] [place], [place] [address] Referring Gastroenterology 10/26/24 Source Comments (unrecognize d section and content) In the event this informatio n is protected by the Federal Confidentiality of Alcohol and Drug Abuse Patient Records regulations: The Federal rules restrict any use of the information to criminally investigate or prosecute any alcohol or drug abuse patient.[facility] the event this information is protected by the Federal Confidentiality of Alcohol and Drug Abuse Patient Records regulations: The Federal rules restrict any use of the information to criminally investigate or prosecute any alcohol or drug abuse patient.[facility] the event this information is protected by the Federal Confidentiality of Alcohol and Drug Abuse Patient Records regulations: The Federal rules restrict any use of the information to criminally investigate or prosecute any alcohol or drug abuse patient.[facility] the event this information is protected by the Federal Confidentiality of Alcohol and Drug Abuse Patient Records regulations: The Federal rules restrict any use of the information to criminally investigate or prosecute any alcohol or drug abuse patient.[facility] the event this information is protected by the Federal Confidentiality of Alcohol and Drug Abuse Patient Records regulations: The Federal rules restrict any use of the information to criminally investigate or prosecute any alcohol or drug abuse patient.[facility] the event this information is protected by the Federal Confidentiality of Alcohol and Drug Abuse Patient Records regulations: The Federal rules restrict any use of the information to criminally investigate or prosecute any alcohol or drug abuse patient.[facility] the event this information is protected by the Federal Confidentiality of Alcohol and Drug Abuse Patient Records regulations: The Federal rules restrict any use of the information to criminally investigate or prosecute any alcohol or drug abuse patient.[facility] the event this information is protected by the Federal Confidentiality of Alcohol and Drug Abuse Patient Records regulations: The Federal rules restrict any use of the information to criminally investigate or prosecute any alcohol or drug abuse patient.[facility] the event this information is protected by the Federal Confidentiality of Alcohol and Drug Abuse Patient Records regulations: The Federal rules restrict any use of the information to criminally investigate or prosecute any alcohol or drug abuse patient.[facility] Reason for Visit (unrecogniz ed section and content) Reason Comments Appointment Reason Comments Gastroparesis Specialty Diagnoses / Procedures Referred By Contact Referred To Contact Gastroenterology / GASTROENTEROLOGY Diagnoses Gastroparesis New gp consult Procedures ELECTROGASTROGRAPHY DX TRANSCUT W/PROVOCTVE TSTG ELECTROGASTROGRAM Garcia Culp DO [address] [place] [address] Phone: tel: fax: Nurse [address] [place] [address] Phone: tel:[phone] fax:[phone] Referral ID Status Reason Start Date Expiration Date Visits Re quested Visits Authorized [id number] Closed 12/26/2024 10/09/2025 1 1 Reason Comments Consult Specialty Diagnoses / Procedures Referred By Contact Referred To Contact Gastroenterology / GASTROENTEROLOGY Diagnoses Gastroparesis New gp consult Procedures OFFICE/OUTPATIENT NEW MODERATE MDM 45 MINUTES NEW DDI GASTROPARESIS Garcia Culp DO [address] [place] [address] Phone: tel:[phone] fax:[phone] Garcia Culp DO [address] [employer] [address] [place] [address] Phone: tel: fax:[phone] Referral ID Status Reason Start Date Expiration Date Visits Re quested Visits Authorized [id number] Closed 12/26/2024 10/09/2025 1 1 Reason Comments EGG RESULTS Reason Comments Appointment Gastroparesis clinic : f/u Reason Comments Constipation Gastroparesis Specialty Diagnoses / Procedures Referred By Contac t Referred To Contact GASTROENTEROLOGY Diagnoses Gastroparesis Procedures OFFICE/OUTPATIENT ESTABLISHED MOD MDM 30 MIN Self Garcia Culp DO [address] [employer] [address] [place] [address] Phone: tel: fax: Referral ID Status Reason Start Date Expiration Date Visits Requested Visits Authorized [id number] Authorized OON/Self Pay Override 01/01/2025 10/09/2025 3 3 FOR RECORDS PERTAINING TO PATIENTS WHO ARE [...] BE BASED ON THE PRIMARY CLINICAL RECORDS. [facility] [employer], [facility]. provides no warranty or guarantee of the accuracy or completeness of information in this document.
--- NOTE | 2025-05-26 20:04 | EDS_ITS ---
HPI History of Present Illness HPI Narrative: Patient presents with right hand injury that occurred today. Patient was playing softball when she slid into a base. Patient hit her hand on the base. Patient is right-hand dominant. Patient describes the pain as stinging and throbbing. Patient states it is worse with movement. Patient states it is better with rest. Patient denies any paresthesias or weakness. Patient denies any head injury or loss of consciousness. Patient denies any other injuries. Chief Complaint: Upper Extremity Injury Informant: patient Onset/Context/Timing Onset: Today Context: Sudden Onset Timing: Continuous Quality of Pain: Throbbing and - (Stinging) Location: Right hand Worsened by: Movement Relieved by: Rest Associated Symptoms Associated Symptoms: Negative for Parasthesia or Weakness PFSH [facility] Medical History Gastroparesis Cancer Wears glasses History of Clostridium difficile infection Bruising Hepatitis History of IBS Gastric reflux Smoker IYER (nonalcoholic steatohepatitis) Bloating Home Medications ?Medication ?Instructions ?Recorded ?Last Taken ?Type ondansetron HCl 4 mg tablet 4 mg PO Q6H PRN PRN nausea /vomiting 12/28/23 Unknown History minoxidil 2.5 mg tablet 1.25 mg PO DAILY 08/24/24 History norethindrone 1.5 mg-ethinyl 1 tab PO DAILY 08/24/24 1 10/27/23 History estradiol 30 mcg(21)/iron 75 mg(7) tablet (Junel FE 1.5/30 (28)) azathioprine 50 mg tablet (Imuran) 50 mg PO DAILY #45 tabs 09/25/24 Unknown Rx pyridostigmine bromide 60 mg tablet 60 mg PO BID 03/12 Unknown History omeprazole 40 mg capsule,delayed 40 mg PO DAILY PRN he artburn 05/26/25 Unknown History release spironolactone 50 mg tablet 50 mg PO DAILY 05/26/25 Un known History Allergy/AdvReac Type Severity Reaction Status Date / Time NSAIDS (Non-Steroidal AdvReac Other Verified 05/26/25 21:20 Anti-Inflamma Family History Grandmother Thyroid disorder Hypertension Surgical History Hx of colonoscopy History of liver biopsy Social History Smoking Status: Light Smoker (<10/day) alcohol intake: never ROS ROS ED Constitutional Constitutional ED: Denies chills or fever(s) Eyes Eyes: Denies blurry vision or change in vision ENT ENT ED: Denies rhinorrhea or sore throat Cardiovascular Cardiovascular: Denies chest pain or palpitations Respiratory/Chest Respiratory/Chest: Denies cough or dyspnea Gastrointestinal Gastrointestinal: Denies nausea or vomiting Genitourinary Genitourinary ED: Denies dysuria or hematuria Musculoskeletal Musculoskeletal: Denies back pain or neck pain Integumentary Denies abscess or rash Neurologic Neurologic: Denies headache(s) or weakness Allergic/Immunologic Allergic/Immunologic ED: Denies mouth swelling or urticaria EXAM Physical Exam Const Vital Signs: 05/26/25 18:45 05/26/25 18:45 Temperature 98.3 F Temperature Source Temporal Pulse Rate 114 H 120 H Respiratory Rate 14 Blood Pressure 119/79 Blood Pressure Mean 92 Pulse Ox 100 Oxygen Delivery Method Room Air Positive well nourished and well developed Constitutional Narrative: BMI is 18.0. General Appearance ED: well developed and NAD HEENT Reports moist mucous membranes Neck full ROM and supple Extremity Extremity Narrative: There is tenderness, edema, and ecchymosis over the fifth metacarpal of the right hand. There is limited range of motion in all motions of the 4th and 5th digits of the right hand. There is a hematoma noted. Sensation was intact to light touch in all digits. Capillary refill was less than 2 seconds in all digits. Radial pulses are equal bilaterally. Neuro oriented x3, CN's II-XII intact bilaterally, moves all extremities, no focal motor deficits and no sensory deficits noted Sensorium / Orientation: alert Motor Exam: strength 5/5 throughout Psych mental status grossly normal Skin Skin Narrative: There is a small superficial abrasion over the dorsal aspect of the fifth PIP joint. There is no active bleeding noted. There is no extension to the fracture site. MDM MDM MDM Narrative Medical decision making narrative: Differential diagnosis includes fracture, sprain, and contusion. X-rays of the right hand will be obtained to assess for fracture. Radiography Diagnostic Testing: Clinical Impression(s) from Imaging Studies Hand X-Ray 05/26/25 19:28 IMPRESSION: Acute mildly displaced oblique fracture of the 5th metacarpal shaft with volar angulation. Reading Location: [facility] X-rays of the right hand were obtained. There are 3 views. On my independent interpretation, there is a fracture of the midshaft of the right fifth metacarpal. The distal fragment is angulated volarly by approximately 30 degrees. There is minimal displacement. Radiologist also interpreted the x- rays and agrees. Treatment and Re-Evaluation Narrative: Patient was advised of the need for sedation and reduction. Patient was advised of the risks and benefits of conscious sedation. Patient is agreeable with this. The patient had no further questions. After informed signed consent was obtained. Patient was placed on continuous cardiac and pulse oximeter monitors. Patient was given a total of 70 mg of propofol. After adequate sedation, the fracture was reduced. Patient was placed in a well-padded custom made ulnar gutter splint using 4 inch Ortho-Glass. Patient tolerated the procedure well. There were no hypoxic or hypercarbic episodes. Total sedation time was 4 minutes. Repeat x-rays of the right hand were obtained. There are 3 views. On my independent interpretation, the fracture fragments are in better alignment. Patient was instructed to ice and elevate the right hand. Procedures Upper Extremity Splints Upper Extremity Splint: Orthoglass and Ulnar gutter Splint Fabrication: Fabricated Location: Right Procedural Sedation 1 (Initial Baseline): Consent Signed: Yes Any Problems With Anesthesia: No You/Your family experience fever (hyperthermia) w/anesthesia: No Sedation medication: Propofol Dose: 70 Route: IV Maliampati Score: Class I ASA Classification: II Comment:: Total sedation time was 4 minutes. Discharge Plan Triage Chief Complaint: Upper Extremity Injury ED Provider: Hunter Diaz Dx/Rx/DC Orders Clinical Impression: Fracture of fifth metacarpal bone of right hand, Nicotine vapor product user Instructions: ED Closed Hand Fracture (Adult) Prescriptions: No Action azathioprine [Imuran] 50 mg tablet 50 mg PO DAILY Qty: 45 4RF pyridostigmine bromide 60 mg tablet 60 mg PO BID omeprazole 40 mg capsule,delayed release(DR/EC) 40 mg PO DAILY PRN (Reason: heartburn) spironolactone 50 mg tablet 50 mg PO DAILY ondansetron HCl 4 mg tablet 4 mg PO Q6H PRN PRN (Reason: nausea/vomiting) minoxidil 2.5 mg tablet 1.25 mg PO DAILY norethindrone-e.estradiol-iron [ FE .5/ (28)] 1.5 mg-30 mcg (21)/75 mg (7) tablet 1 tab PO DAILY Primary Care Provider: Kennedy Serrano NP Referrals: Aidan Rollins DO [Med Staff - Active Staff] - 3-5 Days Kennedy Serrano NP, NEON TUBE PUMPER-C [Primary Care Provider] - Print Language: Greenlandic Disposition Disposition: Home, Self Care
--- NOTE | 2025-05-26 21:25 | RAD_ITS ---
PROCEDURE: RIGHT HAND MIN 3 VIEWS 05/26/2025 REASON FOR EXAM: INJURY/PAIN TECHNIQUE: RIGHT HAND MIN 3 VIEWS COMPARISON: Earlier same day 05/26/2025. FINDINGS: Interval closed reduction and splinting of the 5th metacarpal shaft fracture. Slightly improved alignment although there is persistent mild volar angulation of the distal fragment. Preserved joint spaces. Soft tissue swelling at the ulnar aspect of the hand. RAD/Hand Min 3 Views IMPRESSION: Interval closed reduction and splinting of the 5th metacarpal shaft fracture, w ith slightly improved osseous alignment although there is persistent mild volar angulation. Reading Location: [id number]
== END 2025-05-26 22:12 | disposition home or self-care (01) ==
PROVIDERS: Emergency Provider Emergency Medicine; PCP Nurse Practitioner Family; Visit Provider Emergency Medicine
DX: S62.326A Displaced fracture of shaft of fifth metacarpal bone, right hand, initial encounter for closed fracture (principal); W22.09XA Striking against other stationary object, initial encounter; Y93.64 Activity, baseball; F17.290 Nicotine dependence, other tobacco product, uncomplicated
CPT/HCPCS: 26605; 29125; 73130; 99284; A4216

== ENCOUNTER 2025-05-30 09:48 | Day surgery (SDC) | payer OTHER, SELFPAY ==
[2025-05-30] VITALS (9 sets, daily range): BP systolic 98–106; BP diastolic 55–75; PULSE 57–67; RESP 16; TEMP 36.2–36.7; O2SAT 96–100; BMI 17.7
[2025-05-30 10:21] LABS: Internal QC Validated? YES +Cl - CLEAR BKGD; Pregnancy, Urine Negative Negative
[2025-05-30 10:22] LABS: Record Kit Lot#,Urine Preg 0000962302
[2025-05-30] MEDS: Lactated Ringers 1,000 ML 15 ML IV (10:38)
--- NOTE | 2025-05-30 10:53 | PRE.ANES_ITS ---
ASA Classification* ASA Classification ASA Classification: 2 Assessment & Plan Anesthesia* Anesthesia Assessment Anesthesia Assessment: Discussed sedation and/or anesthesia options, risks, benefits, and alternatives with patient/parents/legal guardian/POA. Questions invited. The patient/parents/legal guardian/POA seems to understand and agrees to proceed with anesthesia plan. Reviewed the physical assessment, medical history, allergy history and patient home medications list prior to surgery/procedure/anesthetic and documented any changes. Performed airway and anesthesia risk assessments. Anesthesia Type Anesthesia Type: General History Source History Obtained from:: Patient and Chart Anesthesia Focused Assessment* Temperature: 98.1 F Pulse Rate: 61 Blood Pressure: 98/65 Respiratory Rate: 16 Pulse Ox: 100 Oxygen Delivery Method: Room Air Airway Assessment Mouth opens: >3 cm Mallampati Score: II Teeth Condition: Intact Neck Range of motion (ROM): Full ROM Labs Anesthesia Preop lab: CBC WBC 9.7 K/mm3 (4.4-11.0) 09/03/24 12:10 09/03/24 RBC 4.15 M/mm3 (4.2-5.4) L 09/03/24 12:10 09/03/24 Hgb 13.4 g/dL (12.0-15.0) 09/03/24 12:10 09/03/24 Hct 38.2 % (37-47) 09/03/24 12:10 09/03/24 Plt Count 297 K/mm3 (150-450) 09/03/24 12:10 09/03/24 CHEMISTRY Potassium 3.6 mmol/L (3.5-5.1) 03/19/24 13:04 03/19/24 Sodium 135 mmol/L (136-145) L 03/19/24 13:04 03/19/24 Magnesium 2.4 mg/dL (1.6-2.6) 08/03/24 15:21 08/03/24 BUN 7 mg/dL (7-18) 03/19/24 13:04 03/19/24 Creatinine 0.82 mg/dL (0.55-1.02) 03/19/24 13:04 03/19/24 Glucose 113 mg/dL (74-106) H 03/19/24 13:04 03/19/24 TSH 1.760 uIU/mL (0.358-3.740) 08/03/24 15:21 10/03/02 COAG PT 14.8 SECONDS (11.7-14.9) 04/26/24 15:32 Urine Test Negative Negative 05/30/25 10:05 05/30/25 Pre-Assessment Diagnosis/Proposed Procedure Planned Operative Procedure(s): orif pinky finger Anesthesia History 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 When Was Last Pacemaker Check QUESTION #4 FULL TEXT: You/Your Family Experience fever (hyperthermia) with Anesthesia Last Oral Intake Last Oral intake: Last Oral Intake NPO since 00:00 05/30/25 10:28 Meds taken in AM with sips of water? Meds patient instructed to take am of surgery PONV PONV - wood furniture assembler: PONV - wood furniture assembler Female Yes 05/30/25 10:28 HX of Motion Sickness No 05/30/25 10:28 HX of N/V After Surgery No 05/30/25 10:28 Non-Smoker No 05/30/25 10:28 Duration of Surgery greater No 05/30/25 10:28 than 60 minutes Number of Risk Factors 1 05/30/25 10:28 PONV Score Low Risk 05/30/25 10:28 Height & Weight Height & Weight: Anesthesia: Height & Weight Height 5 ft 8 in 05/30/25 10:28 Weight: 53 kg 05/30/25 10:28 Body Mass Index (BMI) 17.7 05/30/25 10:28 Respiratory Assessment Respiratory Assessment - wood furniture assembler: Respiratory Tract Infection Hx - wood furniture assembler Hx Respiratory Tract Infection No 05/30/25 10:28 STOP Sleep Apnea STOP Sleep Apnea - wood furniture assembler: STOP Sleep Apnea - wood furniture assembler Hx Hypertension No 05/30/25 10:28 Hx Sleep Apnea No 05/30/25 10:28 CPAP BIPAP Do you snore loudly (louder No 05/30/25 10:28 than talking or can be heard Do you often feel tired/ No 05/30/25 10:28 fatigued/ sleepy during daytime? Has anyone observed you stop No 05/30/25 10:28 breathing during sleep? STOP Results Negative 05/30/25 10:28 QUESTION #5 FULL TEXT : Do you snore loudly (louder than talking or can be heard through closed doors)? 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 Specify any problems Hx of Preganancy in last 3 No 05/30/25 10:28 Months Nurse Filling Out Transfusion SABRINA 05/30/25 10:28 & Questions: Date: 05/30/25 05/30/25 10:28 Time: 10:35 05/30/25 10:28 Patient unable to answer at this time (ie. confused, unrespo /Reproduction History /Reproductive History - wood furniture assembler: /Reproductive Hx- wood furniture assembler Hx Now Yes 05/30/25 10:28 Gestational Age (in weeks): EDC: Hx Hx Para Hx Section SAB No 05/30/25 10:28 Active Medications Active Medications: Current Medications Generic Name Dose Route Start Last Admin Trade Name Freq PRN Reason Stop Dose Admin Cefazolin Sodium 1 gm in 50 mls @ 100 mls/hr 05/31/25 12:00 IV 05/31/25 12:29 INTRAOP ONE Lactated Ringer's 1,000 mls @ 15 mls/hr 05/30/25 10:15 05/30/25 10:38 IV 15 mls/hr .Q48H RENEE Administration PFSH Medical History (Updated 05/30/25 @ 10:29 by Briana Teixeira) Postural orthostatic tachycardia syndrome Gastroparesis Cancer Wears glasses History of Clostridium difficile infection Bruising Hepatitis History of IBS Gastric reflux Smoker IYER (nonalcoholic steatohepatitis) Bloating Home Medications ?Medication ?Instructions ?Recorded ?Last Taken ?Type ondansetron HCl 4 mg tablet 4 mg PO Q6H PRN PRN nausea /vomiting 12/28/23 Unknown History minoxidil 2.5 mg tablet 1.25 mg PO DAILY 08/24/24 History norethindrone 1.5 mg-ethinyl 1 tab PO DAILY 08/24/24 0 05/26/25 History estradiol 30 mcg(21)/iron 75 mg(7) tablet (Junel FE 1.5/30 (28)) azathioprine 50 mg tablet (Imuran) 50 mg PO DAILY #45 tabs 09/25/24 05/29/25 Rx pyridostigmine bromide 60 mg tablet 60 mg PO BID 03/1205/29/25 History omeprazole 40 mg capsule,delayed 40 mg PO DAILY PRN he artburn 05/26/25 05/29/25 History release spironolactone 50 mg tablet 50 mg PO DAILY 05/26/25 History Allergy/AdvReac Type Severity Reaction Status Date / Time acetaminophen AdvReac Other Verified 05/30/25 10:24 Family History (Updated 05/30/25 @ 10:31 by Briana Teixeira) Grandmother Hypertension Thyroid disorder Grandfather Myocardial infarction Parkinson disease Rheumatoid arthritis Surgical History Hx of colonoscopy History of liver biopsy Social History Smoking Status: Light Smoker (<10/day) alcohol intake: never Review of Systems (Anesthesia) ROS Narrative System reviewed and no additional complaints, except as documented.
--- NOTE | 2025-05-30 11:00 | RAD_ITS ---
PROCEDURE: HAND MIN 3 VIEWS; O.R. FLUORO FOR C-ARM 05/30/2025 REASON FOR EXAM: ORIF 5TH MC TECHNIQUE: HAND MIN 3 VIEWS; O.R. FLUORO FOR C-ARM Laterality: Right. COMPARISON: Right hand study 05/26/2025. RAD/O.R. Fluoro for C-Arm IMPRESSION: Intraoperative fluoroscopy was performed for fracture fixation of the right 5th metacarpal bone. A total of 5 fluoroscopic images were also obtained. Reading Location: [facility]-
--- NOTE | 2025-05-30 11:00 | RAD_ITS ---
PROCEDURE: HAND MIN 3 VIEWS; O.R. FLUORO FOR C-ARM 05/30/2025 REASON FOR EXAM: ORIF 5TH MC TECHNIQUE: HAND MIN 3 VIEWS; O.R. FLUORO FOR C-ARM Laterality: Right. COMPARISON: Right hand study 05/26/2025. RAD/Hand Min 3 Views IMPRESSION: Intraoperative fluoroscopy was performed for fracture fixation of the right 5th metacarpal bone. A total of 5 fluoroscopic images were also obtained. Reading Location: [place] [address]
[2025-05-30] MEDS: Midazolam 2 MG/2 ML Syringe IV (12:25)
[2025-05-30] MEDS: Cefazolin 1 GM/5 ML Vial IV (12:25)
[2025-05-30] MEDS: Lidocaine 1% (5 ml sdv) 5 ML Vial 6 ML IV (12:31)
[2025-05-30] MEDS: fentaNYL 100 MCG/2 ML Ampul IV (12:50)
[2025-05-30] MEDS: dexMEDEtomidine 200 MCG/2 ML ML 8 MCG IV (13:35)
--- NOTE | 2025-05-30 13:41 | PCM.OPRPT ---
Operative Report (Standard) Operative Information Date of Procedure: 05/30/25 Pre-Operative Diagnosis: Displaced right fifth metacarpal shaft spiral fracture Post-Operative Diagnosis: Displaced right fifth metacarpal shaft spiral fracture Surgery/Procedure Performed: Reduction internal fixation right fifth metacarpal shaft research development director: Yes Home Care Provider: Susan Roper Tasks completed by assistant producer: Opening & closing, Implanting device and Retracting Type of Anesthesia: General RN Documented Start/Stop Times: Operation Date: 05/30/25 12:00 Case Time Into Pre-Op 05/30/25 10:09 Out of Pre-Op 05/30/25 12:21 Anesthesia Start 05/30/25 12:45 Into Room 05/30/25 12:45 Procedure Start 05/30/25 12:51 Procedure End 05/30/25 13:38 Procedure Start Time: 12:51 Procedure Stop Time: 13:38 Select all DRAINS/GRAFTS/IMPLANTS that apply: Implanted device Implanted device details: Synthes 2.0 mm cortical screw x 3 Estimated Blood Loss: 10 cc Specimen collected: No Description of surgery: Patient was seen in preoperative holding area. She was identified by name, medical record number, date of . The operative extremity was marked with a surgical marker. We confirmed informed consent with the patient and all questions were answered to her satisfaction. At time of her procedure, patient was brought to the operative suite and positioned supine a standard operating table. All bony prominences were well-padded. General anesthesia was induced and endotracheal tube placed. The right upper extremity was then prepped for surgery by first applying a well-padded pneumatic tourniquet to the right forearm. The hand table attached to the right side of the table. We spun the bed 90 degrees. The right upper extremity was then prepped and draped in normal, sterile orthopedic fashion. 2 g Ancef was administered prior to incision by anesthesia staff. We performed a timeout at this point confirming side, site, and operation to be performed. No concerns voiced and elected to proceed. We first exsanguinated the left upper extremity with a an Esmarch bandage. Tourniquet was inflated to 250 mmHg were made up for 31 minutes. I made a longitudinal incision overlying the fifth metacarpal. Full-thickness skin flaps were developed down the level of the fascia. Extensor tendons were identified, protected throughout the case and appeared pristine. I bluntly elevated the EDC and EDM tendon of the fifth metacarpal radially. I elevated the periosteum from the fifth metacarpal which identified fracture. Wound was thoroughly irrigated with normal saline. I was able to manually reduce the fracture and hold it in place with a oblique K wire. Fluoroscopy confirmed reduction. Three 2.0 mm lag screws were placed in lag by technique fashion. Excellent compression and fixation was achieved. Given 3 lag screws, decision was made to proceed without a neutralization plate. Fracture appeared stable to stressing. No significant rotational deformity was apparent. Final fluoroscopic images were obtained. Wound was again thoroughly irrigated with normal saline solution. Periosteum was used to cover the screw heads with 3-0 Vicryl suture. Dermis was reapproximated buried 3-0 Vicryl suture. Skin was reapproximated with running subcuticular 4 Monocryl, Dermabond and a Steri-Strip. Sterile compression dressing was applied as well as a well-padded volar fiberglass splint with neema taping of the 4th and 5th digits. Field block was administered with 20 cc half percent bupivacaine plain prior to closure. Patient tolerated procedure well without apparent complication. She was subsequently extubated and transferred to PACU in stable condition. Need for skilled blood bank assistant: Susan Roper PA-C was critical to the outcome of the case. During the course of the procedure the physician blood bank assistant played a vital role. Her intimate knowledge of my steps in the procedure aided in safe and expedient completion of the procedure. The PA played a vital role in positioning particularly in obtaining the appropriate positioning. The PA was also vital in the retraction of soft tissues during the exposure and projecting vital structures. . She also played a vital role in closure with my direct supervision as well as splint application. Post Operative Plan: Weightbearing: Nonweightbearing operative extremity Antibiotics: Ancef 2 g x 1 dose preoperatively DVT Prophylaxis: None indicated Ochoa: None Dressing: Maintain splint, keep it clean dry and intact until follow-up X-Rays:1 Week postop in the office Pain Medication: Oxycodone prescription provided in the office Follow-up: 1 weeks post-operatively in the office. Plan to transition to boxers brace and initiation of hand therapy. Surgical Findings: Displaced spiral fifth metacarpal shaft fracture. Stable after fixation with 3 lag screws. Digital malrotation corrected. Complications Complications: No Admit VTE Documentation VTE Present on Admission: No VTE Mechan Device Prophylaxis: SCD's VTE Pharm Prophylaxis ordered?: No Reason prophylaxis not ordered: Treatment Not Indicated
--- NOTE | 2025-05-30 13:51 | PCM.POST.ANE ---
Anesthesia: Postop Eval I Current Vital Signs Temperature: 97.2 F Pulse Rate: 63 Blood Pressure: 104/68 Respiratory Rate: 16 Pulse Ox: 96 Assessment Airway patent: Yes Spontaneous unlabored respirations: Yes nausea: No Vomiting: No Anesthesia Complication: No Fluid Hydration Crystalloid volume administer (ml): 800 Total IV fluid infused: 800 Progress Note Anesthesia document: Postop Eval 1 completed: Yes
--- NOTE | 2025-05-30 14:22 | POSTOPAN2_ITS ---
Anesthesia Postop Eval I Sum Postop Eval Completion status Anesthesia document: Postop Eval 1 completed: Yes Anesthesia Postop Eval I Summary Anesthesia Postop Eval I Summary: Anesthesia Postop Eval I: Assessment Summary Airway patent Yes 05/30/25 13:51 [email or web address] Spontaneous unlabored Yes 05/30/25 13:51 [email or web address] respirations Mental status nausea No 05/30/25 13:51 [email or web address] Vomiting No 05/30/25 13:51 [email or web address] Anesthesia Postop Eval I: Fluid Summary Crystalloid volume administer 800 05/30/25 13:51 [email or web address] (ml) Colloids volume administered ( ml) Blood Product volume administered (ml) Total IV fluid infused 800 05/30/25 13:51 [email or web address] Anesthesia Postop Eval I: Summary Notes Anesthesia Complication No 05/30/25 13:51 [email or web address] Anesthesia Complication Comment: Post-operative progress note Anesthesia: Postop Eval II Evaluation Mental status: Awake Pain Level: 0 nausea: No Vomiting: No Complications Anesthesia Complication: No
--- NOTE | 2025-05-30 14:22 | PCM.POSTANE2 ---
Anesthesia Postop Eval I Sum Postop Eval Completion status Anesthesia document: Postop Eval 1 completed: Yes Anesthesia Postop Eval I Summary Anesthesia Postop Eval I Summary: Anesthesia Postop Eval I: Assessment Summary Airway patent Yes 05/30/25 13:51 [email or web address] Spontaneous unlabored Yes 05/30/25 13:51 [email or web address] respirations Mental status nausea No 05/30/25 13:51 [email or web address] Vomiting No 05/30/25 13:51 [email or web address] Anesthesia Postop Eval I: Fluid Summary Crystalloid volume administer 800 05/30/25 13:51 [email or web address] (ml) Colloids volume administered ( ml) Blood Product volume administered (ml) Total IV fluid infused 800 05/30/25 13:51 [email or web address] Anesthesia Postop Eval I: Summary Notes Anesthesia Complication No 05/30/25 13:51 [email or web address] Anesthesia Complication Comment: Post-operative progress note Anesthesia: Postop Eval II Evaluation Mental status: Awake Pain Level: 0 nausea: No Vomiting: No Complications Anesthesia Complication: No
== END 2025-05-30 14:42 | disposition home or self-care (01) ==
LOC: SDC 09:49 → AC 09:51
PROVIDERS: Anesthesiology; PCP Nurse Practitioner Family; Referring Provider Student in an Organized Health Care Education/Training Program; Visit Provider Student in an Organized Health Care Education/Training Program
PROC: (CPT 26615; principal; 2025-05-30 11:45)
DX: S62.326A Displaced fracture of shaft of fifth metacarpal bone, right hand, initial encounter for closed fracture (principal); W22.8XXA Striking against or struck by other objects, initial encounter; Y93.64 Activity, baseball; K21.9 Gastro-esophageal reflux disease without esophagitis; K75.81 Nonalcoholic steatohepatitis (NASH); F17.200 Nicotine dependence, unspecified, uncomplicated; Z79.899 Other long term (current) drug therapy
CPT/HCPCS: 26615; 01820; 73130; 76000; 81025; C1713; J2405

== ENCOUNTER → 2025-07-15 | Outpatient (CLI) | payer OTHER, SELFPAY ==
[2025-07-15 10:43] LABS: Hematocrit 38.9 % (37-47); Hemoglobin 14.2 g/dL (12.0-15.0); Immature Granulocytes Count 0.010 X10^3/uL (0.0-0.0); Mean Corp Hgb Conc 36.5 g/dL (32-36); Mean Corpuscular Volume 89.0 fL (81-99); Mean Platelet Vol. 11.4 fl (6.2-12.0); NRBC Flagged by Analyzer 0 % (0-5); Platelet Count 273 K/mm3 (150-450); RBC Distribution Width CV 13.2 % (11.6-14.6); RBC Distribution Width SD 42.8 fl (35.1-43.9); Red Blood Count 4.37 M/mm3 (4.2-5.4); White Blood Count 5.0 K/mm3 (4.4-11.0)
[2025-07-15 11:37] LABS: AST(SGOT) 27 U/L (<=31); Alanine Aminotransfer ALT/SGPT 61 U/L (<=34); Albumin, Serum 4.1 g/dL (3.5-5.0); Alkaline Phosphatase 65 U/L (35-104); Anion Gap 10 (5-15); BUN 10 mg/dL (4-19); BUN/Creat Ratio 10.4 RATIO (10-20); Bilirubin, Direct 0.34 mg/dL (0.00-0.30); Calcium,Total 9.3 mg/dL (7.6-11.0); Carbon Dioxide 22.5 mmol/L (21.0-32.0); Chloride 107 mmol/L (98-108); Globulin 3.0 g/dL (2.2-4.2); Glucose 86 mg/dL (70-99); Potassium 4.8 mmol/L (3.3-5.1)
[2025-07-15 12:06] LABS: Amylase 50 U/L (28-100); CRP < 3.00 mg/L (0.0-3.0); Lipase 37 U/L (13-75)
== END | disposition home or self-care (01) ==
LOC: LAB 09:36
PROVIDERS: PCP Nurse Practitioner Family; Referring Provider Internal Medicine Gastroenterology; Visit Provider Internal Medicine Gastroenterology
DX: K75.4 Autoimmune hepatitis (principal)
CPT/HCPCS: 36415; 80053; 82150; 82248; 83690; 85025; 85652; 86140

== ENCOUNTER → 2025-10-09 | Outpatient (CLI) | payer OTHER, SELFPAY ==
[2025-10-11 20:08] LABS: HPV APTIMA, High Risk Negative (Negative)
== END | disposition home or self-care (01) ==
LOC: LABSPEC 11:57
PROVIDERS: Nurse Practitioner Family; PCP Nurse Practitioner Family; Visit Provider Nurse Practitioner Women's Health
DX: Z98.890 Other specified postprocedural states (principal)
CPT/HCPCS: 87624; 88175; G0145